=== PATIENT | male | born 1980 | race Caucasian/White ===

== ENCOUNTER 2018-08-19 14:04 | Inpatient (IN) | payer OTHER ==
[~2018-08-19] VITALS: Ht 180.3 cm; Wt 104.2 kg
[2018-08-19 16:34] VITALS: BP 122/73; PULSE 100; RESP 19
[2018-08-19 16:57] VITALS: PULSE 104
[2018-08-19 17:04] VITALS: Ht 180.3 cm; Wt 104.2 kg
--- NOTE | 2018-08-19 17:15 | HP ---
Date/Time of Note Date/Time of Note DATE: 08/19/18 TIME: 17:15 Assessment/Plan VTE Prophylaxis SCD applied (from [facility]): Yes Pharmacological prophylaxis: LMWH Assessment/Plan Assessment/Plan 1. Acute CHF exacerbation - Per ED records patient BNP was noted to be in the 2K - CXR from OSH consistent with pulmonary congestion and CHF - Will monitor I/O and daily weights - Lasix IV BID and when closer to dry weight will transition to PO - most likely secondary to acute URI triggering exacerbation - ECHO ordered to evaluate EF 2. HTN - continue home medications 3. h/o gastric bypass 4. DVT ppx - SCD 5. GI ppx - H2 talya 6. Diet - Cardiac 7. Disposition - Admit to telemetry for treatment of acute CHF exacerbation HPI/ROS Admit Date/Time Admit Date/Time Aug 19, 2018 at 15:56 Hx of Present Illness 38 yo M with PMH gastric bypass surgery and congestive heart failure was transferred from OSH after presenting with worsening shortness of breath over the past 1 week. Patient states he developed a cough with clear productive sputum and subjective fevers one week ago prior to SOB. Denies any sick contact and still with productive cough but no fevers. Patient states he knows he has been retaining fluid and has associated wheezing. Denies any dizziness, headache, chest pain, palpitations, nausea, vomiting, abdominal pain, or urinary symptoms. Labs reviewed. Cr 1.0 BUN 27, Na 140, K 4.5, Cl 107, and Co2 23 ROS All 12 systems reviewed and pertinent positives as per HPI. All others negative. Constitutional: No chills, No fatigue, No nausea Eyes: No discharge ENT: No congestion Respiratory: cough, shortness of breath, wheezing Cardiovascular: No chest pain, No lightheadedness, No palpitations Gastrointestinal: no complaints Genitourinary: no complaints Musculoskeletal: no complaints Skin: no complaints Neurologic: no complaints Endocrine: no complaints Lymphatic: no complaints Psychological: nl mood/affect Immunologic: no complaints PMH/Family/Social Past Medical History Medical History: congestive heart failure, hypertension Coded Allergies: No Known Allergies (Verified Allergy, Unknown, 08/19/18) Past Surgical History Past Surgical Hx: cholecystectomy, other (gastric bypass) Family History Significant Family History: no pertinent family hx Social History Alcohol Use: none Smoking Status: Former smoker Drug Use: none Exam/Review of Systems Vital Signs Vitals Vital Signs Date Temp Pulse Resp B/P (MAP) Pulse Ox O2 O2 Flow FiO2 Time Delivery Rate 08/19/18 104 16:57 08/19/18 98.0 19 122/73 96 16:34 (89) Exam Exam General: Patient is laying in bed, no acute distress. answering questions appropriately HEENT: NC/AT. PERRL. EOM intact. Neck: Supple Respiratory: Crackles diffusely but more prominent at bases. no wheezing or rhonchi Cardiovascular: S1, S2, sinus tachycardia. no obvious murmurs Gastrointestinal: Soft, non-tender to palpation, nondistended, bowel sounds heard. Neurological: no focal deficits. CN 2-12 intact Extremities: trace edema lower extremities bilaterally, no cyanosis or clubbing Skin: no rashes or lesions Additional Comments Home medications reviewed MIRIAM COLLIER MD Aug 19, 2018 17:15
[2018-08-19] MEDS ORDERED: NACL 0.9% 3 ML SYG IV SCH (17:30)
[2018-08-19] MEDS ORDERED: ONDANSETRON 4 MG INJ IV PRN (17:30)
[2018-08-19] MEDS ORDERED: ACETAMINOPHEN 325 MG TAB PO PRN (17:30)
[2018-08-19] MEDS ORDERED: DOCUSATE SODIUM 100 MG CAP PO PRN (17:30)
[2018-08-19] MEDS ORDERED: MAGNESIUM HYDROXIDE 30ML CUP PO PRN (17:30)
[2018-08-19] MEDS: FUROSEMIDE 40 MG INJ IV SCH (18:00)
[2018-08-19] MEDS ORDERED: GUAIFENESIN/DM 5ML CUP PO PRN (18:30)
[2018-08-19 20:00] VITALS: BP 116/73; PULSE 91; PULSE 99; RESP 18
[2018-08-19] MEDS: FAMOTIDINE 20 MG TAB PO SCH (20:19)
[2018-08-20] VITALS (11 sets, daily range): BP systolic 96–119; BP diastolic 61–70; PULSE 68–91; RESP 18–20
--- NOTE | 2018-08-20 03:03 | NUR ---
NOTES RECEIVED PT AWAKE ALERT ON BED WITH O2 VIA NASAL CANNULA. MEDS GIVEN. INSTRUCTED TO CALL THE NURSE WHEN HE NEEDED. PRN MEDS FOR COUGH GIVEN. WILL CONTINUE TO MONITOR PT.
[2018-08-20] MEDS: FUROSEMIDE 40 MG INJ IV SCH ×3 (05:35→17:36)
[2018-08-20] MEDS: FAMOTIDINE 20 MG TAB PO SCH ×2 (08:24→20:26)
[2018-08-20] MEDS: LOSARTAN 25 MG TAB PO SCH (08:25)
[2018-08-20] MEDS: ASPIRIN 81 MG TAB PO SCH (08:25)
[2018-08-20] MEDS: ENOXAPARIN 40 MG/0.4 ML SYG SC SCH (08:32)
--- NOTE | 2018-08-20 09:32 | PN ---
Date/Time of Note Date/Time of Note DATE: 08/20/18 TIME: 09:32 Assessment/Plan VTE Prophylaxis Risk score (from [facility] [place])>0 risk: 3 SCD applied (from [facility]): No SCD contraindicated: patient refusal Pharmacological prophylaxis: LMWH Lines/Catheters IV Catheter Type (from [facility]): Saline Lock Assessment/Plan Assessment/Plan 1. Acute CHF exacerbation - Patient followed by Dr. Rivas as outpatient and Cardiology group consulted for recommendations - BNP this am 5000 - CXR from OSH consistent with pulmonary congestion and CHF - Will monitor I/O and daily weights - Will increase Lasix to TID for better diuresis and await cardiology input - most likely secondary to acute URI triggering exacerbation - ECHO ordered to evaluate EF 2. HTN - continue home medications 3. h/o gastric bypass 4. Disposition - cardiology consultation placed for assistance with diuresis Result Diagram: 08/20/1816 08/20/18 0516 Results 24hrs Laboratory Tests Test 08/20/18 05:16 White Blood Count 5.7 Red Blood Count 4.55 L Hemoglobin 12.6 L Hematocrit 39.8 L Mean Corpuscular Volume 87.5 Mean Corpuscular Hemoglobin 27.7 L Mean Corpuscular Hemoglobin Concent 31.7 L Red Cell Distribution Width 14.4 Platelet Count 319 Mean Platelet Volume 9.8 Immature Granulocytes % 0.200 Neutrophils % 63.3 Lymphocytes % 25.9 Monocytes % 8.6 Eosinophils % 1.1 Basophils % 0.9 Nucleated Red Blood Cells % 0.0 Immature Granulocytes # 0.010 Neutrophils # 3.6 Lymphocytes # 1.5 Monocytes # 0.5 Eosinophils # 0.1 Basophils # 0.1 Nucleated Red Blood Cells # 0.0 Sodium Level 143 Potassium Level 4.0 Chloride Level 103 Carbon Dioxide Level 26 Anion Gap 14 H Blood Urea Nitrogen 26 H Creatinine 1.06 Est Glomerular Filtrat Rate mL/min > 60 Glucose Level 108 Hemoglobin A1c 5.5 Calcium Level 9.1 Magnesium Level 1.9 Total Bilirubin 0.5 Direct Bilirubin 0.00 Indirect Bilirubin 0.5 Aspartate Amino Transf (AST/SGOT) 35 Alanine Aminotransferase (ALT/SGPT) 41 Alkaline Phosphatase 68 B-Type Natriuretic Peptide 5670 H Total Protein 6.9 Albumin 3.6 Globulin 3.30 H Albumin/Globulin Ratio 1.09 Thyroid Stimulating Hormone (TSH) 1.190 Subjective 24 Hr Interval Summary Free Text/Dictation Patient states hes feeling better and has been urinary more. No acute overnight events. Exam/Review of Systems Exam Vitals Vital Signs Date Temp Pulse Resp B/P (MAP) Pulse Ox O2 O2 Flow FiO2 Time Delivery Rate 08/20/18 Nasal 2.0 08:00 Cannula 08/20/18 98.1 68 18 113/67 97 07:11 (82) Intake and Output 08/19/18 08/19/18 08/20/18 1515:00 23:00 07:00 IntakeIntake Total 450 ml 450 ml OutputOutput Total 800 ml 800 ml BalanceBalance -350 ml -350 ml Physical exam General: Patient is laying in bed, no acute distress. answering questions appropriately Respiratory: Crackles diffusely but more prominent at bases. no wheezing or rhonchi Cardiovascular: S1, S2, regular rate and rhythm. no obvious murmurs Gastrointestinal: Soft, non-tender to palpation, nondistended, bowel sounds heard. Extremities: trace edema lower extremities bilaterally, no cyanosis or clubbing Results Results 24hrs Laboratory Tests Test 08/20/18 05:16 White Blood Count 5.7 Red Blood Count 4.55 L Hemoglobin 12.6 L Hematocrit 39.8 L Mean Corpuscular Volume 87.5 Mean Corpuscular Hemoglobin 27.7 L Mean Corpuscular Hemoglobin Concent 31.7 L Red Cell Distribution Width 14.4 Platelet Count 319 Mean Platelet Volume 9.8 Immature Granulocytes % 0.200 Neutrophils % 63.3 Lymphocytes % 25.9 Monocytes % 8.6 Eosinophils % 1.1 Basophils % 0.9 Nucleated Red Blood Cells % 0.0 Immature Granulocytes # 0.010 Neutrophils # 3.6 Lymphocytes # 1.5 Monocytes # 0.5 Eosinophils # 0.1 Basophils # 0.1 Nucleated Red Blood Cells # 0.0 Sodium Level 143 Potassium Level 4.0 Chloride Level 103 Carbon Dioxide Level 26 Anion Gap 14 H Blood Urea Nitrogen 26 H Creatinine 1.06 Est Glomerular Filtrat Rate mL/min > 60 Glucose Level 108 Hemoglobin A1c 5.5 Calcium Level 9.1 Magnesium Level 1.9 Total Bilirubin 0.5 Direct Bilirubin 0.00 Indirect Bilirubin 0.5 Aspartate Amino Transf (AST/SGOT) 35 Alanine Aminotransferase (ALT/SGPT) 41 Alkaline Phosphatase 68 B-Type Natriuretic Peptide 5670 H Total Protein 6.9 Albumin 3.6 Globulin 3.30 H Albumin/Globulin Ratio 1.09 Thyroid Stimulating Hormone (TSH) 1.190 MIRIAM COLLIER MD Aug 20, 2018 09:32
--- NOTE | 2018-08-20 15:00 | NUR ---
PT EVALUATION AND DC , RN CLEARED , PATIENT AGREEABLE . PATIENT IS A 38 Y/O MALE ALERT AND ORIENTED TO SELF, SITUATION , WITH PMH: HTN , H.OF GASTRIC BYPASS AND CHF ADMITTED TO [facility] WITH ACUTE CHF EXACERBATION , PATIENT FOUND IN BED COOPERATIVE AND MOTIVATED , INSTRUCTED HIM IN SAFETY FALL PRECAUTION , AND A/ROM EXE'S BLE'S INCLUDING: AP, KNEE FLEX, EXT, SAQ , SLR , PATIENT IS IND.IN BED MOBILITY , TRANSFERS, GAIT TR WITHOUT AD PERFORMED 300' IND , GAIT WITHOUT AD , IS RECIPROCAL, STEADY, STABLE WITH NO LOB , NO FURTHER SKILLED PT REQUIRES , PATIENT IS CLEARED TO AMBULATE WITH NSG STAFF , O2 SAT WITH 2ML/NC 96% , WITHOUT SAT: 92% .RN NOTIFIED PATIENT'S PARTICIPATION IN PT SESSION . A: PATIENT LIVES WITH SISTER IN AN APARTMENT WITH ONE ENTRY STAIR , PATIENT HAS BEEN FUNCTIONAL AND IND .AMBULATORY WITHOUT AD , PLAN TO RETURN HOME ONCE CLEARED BY MD , NO DME NEEDS . P: PT EVALUATION ONLY .
--- NOTE | 2018-08-20 20:08 | RADRPT ---
Echocardiogram Report Patient Name: CATARINA GROSS Gender: Male Date: 1980 Study Date: 20-Aug-2018 Associate Professor Of Library Media: Jorge White [facility] Location: 622 Ref. Physician: MIRIAM COLLIER Quality: Adequate Procedures: Transthoracic echocardiogram with complete 2D, M-Mode, and doppler examination. Indications: Evaluate Left Ventricular function. Congestive Heart Failure exacerbation. 2D/M Mode Doppler Measurement Value Normal Ranges Measurement Value Normal Ranges LVIDd 2D 7.2 3.5 - 5.6 cm AV Peak Enrique 0.9 m/sec LVIDs 2D 6.6 2.1 - 4.1 cm AV Peak PG 3.0 mmHg LVPWd 2D 1.2 0.6 - 1.1 cm LVOT Peak Enrique 0.7 m/sec IVSd 2D 1.2 0.6 - 1.1 cm LVOT Peak PG 2.0 mmHg AoR Diam 2D 3.1 2.0 - 3.7 cm TAPSE 2.7 cm LA/Ao 2D 2 0 - 1 TR Peak Enrique 2.4 m/sec LA Dimen 2D 5.1 2.3 - 4.0 cm TR Peak PG 23.0 mmHg RVSP 31.0 mmHg RA Pressure 8.0 Findings Left Ventricle: Mild concentric left ventricular hypertrophy. Severe enlargement of left ventricle cavity. Severe global left ventricular systolic dysfunction. Ejection fraction is visually estimated at 20 %. Right Ventricle: Normal right ventricular size. Normal right ventricular systolic function. Left Atrium: There is moderate enlargement of left atrium. Right Atrium: There is moderate enlargement of right atrium. Mitral Valve: Mitral valve leaflets appear mildly thickened. Severe mitral valve regurgitation. The regurgitation jet is eccentrically directed which may underestimate the severity of mitral regurgitation. Aortic Valve: Normal trileaflet aortic valve structure. Tricuspid Valve: Normal appearance of the tricuspid valve. Estimated peak PA systolic pressure 31 mmHg. There is trace tricuspid regurgitation. Pulmonic Valve: Pulmonic valve not well visualized. There is trace pulmonic regurgitation. Pericardium: Normal pericardium with no significant pericardial effusion. Aorta: Normal aortic root. IVC: Dilated IVC with respiratory collapse consistent with elevated right atrial pressure. Conclusions Severely dilated left ventricle with severely reduced systolic function. Mild concentric left ventricular hypertrophy. Moderate biatrial enlargement. Abnormal anterior mitral valve leaflet movement with a posteriorly directed jet of severe mitral regurgitation. Trace tricuspid regurgitation and mild pulmonary hypertension. Dilated IVC suggests elevated right atrial pressures. Electronically Signed By: Bhavani Lindsey 20-Aug-2018 20:07:32 -0800 Patient Name: CATARINA GROSS Study Date: 20-Aug-2018 [id number]
[2018-08-21] VITALS (11 sets, daily range): BP systolic 97–110; BP diastolic 54–66; PULSE 59–112; RESP 16–20
[2018-08-21] MEDS: FUROSEMIDE 40 MG INJ IV SCH ×2 (05:21→17:36)
[2018-08-21] MEDS: ASPIRIN 81 MG TAB PO SCH (08:57)
[2018-08-21] MEDS: FAMOTIDINE 20 MG TAB PO SCH ×2 (08:58→20:54)
[2018-08-21] MEDS: LOSARTAN 25 MG TAB PO SCH (08:59)
[2018-08-21] MEDS: ENOXAPARIN 40 MG/0.4 ML SYG SC SCH (09:07)
--- NOTE | 2018-08-21 09:11 | PN ---
Date/Time of Note Date/Time of Note DATE: 08/21/18 TIME: 09:11 Assessment/Plan VTE Prophylaxis Risk score (from Ns)>0 risk: 2 SCD applied (from Ns): Yes Pharmacological prophylaxis: LMWH Lines/Catheters IV Catheter Type (from [facility]): Saline Lock Assessment/Plan Assessment/Plan 1. Acute CHF exacerbation - Patient followed by Dr. Rivas as outpatient and Cardiology group consulted for recommendations - ECHO results noted and EF 20%. will start on Spironolactone and monitor for tolerance - CXR from OSH consistent with pulmonary congestion and CHF - Will monitor I/O and daily weights - Continue Lasix BID - most likely secondary to acute URI triggering exacerbation - ECHO ordered to evaluate EF 2. HTN - continue home medications 3. h/o gastric bypass 4. Disposition - Continue current treatment - Cardiology consultation placed for further recommendations Result Diagram: 08/21/18 0517 08/21/18 0517 Results 24hrs Laboratory Tests Test 08/21/18 05:17 White Blood Count 5.7 Red Blood Count 4.55 L Hemoglobin 12.5 L Hematocrit 40.0 L Mean Corpuscular Volume 87.9 Mean Corpuscular Hemoglobin 27.5 L Mean Corpuscular Hemoglobin Concent 31.3 L Red Cell Distribution Width 14.6 H Platelet Count 340 Mean Platelet Volume 10.0 Immature Granulocytes % 0.400 Neutrophils % 59.9 Lymphocytes % 27.7 Monocytes % 9.1 Eosinophils % 1.8 Basophils % 1.1 Nucleated Red Blood Cells % 0.0 Immature Granulocytes # 0.020 Neutrophils # 3.4 Lymphocytes # 1.6 Monocytes # 0.5 Eosinophils # 0.1 Basophils # 0.1 Nucleated Red Blood Cells # 0.0 Sodium Level 142 Potassium Level 4.0 Chloride Level 101 Carbon Dioxide Level 31 Anion Gap 10 Blood Urea Nitrogen 28 H Creatinine 1.09 Glucose Level 87 Calcium Level 9.1 Phosphorus Level 5.1 H Magnesium Level 1.9 Albumin 3.5 Subjective 24 Hr Interval Summary Free Text/Dictation Patient states hes feeling slightly better and urinating more. Discussed the fact his EF is 20% and chambers dilated which is contributing to fluid overload. No acute overnight events. Exam/Review of Systems Exam Vitals Vital Signs Date Temp Pulse Resp B/P (MAP) Pulse Ox O2 O2 Flow FiO2 Time Delivery Rate 08/21/18 98.4 59 19 100/58 97 07:46 (72) 08/20/18 Room Air 20:24 08/20/18 2.0 08:00 Intake and Output 08/20/18 08/20/18 08/21/18 1414:59 22:59 06:59 IntakeIntake Total 240 ml 560 ml 300 ml OutputOutput Total 250 ml 1600 ml 800 ml BalanceBalance -10 ml -1040 ml -500 ml Exam General: Patient is laying in bed, no acute distress. answering questions appropriately Neck: supple Respiratory: Diminished with mild crackles. no wheezing appreciated Cardiovascular: S1, S2, regular rate and rhythm. no obvious murmurs Gastrointestinal: Soft, non-tender to palpation, nondistended, bowel sounds heard. Extremities: trace edema lower extremities bilaterally, no cyanosis or clubbing Skin: no rashes or lesions appreciated. Results Results 24hrs Laboratory Tests Test 08/21/18 05:17 White Blood Count 5.7 Red Blood Count 4.55 L Hemoglobin 12.5 L Hematocrit 40.0 L Mean Corpuscular Volume 87.9 Mean Corpuscular Hemoglobin 27.5 L Mean Corpuscular Hemoglobin Concent 31.3 L Red Cell Distribution Width 14.6 H Platelet Count 340 Mean Platelet Volume 10.0 Immature Granulocytes % 0.400 Neutrophils % 59.9 Lymphocytes % 27.7 Monocytes % 9.1 Eosinophils % 1.8 Basophils % 1.1 Nucleated Red Blood Cells % 0.0 Immature Granulocytes # 0.020 Neutrophils # 3.4 Lymphocytes # 1.6 Monocytes # 0.5 Eosinophils # 0.1 Basophils # 0.1 Nucleated Red Blood Cells # 0.0 Sodium Level 142 Potassium Level 4.0 Chloride Level 101 Carbon Dioxide Level 31 Anion Gap 10 Blood Urea Nitrogen 28 H Creatinine 1.09 Glucose Level 87 Calcium Level 9.1 Phosphorus Level 5.1 H Magnesium Level 1.9 Albumin 3.5 Medications Medication Current Medications IV Flush (NS 3 ml) 3 ml PER PROTOCOL IV ; Start 08/19/18 at 17:30 Ondansetron HCl (Zofran Inj) 4 mg Q6H PRN IV NAUSEA/VOMITING; Start 08/19/18 at 17:30 Acetaminophen (Tylenol Tab) 650 mg Q6H PRN PO .PAIN 1-3 OR TEMP; Start 08/19/18 at 17:30 Docusate Sodium (Colace) 100 mg Q12H PRN PO .CONSTIPATION; Start 08/19/18 at 17:30 Magnesium Hydroxide (Milk Of Mag) 30 ml DAILY PRN PO .CONSTIPATION; Start 08/19/18 at 17:30 Famotidine (Pepcid) 20 mg Q12 PO Last administered on 08/21/18at 08:58; Admin Dose 20 MG; Start 08/19/18 at 21:00 Enoxaparin Sodium (Lovenox) 40 mg DAILY SC Last administered on 08/21/18at 09:07; Admin Dose 40 MG; Start 08/20/18 at 09:00 Aspirin (Aspirin) 81 mg DAILY PO Last administered on 08/21/18 08:57; Admin Dose 81 MG; Start 08/20/18 at 09:00 Losartan Potassium (Cozaar) 12.5 mg DAILY PO Last administered on 08/21/18at 08:59; Admin Dose 12.5 MG; Start 08/20/18 at 09:00 Carvedilol (Coreg) 12.5 mg BID PO Last administered on 08/21/18 08:58; Admin Dose 12.5 MG; Start 08/19/18 at 21:00 Guaifenesin/ Dextromethorphan (Robitussin Dm Liquid Cup) 10 ml Q4H PRN PO cough Last administered on 08/19/18 19:50; Admin Dose 10 ML; Start 08/19/18 at 18:30 Furosemide (Lasix) 40 mg TID@0600,1200,1800 IV Last administered on 08/21/18 05:21; Admin Dose 40 MG; Start 08/20/18 at 13:00 MIRIAM COLLIER MD Aug 21, 2018 09:11
[2018-08-21] MEDS: SPIRONOLACTONE 50 MG TAB PO SCH (10:56)
--- NOTE | 2018-08-21 15:12 | CONS ---
DATE OF ADMISSION: 08/19/2018 DATE OF CONSULTATION: 08/20/2018 REASON FOR CONSULTATION: Acute exacerbation of congestive heart failure. HISTORY OF PRESENT ILLNESS: The patient is a 38-year-old gentleman who comes in with worsening short ness of breath for the past 2 days associated with orthopnea, no PND. Denies chest pain, denies palp itation. Complains of mild dizziness, but no syncope. No nausea, vomiting, no headache or blurry vi marjan. No fever, chills, or rigors. He was recently diagnosed with nonischemic cardiomyopathy. PAST MEDICAL HISTORY: 1. Nonischemic cardiomyopathy. 2. Hypertension. SOCIAL HISTORY: History of smoking, no alcohol. ALLERGIES: NONE. CURRENT MEDICATIONS: 1. Coreg. 2. Lovenox. 3. Aspirin. 4. Losartan. 5. Aldactone. 6. Lasix. 7. Famotidine. REVIEW OF SYSTEMS: Unremarkable except that mentioned in the HPI. PHYSICAL EXAM: VITAL SIGNS: Temperature 98.5, heart rate of 86, blood pressure 118/61 mmHg, breathing at 20, satura ting 97% on room air. GENERAL: Patient awake, alert, oriented, in no apparent distress. NECK: No JVD or carotid bruit. CARDIOVASCULAR: Regular rate and rhythm. No murmur, rub or gallop. LUNGS: Clear to auscultation. ABDOMEN: Soft. Bowel sounds are present. There is no organomegaly. EXTREMITIES: No pedal edema. DIAGNOSTIC DATA: Review of tele strip shows sinus rhythm with a ventricular 70 beats per minute. A 12-lead EKG will be repeated. Echocardiogram shows the left ventricular ejection fraction 20% with dilated LV with severe MR with n o pulmonary arterial hypertension. LABORATORY DATA: WBC 5.7, hemoglobin 12.5, hematocrit 40 with a platelet of 340. Sodium 143, potass ium 4, chloride 103, CO2 26, BUN 26, creatinine 1.06, magnesium 1.9. BNP 5670. TSH 1.19. ASSESSMENT AND PLAN: 1. A 38-year-old gentleman with acute exacerbation of severe systolic heart failure. 2. Severe mitral valve regurgitation. 3. Hypertension. RECOMMENDATIONS: 1. EKG stat. 2. Chest x-ray stat. 3. Trend troponin q.8 x3. 4. Continue diuresis with Lasix. 5. Restrict fluids to 1500 mL/24 hours. 6. Continue Coreg. 7. Continue losartan. 8. Continue Aldactone. 9. Continue GI prophylaxis. Dictated By: LUZ SPANN MD, SR/VANESSA Conf#: [id number] DID#: [id number]
--- NOTE | 2018-08-21 18:01 | NUR ---
EOSS;PT AWAKE,ALERT ORIENTED X4;NSR 70'S;BLOOD PRESSURE 90-100;DENIES PAIN/DISTRESS;SELF TURNING;HOURLY ROUNDING PERFORMED;CON'T POC
[2018-08-22] VITALS (9 sets, daily range): BP systolic 98–106; BP diastolic 52–64; PULSE 64–86; RESP 15–20
[2018-08-22] MEDS: FUROSEMIDE 40 MG INJ IV SCH (05:26)
--- NOTE | 2018-08-22 08:21 | PN ---
Date/Time of Note Date/Time of Note DATE: 08/22/18 TIME: 08:21 Assessment/Plan VTE Prophylaxis Risk score (from [facility])>0 risk: 3 SCD applied (from [facility] [place]): No SCD contraindicated: other Pharmacological prophylaxis: LMWH Lines/Catheters IV Catheter Type (from [facility]): Saline Lock Assessment/Plan Assessment/Plan 1. Acute CHF exacerbation- improving - Cardiology consultation appreciated and patient follows with Dr. Rivas as outpatient. Assisting with diuretic management - serial trops negative - ECHO results noted and EF 20%. Started on Spironolactone and currently on L asix BID. Appears to be almost at dry weight and will transition to PO Lasix tomorrow - CXR from OSH consistent with pulmonary congestion and CHF - Will monitor I/O and daily weights - most likely secondary to acute URI triggering exacerbation - ECHO ordered to evaluate EF 2. HTN - continue home medications 3. h/o gastric bypass 4. Disposition - Cardiology on board and appreciate recommendations - Will transition to PO Lasix tomorrow and if improving, can be d/c in 24-48 hours Result Diagram: 08/21/18 0517 08/21/18 0517 Results 24hrs Laboratory Tests Test 08/21/18 18:05 08/22/18 00:22 08/22/18 05:11 Troponin I < 0.012 0.017 0.020 Subjective 24 Hr Interval Summary Free Text/Dictation Patient doing well and states respiratory status is improving. Does admit to increase in urine output. No acute overnight events. Exam/Review of Systems Exam Vitals Vital Signs Date Temp Pulse Resp B/P (MAP) Pulse Ox O2 O2 Flow FiO2 Time Delivery Rate 08/22/18 98.1 64 16 106/64 96 Nasal 2.0 07:12 (78) Cannula Intake and Output 08/21/18 08/21/18 08/22/18 1515:00 23:00 07:00 IntakeIntake Total 600 ml 300 ml OutputOutput Total 500 ml 1700 ml 1800 ml BalanceBalance -500 ml -1100 ml -1500 ml Exam General: Patient is laying in bed, no acute distress. answering questions appropriately Neck: supple Respiratory: Diminished. no crackles or wheezing appreciated Cardiovascular: S1, S2, regular rate and rhythm. no obvious murmurs Gastrointestinal: Soft, non-tender to palpation, nondistended, bowel sounds heard. Extremities: trace edema lower extremities bilaterally, no cyanosis or clubbing Skin: no rashes or lesions appreciated. Results Results 24hrs Laboratory Tests Test 08/21/18 18:05 08/22/18 00:22 08/22/18 05:11 Troponin I < 0.012 0.017 0.020 Medications Medication Current Medications IV Flush (NS 3 ml) 3 ml PER PROTOCOL IV ; Start 08/19/18 at 17:30 Ondansetron HCl (Zofran Inj) 4 mg Q6H PRN IV NAUSEA/VOMITING; Start 08/19/18 at 17:30 Acetaminophen (Tylenol Tab) 650 mg Q6H PRN PO .PAIN 1-3 OR TEMP; Start 08/19/18 at 17:30 Docusate Sodium (Colace) 100 mg Q12H PRN PO .CONSTIPATION; Start 08/19/18 at 17:30 Magnesium Hydroxide (Milk Of Mag) 30 ml DAILY PRN PO .CONSTIPATION; Start 08/19/18 at 17:30 Famotidine (Pepcid) 20 mg Q12 PO Last administered on 08/21/18at 20:54; Admin Dose 20 MG; Start 08/19/18 at 21:00 Enoxaparin Sodium (Lovenox) 40 mg DAILY SC Last administered on 08/21/18at 09:07; Admin Dose 40 MG; Start 08/20/18 at 09:00 Aspirin (Aspirin) 81 mg DAILY PO Last administered on 08/21/18at 08:57; Admin Dose 81 MG; Start 08/20/18 at 09:00 Losartan Potassium (Cozaar) 12.5 mg DAILY PO Last administered on 08/21/18at 08:59; Admin Dose 12.5 MG; Start 08/20/18 at 09:00 Carvedilol (Coreg) 12.5 mg BID PO Last administered on 08/21/18at 20:53; Admin Dose 12.5 MG; Start 08/19/18 at 21:00 Guaifenesin/ Dextromethorphan (Robitussin Dm Liquid Cup) 10 ml Q4H PRN PO cough Last administered on 08/19/18at 19:50; Admin Dose 10 ML; Start 08/19/18 at 18:30 Furosemide (Lasix) 40 mg BID DIURETICS IV Last administered on 08/22/18at 05:26; Admin Dose 40 MG; Start 08/21/18 at 18:00 Spironolactone (Aldactone) 25 mg DAILY PO Last administered on 08/21/18at 10:56; Admin Dose 25 MG; Start 08/21/18 at 10:00 MIRIAM COLLIER MD Aug 22, 2018 08:21
[2018-08-22] MEDS: ASPIRIN 81 MG TAB PO SCH (08:37)
[2018-08-22] MEDS: FAMOTIDINE 20 MG TAB PO SCH ×2 (08:37→20:45)
[2018-08-22] MEDS: LOSARTAN 25 MG TAB PO SCH (08:39)
[2018-08-22] MEDS: SPIRONOLACTONE 50 MG TAB PO SCH (08:39)
[2018-08-22] MEDS: ENOXAPARIN 40 MG/0.4 ML SYG SC SCH (08:45)
--- NOTE | 2018-08-22 15:47 | CONS ---
Assessment/Plan Cardiology NYHA: III Heart Failure Type: Acute on Chronic Heart Failure Type: Systolic Assessment/Plan Assessment/Plan (Daily) ASSESSMENT AND PLAN: 1. A 38-year-old gentleman with acute exacerbation of severe systolic heart failure. 2. Severe mitral valve regurgitation. 3. Hypertension. he has diuresed well negative 8250cc since admission Continue diuresis with Lasix changed to PO Restrict fluids to 1500 mL/24 hours. Continue Coreg. Continue losartan. Continue Aldactone. Continue GI prophylaxis Anticipate discharge tomorrow. Consultation Date/Type/Reason Admit Date/Time Aug 19, 2018 at 15:56 Initial Consult Date Type of Consult Cardiology Date/Time of Note DATE: 08/22/18 TIME: 15:43 Exam/Review of Systems Vital Signs Vitals Vital Signs Date Temp Pulse Resp B/P (MAP) Pulse Ox O2 O2 Flow FiO2 Time Delivery Rate 08/22/18 98.2 80 15 98/52 (67) 98 Room Air 15:26 08/22/18 2.0 08:00 Intake and Output 08/21/18 08/21/18 08/22/18 1515:00 23:00 07:00 IntakeIntake Total 600 ml 300 ml OutputOutput Total 500 ml 1700 ml 1800 ml BalanceBalance -500 ml -1100 ml -1500 ml Exam Constitutional: alert, oriented Head: normocephalic, atraumatic Neck: supple, non-tender Respiratory: clear to auscultation, other (no m/r/g) Cardiovascular: regular rate and rhythm (no m/r/g) Gastrointestinal: soft, nl liver, spleen Extremities: normal pulses, other (edema improving) Labs Result Diagram: 08/21/1851608/21/18516 Results 24hrs Laboratory Tests Test 08/21/18 18:05 08/22/18 00:22 08/22/18 05:11 08/22/18 12:15 Troponin I < 0.012 0.017 0.020 < 0.012 Medications Medications Current Medications IV Flush (NS 3 ml) 3 ml PER PROTOCOL IV ; Start 08/19/18 at 17:30 Ondansetron HCl (Zofran Inj) 4 mg Q6H PRN IV NAUSEA/VOMITING; Start 08/19/18 at 17:30 Acetaminophen (Tylenol Tab) 650 mg Q6H PRN PO .PAIN 1-3 OR TEMP; Start 08/19/18 at 17:30 Docusate Sodium (Colace) 100 mg Q12H PRN PO .CONSTIPATION; Start 08/19/18 at 17:30 Magnesium Hydroxide (Milk Of Mag) 30 ml DAILY PRN PO .CONSTIPATION; Start 08/19/18 at 17:30 Famotidine (Pepcid) 20 mg Q12 PO Last administered on 08/22/18 08:37; Admin Dose 20 MG; Start 08/19/18 at 21:00 Enoxaparin Sodium (Lovenox) 40 mg DAILY SC Last administered on 08/22/18 08:45; Admin Dose 40 MG; Start 08/20/18 at 09:00 Aspirin (Aspirin) 81 mg DAILY PO Last administered on 08/22/18 08:37; Admin Dose 81 MG; Start 08/20/18 at 09:00 Losartan Potassium (Cozaar) 12.5 mg DAILY PO Last administered on 08/22/18 08:39; Admin Dose 12.5 MG; Start 08/20/18 at 09:00 Carvedilol (Coreg) 12.5 mg BID PO Last administered on 08/22/18 08:38; Admin Dose 12.5 MG; Start 08/19/18 at 21:00 Guaifenesin/ Dextromethorphan (Robitussin Dm Liquid Cup) 10 ml Q4H PRN PO cough Last administered on 08/19/18 19:50; Admin Dose 10 ML; Start 08/19/18 at 18:30 Furosemide (Lasix) 40 mg BID DIURETICS IV Last administered on 08/22/18at 05:26; Admin Dose 40 MG; Start 08/21/18 at 18:00; Stop 08/22/18 at 23:55 Spironolactone (Aldactone) 25 mg DAILY PO Last administered on 08/22/18 08:39; Admin Dose 25 MG; Start 08/21/18 at 10:00 Furosemide (Lasix) 40 mg DAILY PO ; Start 08/23/18 at 09:00 LUZ SPANN M.D. Aug 22, 2018 15:47
--- NOTE | 2018-08-22 18:33 | NUR ---
EOSS;PT REMAINS HEMODYNAMICALLY STABLE;PAIN FREE;ALL NEEDS MET;CON'T POC
[2018-08-23] VITALS (9 sets, daily range): BP systolic 98–110; BP diastolic 55–57; PULSE 73–89; RESP 16–18
--- NOTE | 2018-08-23 06:17 | NUR ---
END OF SHIFT REPORT NO UNDUE DEVELOPMENT. NO COMPLAINT. STABLE VITALS Addendum: 08/23/18 at 0631 by SAIGE MA RN PATIENT ON FLUID RESTRICTION TO 1500/DAY
[2018-08-23] MEDS: FUROSEMIDE 40 MG TAB PO SCH (08:24)
[2018-08-23] MEDS: FAMOTIDINE 20 MG TAB PO SCH ×2 (08:24→20:54)
[2018-08-23] MEDS: SPIRONOLACTONE 50 MG TAB PO SCH (08:25)
[2018-08-23] MEDS: ASPIRIN 81 MG TAB PO SCH (08:25)
[2018-08-23] MEDS: LOSARTAN 25 MG TAB PO SCH (08:26)
[2018-08-23] MEDS: ENOXAPARIN 40 MG/0.4 ML SYG SC SCH (08:30)
[2018-08-23] MEDS ORDERED: FUROSEMIDE 40 MG TAB PO SCH (09:00)
--- NOTE | 2018-08-23 10:10 | NUR ---
OT EVAL: PATIENT IS A 38 Y/O MALE PMH: HTN , H.OF GASTRIC BYPASS AND CHF ADMITTED TO [facility] WITH ACUTE CHF EXACERBATION PLOF: PATIENT LIVES WITH SISTER IN AN APARTMENT WITH ONE ENTRY STAIR , PATIENT WAS INDEPENDENT WITH ADL'S AND AMBULATORY WITHOUT AD. CLOF: RN cleared pt for skilled OT tx. Pt received supine in bed on 2 ltrs of O2. Pt AOX4, demonstrated BUE AROM WFL -MMT 5/5 and stated 0/10 pain. Pt demonstrated bed mob, functional mob and transfers independently with good safety awareness. Pt performed UB/LB dressing and h/g independently. Pt returned to bed with all needs met RN notified. Pt is independent with ADL's- no skilled OT warranted- D/C OT.
--- NOTE | 2018-08-23 10:35 | CONS ---
Assessment/Plan Cardiology NYHA: III Heart Failure Type: Acute on Chronic Heart Failure Type: Systolic Assessment/Plan Assessment/Plan (Daily) 1. A 38-year-old gentleman with acute exacerbation of severe systolic heart failure. 2. Severe mitral valve regurgitation. 3. Hypertension. he has diuresed well negative 8250cc since admission Continue diuresis with Lasix changed to PO Restrict fluids to 1500 mL/24 hours. Continue Coreg. Continue losartan. Continue Aldactone. Continue GI prophylaxis Stable for discharge and follow up in 1 week in office Consultation Date/Type/Reason Admit Date/Time Aug 19, 2018 at 15:56 Initial Consult Date Type of Consult Cardiology Date/Time of Note DATE: 08/23/18 TIME: 10:33 Exam/Review of Systems Vital Signs Vitals Vital Signs Date Temp Pulse Resp B/P (MAP) Pulse Ox O2 O2 Flow FiO2 Time Delivery Rate 08/23/18 83 08:01 08/23/18 97.8 16 101/56 97 Room Air 07:32 (71) 08/22/18 2.0 20:00 Intake and Output 08/22/18 08/22/18 08/23/18 1414:59 22:59 06:59 IntakeIntake Total 1140 ml 300 ml OutputOutput Total 650 ml 600 ml BalanceBalance 490 ml -300 ml Exam Exam Constitutional: alert, oriented Head: normocephalic, atraumatic Neck: supple, non-tender Respiratory: clear to auscultation, other (no m/r/g) Cardiovascular: regular rate and rhythm (no m/r/g) Gastrointestinal: soft, nl liver, spleen Extremities: normal pulses, trace pedal edema Labs Result Diagram: 08/23/18 0502 08/23/18 0502 Results 24hrs Laboratory Tests Test 08/22/18 12:15 08/22/18 18:52 08/23/18 05:02 08/23/18 07:56 Troponin I < 0.012 0.018 White Blood Count 5.3 Red Blood Count 4.52 L Hemoglobin 12.7 L Hematocrit 40.2 L Mean Corpuscular 88.9 Volume Mean Corpuscular 28.1 L Hemoglobin Mean Corpuscular 31.6 L Hemoglobin Concent Red Cell 14.8 H Distribution Width Platelet Count 345 Mean Platelet Volume 9.8 Immature 0.200 Granulocytes % Neutrophils % 50.2 Lymphocytes % 35.5 Monocytes % 10.7 Eosinophils % 2.3 Basophils % 1.1 Nucleated Red Blood 0.0 Cells % Immature 0.010 Granulocytes # Neutrophils # 2.7 Lymphocytes # 1.9 Monocytes # 0.6 Eosinophils # 0.1 Basophils # 0.1 Nucleated Red Blood 0.0 Cells # Sodium Level 141 Potassium Level 4.4 Chloride Level 98 Carbon Dioxide Level 34 H Anion Gap 9 Blood Urea Nitrogen 29 H Creatinine 1.10 Glucose Level 81 Calcium Level 9.1 Phosphorus Level 4.7 Magnesium Level 2.3 Albumin 3.6 Bedside Glucose 155 Medications Medications Current Medications IV Flush (NS 3 ml) 3 ml PER PROTOCOL IV ; Start 08/19/18 at 17:30 Ondansetron HCl (Zofran Inj) 4 mg Q6H PRN IV NAUSEA/VOMITING; Start 08/19/18 at 17:30 Acetaminophen (Tylenol Tab) 650 mg Q6H PRN PO .PAIN 1-3 OR TEMP; Start 08/19/18 at 17:30 Docusate Sodium (Colace) 100 mg Q12H PRN PO .CONSTIPATION; Start 08/19/18 at 17:30 Magnesium Hydroxide (Milk Of Mag) 30 ml DAILY PRN PO .CONSTIPATION; Start 08/19/18 at 17:30 Famotidine (Pepcid) 20 mg Q12 PO Last administered on 08/23/18at 08:24; Admin Dose 20 MG; Start 08/19/18 at 21:00 Enoxaparin Sodium (Lovenox) 40 mg DAILY SC Last administered on 08/23/18at 0 8:30; Admin Dose 40 MG; Start 08/20/18 at 09:00 Aspirin (Aspirin) 81 mg DAILY PO Last administered on 08/23/18at 08:25; Admin Dose 81 MG; Start 08/20/18 at 09:00 Losartan Potassium (Cozaar) 12.5 mg DAILY PO Last administered on 08/23/18 08:26; Admin Dose 12.5 MG; Start 08/20/18 at 09:00 Carvedilol (Coreg) 12.5 mg BID PO Last administered on 08/23/18 08:26; Admin Dose 12.5 MG; Start 08/19/18 at 21:00 Guaifenesin/ Dextromethorphan (Robitussin Dm Liquid Cup) 10 ml Q4H PRN PO cough Last administered on 08/19/18at 19:50; Admin Dose 10 ML; Start 08/19/18 at 18:30 Spironolactone (Aldactone) 25 mg DAILY PO Last administered on 08/23/18at 08:25; Admin Dose 25 MG; Start 08/21/18 at 10:00 Furosemide (Lasix) 40 mg DAILY PO Last administered on 08/23/18at 08:24; Admin Dose 40 MG; Start 08/23/18 at 09:00 LUZ SPANN M.D. Aug 23, 2018 10:35
--- NOTE | 2018-08-23 17:18 | PN ---
Date/Time of Note Date/Time of Note DATE: 08/23/18 TIME: 17:18 Objective Vitals Vital Signs Date Temp Pulse Resp B/P (MAP) Pulse Ox O2 O2 Flow FiO2 Time Delivery Rate 08/23/18 83 16:01 08/23/18 97.6 18 110/56 97 Room Air 15:31 (74) 08/23/18 2.0 08:00 Intake and Output 08/22/18 08/22/18 08/23/18 1515:00 23:00 07:00 IntakeIntake Total 1140 ml 300 ml OutputOutput Total 650 ml 600 ml BalanceBalance 490 ml -300 ml Results Result Diagram: 08/23/18 0502 08/23/18 0502 Medications Medications Current Medications IV Flush (NS 3 ml) 3 ml PER PROTOCOL IV ; Start 08/19/18 at 17:30 Ondansetron HCl (Zofran Inj) 4 mg Q6H PRN IV NAUSEA/VOMITING; Start 08/19/18 at 17:30 Acetaminophen (Tylenol Tab) 650 mg Q6H PRN PO .PAIN 1-3 OR TEMP; Start 08/19/18 at 17:30 Docusate Sodium (Colace) 100 mg Q12H PRN PO .CONSTIPATION; Start 08/19/18 at 17:30 Magnesium Hydroxide (Milk Of Mag) 30 ml DAILY PRN PO .CONSTIPATION; Start 08/19/18 at 17:30 Famotidine (Pepcid) 20 mg Q12 PO Last administered on 08/23/18at 08:24; Admin Dose 20 MG; Start 08/19/18 at 21:00 Enoxaparin Sodium (Lovenox) 40 mg DAILY SC Last administered on 08/23/18at 08:30; Admin Dose 40 MG; Start 08/20/18 at 09:00 Aspirin (Aspirin) 81 mg DAILY PO Last administered on 08/23/18 08:25; Admin Dose 81 MG; Start 08/20/18 at 09:00 Losartan Potassium (Cozaar) 12.5 mg DAILY PO Last administered on 08/23/18 08:26; Admin Dose 12.5 MG; Start 08/20/18 at 09:00 Carvedilol (Coreg) 12.5 mg BID PO Last administered on 08/23/18 08:26; Admin D ose 12.5 MG; Start 08/19/18 at 21:00 Guaifenesin/ Dextromethorphan (Robitussin Dm Liquid Cup) 10 ml Q4H PRN PO cough Last administered on 08/19/18at 19:50; Admin Dose 10 ML; Start 08/19/18 at 18:30 Spironolactone (Aldactone) 25 mg DAILY PO Last administered on 08/23/18at 08:25; Admin Dose 25 MG; Start 08/21/18 at 10:00 Furosemide (Lasix) 40 mg DAILY PO Last administered on 08/23/18at 08:24; Admin Dose 40 MG; Start 08/23/18 at 09:00 VTE Prophylaxis Risk score (from Ns)>0 risk: 3 [place] [facility] [place] contraindication: other Lines/Catheters IV Catheter Type: Valentine in Place: No Assessment/Plan Hospital Course Subjective Patient feeling well Objective Physical exam General: Patient is laying in bed and answers questions appropriately Mentation: Patient is alert and oriented 4, Head: Normocephalic atraumatic Eyes: EOMI, pupils reactive to light Neck: Supple, nontender, midline Respiratory: Clear to auscultation bilaterally Cardiovascular: regular rate, no obvious murmurs Gastrointestinal: non-tender to palpation, bowel sounds heard. Neurological: Moves all extremities spontaneously Skin: No new skin lesions Assessment/Plan 1. Acute CHF exacerbation- improving - Cardiology consultation appreciated and patient follows with Dr. Rivas as outpatient. Assisting with diuretic management - serial trops negative - ECHO results noted and EF 20%. Started on Spironolactone and currently on Lasix BID. Appears to be almost at dry weight and will transition to PO Lasix today - CXR from OSH consistent with pulmonary congestion and CHF - Will monitor I/O and daily weights - most likely secondary to acute URI triggering exacerbation - ECHO ordered to evaluate EF 2. HTN - continue home medications 3. h/o gastric bypass 4. Disposition -DC tomorrow if o2 sat stable JYO LEY Aug 23, 2018 17:18
--- NOTE | 2018-08-23 19:23 | NUR ---
RN NOTE PT IN STABLE CONDITION , NO ACUTE DISTRESS NOTED IN THIS SHIFT .
[2018-08-24] VITALS (7 sets, daily range): BP systolic 97–109; BP diastolic 53–58; PULSE 78–88; RESP 17–18
--- NOTE | 2018-08-24 06:33 | NUR ---
RN NOTES: VS STABLE. NO C/O DISCOMFORT. O2 AT 96% ON ROOM AIT. PT SLEPT DURING SHIFT. WILL F/U WITH AM SHIFT.
[2018-08-24] MEDS: FUROSEMIDE 40 MG TAB PO SCH (08:06)
[2018-08-24] MEDS: FAMOTIDINE 20 MG TAB PO SCH (08:06)
[2018-08-24] MEDS: ASPIRIN 81 MG TAB PO SCH (08:07)
[2018-08-24] MEDS: LOSARTAN 25 MG TAB PO SCH (08:07)
[2018-08-24] MEDS: SPIRONOLACTONE 50 MG TAB PO SCH (08:08)
[2018-08-24] MEDS: ENOXAPARIN 40 MG/0.4 ML SYG SC SCH (08:12)
[2018-08-24] MEDS ORDERED: SPIR50TA PO (13:48)
[2018-08-24] MEDS ORDERED: FURO40TA4 PO (13:48)
[2018-08-24] MEDS ORDERED: LOSA25TA2 PO (13:48)
[2018-08-24] MEDS ORDERED: CARV12.579 PO (13:48)
[2018-08-24] MEDS ORDERED: ASPI-831 PO (13:48)
--- NOTE | 2018-08-24 13:53 | DS ---
Date/Time of Note Date/Time of Note DATE: 08/24/18 TIME: 13:52 Discharge Summary Admission/Discharge Info Admit Date/Time Aug 19, 2018 at 15:56 Discharge Date/Time Patient Condition: Stable Hospital Course Patient is a male who has a past medical history of congestive heart failure with ejection fraction of 20% who follows up with a excavating supervisor in the outpatient setting. Patient was originally admitted for CHF exacerbation and was admitted inpatient and followed by a excavating supervisor. Patient's excavating supervisor on and adjust medications and eventually deemed patient safe to be discharged to the outpatient setting. Patient's medications were adjusted and new medication aspirin lactone was added to patient's regimen. Patient doing well, on room a ir, with no acute complaints or shortness of breath and will be discharged to follow-up with his excavating supervisor within 1 week. Discharge diagnosis Acute CHF exacerbation, systolic Hypertension History of gastric bypass Obesity Home Meds Active Scripts Spironolactone* (Aldactone*) 50 Mg Tablet, 25 MG PO DAILY for 30 Days, #30 TAB Prov:JOY LEY 08/24/18 Primary Care Provider Not On Staff Doctor Time spent on discharge: > 30 minutes JOY LEY Aug 24, 2018 13:52
--- NOTE | 2018-08-24 13:56 | PDOCDIS ---
Discharge Instructions CONDITION [id number] Patient Condition: [id number] Stable ACTIVITY: [id number] Activity Restrictions: [id number] Slowly Increase Activity FOLLOW UP/APPOINTMENTS Follow-up Plan 1. 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 JOY LEY Aug 24, 2018 13:56
--- NOTE | 2018-08-24 16:49 | NUR ---
RN NOTE DC THE PT IN STABLE CONDITION . ALL THE CONCERN AND QUESTIONS HAS BEEN ADDRESSED .
[2018-09-02] MEDS ORDERED: SPIR25TA PO (07:09)
[2018-09-03] MEDS ORDERED: FURO-110 PO (13:54)
== END 2018-08-24 16:40 | disposition home or self-care (01) | DRG 293 ==
LOC: 6WM 15:56
PROVIDERS: ADMIT Internal Medicine; ATTEND Internal Medicine
DX: I11.0 Hypertensive heart disease with heart failure (principal); I50.23 Acute on chronic systolic (congestive) heart failure; I34.0 Nonrheumatic mitral (valve) insufficiency; E66.9 Obesity, unspecified; I42.8 Other cardiomyopathies; Z68.32 Body mass index [BMI] 32.0-32.9, adult; Z98.84 Bariatric surgery status
CPT/HCPCS: 71045; 80053; 80069; 82962; 83036; 83735; 83880; 84443; 84484; 85025; 93306; 97161; 97165; J1650; J1940

== ENCOUNTER 2018-09-18 22:17 | Inpatient (IN) | payer OTHER ==
[~2018-09-18] VITALS: Ht 177.8 cm; Wt 105.2 kg
[~2018-09-18 22:17] MED LIST: ASPI-831 PO; CARV12.579 PO; FURO-110 PO; LOSA25TA2 PO; SPIR25TA PO
[2018-09-19] VITALS (9 sets, daily range): BP systolic 99–122; BP diastolic 57–69; PULSE 82–99; RESP 15–18; Ht 177.8 cm; Wt 105.2 kg
[2018-09-19] MEDS ORDERED: IPRATROPIUM (NEB) 0.5 MG/2.5 ML AMP INH STA (01:09)
[2018-09-19] MEDS ORDERED: ALBUTEROL 0.5% (NEB) 2.5 MG/0.5 ML AMP INH STA (01:09)
[2018-09-19] MEDS ORDERED: FUROSEMIDE 40 MG INJ IV ONE (01:30)
[2018-09-19] MEDS ORDERED: ACETAMINOPHEN 325 MG TAB PO PRN ×2 (02:30→03:00)
[2018-09-19] MEDS ORDERED: ONDANSETRON 4 MG INJ IV PRN (02:30)
--- NOTE | 2018-09-19 02:35 | ERD ---
ER Documentation Chief Complaint Chief Complaint RETAINING FLUID, SOB X'S 2 DAYS. HX OF CHF HPI This is a 38-year-old male with a past medical history of hypertension, obesity status post gastric bypass, congestive heart failure with an ejection fraction of 20% requiring frequent admissions for diuresis who is presenting with 2-3 d ays of progressive worsening shortness of breath, dyspnea on exertion and bilateral lower extremity edema. The patient endorses weight gain over the last 2 days and is concerned that he is retaining fluid. He is dyspneic, only able to speak in 2-3 word sentences. The patient does not endorse any significant chest pain, but he does occasionally have chest pressure. The patient denies any episodes of diaphoresis. He does not endorse lightheadedness or dizziness. He does not endorse nausea or vomiting. The patient denies feeling sick recently. The patient denies fever or chills. The patient has had no headache or vision changes. The patient does not endorse neck or back pain. The patient denies abdominal pain. The patient denies changes to bowel movements or urination. The patient has had no focal deficits. The patient has had no weakness or numbness or tingling to the face or extremities. ROS All systems reviewed and are negative except as per history of present illness. Medications Home Meds Active Scripts Furosemide* (Lasix*) 20 Mg Tablet, 20 MG PO BID, #60 TAB 1 Refill Prov:JOSEPHALEXIS 09/03/18 Aspirin (Aspirin) 81 Mg Chew, 81 MG PO DAILY for 30 Days, TAB Prov:JOY LEY 08/24/18 Carvedilol* (Carvedilol*) 12.5 Mg Tablet, 12.5 MG PO BID for 30 Days, #60 TAB Prov:JOY LEY 08/24/18 Losartan Potassium* (Cozaar*) 25 Mg Tablet, 12.5 MG PO DAILY for 30 Days, TAB Prov:JOY LEY 08/24/18 Reported Medications Spironolactone* (Aldactone*) 25 Mg Tablet, 25 MG PO DAILY, #30 TAB 09/02/18 Allergies Allergies: Coded Allergies: No Known Allergies (Verified Allergy, Unknown, 08/19/18) PMhx/Soc History of Surgery: Yes (gastric bypass) Anesthesia Reaction: No Hx Neurological Disorder: No Hx Respiratory Disorders: No Hx Cardiac Disorders: Yes (CHF, HTN) Hx Psychiatric Problems: No Hx Miscellaneous Medical Probl: No Hx Alcohol Use: No Hx Substance Use: No Hx Tobacco Use: No Smoking Status: Never smoker FmHx Family History: No diabetes Physical Exam Vitals Vital Signs Date Temp Pulse Resp B/P (MAP) Pulse Ox O2 O2 Flow FiO2 Time Delivery Rate 09/18/18 97.5 89 20 146/82 99 Room Air 23:15 (103) 09/18/18 Nasal 23:15 Cannula 09/18/18 97.5 72 20 140/80 99 22:21 (100) Physical Exam Const: No apparent distress, well-developed, well-nourished Head: Normocephalic, Atraumatic Eyes: Normal Conjunctiva. Extraocular movements intact. Pupils equal, round and reactive to light ENT: Normal External Ears, Nose and Mouth. Neck: Full range of motion. No meningismus. Resp: Bibasilar rales. End expiratory wheezes. Increased work of breathing. Cardio: Regular rate and rhythm. No murmurs, rubs or gallops Abd: Elevated BMI. Soft, non tender, non distended. Normal bowel sounds Skin: No petechiae or rashes Back: No midline tenderness. No CVA tenderness Ext: No cyanosis. Bilateral lower extremity 2+ pitting edema. Neur: Awake and alert, oriented 4. Cranial nerves intact. No facial droop. Normal strength, sensation and coordination. Psych: Normal Mood and Affect Result Diagram: 09/18/18 2319 09/18/18 2319 Results 24 hrs Laboratory Tests Test 09/18/18 23:19 White Blood Count 7.5 10^3/ul Red Blood Count 4.73 10^6/ul Hemoglobin 13.1 g/dl Hematocrit 41.4 % Mean Corpuscular Volume 87.5 fl Mean Corpuscular Hemoglobin 27.7 pg Mean Corpuscular Hemoglobin Concent 31.6 g/dl Red Cell Distribution Width 15.6 % Platelet Count 221 10^3/UL Mean Platelet Volume 9.8 fl Immature Granulocytes % 0.300 % Neutrophils % 69.7 % Lymphocytes % 20.5 % Monocytes % 7.7 % Eosinophils % 1.1 % Basophils % 0.7 % Nucleated Red Blood Cells % 0.0 /100WBC Immature Granulocytes # 0.020 10^3/ul Neutrophils # 5.2 10^3/ul Lymphocytes # 1.5 10^3/ul Monocytes # 0.6 10^3/ul Eosinophils # 0.1 10^3/ul Basophils # 0.1 10^3/ul Nucleated Red Blood Cells # 0.0 10^3/ul Prothrombin Time 15.7 Sec Prothrombin Time Ratio 1.2 INR International Normalized Ratio 1.24 Sodium Level 140 mmol/L Potassium Level 3.8 mmol/L Chloride Level 109 mmol/L Carbon Dioxide Level 23 mmol/L Anion Gap 8 Blood Urea Nitrogen 21 mg/dl Creatinine 1.00 mg/dl Est Glomerular Filtrat Rate mL/min > 60 mL/min Glucose Level 78 mg/dl Calcium Level 9.0 mg/dl Troponin I 0.016 ng/ml B-Type Natriuretic Peptide 6680 PG/ML Current Medications Medications Dose Sig/Jess Start Time Status Last (Trade) Ordered Route PRN Stop Time Admin Dose Reason Admin Ipratropium 1.5 mg ONCE STAT 09/19/18 DC [place] [facility] 01:09 (Atrovent 09/19/18 01:11 0.02% (Neb)) Albuterol 10 mg ONCE STAT 09/19/18 DC (Proventil INH 01:09 0.5% (Neb)) 09/19/18 01:11 Furosemide 40 mg ONCE ONCE 09/19/18 DC (Lasix) IV 01:30 09/19/18 01:31 Ondansetron 4 mg ER BRIDGE 09/19/18 HCl (Zofran PRN IV 02:30 Inj) NAUSEA/VOMITI 09/20/18 02:29 NG 650 mg ER BRIDGE 09/19/18 Acetaminophen PRN PO 02:30 (Tylenol .MILD PAIN 09/20/18 02:29 Tab) 1-3 OR TEMP Procedures/MDM MDM The patient's presentation warrants further investigation. Previous medical records, if available, were reviewed. LABS The patient's laboratory testing was obtained and reviewed. No emergent treatment was required unless described below. CBC: No E/o of systemic infection or thrombocytopenia. Normocytic anemia, nonemergent. BMP: No E/o severe acidosis or alkalosis or renal failure or diabetic ketoacidosis. Elevated BUN with a BUN:Creatinine ratio of greater than 20:1, likely related to intravascular depletion. PT/INR: No E/o significant coagulopathy Troponin: No E/o acute ischemia BNP: E/o heart failure EKG EKG read by me: Rate/Rhythm: Regular rate and rhythm at a rate of 96 bpm Intervals: Normal [place]: Normal Impression: LVH with early repolarization. T wave flattening in the inferior lateral leads indicating possible age-indeterminate ischemia without evidence of acute ischemia. No arrhythmia. IMAGING Imaging and Radiology interpretation reviewed. CXR FINDINGS: Interstitial edema suggesting cardiopulmonary congestion is mildly improved. No pleural effusion. No pneumothorax. Cardiomegaly unchanged. IMPRESSION: Interstitial edema suggesting cardiopulmonary congestion is mildly improved. Electronically viewed and signed by .Sean Cain MD, on 09/18/2018 23:09 TREATMENT/DISPOSITION The patient symptoms are most consistent with an acute CHF exacerbation. The patient was given a dose of Lasix in the emergency department. The patient was also wheezing on exam. He did later endorsed to me cough and congestion. Bronchitis is certainly also a possibility which could have exacerbated his CHF. The patient was treated with nebulized albuterol and ipratropium in the emergency department as well. The patient's chest xray does not reveal pneumonia or pneumothorax or pleural effusions. He does not have a widened mediastinum and does not have signs or symptoms concerning for thoracic aortic aneurysm or dissection. The patient does not have pneumomediastinum or signs concerning for esophageal tear or rupture. The patient has no clinical or radiographic signs of pericardial effusion or tamponade. The patient does not have pneumoperitoneum and I have decreased suspicion of viscus perforation as possible referred pain. I have decreased suspicion for PE. The patient's EKG does reveal nonspecific changes, but there are no obvious acute findings. Additionally, the patient's troponin is within n ormal limits. I have low suspicion for acute coronary syndrome. At this time, I feel that the patient requires admission for further evaluation and management. The patient will be admitted to panel in accordance with the patient's insurance. The patient was accepted by Dr. Eldridge at 1:52 AM on 2018. Disclaimer: Inadvertent spelling and grammatical errors are likely due to EHR/dictation software use and do not reflect on the overall quality of patient care. Note that the electronic time recorded on this note does not necessarily reflect the actual time of the patient encounter. Departure Diagnosis: Primary Impression: CHF exacerbation Heart failure type: unspecified Qualified Codes: I50.9 - Heart failure, unspecified Additional Impressions: Dyspnea on exertion Paroxysmal nocturnal dyspnea Bronchitis Elevated brain natriuretic peptide (BNP) level Elevated BUN Intravascular volume depletion Normocytic anemia Condition: Serious MERY LUCIA MD Sep 19, 2018 02:35
--- NOTE | 2018-09-19 02:49 | HP ---
Date/Time of Note Date/Time of Note DATE: 09/19/18 TIME: 02:48 Assessment/Plan VTE Prophylaxis Pharmacological prophylaxis: LMWH Lines/Catheters IV [facility]from [facility]): Saline Lock Assessment/Plan Hospital Course This is a 38-year-old male being admitted to the telemetry floor for: #1 acute on chronic systolic CHF exacerbation: Echocardiogram in July 2018 showed a ejection fraction of approximately 20%. Patient reports a history of methamphetamine use. This is his third hospitalization in the last 2 months for CHF exacerbation. He reports compliance with medications. At the current time will put the patient on Lasix 40 mg IV twice daily. Strict I's and O's. Monitor urine output. Daily weights. Will consult cardiology Dr. Kirk. Patient likely will need titration of his Lasix dose upon discharge. Continue beta-talya, ARB, spironolactone. I did discuss decrease salt intake as well as monitoring of daily fluid intake. #2 cardiomyopathy: Secondary likely to history of illicit drug use. Echocardiogram from July 2018 shows ejection fraction of approximate 20%. Given his illicit drug history I will also order ethanol and urine drug screen at the current time. #3 history of IV drug use: History of meth use. Will check ethanol level and urine drug screen. #4 hypertension: Continue home medications #5 obesity: Most recent hemoglobin A1c is 5.5. Encourage diet and lifestyle modification. TSH was within normal values #6 DVT GI prophylaxis: Lovenox, no GI prophylaxis indicated Result Diagram: 09/18/18 2319 09/18/18 2319 Results 24hrs Laboratory Tests Test 09/18/18 23:19 White Blood Count 7.5 # Red Blood Count 4.73 Hemoglobin 13.1 L Hematocrit 41.4 L Mean Corpuscular Volume 87.5 Mean Corpuscular Hemoglobin 27.7 L Mean Corpuscular Hemoglobin Concent 31.6 L Red Cell Distribution Width 15.6 H Platelet Count 221 Mean Platelet Volume 9.8 Immature Granulocytes % 0.300 Neutrophils % 69.7 Lymphocytes % 20.5 Monocytes % 7.7 Eosinophils % 1.1 Basophils % 0.7 Nucleated Red Blood Cells % 0.0 Immature Granulocytes # 0.020 Neutrophils # 5.2 Lymphocytes # 1.5 Monocytes # 0.6 Eosinophils # 0.1 Basophils # 0.1 Nucleated Red Blood Cells # 0.0 Prothrombin Time 15.7 H Prothrombin Time Ratio 1.2 INR International Normalized Ratio 1.24 Sodium Level 140 Potassium Level 3.8 Chloride Level 109 Carbon Dioxide Level 23 Anion Gap 8 Blood Urea Nitrogen 21 H Creatinine 1.00 Est Glomerular Filtrat Rate mL/min > 60 Glucose Level 78 Calcium Level 9.0 Troponin I 0.016 B-Type Natriuretic Peptide 6680 H HPI/ROS Admit Date/Time Admit Date/Time Hx of Present Illness Chief complaint: Shortness of breath This is a 38-year-old male with a past medical history of with CHF with severely reduced ejection fraction of approximately 20%, hypertension, obesity who presents with shortness of breath. Patient reports approximately 2-3 days of progressive worsening of shortness of breath and dyspnea on exertion as well as bilateral lower extremity edema. He states that he has been gaining weight over the last few days as well and states that he is retaining fluid. When he arrived in the ED he was reported to be dyspneic when trying to speak full sentences. He denied any chest pain. This is the patient's third admission over the last 2 months for heart failure. Upon my examination at the bedside the patient had already received a dose of Lasix as well and a breathing treatment. He did appear to be comfortable at the current time and not in any acute respiratory distress. Reports that he has been compliant with his medications. He does report a history of IV drug use with meth in the past. Allergies: NKDA Medications: See LAURY SINGH Const: As per HPI Eyes : No pain discharge or redness or change in visual acuity ENT: No pain, sore throat, congestion, congestion, dysphagia or discharge Respiratory: As per HPI Cardiovascular: As per HPI GI : no change in appetite, abdominal pain, nausea, vomiting, diarrhea, constipation, or change in the color his stool Genitourinary: No dysuria, hematuria, flank pain , discharge or CVA tenderness Musculoskeletal: No joint pain, back pain, neck pain, restricted range of motion in neck or joints Skin: No rash, bruising or hives Neuro: No headache, dizziness, syncope, seizure, focal weakness Endocrine: No polyuria, polydipsia, temperature intolerance Psych: No hallucination, depression, anxiety or suicidal ideation PMH/Family/Social Past Medical History History of severe cardiomyopathy, last ejection fraction of 20%. CHF. Hypertension. History of morbid obesity, status post gastric bypass. Medications Current Medications Ondansetron HCl (Zofran Inj) 4 mg ER BRIDGE PRN IV NAUSEA/VOMITING; Start 09/19/18 at 02:30; Stop 09/20/18 at 02:29 Acetaminophen (Tylenol Tab) 650 mg ER BRIDGE PRN PO .MILD PAIN 1-3 OR TEMP; Start 09/19/18 at 02:30; Stop 09/20/18 at 02:29 Coded Allergies: No Known Allergies (Verified Allergy, Unknown, 08/19/18) Past Surgical History gastric bypass Past Surgical Hx: cholecystectomy Family History Significant Family History: no pertinent family hx Social History History of IV drug use in the past with methamphetamine, Smoking Status: Never smoker Drug Use: other (History of IV drug use in the past with methamphetamine,) Exam/Review of Systems Vital Signs Vitals Vital Signs Date Temp Pulse Resp B/P (MAP) Pulse Ox O2 O2 Flow FiO2 Time Delivery Rate 09/18/18 97.5 89 20 146/82 99 Room Air 23:15 (103) Exam Exam General: Patient at the current time is lying in bed in no acute distress HEENT: Atraumatic, normocephalic. The pupils are equal, round and reactive. Extraocular motor are intact Neck: Supple with full range of motion. No rigidity or meningismus Chest: Nontender Lungs: Expiratory wheezing on auscultation, crackles and rales bilaterally, nonlabored breathing Heart: Normal S1-S2, Regular rhythm and rate. Positive JVD Abdomen: Soft , nontender, nondistended , bowel sounds are present. No guarding no rebound tenderness , No masses or organomegaly. No costovertebral temporal angle mass Extremities: Bilateral 2+ pitting edema lower extremities up to the shins Neurologic: Normal mental status, speech normal, cranial nerves II through XII are intact, motor and sensory are intact, no focal weakness Additional Comments EKG Rate/Rhythm: Regular rate and rhythm at a rate of 96 bpm Intervals: Normal [place]: Normal Impression: LVH with early repolarization. T wave flattening in the inferior lateral leads indicating possible age-indeterminate ischemia without evidence of acute ischemia. No arrhythmia. Echocardiogram Report Patient Name: CATARINA GROSS Gender: Male Date: 1980 Study Date: 20-Aug-2018 Command And Control Specialist: Jorge White RDCS Location: 2 Ref. Physician: MIRIAM COLLIER Quality: Adequate Procedures: Transthoracic echocardiogram with complete 2D, M-Mode, and doppler examination. Indications: Evaluate Left Ventricular function. Congestive Heart Failure exacerbation. 2D/M Mode Doppler Measurement Value Normal Ranges Measurement Value Normal Ranges LVIDd 2D 7.2 3.5 - 5.6 cm AV Peak Enrique 0.9 m/sec LVIDs 2D 6.6 2.1 - 4.1 cm AV Peak PG 3.0 mmHg LVPWd 2D 1.2 0.6 - 1.1 cm LVOT Peak Enrique 0.7 m/sec IVSd 2D 1.2 0.6 - 1.1 cm LVOT Peak PG 2.0 mmHg AoR Diam 2D 3.1 2.0 - 3.7 cm TAPSE 2.7 cm LA/Ao 2D 2 0 - 1 TR Peak Enrique 2.4 m/sec LA Dimen 2D 5.1 2.3 - 4.0 cm TR Peak PG 23.0 mmHg RVSP 31.0 mmHg RA Pressure 8.0 Findings Left Ventricle: Mild concentric left ventricular hypertrophy. Severe enlargement of left ventricle cavity. Severe global left ventricular systolic dysfunction. Ejection fraction is visually estimated at 20 %. Right Ventricle: Normal right ventricular size. Normal right ventricular systolic function. Left Atrium: There is moderate enlargement of left atrium. Right Atrium: There is moderate enlargement of right atrium. Mitral Valve: Mitral valve leaflets appear mildly thickened. Severe mitral valve regurgitation. The regurgitation jet is eccentrically directed which may underestimate the severity of mitral regurgitation. Aortic Valve: Normal trileaflet aortic valve structure. Tricuspid Valve: Normal appearance of the tricuspid valve. Estimated peak PA systolic pressure 31 mmHg. There is trace tricuspid regurgitation. Pulmonic Valve: Pulmonic valve not well visualized. There is trace pulmonic regurgitation. Pericardium: Normal pericardium with no significant pericardial effusion. Aorta: Normal aortic root. IVC: Dilated IVC with respiratory collapse consistent with elevated right atrial pressure. Conclusions Severely dilated left ventricle with severely reduced systolic function. Mild concentric left ventricular hypertrophy. Moderate biatrial enlargement. Abnormal anterior mitral valve leaflet movement with a posteriorly directed jet of severe mitral regurgitation. Trace tricuspid regurgitation and mild pulmonary hypertension. Dilated IVC suggests elevated right atrial pressures. Electronically Signed By: Bhavani Lindsey 20-Aug-2018 20:07:32 -0800 Patient Name: CATARINA GROSS Study Date: 20-Aug-2018 [id number] Dictated By: BHAVANI LINDSEY PROCEDURE: XR Chest. CLINICAL INDICATION: Chest pain TECHNIQUE: Single frontal radiograph of the chest. COMPARISON: DR CHEST 09/02/2018 FINDINGS: Interstitial edema suggesting cardiopulmonary congestion is mildly improved. No pleural effusion. No pneumothorax. Cardiomegaly unchanged. IMPRESSION: Interstitial edema suggesting cardiopulmonary congestion is mildly improved. RPTAT: AADD .Sean Cain MD, MD Date Time Electronically viewed and signed by .Sean Cain MD, MD on 09/18/2018 23:09 .B/ CC: MERY LUCIA MD [id number] PRICE ALONSO Sep 19, 2018 02:49
[2018-09-19] MEDS ORDERED: BISACODYL (EC) 5 MG TAB PO PRN (03:00)
[2018-09-19] MEDS ORDERED: ONDANSETRON 4 MG TAB PO PRN (03:00)
[2018-09-19] MEDS ORDERED: ALBUTEROL/IPRATROPIUM (NEB) 3 ML AMP HHN PRN (03:00)
[2018-09-19] MEDS ORDERED: NACL 0.9% 3 ML SYG IV SCH (03:00)
[2018-09-19] MEDS ORDERED: DOCUSATE SODIUM 100 MG CAP PO PRN (03:00)
[2018-09-19] MEDS: ASPIRIN 81 MG TAB PO SCH (08:23)
[2018-09-19] MEDS: SPIRONOLACTONE 25 MG TAB PO SCH (08:24)
[2018-09-19] MEDS: LOSARTAN 25 MG TAB PO SCH (08:25)
[2018-09-19] MEDS: ENOXAPARIN 30 MG/0.3 ML SYG SC SCH (08:27)
[2018-09-19] MEDS: FUROSEMIDE 40 MG INJ IV SCH ×2 (11:15→17:24)
--- NOTE | 2018-09-19 11:45 | PN ---
Date/Time of Note Date/Time of Note DATE: 09/19/18 TIME: 11:42 Assessment/Plan VTE Prophylaxis Risk score (from Ns)>0 risk: 2 SCD applied (from Ns): No SCD contraindicated: other Pharmacological prophylaxis: LMWH Lines/Catheters [facility] Saline Lock Assessment/Plan Hospital Course SUBJECTIVE: Denies any chest pain. Continues to have dyspnea. OBJECTIVE: Physical Exam General: Obese, 38 year-old male lying in bed in mild respiratory distress. HEENT: Normocephalic, atraumatic. Eyes: Anicteric sclerae, conjunctivae clear. ENT: Nasal septum midline, oral mucosa moist. Neck supple, JVD noticed. Respiratory: Bilaterally diminished breath sounds. Minimal use of accessory muscles of respiration. B/L rhonchi. Cardiovascular: S1, S2 heard. Regular rate and rhythm. Abdomen: Soft, nontender, and nondistended. Bowel sounds positive in all 4 quadrants. Genitourinary: Deferred. Extremities: No cyanosis, no clubbing. Bilateral lower extremity edema. Peripheral pulses palpable. Neurologic: Cranial nerves II through XII grossly intact. The patient is awake, alert, and oriented. Skin: Normal skin turgor. No skin rashes. 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 The patient's chest x-ray showed congestive heart failure. The patient was admitted to inpatient setting for further treatment and evaluation. 1. CHF exacerbation, acute on chronic, systolic dysfunction. -Continue diuresis. -Monitor renal function closely. 2. Nonischemic cardiomyopathy. -Ejection fraction of 20%. -Continue beta-blockers, ARB's, and aldosterone antagonist. -Cardiology consult. 3. Hypertension. -Continue antihypertensives 4. Substance abuse. -Denied any recent amphetamine abuse although urine drug screen is positive for amphetamines. -Cessation advised. 5. Obesity. -BMI more than 33 kg/m. 6. DVT prophylaxis -Subcutaneous Lovenox 7. Plan. -Continue diuresis while carefully monitoring renal function. -Await clinical improvement. -Await cardiology evaluation. The patient was seen in collaboration with Dr. Mix. Result Diagram: 09/19/18 0546 09/19/18 0546 Results 24hrs Laboratory Tests Test 09/18/18 23:19 09/19/18 05:46 09/19/18 10:30 09/19/18 10:48 White Blood Count 7.5 # 8.5 Red Blood Count 4.73 4.81 Hemoglobin 13.1 L 13.3 L Hematocrit 41.4 L 42.5 Mean Corpuscular 87.5 88.4 Volume Mean Corpuscular 27.7 L 27.7 L Hemoglobin Mean Corpuscular 31.6 L 31.3 L Hemoglobin Concent Red Cell 15.6 H 15.6 H Distribution Width Platelet Count 221 225 Mean Platelet Volume 9.8 10.2 Immature 0.300 0.400 Granulocytes % Neutrophils % 69.7 75.6 Lymphocytes % 20.5 15.6 Monocytes % 7.7 6.6 Eosinophils % 1.1 1.2 Basophils % 0.7 0.6 Nucleated Red Blood 0.0 0.0 Cells % Immature 0.020 0.030 Granulocytes # Neutrophils # 5.2 6.4 Lymphocytes # 1.5 1.3 Monocytes # 0.6 0.6 Eosinophils # 0.1 0.1 Basophils # 0.1 0.1 Nucleated Red Blood 0.0 0.0 Cells # Prothrombin Time 15.7 H Prothrombin Time 1.2 Ratio INR International 1.24 Normalized Ratio Sodium Level 140 144 Potassium Level 3.8 3.4 L Chloride Level 109 108 Carbon Dioxide Level 23 27 Anion Gap 8 9 Blood Urea Nitrogen 21 H 20 Creatinine 1.00 1.14 Est Glomerular > 60 > 60 Filtrat Rate mL/min Glucose Level 78 114 Calcium Level 9.0 9.3 Troponin I 0.016 0.018 < 0.012 B-Type Natriuretic 6680 H Peptide Total Bilirubin 0.7 Direct Bilirubin 0.00 Indirect Bilirubin 0.7 Aspartate Amino 28 Transf (AST/SGOT) Alanine 18 Aminotransferase (AL T/SGPT) Alkaline Phosphatase 66 Creatine Kinase 126 104 Creatine Kinase 2.0 1.0 Index Creatinine Kinase MB 2.47 H 1.07 (Mass) Total Protein 7.2 Albumin 4.0 Globulin 3.20 Albumin/Globulin 1.25 Ratio Ethyl Alcohol Level < 10.0 H Urine Opiates Screen Negative Urine Barbiturates Negative Urine Amphetamines Positive Screen Urine Negative Benzodiazepines Screen Urine Cocaine Screen Negative Urine Cannabinoids Negative Exam/Review of Systems Exam Vitals Vital Signs Date Temp Pulse Resp B/P (MAP) Pulse Ox O2 O2 Flow FiO2 Time Delivery Rate 09/19/18 98.3 87 15 106/57 98 Room Air 11:25 (73) 09/19/18 21 03:43 Intake and Output 09/18/18 09/18/18 09/19/18 1515:00 23:00 07:00 IntakeIntake Total 250 ml OutputOutput Total 1900 ml BalanceBalance -1650 ml Results Results 24hrs Laboratory Tests Test 09/18/18 23:19 09/19/18 05:46 09/19/18 10:30 09/19/18 10:48 White Blood Count 7.5 # 8.5 Red Blood Count 4.73 4.81 Hemoglobin 13.1 L 13.3 L Hematocrit 41.4 L 42.5 Mean Corpuscular 87.5 88.4 Volume Mean Corpuscular 27.7 L 27.7 L Hemoglobin Mean Corpuscular 31.6 L 31.3 L Hemoglobin Concent Red Cell 15.6 H 15.6 H Distribution Width Platelet Count 221 225 Mean Platelet Volume 9.8 10.2 Immature 0.300 0.400 Granulocytes % Neutrophils % 69.7 75.6 Lymphocytes % 20.5 15.6 Monocytes % 7.7 6.6 Eosinophils % 1.1 1.2 Basophils % 0.7 0.6 Nucleated Red Blood 0.0 0.0 Cells % Immature 0.020 0.030 Granulocytes # Neutrophils # 5.2 6.4 Lymphocytes # 1.5 1.3 Monocytes # 0.6 0.6 Eosinophils # 0.1 0.1 Basophils # 0.1 0.1 Nucleated Red Blood 0.0 0.0 Cells # Prothrombin Time 15.7 H Prothrombin Time 1.2 Ratio INR International 1.24 Normalized Ratio Sodium Level 140 144 Potassium Level 3.8 3.4 L Chloride Level 109 108 Carbon Dioxide Level 23 27 Anion Gap 8 9 Blood Urea Nitrogen 21 H 20 Creatinine 1.00 1.14 Est Glomerular > 60 > 60 Filtrat Rate mL/min Glucose Level 78 114 Calcium Level 9.0 9.3 Troponin I 0.016 0.018 < 0.012 B-Type Natriuretic 6680 H Peptide Total Bilirubin 0.7 Direct Bilirubin 0.00 Indirect Bilirubin 0.7 Aspartate Amino 28 Transf (AST/SGOT) Alanine 18 Aminotransferase (AL T/SGPT) Alkaline Phosphatase 66 Creatine Kinase 126 104 Creatine Kinase 2.0 1.0 Index Creatinine Kinase MB 2.47 H 1.07 (Mass) Total Protein 7.2 Albumin 4.0 Globulin 3.20 Albumin/Globulin 1.25 Ratio Ethyl Alcohol Level < 10.0 H Urine Opiates Screen Negative Urine Barbiturates Negative Urine Amphetamines Positive Screen Urine Negative Benzodiazepines Screen Urine Cocaine Screen Negative Urine Cannabinoids Negative Medications Medication Current Medications Ondansetron HCl (Zofran Inj) 4 mg ER BRIDGE PRN IV NAUSEA/VOMITING; Start 09/19/18 at 02:30; Stop 09/20/18 at 02:29 Acetaminophen (Tylenol Tab) 650 mg ER BRIDGE PRN PO .MILD PAIN 1-3 OR TEMP; Start 09/19/18 at 02:30; Stop 09/20/18 at 02:29 Aspirin (Aspirin) 81 mg DAILY PO Last administered on 09/19/18at 08:23; Admin Dose 81 MG; Start 09/19/18 at 09:00 Losartan Potassium (Cozaar) 12.5 mg DAILY PO Last administered on 09/19/18at 08:25; Admin Dose 12.5 MG; Start 09/19/18 at 09:00 Spironolactone (Aldactone) 25 mg DAILY PO Last administered on 09/19/18at 08:24; Admin Dose 25 MG; Start 09/19/18 at 09:00 Furosemide (Lasix) 40 mg BID DIURETICS IV Last administered on 09/19/18at 11:15; Admin Dose 40 MG; Start 09/19/18 at 12:00 IV Flush (NS 3 ml) 3 ml PER PROTOCOL IV ; Start 09/19/18 at 03:00 Ondansetron HCl (Zofran Tab) 4 mg Q6H PRN PO NAUSEA/VOMITING; Start 09/19/18 at 03:00 Acetaminophen (Tylenol Tab) 650 mg Q6H PRN PO .PAIN 1-3 OR TEMP; Start 09/19/18 at 03:00 Docusate Sodium (Colace) 100 mg Q12H PRN PO .CONSTIPATION; Start 09/19/18 at 03:00 Bisacodyl (Dulcolax) 5 mg DAILY PRN PO .CONSTIPATION; Start 09/19/18 at 03:00 Enoxaparin Sodium (Lovenox) 30 mg DAILY SC Last administered on 09/19/18at 08:27; Admin Dose 30 MG; Start 09/19/18 at 09:00 Albuterol/ Ipratropium (Duoneb) 3 ml Q4H RESP THERAPY PRN HHN SHORTNESS OF BREATH; Start 09/19/18 at 03:00 Carvedilol (Coreg) 12.5 mg BID PO Last administered on 09/19/18at 08:24; Admin Dose 12.5 MG; Start 09/19/18 at 09:00 BAYLEE JUAREZ NP Sep 19, 2018 11:45
--- NOTE | 2018-09-19 12:58 | CONS ---
DATE OF ADMISSION: 09/19/2018 DATE OF CONSULTATION: 09/19/2018 TYPE OF CONSULTATION: Cardiology. REASON FOR CONSULTATION: Congestive heart failure exacerbation. REQUESTING PHYSICIAN: Ricardo Alonso MD, from the hospitalist service. HISTORY OF PRESENT ILLNESS: Mr. Prater is a 38-year-old male with history of cardiomyopathy, severe d epressed left ventricular ejection fraction last EF approximately 20%, recurrent bouts of systolic co ngestive heart failure, hypertension, obesity, status post gastric bypass with significant weight los s, polysubstance abuse with namely methamphetamine, who now represents with complaints of shortness o f breath after last being discharged on 09/05/2018 for similar symptoms. Initially upon arrival, tem perature of 97.5, blood pressure 140/80, pulse 72, respiratory rate 20, satting 99%. The patient's l abs showed white blood cell count of 7.5, hemoglobin 13.1, platelet count of 221. Sodium of 140, pot assium 3.8, creatinine 1.0, BUN 21. BNP is 6680. Troponin negative. Albumin of 4.0. INR of 1.2. Tox screen positive for amphetamines. The patient underwent a chest x-ray revealing interstitial jonas ma suggesting cardiopulmonary congestion. The patient's electrocardiogram is not in chart for my rev iew at this time. The patient has been admitted to the floor and since admit to floor, denies chest pain, has mild improvement in shortness of breath. PAST MEDICAL HISTORY: As above in HPI. MEDICATIONS CURRENTLY IN HOSPITAL: 1. Lasix 40 mg IV b.i.d. 2. Aspirin 81 mg daily. 3. Losartan 12.5 mg daily. 4. Aldactone 25 mg daily. 5. Lovenox 30 mg subcutaneously daily. 6. Carvedilol 12.5 mg p.o. b.i.d. 7. DuoNeb p.r.n. 8. Dulcolax p.r.n. 9. Tylenol p.r.n. ALLERGIES: NO KNOWN DRUG ALLERGIES. SOCIAL HISTORY: Ongoing polysubstance abuse, although the patient denies, tox screen is positive. FAMILY HISTORY: No history of sudden cardiac or early CAD. REVIEW OF SYSTEMS: As above in HPI. CONSTITUTIONAL: No fevers, chills. PULMONARY: No current shortness of breath. CARDIOVASCULAR: No current chest pain. GASTROINTESTINAL: No vomiting. GENITOURINARY: No hematuria. MUSCULOSKELETAL: No significant myalgias or arthralgias. ENDOCRINE: No documented history of diabetes mellitus. PHYSICAL EXAMINATION: VITAL SIGNS: Temperature 97.5, blood pressure most recently 106/57, pulse 87, respiratory rate 15, s atting 98%. GENERAL: The patient is alert, awake, in no acute distress. NECK: JVP is approximately 9 to 10 cm water. CHEST: Fair air movement throughout with mild decreased breath sounds at bases bilaterally. HEART: Regular rate and rhythm. Normal S1, S2, I/ systolic murmur, nondisplaced PMI. ABDOMEN: Positive bowel sounds, soft. EXTREMITIES: No significant pitting edema, 1+ pulses bilateral posterior tibial. LABORATORY DATA: As above in HPI, with most recent from today, white blood cell count 8.5, hemoglobi n 13.3, platelet count of 225. Sodium 144, potassium 3.4, creatinine 1.1, BUN 20. IMAGING STUDIES: As above in HPI. No further imaging for my review at this time. ELECTROCARDIOGRAM: No electrocardiograms for my review at this time. IMPRESSION: 1. Congestive heart failure exacerbation, systolic, acute on chronic. 2. Cardiomyopathy with severely depressed left ejection fraction with last one approximately 20%. 3. Hypertension, under reasonable control. 4. Ongoing polysubstance abuse with methamphetamines positive by tox screen during this admit. 5. Shortness of breath secondary to #1. 6. Anemia, mild. RECOMMENDATIONS: 1. At this time, we would maintain the patient on telemetry monitoring to follow rhythm and rate con trol closely. 2. We would continue the patient's Lasix diuresis, following strict I's and O's to grade diuresis cl osely. 3. Discontinue the patient's losartan and carvedilol, following blood pressure and heart rate closel y and continue the patient's Aldactone for neurohormonal modulation in the setting of congestive hear t failure. 4. The patient should obtain counseling and possible detox for ongoing substance abuse. Thank you for allowing me to take part in this patient. I will continue to follow him very closely w ith you with further recommendations to be made as the patient progresses through his inpatient hospi manny clinical course. Dictated By: TRENA BAUGH/VANESSA Conf#: [id number] [facility]#: [id number] CC: RICARDO ALONSO MD;*End*
[2018-09-20] VITALS (9 sets, daily range): BP systolic 102–115; BP diastolic 57–70; PULSE 75–94; RESP 16–18
[2018-09-20] MEDS: FUROSEMIDE 40 MG INJ IV SCH ×2 (05:41→17:24)
[2018-09-20] MEDS: SPIRONOLACTONE 25 MG TAB PO SCH (09:13)
[2018-09-20] MEDS: LOSARTAN 25 MG TAB PO SCH (09:14)
[2018-09-20] MEDS: ASPIRIN 81 MG TAB PO SCH (09:14)
[2018-09-20] MEDS: ENOXAPARIN 30 MG/0.3 ML SYG SC SCH (09:24)
--- NOTE | 2018-09-20 11:21 | CONS ---
Assessment/Plan Assessment/Plan Hospital Course (Demo Recall) IMPRESSION: 1. Congestive heart failure exacerbation, systolic, acute on chronic. 2. Cardiomyopathy with severely depressed left ejection fraction with last one approximately 20%. 3. Hypertension, under reasonable control. 4. Ongoing polysubstance abuse with methamphetamines positive by tox screen during this admit. 5. Shortness of breath secondary to #1. 6. Anemia, mild. Recc: -Tele -serial ecg's -Continue losartan/coreg -Continue aldactone -Continue asa Consultation Date/Type/Reason Admit Date/Time Sep 19, 2018 at 02:08 Initial Consult Date 09/19/18 Type of Consult Cardiology Reason for Consultation CHF Requesting Provider: PRICE ALONSO Date/Time of Note DATE: 09/20/18 TIME: 11:15 Exam/Review of Systems Vital Signs Vitals Vital Signs Date Temp Pulse Resp B/P (MAP) Pulse Ox O2 O2 Flow FiO2 Time Delivery Rate 09/20/18 81 08:01 09/20/18 98.8 18 102/57 98 Room Air 07:38 (72) 09/19/18 21 03:43 Intake and Output 09/19/18 09/19/18 09/20/18 1515:00 23:00 07:00 IntakeIntake Total 1200 ml 500 ml OutputOutput Total 1250 ml 800 ml BalanceBalance -1250 ml 1200 ml -300 ml Exam Exam Review of Systems: CONSTITUTIONAL: No fevers, chills. PULMONARY: No sob CARDIOVASCULAR: No chest pain/palpitations GASTROINTESTINAL: No nausea/vomiting. GENITOURINARY: No hematuria/dysuria. MUSCULOSKELETAL: No myagias/arthalgias. PSYCHIATRIC: The patient denies depression. NEUROLOGIC: No weakness Constitutional: alert Psych: no complaints ENMT: mucosa pink and moist Neck: supple, jvd (9 cm water) Respiratory: diminished breath sounds (at bases/B) Cardiovascular: regular rate and rhythm Gastrointestinal: soft, non-tender Musculoskeletal: muscle tone (normal) Extremities: pitting pedal edema (trace/B) Neurological: other (No focal deficits) Labs Result Diagram: 09/20/18 0546 09/20/18 0546 Results 24hrs Laboratory Tests Test 09/19/18 18:28 09/20/18 00:22 09/20/18 05:46 Troponin I < 0.012 0.020 0.014 White Blood Count 4.5 #L Red Blood Count 4.63 L Hemoglobin 12.9 L Hematocrit 40.2 L Mean Corpuscular Volume 86.8 Mean Corpuscular Hemoglobin 27.9 L Mean Corpuscular Hemoglobin Concent 32.1 Red Cell Distribution Width 15.9 H Platelet Count 195 Mean Platelet Volume 10.2 Immature Granulocytes % 0.200 Neutrophils % 51.4 Lymphocytes % 30.9 Monocytes % 10.2 Eosinophils % 6.2 Basophils % 1.1 Nucleated Red Blood Cells % 0.0 Immature Granulocytes # 0.010 Neutrophils # 2.3 Lymphocytes # 1.4 Monocytes # 0.5 Eosinophils # 0.3 Basophils # 0.1 Nucleated Red Blood Cells # 0.0 Sodium Level 141 Potassium Level 3.9 Chloride Level 104 Carbon Dioxide Level 30 Anion Gap 7 Blood Urea Nitrogen 18 Creatinine 1.01 Est Glomerular Filtrat Rate mL/min > 60 Glucose Level 85 Calcium Level 8.9 Phosphorus Level 4.6 Magnesium Level 1.5 L Triglycerides Level 48 Cholesterol Level 80 L LDL Cholesterol, Calculated 45 HDL Cholesterol 25 L Cholesterol/HDL Ratio 3.2 Medications Medications Current Medications Aspirin (Aspirin) 81 mg DAILY PO Last administered on 09/20/18at 09:14; Admin Dose 81 MG; Start 09/19/18 at 09:00 Losartan Potassium (Cozaar) 12.5 mg DAILY PO Last administered on 09/20/18at 09:14; Admin Dose 12.5 MG; Start 09/19/18 at 09:00 Spironolactone (Aldactone) 25 mg DAILY PO Last administered on 09/20/18at 09:13; Admin Dose 25 MG; Start 09/19/18 at 09:00 Furosemide (Lasix) 40 mg BID DIURETICS IV Last administered on 09/20/18at 05:41; Admin Dose 40 MG; Start 09/19/18 at 12:00 IV Flush (NS 3 ml) 3 ml PER PROTOCOL IV ; Start 09/19/18 at 03:00 Ondansetron HCl (Zofran Tab) 4 mg Q6H PRN PO NAUSEA/VOMITING; Start 09/19/18 at 03:00 Acetaminophen (Tylenol Tab) 650 mg Q6H PRN PO .PAIN 1-3 OR TEMP; Start 09/19/18 at 03:00 Docusate Sodium (Colace) 100 mg Q12H PRN PO .CONSTIPATION; Start 09/19/18 at 03:00 Bisacodyl (Dulcolax) 5 mg DAILY PRN PO .CONSTIPATION; Start 09/19/18 at 03:00 Enoxaparin Sodium (Lovenox) 30 mg DAILY SC Last administered on 09/20/18at 09:24; Admin Dose 30 MG; Start 09/19/18 at 09:00 Albuterol/ Ipratropium (Duoneb) 3 ml Q4H RESP THERAPY PRN HHN SHORTNESS OF BREATH; Start 09/19/18 at 03:00 Carvedilol (Coreg) 12.5 mg BID PO Last administered on 09/19/18at 08:24; Admin Dose 12.5 MG; Start 09/19/18 at 09:00 TRENA CARDONA Sep 20, 2018 11:21
--- NOTE | 2018-09-20 17:31 | PN ---
Date/Time of Note Date/Time of Note DATE: 09/20/18 TIME: 17:29 Assessment/Plan VTE Prophylaxis Risk score (from Ns)>0 risk: 2 SCD applied (from Ns): No SCD contraindicated: low risk/ambulating Pharmacological prophylaxis: LMWH Lines/Catheters IV C[facility]from [facility] Saline Lock Assessment/Plan Hospital Course A/P 1. Acute on chronic decompensated CHF. Mild stable restart medical management 2. 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 Substance abuse: Meth possible IVDA 4. Hypertension 5. Morbid obesity 6. Possible SATHISH consider outpatient testing Subjective: Patient feels better Objective: Vital signs stable sinus rhythm with first-degree AV block asymptomatic Physical exam No pallor Regular no JVD no murmur rub gallop Clear no tachypnea Bowel sounds diminished nontender nd no RRG Mild edema stasis Result Diagram: 09/20/1846 09/20/18 0546 Results 24hrs Laboratory Tests Test 09/19/18 18:28 09/20/18 00:22 09/20/18 05:46 Troponin I < 0.012 0.020 0.014 White Blood Count 4.5 #L Red Blood Count 4.63 L Hemoglobin 12.9 L Hematocrit 40.2 L Mean Corpuscular Volume 86.8 Mean Corpuscular Hemoglobin 27.9 L Mean Corpuscular Hemoglobin Concent 32.1 Red Cell Distribution Width 15.9 H Platelet Count 195 Mean Platelet Volume 10.2 Immature Granulocytes % 0.200 Neutrophils % 51.4 Lymphocytes % 30.9 Monocytes % 10.2 Eosinophils % 6.2 Basophils % 1.1 Nucleated Red Blood Cells % 0.0 Immature Granulocytes # 0.010 Neutrophils # 2.3 Lymphocytes # 1.4 Monocytes # 0.5 Eosinophils # 0.3 Basophils # 0.1 Nucleated Red Blood Cells # 0.0 Sodium Level 141 Potassium Level 3.9 Chloride Level 104 Carbon Dioxide Level 30 Anion Gap 7 Blood Urea Nitrogen 18 Creatinine 1.01 Est Glomerular Filtrat Rate mL/min > 60 Glucose Level 85 Calcium Level 8.9 Phosphorus Level 4.6 Magnesium Level 1.5 L Triglycerides Level 48 Cholesterol Level 80 L LDL Cholesterol, Calculated 45 HDL Cholesterol 25 L Cholesterol/HDL Ratio 3.2 Exam/Review of Systems Exam Vitals Vital Signs Date Temp Pulse Resp B/P (MAP) Pulse Ox O2 O2 Flow FiO2 Time Delivery Rate 2/25/19 86 16:01 09/20/18 98.7 18 110/65 98 Room Air 15:43 (80) 09/19/18 21 03:43 Intake and Output 09/19/18 09/19/18 09/20/18 1515:00 23:00 07:00 IntakeIntake Total 1200 ml 500 ml OutputOutput Total 1250 ml 800 ml BalanceBalance -1250 ml 1200 ml -300 ml Results Results 24hrs Laboratory Tests Test 09/19/18 18:28 09/20/18 00:22 09/20/18 05:46 Troponin I < 0.012 0.020 0.014 White Blood Count 4.5 #L Red Blood Count 4.63 L Hemoglobin 12.9 L Hematocrit 40.2 L Mean Corpuscular Volume 86.8 Mean Corpuscular Hemoglobin 27.9 L Mean Corpuscular Hemoglobin Concent 32.1 Red Cell Distribution Width 15.9 H Platelet Count 195 Mean Platelet Volume 10.2 Immature Granulocytes % 0.200 Neutrophils % 51.4 Lymphocytes % 30.9 Monocytes % 10.2 Eosinophils % 6.2 Basophils % 1.1 Nucleated Red Blood Cells % 0.0 Immature Granulocytes # 0.010 Neutrophils # 2.3 Lymphocytes # 1.4 Monocytes # 0.5 Eosinophils # 0.3 Basophils # 0.1 Nucleated Red Blood Cells # 0.0 Sodium Level 141 Potassium Level 3.9 Chloride Level 104 Carbon Dioxide Level 30 Anion Gap 7 Blood Urea Nitrogen 18 Creatinine 1.01 Est Glomerular Filtrat Rate mL/min > 60 Glucose Level 85 Calcium Level 8.9 Phosphorus Level 4.6 Magnesium Level 1.5 L Triglycerides Level 48 Cholesterol Level 80 L LDL Cholesterol, Calculated 45 HDL Cholesterol 25 L Cholesterol/HDL Ratio 3.2 Medications Medication Current Medications Aspirin (Aspirin) 81 mg DAILY PO Last administered on 09/20/18at 09:14; Admin Dose 81 MG; Start 09/19/18 at 09:00 Losartan Potassium (Cozaar) 12.5 mg DAILY PO Last administered on 09/20/18at 09:14; Admin Dose 12.5 MG; Start 09/19/18 at 09:00 Spironolactone (Aldactone) 25 mg DAILY PO Last administered on 09/20/18at 09:13; Admin Dose 25 MG; Start 09/19/18 at 09:00 Furosemide (Lasix) 40 mg BID DIURETICS IV Last administered on 09/20/18at 17:24; Admin Dose 40 MG; Start 09/19/18 at 12:00 IV Flush (NS 3 ml) 3 ml PER PROTOCOL IV ; Start 09/19/18 at 03:00 Ondansetron HCl (Zofran Tab) 4 mg Q6H PRN PO NAUSEA/VOMITING; Start 09/19/18 at 03:00 Acetaminophen (Tylenol Tab) 650 mg Q6H PRN PO .PAIN 1-3 OR TEMP; Start 09/19/18 at 03:00 Docusate Sodium (Colace) 100 mg Q12H PRN PO .CONSTIPATION; Start 09/19/18 at 03:00 Bisacodyl (Dulcolax) 5 mg DAILY PRN PO .CONSTIPATION; Start 09/19/18 at 03:00 Enoxaparin Sodium (Lovenox) 30 mg DAILY SC Last administered on 09/20/18at 09:24; Admin Dose 30 MG; Start 09/19/18 at 09:00 Albuterol/ Ipratropium (Duoneb) 3 ml Q4H RESP THERAPY PRN HHN SHORTNESS OF BREATH; Start 09/19/18 at 03:00 Carvedilol (Coreg) 12.5 mg BID PO Last administered on 09/19/18at 08:24; Admin Dose 12.5 MG; Start 09/19/18 at 09:00 KESHIA GOSS MD Sep 20, 2018 17:31
[2018-09-20] MEDS: MAGNESIUM OXIDE 400 MG TAB PO SCH (20:29)
[2018-09-21] VITALS (10 sets, daily range): BP systolic 95–106; BP diastolic 56–65; PULSE 74–86; RESP 16–18
[2018-09-21] MEDS: FUROSEMIDE 40 MG INJ IV SCH (05:31)
[2018-09-21] MEDS: LOSARTAN 25 MG TAB PO SCH (08:19)
[2018-09-21] MEDS: ASPIRIN 81 MG TAB PO SCH (08:20)
[2018-09-21] MEDS: MAGNESIUM OXIDE 400 MG TAB PO SCH (08:20)
[2018-09-21] MEDS: SPIRONOLACTONE 25 MG TAB PO SCH (08:20)
[2018-09-21] MEDS: ENOXAPARIN 30 MG/0.3 ML SYG SC SCH (08:25)
--- NOTE | 2018-09-21 09:15 | CONS ---
Consult Date/Type/Reason Admit Date/Time Sep 19, 2018 at 02:08 Initial Consult Date Requesting Provider: PRICE ALONSO Date/Time of Note DATE: 09/21/18 TIME: 09:13 Subjective NO acute events - responded to diuresis. ROS: No fever, no chills, no nausea, no vomiting, no diarrhea/constipation No recent weight changes No chest pain, no PND, no orthopnea - improved SOB No dizziness, blurred vision No thirst, no heat or cold intolerance Objective Vitals Vital Signs Date Temp Pulse Resp B/P (MAP) Pulse Ox O2 O2 Flow FiO2 Time Delivery Rate 09/21/18 80 08:01 09/21/18 98.7 16 95/58 (70) 98 Room Air 07:26 09/19/18 21 03:43 Intake and Output 09/20/18 09/20/18 09/21/18 1414:59 22:59 06:59 IntakeIntake Total 900 ml 550 ml OutputOutput Total 1500 ml 1200 ml BalanceBalance -600 ml -650 ml Exam General: WN/WD/NAD, AOx 3 HEENT: Unicetric/atraumatic/EOMI ( follow commands) NECK: JVD elevated, no thyromegaly Lymph: no lymphadenopathy HEART: regular with no S3, II/ systolic murmur at apex, PMI L LUNGS: Coarse sounds ABD: soft, NT, ND, +BS : Intact Neuro: non focal SKIN: chronic changes EXT: trace edema Results/Medications Result Diagram: 09/20/18 0546 09/21/18 0536 Results 24 hrs Laboratory Tests Test 09/21/18 05:36 Sodium Level 141 Potassium Level 3.8 Chloride Level 100 Carbon Dioxide Level 32 H Anion Gap 9 Blood Urea Nitrogen 24 H Creatinine 0.93 Est Glomerular Filtrat Rate mL/min > 60 Glucose Level 79 Calcium Level 9.0 Phosphorus Level 4.4 Magnesium Level 1.7 Home Meds Active Scripts Furosemide* (Lasix*) 20 Mg Tablet, 20 MG PO BID, #60 TAB 1 Refill Prov:ALEXIS RUIZ 09/03/18 Aspirin (Aspirin) 81 Mg Chew, 81 MG PO DAILY for 30 Days, TAB Prov:JOY LEY 08/24/18 Carvedilol* (Carvedilol*) 12.5 Mg Tablet, 12.5 MG PO BID for 30 Days, #60 TAB Prov:JOY LEY 08/24/18 Losartan Potassium* (Cozaar*) 25 Mg Tablet, 12.5 MG PO DAILY for 30 Days, TAB Prov:JOY LEY 08/24/18 Reported Medications Spironolactone* (Aldactone*) 25 Mg Tablet, 25 MG PO DAILY, #30 TAB 09/02/18 Medications Current Medications Aspirin (Aspirin) 81 mg DAILY PO Last administered on 09/21/18at 08:20; Admin Dose 81 MG; Start 09/19/18 at 09:00 Losartan Potassium (Cozaar) 12.5 mg DAILY PO Last administered on 09/20/18at 09:14; Admin Dose 12.5 MG; Start 09/19/18 at 09:00 Spironolactone (Aldactone) 25 mg DAILY PO Last administered on 09/21/18at 08:20; Admin Dose 25 MG; Start 09/19/18 at 09:00 Furosemide (Lasix) 40 mg BID DIURETICS IV Last administered on 09/21/18at 05:31; Admin Dose 40 MG; Start 09/19/18 at 12:00 IV Flush (NS 3 ml) 3 ml PER PROTOCOL IV ; Start 09/19/18 at 03:00 Ondansetron HCl (Zofran Tab) 4 mg Q6H PRN PO NAUSEA/VOMITING; Start 09/19/18 at 03:00 Acetaminophen (Tylenol Tab) 650 mg Q6H PRN PO .PAIN 1-3 OR TEMP; Start 09/19/18 at 03:00 Docusate Sodium (Colace) 100 mg Q12H PRN PO .CONSTIPATION; Start 09/19/18 at 03:00 Bisacodyl (Dulcolax) 5 mg DAILY PRN PO .CONSTIPATION; Start 09/19/18 at 03:00 Enoxaparin Sodium (Lovenox) 30 mg DAILY SC Last administered on 09/21/18at 08:25; Admin Dose 30 MG; Start 09/19/18 at 09:00 Albuterol/ Ipratropium (Duoneb) 3 ml Q4H RESP THERAPY PRN HHN SHORTNESS OF BREATH; Start 09/19/18 at 03:00 Carvedilol (Coreg) 12.5 mg BID PO Last administered on 2/25/19at 20:29; Admin Dose 12.5 MG; Start 09/19/18 at 09:00 Magnesium Oxide (Mag-Ox 400) 400 mg BID PO Last administered on 09/21/18at 08:20; Admin Dose 400 MG; Start 09/20/18 at 21:00 Imaging 1. Congestive heart failure exacerbation, systolic, acute on chronic - con't gentle diuresis. 2. Cardiomyopathy with severely depressed left ejection fraction with last one approximately 20% - d/c drugs advised - outpyt ICD eval. 3. Hypertension, under reasonable control- better now. 4. Ongoing polysubstance abuse with methamphetamines positive by tox screen during this admit - d/c advised. 5. Shortness of breath secondary to #1 - improved. 6. Anemia, mild - H/H stable. TAURUS BRENNAN MD Sep 21, 2018 09:15
--- NOTE | 2018-09-21 15:25 | DS ---
Date/Time of Note Date/Time of Note DATE: 09/21/18 TIME: 15:22 Discharge Summary Admission/Discharge Info Admit Date/Time Sep 19, 2018 at 02:08 Discharge Date/Time Patient Condition: Fair Consults [facility]/ [facility] Procedures CXR IMPRESSION: Interstitial edema suggesting cardiopulmonary congestion is mildly improved. Hx of Present Illness 38-year-old gentleman admitted with dyspnea edema Hospital Course Hospitalist coverage/hospital course A/P 1. Acute on chr decompensated CHF. stable restart medical management. Troponins negative. Discharge home. 2. 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 3. Substance abuse: Meth/ possible IVDA status post counseling 4. Hypertension 5. Morbid obesity 6. Possible SATHISH consider outpatient pleural/testing 7. First-degree AV block sinus rhythm asymptomatic Home Meds Active Scripts Furosemide* (Lasix*) 20 Mg Tablet, 20 MG PO BID, #60 TAB 1 Refill Prov:ALEXIS RUIZ 09/03/18 Aspirin (Aspirin) 81 Mg Chew, 81 MG PO DAILY for 30 Days, TAB Prov:JOY LEY 08/24/18 Carvedilol* (Carvedilol*) 12.5 Mg Tablet, 12.5 MG PO BID for 30 Days, #60 TAB Prov:JOY LEY 08/24/18 Losartan Potassium* (Cozaar*) 25 Mg Tablet, 12.5 MG PO DAILY for 30 Days, TAB Prov:JOY LEY 08/24/18 Reported Medications Spironolactone* (Aldactone*) 25 Mg Tablet, 25 MG PO DAILY, #30 TAB 09/02/18 Primary Care Provider Not On Staff Doctor Time spent on discharge: > 30 minutes Pending Labs Laboratory Tests Test 09/21/18 05:36 Sodium Level 141 mmol/L (135-144) Potassium Level 3.8 mmol/L (3.5-5.1) Chloride Level 100 mmol/L (97-110) Carbon Dioxide Level 32 mmol/L (21-31) Anion Gap 9 (5-13) Blood Urea Nitrogen 24 mg/dl (7-20) Creatinine 0.93 mg/dl (0.61-1.24) Est Glomerular Filtrat Rate mL/min > 60 mL/min (>60) Glucose Level 79 mg/dl (70-220) Calcium Level 9.0 mg/dl (8.4-10.2) Phosphorus Level 4.4 mg/dl (2.5-4.9) Magnesium Level 1.7 mg/dl (1.7-2.5) KESHIA GOSS MD Sep 21, 2018 15:25
--- NOTE | 2018-09-21 15:25 | PDOCDIS ---
Discharge Instructions CONDITION Helro2Ns Patient Condition: [id number] Stable HOME CARE INSTRUCTIONS: [id number] Diet Instructions: [id number] Low Fat /Cholesterol ACTIVITY: [id number] Activity Restrictions: [id number] Slowly Increase Activity Avoid heavy lifting Do not Drive FOLLOW UP/APPOINTMENTS Follow-up Plan appt primary 1wk Cardio 2wks KESHIA GOSS MD Sep 21, 2018 15:25
[2018-09-21] MEDS ORDERED: SPIR25TA PO (15:27)
[2018-09-21] MEDS ORDERED: FURO-110 PO (15:27)
[2018-09-21] MEDS ORDERED: CARV12.579 PO (15:27)
[2018-09-21] MEDS ORDERED: MAGN400T28 PO (15:27)
[2018-09-21] MEDS ORDERED: LOSA25TA2 PO (15:27)
--- NOTE | 2018-09-24 13:35 | RADRPT ---
Vent Rate: 80 bpm RR Interval: 0 msec [place] Interval: 208 msec QRS Duration: 132 msec QT Interval: 422 msec QTC Interval: 486 msec P-R-T [place]: 55 - 15 - 88 degrees Normal sinus rhythm Possible Left atrial enlargement Nonspecific intraventricular block Cannot rule out Anterior infarct , age undetermined Abnormal ECG Electronically Signed By: Andrew Kirk
== END 2018-09-21 16:29 | disposition home or self-care (01) | DRG 293 ==
LOC: E/R 22:17 → TEL 09-19 02:08
PROVIDERS: ADMIT Family Medicine; ATTEND Internal Medicine
DX: I11.0 Hypertensive heart disease with heart failure (principal); I50.23 Acute on chronic systolic (congestive) heart failure; I42.7 Cardiomyopathy due to drug and external agent; Z68.33 Body mass index [BMI] 33.0-33.9, adult; D64.9 Anemia, unspecified; F15.129 Other stimulant abuse with intoxication, unspecified; G47.33 Obstructive sleep apnea (adult) (pediatric); I44.0 Atrioventricular block, first degree; Z98.84 Bariatric surgery status; J40 Bronchitis, not specified as acute or chronic; E66.9 Obesity, unspecified; I34.0 Nonrheumatic mitral (valve) insufficiency; F15.90 Other stimulant use, unspecified, uncomplicated
CPT/HCPCS: 36415; 71045; 80048; 80053; 80061; 80307; 82550; 82553; 83735; 83880; 84100; 84484; 85025; 85610; 93005; 94644; J1650; J1940

== ENCOUNTER 2018-10-09 12:28 | Inpatient (IN) | payer OTHER ==
[~2018-10-09] VITALS: Ht 172.7 cm; Wt 99.1 kg
[~2018-10-09 12:28] MED LIST changes: +MAGN400T28 PO
[2018-10-09] MEDS ORDERED: CEFEPIME 2GM/50 ML (PMX) 50 ML IVPB STA (12:54)
[2018-10-09] MEDS ORDERED: KETOROLAC 15 MG INJ IV STA (12:54)
[2018-10-09] MEDS ORDERED: VANCOMYCIN 1 GM (PMX) 250 ML IVPB STA (12:54)
[2018-10-09] MEDS ORDERED: ACETAMINOPHEN 325 MG TAB PO STA (12:54)
--- NOTE | 2018-10-09 13:10 | ERD ---
ER Documentation Chief Complaint Chief Complaint sob x 3 days, fever. 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 The patient presents with 3 days of shortness of breath, lower extremity edema c onsistent with his volume overload. He also notes a fever. He states that he is having a cough that is only mildly productive. He does have a mild frontal gradual onset headache but no rash or neck stiffness. No abdominal pain nausea vomiting or diarrhea. No recent travel, sick contacts, antibiotics. ROS All systems reviewed and are negative except as per history of present illness. Medications Home Meds Reported Medications Losartan Potassium* (Losartan Potassium*) 25 Mg Tablet, 12.5 MG PO DAILY, TAB 10/09/18 Carvedilol* (Carvedilol*) 12.5 Mg Tablet, 12.5 MG PO BID, #60 TAB 10/09/18 Aspirin (Low Dose Aspirin) 81 Mg Tablet.dr, 81 MG PO DAILY, #30 TAB 10/09/18 Furosemide* (Lasix*) 20 Mg Tablet, 20 MG PO BID, TAB 10/09/18 Discontinued Scripts Magnesium Oxide* (Magnesium Oxide*) 400 Mg Tablet, 400 MG PO BID for 10 Days, #20 TAB Prov:KESHIA GOSS MD 09/21/18 Spironolactone* (Aldactone*) 25 Mg Tablet, 25 MG PO DAILY for 14 Days, #15 TAB Prov:KESHIA GOSS MD 09/21/18 Losartan Potassium* (Cozaar*) 25 Mg Tablet, 12.5 MG PO DAILY for 14 Days, #15 TAB Prov:KESHIA GOSS MD 09/21/18 Carvedilol* (Carvedilol*) 12.5 Mg Tablet, 12.5 MG PO BID for 14 Days, #30 TAB Prov:KESHIA GOSS MD 09/21/18 Furosemide* (Lasix*) 20 Mg Tablet, 20 MG PO BID for 14 Days, #30 TAB 1 Refill Prov:KESHIA GOSS MD 09/21/18 Aspirin (Aspirin) 81 Mg Chew, 81 MG PO DAILY for 30 Days, TAB Prov:JOY LEY 08/24/18 Allergies Allergies: Coded Allergies: No Known Allergies (Verified Allergy, Unknown, 10/09/18) PMhx/Soc History of Surgery: Yes (GASTRIC BYPASS, CHOLECYSTECTOMY) Anesthesia Reaction: Yes (HARD TO COMEBACK AFTER ANESTHESIA) Hx Neurological Disorder: No Hx Respiratory Disorders: No Hx Cardiac Disorders: Yes (CHF, HTN) Hx Psychiatric Problems: No Hx Miscellaneous Medical Probl: No Hx Alcohol Use: No Hx Substance Use: Yes (occ meth) Hx Tobacco Use: Yes (occ) Smoking Status: Current every day smoker FmHx Family History: No diabetes Physical Exam Vitals Vital Signs Date Temp Pulse Resp B/P (MAP) Pulse Ox O2 O2 Flow FiO2 Time Delivery Rate 10/09/18 99 17 122/81 100 Room Air 15:20 (95) 10/09/18 Nasal 3 13:12 Cannula 10/09/18 118 19 131/89 96 Room Air 12:51 (103) 10/09/18 102.9 116 22 134/82 94 12:43 (99) Physical Exam General: Slightly uncomfortable Head: Normocephalic, atraumatic. Eyes: Pupils equally reactive, EOM intact ENT: Moist mucous membranes Neck: Supple, no lymphadenopathy Respiratory: Rales at the bases bilaterally with slight increased work of breathing Cardiovascular: Tachycardia, no murmurs, rubs, or gallops Abdominal: Soft, non-tender, non-distended, no peritoneal signs : Deferred MSK: Bilateral peripheral edema, no unilateral swelling, 5/5 strength Neurologic: Alert and oriented, moving all extremities, normal speech, no focal weakness, no cerebellar signs, no meningismus Skin: No rash Psych: Normal mood Result Diagram: 10/09/18 1259 10/09/18 1259 Results 24 hrs Laboratory Tests Test 10/09/18 12:59 10/09/18 13:01 White Blood Count 6.1 10^3/ul Red Blood Count 5.23 10^6/ul Hemoglobin 14.0 g/dl Hematocrit 45.5 % Mean Corpuscular Volume 87.0 fl Mean Corpuscular Hemoglobin 26.8 pg Mean Corpuscular Hemoglobin Concent 30.8 g/dl Red Cell Distribution Width 15.7 % Platelet Count 223 10^3/UL Mean Platelet Volume 9.9 fl Immature Granulocytes % 0.200 % Neutrophils % 75.4 % Lymphocytes % 14.5 % Monocytes % 8.9 % Eosinophils % 0.3 % Basophils % 0.7 % Nucleated Red Blood Cells % 0.0 /100WBC Immature Granulocytes # 0.010 10^3/ul Neutrophils # 4.6 10^3/ul Lymphocytes # 0.9 10^3/ul Monocytes # 0.5 10^3/ul Eosinophils # 0.0 10^3/ul Basophils # 0.0 10^3/ul Nucleated Red Blood Cells # 0.0 10^3/ul Prothrombin Time 14.5 Sec Prothrombin Time Ratio 1.1 INR International Normalized Ratio 1.12 Activated Partial Thromboplast Time 38.3 Sec Urine Color YELLOW Urine Clarity CLEAR Urine pH 5.0 Urine Specific [place] 1.010 Urine Ketones NEGATIVE mg/dL Urine Nitrite NEGATIVE mg/dL Urine Bilirubin NEGATIVE mg/dL Urine Urobilinogen NEGATIVE mg/dL Urine Leukocyte Esterase NEGATIVE Renee/ul Urine Microscopic RBC 2 /HPF Urine Microscopic WBC 4 /HPF Urine Hemoglobin 2+ mg/dL Urine Glucose NEGATIVE mg/dL Urine Total Protein 1+ mg/dl Sodium Level 137 mmol/L Potassium Level 3.9 mmol/L Chloride Level 96 mmol/L Carbon Dioxide Level 30 mmol/L Anion Gap 11 Blood Urea Nitrogen 17 mg/dl Creatinine 1.07 mg/dl Est Glomerular Filtrat Rate mL/min > 60 mL/min Glucose Level 114 mg/dl Calcium Level 9.1 mg/dl Total Bilirubin 1.1 mg/dl Direct Bilirubin 0.00 mg/dl Indirect Bilirubin 1.1 mg/dl Aspartate Amino Transf (AST/SGOT) 30 IU/L Alanine Aminotransferase (ALT/SGPT) 17 IU/L Alkaline Phosphatase 74 IU/L Troponin I 0.176 ng/ml B-Type Natriuretic Peptide 8250 PG/ML Total Protein 7.9 g/dl Albumin 4.4 g/dl Globulin 3.50 g/dl Albumin/Globulin Ratio 1.25 POC Venous Lactate 1.8 mmol/L Current Medications Medications Dose Sig/Jess Start Time Status Last (Trade) Ordered Route PRN Stop Time Admin Dose Reason Admin 650 mg ONCE STAT 10/09/18 DC 10/09/18 Acetaminophen PO 12:54 13:08 (Tylenol 10/09/18 12:56 Tab) Vancomycin 250 ml @ ONCE STAT 10/09/18 DC 10/09/18 HCl 125 mls/hr IVPB 12:54 13:07 10/09/18 14:53 Cefepime HCl 50 ml @ ONCE STAT 10/09/18 DC 10/09/18 100 mls/hr IVPB 12:54 13:07 10/09/18 13:23 Ketorolac 15 mg ONCE STAT 10/09/18 DC 10/09/18 Tromethamine IV 12:54 13:07 (Toradol) 10/09/18 12:56 Furosemide 40 mg ONCE ONCE 10/09/18 DC 10/09/18 (Lasix) IV 13:30 13:41 10/09/18 13:31 Procedures/MDM EKG, MONITORS, & DIAGNOSTIC IMAGING: EKG: I reviewed and interpreted a 12-lead EKG. Rhythm: Normal sinus rhythm ST Changes: No contiguous ST segment elevations T waves: No contiguous T wave inversions Impression: [No evidence of acute cardiac ischemia] Chest x-ray: Chest x-ray: I reviewed and interpreted a 1 view of the chest Mediastinum: No enlargement Cardiac silhouette cardiomegaly Airspace: Interstitial process without focal infiltrates Bones: No evidence of fracture LAB INTERPRETATION: I reviewed the laboratory testing and it shows no significant leukocytosis, normal lactic acid, mild troponin elevation of 0.176, BNP elevation of 8250 Negative flu, normal urine MEDICAL DECISION MAKING: The patient presents with fever and shortness of breath and a cough. He has a history of severe cardiomyopathy based on recent echocardiogram. The patient does have signs and symptoms concerning for possible pneumonia. Given his recent hospitalization this would be consistent with healthcare associated pneumonia. Viral syndrome is also considered. No evidence of acute interabdominal process. The patient does have a mild headache but likely sec ondary to fever. He has no clinical signs of meningitis. Code sepsis was initiated based on the patient's Sirs criteria in triage. It should be noted that I cannot provide the patient with aggressive fluid resuscitation. The patient has clinical signs and symptoms consistent with volume overload and pulmonary edema. The patient actually requires diuresis. For this reason I will not proceed with IV fluids at this time and less the patient's clinical status or laboratory testing suggest shock. At this point fluids risk greatly outweighs any benefit. ER COURSE: * Antipyretics provided. * Blood cultures prior to antibiotics. Vancomycin, cefepime provided * Lasix given * The patient does not have a clear source of infection. Consider viral. The patient does have a mild troponin elevation. Myocarditis or endocarditis could be considered. Broad-spectrum antibiotics and blood cultures been taken. Other testing may be necessary on an inpatient basis. * Again, avoiding IV fluids given his history of severe cardiomyopathy. The patient has obvious evidence of volume overload and needs afterload and preload reduction. * Aspirin provided for troponin elevation CONSULTATION: [None] DISPOSITION PLAN: Accepting care team and consultations: I discussed the current laboratory data, diagnostic imaging and emergency care provided. Admitting team: Dr. Goss Admitting team indication: Insurance directed All the patient has Sirs criteria in the emergency room setting he has no clear source of infection other than viral process. This is not consistent with sepsis or severe sepsis. I have avoided IV fluids as documented above multiple times. The patient's vital signs have improved including temperature. He does not require central line or pressors. Departure Diagnosis: Primary Impression: NSTEMI (non-ST elevation myocardial infarction) Additional Impressions: Acute exacerbation of CHF (congestive heart failure) Heart failure type: combined systolic and diastolic Qualified Codes: I50.43 - Acute on chronic combined systolic (congestive) and diastolic (congestive) heart failure Acute pulmonary edema SIRS (systemic inflammatory response syndrome) Condition: Stable EDWARDO ERNANDZE MD Oct 09, 2018 13:10
[2018-10-09] MEDS ORDERED: FUROSEMIDE 40 MG INJ IV ONE (13:30)
[2018-10-09] MEDS ORDERED: FURO-110 PO (13:31)
[2018-10-09] MEDS ORDERED: ASPI81TA52 PO (13:32)
[2018-10-09] MEDS ORDERED: CARV12.579 PO (13:34)
[2018-10-09] MEDS ORDERED: LOSA25TA12 PO (13:34)
[2018-10-09] MEDS ORDERED: ACETAMINOPHEN 325 MG TAB PO PRN (15:30)
[2018-10-09] MEDS ORDERED: ASPIRIN 81 MG TAB PO ONE (15:30)
[2018-10-09] MEDS ORDERED: ONDANSETRON 4 MG INJ IV PRN ×2 (15:30→17:30)
[2018-10-09 15:51] VITALS: PULSE 99
[2018-10-09 16:04] VITALS: Ht 172.7 cm; Wt 99.1 kg
[2018-10-09 16:09] VITALS: BP 114/57; PULSE 97; RESP 20
--- NOTE | 2018-10-09 17:16 | HP ---
Date/Time of Note Date/Time of Note DATE: 10/09/18 TIME: 17:10 Assessment/Plan VTE Prophylaxis SCD contraindicated: low risk/ambulating Pharmacological prophylaxis: LMWH Lines/Catheters IV Catheter Type (from Nrs): Saline Lock Assessment/Plan Hospital Course Chief complaint dyspnea History of present illness 30-year-old gentleman presents with dyspnea cough fever feels congested. Cough with white green expectoration no hemoptysis. There is substance abuse including meth. No nausea vomiting or loss of appetite. No chest pain. His [id number] is sick not hospitalized. 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 No leg pain or edema if salty use Past medical history 1. Chr CHF. 2. 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 Substance abuse: Meth/ possible IVDA status post counseling 4. Hypertension 5. Morbid obesity 6. Possible SATHISH consider outpatient testing 7. First-degree AV block Past surgical history Gastric bypass Social history Substance abuse meth. He works with his [id number] Family history No family history of early coronary scans were stroke that I am aware of Review of systems Neuro: No headache no loss. Cardio: No chest pain positive dyspnea no edema Lungs: Dyspnea cough possible fever no edema Abdomen: No pain nausea vomiting diarrhea Genitourinary: No pain dysuria hematuria Preet: No hematochezia melena hematuria Psychiatry: Mild anxiety no agitation depression Constitutional: Possible fever chills Reiger Reiger Endocrine: No previous diabetes thyroid dysfunction possible dyslipidemia Skill skeletal: No gait dysfunction no rash no itching no edema PE Possible JVD no pallor icterus adenopathy Regular no murmur rub gallop Diminished anteriorly no tachypnea at rest nontender Bowel sounds present nontender nondistended no r./r/r or abdominal bruits no edema chronic stasis noted Assessment and plan 1. Dyspnea abn troponin likely related to decompensated chronic cardia myopathy. Stable consult cardiology 2. Abnormal troponin likely secondary NC. No chest pain, no arrhythmia but will rule out ACS. Stable admit to telemetry 3. Chronic nonischemic cardia myopathy 4. Chronic substance abuse with meth probably not a great candidate for any aggressive intervention 5. Chronic SATHISH? 6. Chronic hypertension 7. Obesity 8. BBB likely related to chronic cardiomyopathy. Consider outpatient cardiology opinion on AICD Result Diagram: 10/09/18 1259 10/09/18 1259 Results 24hrs Laboratory Tests Test 10/09/18 12:59 10/09/18 13:01 White Blood Count 6.1 # Red Blood Count 5.23 Hemoglobin 14.0 Hematocrit 45.5 Mean Corpuscular Volume 87.0 Mean Corpuscular Hemoglobin 26.8 L Mean Corpuscular Hemoglobin Concent 30.8 L Red Cell Distribution Width 15.7 H Platelet Count 223 Mean Platelet Volume 9.9 Immature Granulocytes % 0.200 Neutrophils % 75.4 Lymphocytes % 14.5 L Monocytes % 8.9 Eosinophils % 0.3 Basophils % 0.7 Nucleated Red Blood Cells % 0.0 Immature Granulocytes # 0.010 Neutrophils # 4.6 Lymphocytes # 0.9 Monocytes # 0.5 Eosinophils # 0.0 Basophils # 0.0 Nucleated Red Blood Cells # 0.0 Prothrombin Time 14.5 Prothrombin Time Ratio 1.1 INR International Normalized Ratio 1.12 Activated Partial Thromboplast Time 38.3 H Urine Color YELLOW Urine Clarity CLEAR Urine pH 5.0 Urine Specific [place] 1.010 Urine Ketones NEGATIVE Urine Nitrite NEGATIVE Urine Bilirubin NEGATIVE Urine Urobilinogen NEGATIVE Urine Leukocyte Esterase NEGATIVE Urine Microscopic RBC 2 Urine Microscopic WBC 4 Urine Hemoglobin 2+ H Urine Glucose NEGATIVE Urine Total Protein 1+ H Sodium Level 137 Potassium Level 3.9 Chloride Level 96 L Carbon Dioxide Level 30 Anion Gap 11 Blood Urea Nitrogen 17 Creatinine 1.07 Est Glomerular Filtrat Rate mL/min > 60 Glucose Level 114 Calcium Level 9.1 Total Bilirubin 1.1 Direct Bilirubin 0.00 Indirect Bilirubin 1.1 Aspartate Amino Transf (AST/SGOT) 30 Alanine Aminotransferase (ALT/SGPT) 17 Alkaline Phosphatase 74 Troponin I 0.176 *H B-Type Natriuretic Peptide 8250 H Total Protein 7.9 Albumin 4.4 Globulin 3.50 H Albumin/Globulin Ratio 1.25 POC Venous Lactate 1.8 HPI/ROS Admit Date/Time Admit Date/Time Oct 09, 2018 at 15:20 PMH/Family/Social Past Medical History Coded Allergies: No Known Allergies (Verified Allergy, Unknown, 10/09/18) Past Surgical History Past Surgical Hx: cholecystectomy Family History Significant Family History: no pertinent family hx Social History Smoking Status: Current every day smoker Exam/Review of Systems Vital Signs Vitals Vital Signs Date Temp Pulse Resp B/P (MAP) Pulse Ox O2 O2 Flow FiO2 Time Delivery Rate 10/09/18 Nasal 2.0 16:20 Cannula 10/09/18 99.1 97 20 114/57 94 16:09 (76) KESHIA GOSS MD Oct 09, 2018 17:16
[2018-10-09] MEDS ORDERED: morphine 2 MG INJ IV PRN (17:30)
[2018-10-09] MEDS ORDERED: NACL 0.9% 3 ML SYG IV SCH (17:30)
[2018-10-09] MEDS ORDERED: DOCUSATE SODIUM 100 MG CAP PO PRN (17:30)
[2018-10-09] MEDS ORDERED: GUAIFENESIN/DM 5ML CUP PO PRN (17:30)
[2018-10-09] MEDS ORDERED: BISACODYL 10 MG SUPP PR PRN (17:30)
[2018-10-09] MEDS ORDERED: MAGNESIUM HYDROXIDE 30ML CUP PO PRN (17:30)
[2018-10-09] MEDS ORDERED: BISACODYL (EC) 5 MG TAB PO PRN (17:30)
[2018-10-09] MEDS: ASPIRIN (EC) 81 MG TAB PO SCH (17:57)
[2018-10-09 19:36] VITALS: BP 123/81; PULSE 108; RESP 18
[2018-10-09 20:00] VITALS: PULSE 113
[2018-10-09] MEDS: LEVALBUTEROL (HFA) 15 GM INHALER INH SCH (20:00)
[2018-10-09] MEDS: FAMOTIDINE 20 MG TAB PO SCH (20:33)
[2018-10-09] MEDS: FUROSEMIDE 40 MG TAB PO SCH (20:33)
[2018-10-09] MEDS: ENOXAPARIN 100 MG/ML SYG SC SCH (20:47)
[2018-10-09] MEDS ORDERED: ATORVASTATIN 40 MG TAB PO SCH (21:00)
[2018-10-09] MEDS ORDERED: FUROSEMIDE 40 MG TAB PO SCH (21:00)
[2018-10-10] VITALS (15 sets, daily range): BP systolic 95–167; BP diastolic 55–86; PULSE 61–115; RESP 18–34
[2018-10-10] MEDS: HYDROCODONE/APAP (5/325) TAB PO PRN (01:09)
[2018-10-10] MEDS: LEVALBUTEROL (HFA) 15 GM INHALER INH SCH ×2 (02:38→10:44)
[2018-10-10] MEDS: FUROSEMIDE 40 MG TAB PO SCH (04:55)
[2018-10-10] MEDS: THIAMINE 100 MG TAB PO SCH (08:27)
[2018-10-10] MEDS: ASPIRIN (EC) 81 MG TAB PO SCH (08:27)
[2018-10-10] MEDS: FAMOTIDINE 20 MG TAB PO SCH ×2 (08:27→21:33)
[2018-10-10] MEDS: ENOXAPARIN 100 MG/ML SYG SC SCH (08:30)
[2018-10-10] MEDS: ACETAMINOPHEN 325 MG TAB PO PRN ×2 (10:25→17:09)
[2018-10-10] MEDS ORDERED: CEPASTAT LOZENGE MT PRN (11:30)
[2018-10-10] MEDS: AZITHROMYCIN 500MG/NS (PMX) 250 ML IVPB SCH (13:41)
[2018-10-10] MEDS: OSELTAMIVIR 75 MG CAP PO SCH ×2 (13:41→21:33)
[2018-10-10] MEDS: CEFTRIAXONE 2 GM/50 ML (PMX) 50 ML IVPB SCH (13:41)
--- NOTE | 2018-10-10 14:00 | CONS ---
Assessment/Plan Assessment/Plan Assessment/Plan (Daily) IMP: 1. ADHF--in a patient with substance abuse and cardiomyopathy. 2 Demand ischemia 3. Multifocal Pneumonia--viral likely vs. atypical bacterial and less likely cocci 4. Azotemia 5. Substance Abuse 6. SATHISH RECS: 1. Agree with ceftriaxone/azithro/tamiflu 2. Check HIV and cocci serologies 3. Check ECHO 4. Diuresis/afterload reduction as per Cardiology 5. CPAP for sleep Consultation Date/Type/Reason Admit Date/Time Oct 09, 2018 at 15:20 Date of Consultation: Oct 10, 2018 Type of Consult Pulm Reason for Consultation Pneumonia Date/Time of Note DATE: 10/10/18 TIME: 13:47 Hx of Present Illness Briefly, this is a 30-year-old man with a history of substance abuse (IVDA and meth), CHF, HTN, obesity, SATHISH, s/p recurrent recent admits for ADHF, now presen ts with dyspnea cough fever feels congested. He endorses orthopnea and PND. Constitutional: no complaints Eyes: no complaints ENT: no complaints Respiratory: cough, shortness of breath, sputum Cardiovascular: no complaints, orthopenea, paroxysmal nocturnal dyspnea Gastrointestinal: no complaints Genitourinary: no complaints Musculoskeletal: no complaints Skin: no complaints Neurologic: no complaints Endocrine: no complaints Lymphatic: no complaints Psychological: no complaints Immunologic: no complaints Past Medical History Medical History: congestive heart failure, hypertension, other (sathish ) Home Meds Reported Medications Losartan Potassium* (Losartan Potassium*) 25 Mg Tablet, 12.5 MG PO DAILY, TAB 10/09/18 Carvedilol* (Carvedilol*) 12.5 Mg Tablet, 12.5 MG PO BID, #60 TAB 10/09/18 Aspirin (Low Dose Aspirin) 81 Mg Tablet.dr, 81 MG PO DAILY, #30 TAB 10/09/18 Furosemide* (Lasix*) 20 Mg Tablet, 20 MG PO BID, TAB 10/09/18 Discontinued Scripts Magnesium Oxide* (Magnesium Oxide*) 400 Mg Tablet, 400 MG PO BID for 10 Days, #20 TAB Prov:KESHIA GOSS MD 09/21/18 Spironolactone* (Aldactone*) 25 Mg Tablet, 25 MG PO DAILY for 14 Days, #15 TAB Prov:KESHIA GOSS MD 09/21/18 Losartan Potassium* (Cozaar*) 25 Mg Tablet, 12.5 MG PO DAILY for 14 Days, #15 TAB Prov:KESHIA GOSS MD 09/21/18 Carvedilol* (Carvedilol*) 12.5 Mg Tablet, 12.5 MG PO BID for 14 Days, #30 TAB Prov:KESHIA GOSS MD 09/21/18 Furosemide* (Lasix*) 20 Mg Tablet, 20 MG PO BID for 14 Days, #30 TAB 1 Refill Prov:KESHIA GOSS MD 09/21/18 Aspirin (Aspirin) 81 Mg Chew, 81 MG PO DAILY for 30 Days, TAB Prov:JOY LEY 08/24/18 Medications Current Medications Aspirin (Halfprin) 81 mg DAILY PO Last administered on 10/10/18at 08:27; Admin Dose 81 MG; Start 10/09/18 at 17:30 IV Flush (NS 3 ml) 3 ml PER PROTOCOL IV ; Start 10/09/18 at 17:30 Ondansetron HCl (Zofran Inj) 4 mg Q6H PRN IV NAUSEA/VOMITING; Start 10/09/18 at 17:30 Acetaminophen (Tylenol Tab) 650 mg Q6H PRN PO .PAIN 1-3 OR TEMP Last administered on 10/10/18at 10:25; Admin Dose 650 MG; Start 10/09/18 at 17:30 Acetaminophen/ Hydrocodone Bitart ([place] (5/325)) 1 tab Q6H PRN PO .MOD PAIN 4- 6 Last administered on 10/10/18at 01:09; Admin Dose 1 TAB; Start 10/09/18 at 17:30 Morphine Sulfate (morphine) 2 mg Q4H PRN IV .SEVERE PAIN 7-10; Start 10/09/18 at 17:30 Docusate Sodium (Colace) 100 mg Q12H PRN PO .CONSTIPATION; Start 10/09/18 at 17:30 Magnesium Hydroxide (Milk Of Mag) 30 ml DAILY PRN PO .CONSTIPATION; Start 10/09/18 at 17:30 Bisacodyl (Dulcolax) 5 mg DAILY PRN PO .CONSTIPATION; Start 10/09/18 at 17:30 Bisacodyl (Dulcolax Supp) 10 mg DAILY PRN DC .CONSTIPATION; Start 10/09/18 at 17:30 Famotidine (Pepcid) 20 mg Q12 PO Last administered on 10/10/18 08:27; Admin Dose 20 MG; Start 10/09/18 at 21:00 Enoxaparin Sodium (Lovenox) 100 mg Q12 SC Last administered on 10/10/18 08:30; Admin Dose 100 MG; Start 10/09/18 at 21:00 Atorvastatin Calcium (Lipitor) 40 mg HS PO Last administered on 10/09/18at 20:33; Admin Dose 40 MG; Start 10/09/18 at 21:00 Guaifenesin/ Dextromethorphan (Robitussin Dm Liquid Cup) 10 ml Q4H PRN PO COUGH; Start 10/09/18 at 17:30 Thiamine HCl (Vitamin B1) 100 mg DAILY PO Last administered on 10/10/18 08:27; Admin Dose 100 MG; Start 10/10/18 at 09:00 Ceftriaxone Sodium 50 ml @ 100 mls/hr Q24H IVPB Last administered on 10/10/18 13:41; Admin Dose 100 MLS/HR; Start 10/10/18 at 11:00 Azithromycin 250 ml @ 250 mls/hr Q24H IVPB Last administered on 10/10/18 13:41; Admin Dose 250 MLS/HR; Start 10/10/18 at 11:00 Levalbuterol (Xopenex Neb) 0.63 mg Q6H RESP THERAPY HHN ; Start 10/10/18 at 14:00 Oseltamivir Phosphate (Tamiflu) 75 mg BID PO Last administered on 10/10/18at 13:41; Admin Dose 75 MG; Start 10/10/18 at 11:30 Phenol (Cepastat Lozenge) 1 lozenge Q3 PRN MT SORE THROAT; Start 10/10/18 at 11:30 Allergies: Coded Allergies: No Known Allergies (Verified Allergy, Unknown, 10/09/18) Past Surgical History Past Surgical Hx: no surgical history, cholecystectomy Family History Significant Family History: no pertinent family hx Social History Smoking Status: Current every day smoker Exam/Review of Systems Exam Vitals Vital Signs Date Temp Pulse Resp B/P (MAP) Pulse Ox O2 O2 Flow FiO2 Time Delivery Rate 10/10/18 97 12:03 10/10/18 98.2 21 111/69 98 11:29 (83) 10/10/18 Nasal 3.0 10:29 Cannula Intake and Output 10/09/18 10/09/18 10/10/18 1515:00 23:00 07:00 IntakeIntake Total 400 ml OutputOutput Total 1040 ml BalanceBalance -640 ml Constitutional: alert, oriented, well developed Psych: no complaints, nl mood/affect Head: normocephalic, atraumatic Eyes: nl conjunctiva, EOMI, nl lids ENMT: nl external ears & nose, nl lips & teeth, nl nasal mucosa & septum, mucosa pink and moist Neck: supple, non-tender, jvd Respiratory: crackles/rales Cardiovascular: regular rate and rhythm, jugular venous distention (JVD), murmurs/extra sounds Gastrointestinal: soft, nl liver, spleen, non-tender Musculoskeletal: nl extremities to inspection Extremities: normal pulses, edema 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, DTR's symmetric Results Result Diagram: 10/10/1852110/10/18 0521 Results 24hrs Laboratory Tests Test 10/09/18 16:35 10/09/18 17:49 10/10/18 05:21 10/10/18 05:22 Lactic Acid Level 1.1 1.5 Erythrocyte 30 H Sedimentation Rate Troponin I 0.226 *H 0.182 *H C-Reactive Protein 3.6 H Prothrombin Time 15.5 H Prothrombin Time 1.2 Ratio INR International 1.22 Normalized Ratio Sodium Level 136 Potassium Level 4.3 Chloride Level 96 L Carbon Dioxide Level 31 Anion Gap 9 Blood Urea Nitrogen 18 Creatinine 1.01 Est Glomerular > 60 Filtrat Rate mL/min Glucose Level 92 Calcium Level 9.1 Phosphorus Level 4.4 Magnesium Level 1.8 Total Bilirubin 1.5 H Direct Bilirubin 0.00 Indirect Bilirubin 1.5 H Aspartate Amino 29 Transf (AST/SGOT) Alanine 22 Aminotransferase (AL T/SGPT) Alkaline Phosphatase 73 Total Protein 7.0 Albumin 3.9 Globulin 3.10 Albumin/Globulin 1.25 Ratio Thyroid Stimulating 0.591 Hormone (TSH) White Blood Count 5.2 Red Blood Count 5.09 Hemoglobin 13.9 L Hematocrit 44.7 Mean Corpuscular 87.8 Volume Mean Corpuscular 27.3 L Hemoglobin Mean Corpuscular 31.1 L Hemoglobin Concent Red Cell 15.5 H Distribution Width Platelet Count 199 Mean Platelet Volume 10.9 H Immature 0.400 Granulocytes % Neutrophils % 73.9 Lymphocytes % 17.1 Monocytes % 7.8 Eosinophils % 0.2 Basophils % 0.6 Nucleated Red Blood 0.0 Cells % Immature 0.020 Granulocytes # Neutrophils # 3.8 Lymphocytes # 0.9 Monocytes # 0.4 Eosinophils # 0.0 Basophils # 0.0 Nucleated Red Blood 0.0 Cells # Hemoglobin A1c 5.6 Medications Medication Current Medications Aspirin (Halfprin) 81 mg DAILY PO Last administered on 10/10/18at 08:27; Admin Dose 81 MG; Start 10/09/18 at 17:30 IV Flush (NS 3 ml) 3 ml PER PROTOCOL IV ; Start 10/09/18 at 17:30 Ondansetron HCl (Zofran Inj) 4 mg Q6H PRN IV NAUSEA/VOMITING; Start 10/09/18 at 17:30 Acetaminophen (Tylenol Tab) 650 mg Q6H PRN PO .PAIN 1-3 OR TEMP Last administered on 10/10/18at 10:25; Admin Dose 650 MG; Start 10/09/18 at 17:30 Acetaminophen/ Hydrocodone Bitart ([place] (5/325)) 1 tab Q6H PRN PO .MOD PAIN 4- 6 Last administered on 10/10/18at 01:09; Admin Dose 1 TAB; Start 10/09/18 at 17:30 Morphine Sulfate (morphine) 2 mg Q4H PRN IV .SEVERE PAIN 7-10; Start 10/09/18 at 17:30 Docusate Sodium (Colace) 100 mg Q12H PRN PO .CONSTIPATION; Start 10/09/18 at 17:30 Magnesium Hydroxide (Milk Of Mag) 30 ml DAILY PRN PO .CONSTIPATION; Start 10/09/18 at 17:30 Bisacodyl (Dulcolax) 5 mg DAILY PRN PO .CONSTIPATION; Start 10/09/18 at 17:30 Bisacodyl (Dulcolax Supp) 10 mg DAILY PRN DC .CONSTIPATION; Start 10/09/18 at 17:30 Famotidine (Pepcid) 20 mg Q12 PO Last administered on 10/10/18at 08:27; Admin Dose 20 MG; Start 10/09/18 at 21:00 Enoxaparin Sodium (Lovenox) 100 mg Q12 SC Last administered on 10/10/18 08:30; Admin Dose 100 MG; Start 10/09/18 at 21:00 Atorvastatin Calcium (Lipitor) 40 mg HS PO Last administered on 10/09/18at 20:33; Admin Dose 40 MG; Start 10/09/18 at 21:00 Guaifenesin/ Dextromethorphan (Robitussin Dm Liquid Cup) 10 ml Q4H PRN PO COUGH; Start 10/09/18 at 17:30 Thiamine HCl (Vitamin B1) 100 mg DAILY PO Last administered on 10/10/18 08:27; Admin Dose 100 MG; Start 10/10/18 at 09:00 Ceftriaxone Sodium 50 ml @ 100 mls/hr Q24H IVPB Last administered on 10/10/18 13:41; Admin Dose 100 MLS/HR; Start 10/10/18 at 11:00 Azithromycin 250 ml @ 250 mls/hr Q24H IVPB Last administered on 10/10/18 13:41; Admin Dose 250 MLS/HR; Start 10/10/18 at 11:00 Levalbuterol (Xopenex Neb) 0.63 mg Q6H RESP THERAPY HHN ; Start 10/10/18 at 14:00 Oseltamivir Phosphate (Tamiflu) 75 mg BID PO Last administered on 10/10/18 13:41; Admin Dose 75 MG; Start 10/10/18 at 11:30 Phenol (Cepastat Lozenge) 1 lozenge Q3 PRN MT SORE THROAT; Start 10/10/18 at 11:30 STEPHANIE CABRERA MD Oct 10, 2018 14:00
--- NOTE | 2018-10-10 14:12 | CONS ---
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 Hypertension Methamphetamine abuse Pneumonia Recommendations: -Lasix 40mg IV BID -resume on outpatient carvedilol 12.5mg BID and losartan 12.5mg daily -continue aspirin 81mg daily -discontinue atorvastatin (LDL 45) -eventual coronary and ICD evaluation as outpatient if patient can abstain from illicit drug use Consultation Date/Type/Reason Admit Date/Time Oct 09, 2018 at 15:20 Type of Consult Cardiology Date/Time of Note DATE: 10/10/18 TIME: 14:03 Hx of Present Illness The patient is a 38 year-old male with chronic systolic heart failure who presented with fever, productive cough, and shortness of breath. EKG showed sinus rhythm with left bundle branch block, which appears to be chronic. Troponins are mildly elevated to 0.2 and BNP is elevated at 8250. Chest x-ray and CT imaging showed pulmonary edema and pneumonia. 14 point review of systems negative other than per HPI. Past Medical History Chronic systolic heart failure Cardiomyopathy, LVEF 20% Hypertension Methamphetamine abuse Home Meds Reported Medications Losartan Potassium* (Losartan Potassium*) 25 Mg Tablet, 12.5 MG PO DAILY, TAB 10/09/18 Carvedilol* (Carvedilol*) 12.5 Mg Tablet, 12.5 MG PO BID, #60 TAB 10/09/18 Aspirin (Low Dose Aspirin) 81 Mg Tablet.dr, 81 MG PO DAILY, #30 TAB 10/09/18 Furosemide* (Lasix*) 20 Mg Tablet, 20 MG PO BID, TAB 10/09/18 Discontinued Scripts Magnesium Oxide* (Magnesium Oxide*) 400 Mg Tablet, 400 MG PO BID for 10 Days, #20 TAB Prov:KESHIA GOSS MD 09/21/18 Spironolactone* (Aldactone*) 25 Mg Tablet, 25 MG PO DAILY for 14 Days, #15 TAB Prov:KESHIA GOSS MD 09/21/18 Losartan Potassium* (Cozaar*) 25 Mg Tablet, 12.5 MG PO DAILY for 14 Days, #15 TAB Prov:KESHIA GOSS MD 09/21/18 Carvedilol* (Carvedilol*) 12.5 Mg Tablet, 12.5 MG PO BID for 14 Days, #30 TAB Prov:KESHIA GOSS MD 09/21/18 Furosemide* (Lasix*) 20 Mg Tablet, 20 MG PO BID for 14 Days, #30 TAB 1 Refill Prov:KESHIA GOSS MD 09/21/18 Aspirin (Aspirin) 81 Mg Chew, 81 MG PO DAILY for 30 Days, TAB Prov:JOY LEY 08/24/18 Medications Current Medications Aspirin (Halfprin) 81 mg DAILY PO Last administered on 10/10/18at 08:27; Admin Dose 81 MG; Start 10/09/18 at 17:30 IV Flush (NS 3 ml) 3 ml PER PROTOCOL IV ; Start 10/09/18 at 17:30 Ondansetron HCl (Zofran Inj) 4 mg Q6H PRN IV NAUSEA/VOMITING; Start 10/09/18 at 17:30 Acetaminophen (Tylenol Tab) 650 mg Q6H PRN PO .PAIN 1-3 OR TEMP Last administered on 10/10/18at 10:25; Admin Dose 650 MG; Start 10/09/18 at 17:30 Acetaminophen/ Hydrocodone Bitart ([place] (5/325)) 1 tab Q6H PRN PO .MOD PAIN 4- 6 Last administered on 10/10/18at 01:09; Admin Dose 1 TAB; Start 10/09/18 at 17:30 Morphine Sulfate (morphine) 2 mg Q4H PRN IV .SEVERE PAIN 7-10; Start 10/09/18 at 17:30 Docusate Sodium (Colace) 100 mg Q12H PRN PO .CONSTIPATION; Start 10/09/18 at 17:30 Magnesium Hydroxide (Milk Of Mag) 30 ml DAILY PRN PO .CONSTIPATION; Start 10/09/18 at 17:30 Bisacodyl (Dulcolax) 5 mg DAILY PRN PO .CONSTIPATION; Start 10/09/18 at 17:30 Bisacodyl (Dulcolax Supp) 10 mg DAILY PRN MS .CONSTIPATION; Start 10/09/18 at 17:30 Famotidine (Pepcid) 20 mg Q12 PO Last administered on 10/10/18at 08:27; Admin Dose 20 MG; Start 10/09/18 at 21:00 Enoxaparin Sodium (Lovenox) 100 mg Q12 SC Last administered on 10/10/18at 08:30; Admin Dose 100 MG; Start 10/09/18 at 21:00 Atorvastatin Calcium (Lipitor) 40 mg HS PO Last administered on 10/09/18at 20:33; Admin Dose 40 MG; Start 10/09/18 at 21:00 Guaifenesin/ Dextromethorphan (Robitussin Dm Liquid Cup) 10 ml Q4H PRN PO COUGH; Start 10/09/18 at 17:30 Thiamine HCl (Vitamin B1) 100 mg DAILY PO Last administered on 10/10/18at 08:27; Admin Dose 100 MG; Start 10/10/18 at 09:00 Ceftriaxone Sodium 50 ml @ 100 mls/hr Q24H IVPB Last administered on 10/10/18at 13:41; Admin Dose 100 MLS/HR; Start 10/10/18 at 11:00 Azithromycin 250 ml @ 250 mls/hr Q24H IVPB Last administered on 10/10/18at 13:41; Admin Dose 250 MLS/HR; Start 10/10/18 at 11:00 Levalbuterol (Xopenex Neb) 0.63 mg Q6H RESP THERAPY HHN ; Start 10/10/18 at 14:00 Oseltamivir Phosphate (Tamiflu) 75 mg BID PO Last administered on 10/10/18at 13:41; Admin Dose 75 MG; Start 10/10/18 at 11:30 Phenol (Cepastat Lozenge) 1 lozenge Q3 PRN MT SORE THROAT; Start 10/10/18 at 11:30 Allergies: Coded Allergies: No Known Allergies (Verified Allergy, Unknown, 10/09/18) Past Surgical History Past Surgical Hx: cholecystectomy Family History Significant Family History: no pertinent family hx Social History Alcohol Use: none Smoking Status: Current every day smoker Drug Use: other (methamphetamine) Exam/Review of Systems Vital Signs Vitals Vital Signs Date Temp Pulse Resp B/P (MAP) Pulse Ox O2 O2 Flow FiO2 Time Delivery Rate 10/10/18 97 12:03 10/10/18 98.2 21 111/69 98 11:29 (83) 10/10/18 Nasal 3.0 10:29 Cannula Intake and Output 3/10/09/18 10/10/18 1515:00 23:00 07:00 IntakeIntake Total 400 ml OutputOutput Total 1040 ml BalanceBalance -640 ml Exam Constitutional: alert, well developed Psych: no complaints, nl mood/affect Head: normocephalic, atraumatic Eyes: nl conjunctiva, nl lids ENMT: nl external ears & nose, nl nasal mucosa & septum Neck: supple, non-tender, jvd Respiratory: crackles/rales, diminished breath sounds, wheezing Cardiovascular: regular rate and rhythm Gastrointestinal: soft, non-tender Musculoskeletal: nl extremities to inspection Extremities: No cyanosis, No clubbing, No edema Neurological: nl mental status, nl speech Labs Result Diagram: 10/10/18 0510/10/18 0521 Results 24hrs Laboratory Tests Test 10/09/18 16:35 10/09/18 17:49 10/10/18 05:21 10/10/18 05:22 Lactic Acid Level 1.1 1.5 Erythrocyte 30 H Sedimentation Rate Troponin I 0.226 *H 0.182 *H C-Reactive Protein 3.6 H Prothrombin Time 15.5 H Prothrombin Time 1.2 Ratio INR International 1.22 Normalized Ratio Sodium Level 136 Potassium Level 4.3 Chloride Level 96 L Carbon Dioxide Level 31 Anion Gap 9 Blood Urea Nitrogen 18 Creatinine 1.01 Est Glomerular > 60 Filtrat Rate mL/min Glucose Level 92 Calcium Level 9.1 Phosphorus Level 4.4 Magnesium Level 1.8 Total Bilirubin 1.5 H Direct Bilirubin 0.00 Indirect Bilirubin 1.5 H Aspartate Amino 29 Transf (AST/SGOT) Alanine 22 Aminotransferase (AL T/SGPT) Alkaline Phosphatase 73 Total Protein 7.0 Albumin 3.9 Globulin 3.10 Albumin/Globulin 1.25 Ratio Thyroid Stimulating 0.591 Hormone (TSH) White Blood Count 5.2 Red Blood Count 5.09 Hemoglobin 13.9 L Hematocrit 44.7 Mean Corpuscular 87.8 Volume Mean Corpuscular 27.3 L Hemoglobin Mean Corpuscular 31.1 L Hemoglobin Concent Red Cell 15.5 H Distribution Width Platelet Count 199 Mean Platelet Volume 10.9 H Immature 0.400 Granulocytes % Neutrophils % 73.9 Lymphocytes % 17.1 Monocytes % 7.8 Eosinophils % 0.2 Basophils % 0.6 Nucleated Red Blood 0.0 Cells % Immature 0.020 Granulocytes # Neutrophils # 3.8 Lymphocytes # 0.9 Monocytes # 0.4 Eosinophils # 0.0 Basophils # 0.0 Nucleated Red Blood 0.0 Cells # Hemoglobin A1c 5.6 Medications Medications Current Medications Aspirin (Halfprin) 81 mg DAILY PO Last administered on 10/10/18 08:27; Admin Dose 81 MG; Start 10/09/18 at 17:30 IV Flush (NS 3 ml) 3 ml PER PROTOCOL IV ; Start 10/09/18 at 17:30 Ondansetron HCl (Zofran Inj) 4 mg Q6H PRN IV NAUSEA/VOMITING; Start 10/09/18 at 17:30 Acetaminophen (Tylenol Tab) 650 mg Q6H PRN PO .PAIN 1-3 OR TEMP Last administered on 10/10/18at 10:25; Admin Dose 650 MG; Start 10/09/18 at 17:30 Acetaminophen/ Hydrocodone Bitart ([place] (5/325)) 1 tab Q6H PRN PO .MOD PAIN 4- 6 Last administered on 10/10/18at 01:09; Admin Dose 1 TAB; Start 10/09/18 at 17:30 Morphine Sulfate (morphine) 2 mg Q4H PRN IV .SEVERE PAIN 7-10; Start 10/09/18 at 17:30 Docusate Sodium (Colace) 100 mg Q12H PRN PO .CONSTIPATION; Start 10/09/18 at 17:30 Magnesium Hydroxide (Milk Of Mag) 30 ml DAILY PRN PO .CONSTIPATION; Start 10/09/18 at 17:30 Bisacodyl (Dulcolax) 5 mg DAILY PRN PO .CONSTIPATION; Start 10/09/18 at 17:30 Bisacodyl (Dulcolax Supp) 10 mg DAILY PRN MS .CONSTIPATION; Start 10/09/18 at 17:30 Famotidine (Pepcid) 20 mg Q12 PO Last administered on 10/10/18 08:27; Admin Dose 20 MG; Start 10/09/18 at 21:00 Enoxaparin Sodium (Lovenox) 100 mg Q12 SC Last administered on 10/10/18 08:30; Admin Dose 100 MG; Start 10/09/18 at 21:00 Atorvastatin Calcium (Lipitor) 40 mg HS PO Last administered on 10/09/18at 20:33; Admin Dose 40 MG; Start 10/09/18 at 21:00 Guaifenesin/ Dextromethorphan (Robitussin Dm Liquid Cup) 10 ml Q4H PRN PO COUGH; Start 10/09/18 at 17:30 Thiamine HCl (Vitamin B1) 100 mg DAILY PO Last administered on 10/10/18at 08:27; Admin Dose 100 MG; Start 10/10/18 at 09:00 Ceftriaxone Sodium 50 ml @ 100 mls/hr Q24H IVPB Last administered on 10/10/18at 13:41; Admin Dose 100 MLS/HR; Start 10/10/18 at 11:00 Azithromycin 250 ml @ 250 mls/hr Q24H IVPB Last administered on 10/10/18 13:41; Admin Dose 250 MLS/HR; Start 10/10/18 at 11:00 Levalbuterol (Xopenex Neb) 0.63 mg Q6H RESP THERAPY HHN ; Start 10/10/18 at 14:00 Oseltamivir Phosphate (Tamiflu) 75 mg BID PO Last administered on 10/10/18 13:41; Admin Dose 75 MG; Start 10/10/18 at 11:30 Phenol (Cepastat Lozenge) 1 lozenge Q3 PRN MT SORE THROAT; Start 10/10/18 at 11:30 RICH STEPHENS MD Oct 10, 2018 14:12
[2018-10-10] MEDS: LEVALBUTEROL (NEB) 0.63 MG/3 ML AMP HHN SCH ×2 (14:59→21:48)
[2018-10-10] MEDS: FUROSEMIDE 40 MG INJ IV SCH ×2 (15:18→21:32)
--- NOTE | 2018-10-10 17:38 | RADRPT ---
Echocardiogram Report Patient Name: CATARINA GROSSPatient ID: [id number] : 1980 (38y 3m)Study Date: 10/10/2018 8:00:50 AM Gender: MAccession #: [id number] Tech: Wyatt Alaniz [facility] Location: [facility] Ref.Physician: KESHIA GOSS Height(Cm): BSA: Weight(Kg): Quality: AdequateAccount #: Procedures: Echocardiographic Report: Transthoracic echocardiogram with complete 2D, M-Mode, and doppler examination. Indications: Abn Trop. Measurements: 2D/M Mode Doppler Measurement Value Normal Range Measurement Value Normal Range LVIDd 2D 7.8 [ 4.2 - 5.8 ] cm AV Peak Enrique 0.9 [ 100.0 - 170.0 ] cm/se c LVIDs 2D 7.0 [ 2.5 - 4.0 ] cm AV Peak PG 4.0 [ 2.0 - 9.0 ] mmHg LVPWd 2D 1.3 [ 0.6 - 1.0 ] cm LVOT Peak Enrique 0.7 [ 70.0 - 110.0 ] cm/sec IVSd 2D 0.9 [ 0.6 - 1.0 ] cm LVOT Peak PG 2.0 [ 2.0 - 6.0 ] mmHg AoR Diam 2D 2.6 [ 2.6 - 3.4 ] cm MV E Peak Enrique 1.4 [ 60.0 - 130.0 ] cm/sec EDV 2D 327.0 [ 62.0 - 150.0 ] ml MV A Peak Enrique 0.3 [ 100.0 - 120.0 ] cm/se c ESV 2D 258.0 [ 21.0 - 61.0 ] ml MV E/A 4.7 [ 0.8 - 1.5 ] ratio EF 2D 21.1 [ 52.0 - 72.0 ] percent MV PHT 40.0 [ 20.0 - 100.0 ] msec LA Dimen 2D 5.8 [ 3.0 - 4.0 ] cm MV Decel Time 137 [ 104 - 258 ] msec MV Decel [place] 10 Lat E` Enrique 0.1 [ 10.0 - 15.0 ] cm/sec Lateral E/E` 23.7 [ 1.0 - 2.0 ] ratio Med E` Enrique 0.0 cm/sec MV E/A 4.7 [ 0.8 - 1.5 ] ratio MVA PHT 5.5 [ 2.0 - 4.0 ] cm2 TR Peak Enrique 2.1 [ 100.0 - 280.0 ] cm/se c TR Peak PG 17.0 mmHg Findings: Left Ventricle: Severe enlargement of left ventricle cavity. Severe global left ventricular systolic dysfunction. Ejection fraction is visually estimated at 20-25 %. Right Ventricle: Moderate right ventricular hypokinesis. Left Atrium: There is severe enlargement of left atrium. Right Atrium: There is moderate enlargement of right atrium. Atrial Septum: Normal atrial septum. Ventricular septum: Normal/intact ventricular septum. Mitral Valve: Normal appearance of the mitral valve. Moderate mitral valve regurgitation. Aortic Valve: Normal appearance of the aortic valve. No aortic regurgitation. Tricuspid Valve: Normal appearance and function of the tricuspid valve with trace physiologic regurgitation. Pulmonic Valve: Normal pulmonic valve appearance. There is trace pulmonic regurgitation. Pericardium: Normal pericardium with no significant pericardial effusion. Aorta: Normal aortic root. IVC: Dilated IVC without respiratory collapse consistent with elevated right atrial pressure. Conclusions: Severe enlargement of left ventricle cavity. Severe global left ventricular systolic dysfunction. Ejection fraction is visually estimated at 20-25 %. Normal appearance of the mitral valve. Moderate mitral valve regurgitation. Dilated IVC without respiratory collapse consistent with elevated right atrial pressure. Electronically Signed By: Eugene Marrufo 2018-10-10 17:38:40 PDT
--- NOTE | 2018-10-10 18:30 | PN ---
Date/Time of Note Date/Time of Note DATE: 10/10/18 TIME: 18:26 Assessment/Plan VTE Prophylaxis Risk score (from Nsg)>0 risk: 3 SCD applied (from Ns): Yes SCD contraindicated: low risk/ambulating Pharmacological prophylaxis: LMWH Lines/Catheters IV Catheter Type (from Nrs): Saline Lock Assessment/Plan Hospital Course Assessment and plan 1. Dyspnea abn troponin likely related to decompensated chr cardiomyopathy vs sepsis. Stable cont antibiotics, diuresis as tolerated 2. Abn troponin likely secondary MT. No chest pain/ arrhythmia, ro ACS. 3. Chronic nonischemic cardiomyopathy 4. Chronic substance abuse: meth. not a great candidate for any aggressive intervention 5. Chronic SATHISH? 6. Chronic hypertension 7. Obesity status post gastric bypass 8. BBB likely related to chronic cardiomyopathy. outpatient opinion on AICD 9. First-degree AV block Subjective dyspnea fever overnight. No chest pain or arrhythmias. Objective: Sinus rhythm bundle branch block. Tachypnea intermittently PE Possible JVD. no pallor Regular no murmur rub gallop Dimin Bs+ ntnd no r/r/g no edema chronic stasis noted Result Diagram: 10/10/1822 10/10/18 0521 Results 24hrs Laboratory Tests Test 10/10/18 05:21 10/10/18 05:22 10/10/18 14:16 Prothrombin Time 15.5 H Prothrombin Time Ratio 1.2 INR International Normalized Ratio 1.22 Sodium Level 136 Potassium Level 4.3 Chloride Level 96 L Carbon Dioxide Level 31 Anion Gap 9 Blood Urea Nitrogen 18 Creatinine 1.01 Est Glomerular Filtrat Rate mL/min > 60 Glucose Level 92 Lactic Acid Level 1.5 Calcium Level 9.1 Phosphorus Level 4.4 Magnesium Level 1.8 Total Bilirubin 1.5 H Direct Bilirubin 0.00 Indirect Bilirubin 1.5 H Aspartate Amino Transf (AST/SGOT) 29 Alanine Aminotransferase (ALT/SGPT) 22 Alkaline Phosphatase 73 Troponin I 0.182 *H Total Protein 7.0 Albumin 3.9 Globulin 3.10 Albumin/Globulin Ratio 1.25 Thyroid Stimulating Hormone (TSH) 0.591 White Blood Count 5.2 Red Blood Count 5.09 Hemoglobin 13.9 L Hematocrit 44.7 Mean Corpuscular Volume 87.8 Mean Corpuscular Hemoglobin 27.3 L Mean Corpuscular Hemoglobin Concent 31.1 L Red Cell Distribution Width 15.5 H Platelet Count 199 Mean Platelet Volume 10.9 H Immature Granulocytes % 0.400 Neutrophils % 73.9 Lymphocytes % 17.1 Monocytes % 7.8 Eosinophils % 0.2 Basophils % 0.6 Nucleated Red Blood Cells % 0.0 Immature Granulocytes # 0.020 Neutrophils # 3.8 Lymphocytes # 0.9 Monocytes # 0.4 Eosinophils # 0.0 Basophils # 0.0 Nucleated Red Blood Cells # 0.0 Hemoglobin A1c 5.6 HIV (1&2) Antibody NEGATIVE Exam/Review of Systems Exam Vitals Vital Signs Date Temp Pulse Resp B/P (MAP) Pulse Ox O2 O2 Flow FiO2 Time Delivery Rate 10/10/18 98.6 18:05 10/10/18 107 34 100/66 100 Nasal 3.0 17:54 (77) Cannula Intake and Output 10/09/18 10/09/18 10/10/18 1515:00 23:00 07:00 IntakeIntake Total 400 ml OutputOutput Total 1040 ml BalanceBalance -640 ml Results Results 24hrs Laboratory Tests Test 10/10/18 05:21 10/10/18 05:22 10/10/18 14:16 Prothrombin Time 15.5 H Prothrombin Time Ratio 1.2 INR International Normalized Ratio 1.22 Sodium Level 136 Potassium Level 4.3 Chloride Level 96 L Carbon Dioxide Level 31 Anion Gap 9 Blood Urea Nitrogen 18 Creatinine 1.01 Est Glomerular Filtrat Rate mL/min > 60 Glucose Level 92 Lactic Acid Level 1.5 Calcium Level 9.1 Phosphorus Level 4.4 Magnesium Level 1.8 Total Bilirubin 1.5 H Direct Bilirubin 0.00 Indirect Bilirubin 1.5 H Aspartate Amino Transf (AST/SGOT) 29 Alanine Aminotransferase (ALT/SGPT) 22 Alkaline Phosphatase 73 Troponin I 0.182 *H Total Protein 7.0 Albumin 3.9 Globulin 3.10 Albumin/Globulin Ratio 1.25 Thyroid Stimulating Hormone (TSH) 0.591 White Blood Count 5.2 Red Blood Count 5.09 Hemoglobin 13.9 L Hematocrit 44.7 Mean Corpuscular Volume 87.8 Mean Corpuscular Hemoglobin 27.3 L Mean Corpuscular Hemoglobin Concent 31.1 L Red Cell Distribution Width 15.5 H Platelet Count 199 Mean Platelet Volume 10.9 H Immature Granulocytes % 0.400 Neutrophils % 73.9 Lymphocytes % 17.1 Monocytes % 7.8 Eosinophils % 0.2 Basophils % 0.6 Nucleated Red Blood Cells % 0.0 Immature Granulocytes # 0.020 Neutrophils # 3.8 Lymphocytes # 0.9 Monocytes # 0.4 Eosinophils # 0.0 Basophils # 0.0 Nucleated Red Blood Cells # 0.0 Hemoglobin A1c 5.6 HIV (1&2) Antibody NEGATIVE Medications Medication Current Medications Aspirin (Halfprin) 81 mg DAILY PO Last administered on 10/10/18 08:27; Admin Dose 81 MG; Start 10/09/18 at 17:30 IV Flush (NS 3 ml) 3 ml PER PROTOCOL IV ; Start 10/09/18 at 17:30 Ondansetron HCl (Zofran Inj) 4 mg Q6H PRN IV NAUSEA/VOMITING; Start 10/09/18 at 17:30 Acetaminophen (Tylenol Tab) 650 mg Q6H PRN PO .PAIN 1-3 OR TEMP Last administered on 10/10/18at 17:09; Admin Dose 650 MG; Start 10/09/18 at 17:30 Acetaminophen/ Hydrocodone Bitart ([place] (5/325)) 1 tab Q6H PRN PO .MOD PAIN 4- 6 Last administered on 10/10/18at 01:09; Admin Dose 1 TAB; Start 10/09/18 at 17:30 Morphine Sulfate (morphine) 2 mg Q4H PRN IV .SEVERE PAIN 7-10; Start 10/09/18 at 17:30 Docusate Sodium (Colace) 100 mg Q12H PRN PO .CONSTIPATION; Start 10/09/18 at 17:30 Magnesium Hydroxide (Milk Of Mag) 30 ml DAILY PRN PO .CONSTIPATION; Start 10/09/18 at 17:30 Bisacodyl (Dulcolax) 5 mg DAILY PRN PO .CONSTIPATION; Start 10/09/18 at 17:30 Bisacodyl (Dulcolax Supp) 10 mg DAILY PRN OR .CONSTIPATION; Start 10/09/18 at 17:30 Famotidine (Pepcid) 20 mg Q12 PO Last administered on 10/10/18at 08:27; Admin Dose 20 MG; Start 10/09/18 at 21:00 Guaifenesin/ Dextromethorphan (Robitussin Dm Liquid Cup) 10 ml Q4H PRN PO COUGH; Start 10/09/18 at 17:30 Thiamine HCl (Vitamin B1) 100 mg DAILY PO Last administered on 10/10/18 08:27; Admin Dose 100 MG; Start 10/10/18 at 09:00 Ceftriaxone Sodium 50 ml @ 100 mls/hr Q24H IVPB Last administered on 10/10/18 13:41; Admin Dose 100 MLS/HR; Start 10/10/18 at 11:00 Azithromycin 250 ml @ 250 mls/hr Q24H IVPB Last administered on 10/10/18 13:41; Admin Dose 250 MLS/HR; Start 10/10/18 at 11:00 Levalbuterol (Xopenex Neb) 0.63 mg Q6H RESP THERAPY HHN Last administered on 10/10/18 14:59; Admin Dose 0.63 MG; Start 10/10/18 at 14:00 Oseltamivir Phosphate (Tamiflu) 75 mg BID PO Last administered on 10/10/18 13:41; Admin Dose 75 MG; Start 10/10/18 at 11:30 Phenol (Cepastat Lozenge) 1 lozenge Q3 PRN MT SORE THROAT; Start 10/10/18 at 11:30 Furosemide (Lasix) 40 mg BID DIURETICS IV Last administered on 10/10/18 15:18; Admin Dose 40 MG; Start 10/10/18 at 14:30 Carvedilol (Coreg) 12.5 mg BID PO ; Start 10/10/18 at 21:00 Losartan Potassium (Cozaar) 12.5 mg DAILY PO ; Start 10/11/18 at 09:00 KESHIA GOSS MD Oct 10, 2018 18:30
[2018-10-11] VITALS (13 sets, daily range): BP systolic 83–103; BP diastolic 45–60; PULSE 69–96; RESP 18–21
[2018-10-11] MEDS: LEVALBUTEROL (NEB) 0.63 MG/3 ML AMP HHN SCH ×4 (03:21→19:47)
[2018-10-11] MEDS: FUROSEMIDE 40 MG INJ IV SCH ×2 (06:21→17:43)
[2018-10-11] MEDS: LOSARTAN 25 MG TAB PO SCH (08:58)
[2018-10-11] MEDS: FAMOTIDINE 20 MG TAB PO SCH ×2 (09:06→21:14)
[2018-10-11] MEDS: ASPIRIN (EC) 81 MG TAB PO SCH (09:06)
[2018-10-11] MEDS: OSELTAMIVIR 75 MG CAP PO SCH ×2 (09:06→21:12)
[2018-10-11] MEDS: THIAMINE 100 MG TAB PO SCH (09:06)
[2018-10-11] MEDS: CEFTRIAXONE 2 GM/50 ML (PMX) 50 ML IVPB SCH (11:09)
[2018-10-11] MEDS: AZITHROMYCIN 500MG/NS (PMX) 250 ML IVPB SCH (11:55)
[2018-10-11] MEDS: HYDROCODONE/APAP (5/325) TAB PO PRN (13:18)
--- NOTE | 2018-10-11 14:02 | PN ---
Date/Time of Note Date/Time of Note DATE: 10/11/18 TIME: 14:02 Assessment/Plan VTE Prophylaxis Risk score (from Ns)>0 risk: 2 SCD applied (from Nsg): Yes Pharmacological prophylaxis: LMWH Lines/Catheters IV [facility]ter [facility]from [facility] Saline Lock Assessment/Plan Hospital Course SUBJECTIVE: Denies any chest pain. Continues to have dyspnea. OBJECTIVE: Physical Exam General: Obese, 38 year-old male lying in bed in mild respiratory distress. HEENT: Normocephalic, atraumatic. Eyes: Anicteric sclerae, conjunctivae clear. ENT: Nasal septum midline, oral mucosa moist. Neck supple, JVD noticed. Respiratory: Bilaterally diminished breath sounds. Minimal use of accessory muscles of respiration. B/L rhonchi. Cardiovascular: S1, S2 heard. Regular rate and rhythm. Abdomen: Soft, nontender, and nondistended. Bowel sounds positive in all 4 quadrants. Genitourinary: Deferred. Extremities: No cyanosis, no clubbing. Bilateral lower extremity edema. Peripheral pulses palpable. Neurologic: Cranial nerves II through XII grossly intact. The patient is awake, alert, and oriented. Skin: Normal skin turgor. No skin rashes. 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 The patient's chest x-ray showed congestive heart failure. The patient was admitted to inpatient setting for further treatment and evaluation. 1. CHF exacerbation, acute on chronic, systolic dysfunction. -Continue diuresis. -Monitor renal function closely. 2. Nonischemic cardiomyopathy. -Ejection fraction of 20%. -Continue beta-blockers and ARBs. 3. Multifocal pneumonia. -Continue antimicrobials. -HIV 1 and 2 antibody negative. -Pending serology for atypical including coccidiomycosis. 4. Hypertension. -Continue antihypertensives 5. Substance abuse. -Denied any recent amphetamine abuse. -Cessation advised. 6. Obesity. -BMI more than 33 kg/m. 7. DVT prophylaxis -Subcutaneous Lovenox 8. Plan. -Continue diuresis while carefully monitoring renal function. -Await clinical improvement. The patient was seen in collaboration with Dr. Mix. Result Diagram: 10/11/1831 10/11/18 0531 Results 24hrs Laboratory Tests Test 10/10/18 14:16 10/11/18 05:31 HIV (1&2) Antibody NEGATIVE White Blood Count 3.9 #L Red Blood Count 4.73 Hemoglobin 12.7 L Hematocrit 40.2 L Mean Corpuscular Volume 85.0 Mean Corpuscular Hemoglobin 26.8 L Mean Corpuscular Hemoglobin Concent 31.6 L Red Cell Distribution Width 15.7 H Platelet Count 185 Mean Platelet Volume 10.4 Immature Granulocytes % 0.300 Neutrophils % 59.7 Lymphocytes % 27.1 Monocytes % 11.1 H Eosinophils % 0.8 Basophils % 1.0 Nucleated Red Blood Cells % 0.0 Immature Granulocytes # 0.010 Neutrophils # 2.3 Lymphocytes # 1.1 Monocytes # 0.4 Eosinophils # 0.0 Basophils # 0.0 Nucleated Red Blood Cells # 0.0 Prothrombin Time 15.3 H Prothrombin Time Ratio 1.2 INR International Normalized Ratio 1.20 Sodium Level 138 Potassium Level 4.0 Chloride Level 97 Carbon Dioxide Level 31 Anion Gap 10 Blood Urea Nitrogen 24 H Creatinine 0.97 Est Glomerular Filtrat Rate mL/min > 60 Glucose Level 105 Calcium Level 9.0 Phosphorus Level 4.0 Magnesium Level 1.8 Total Bilirubin 0.7 Direct Bilirubin 0.00 Indirect Bilirubin 0.7 Aspartate Amino Transf (AST/SGOT) 28 Alanine Aminotransferase (ALT/SGPT) 18 Alkaline Phosphatase 58 Troponin I 0.097 Total Protein 6.6 Albumin 3.5 Globulin 3.10 Albumin/Globulin Ratio 1.12 Exam/Review of Systems Exam Vitals Vital Signs Date Temp Pulse Resp B/P (MAP) Pulse Ox O2 O2 Flow FiO2 Time Delivery Rate 10/11/18 75 18 94 Nasal 2.0 13:28 Cannula 10/11/18 90/53 (65) 11:33 10/11/18 99.1 11:18 10/11/18 30 03:34 Intake and Output 10/10/18 10/10/18 10/11/18 1515:00 23:00 07:00 IntakeIntake Total 1000 ml 500 ml BalanceBalance 1000 ml 500 ml Results Results 24hrs Laboratory Tests Test 10/10/18 14:16 10/11/18 05:31 HIV (1&2) Antibody NEGATIVE White Blood Count 3.9 #L Red Blood Count 4.73 Hemoglobin 12.7 L Hematocrit 40.2 L Mean Corpuscular Volume 85.0 Mean Corpuscular Hemoglobin 26.8 L Mean Corpuscular Hemoglobin Concent 31.6 L Red Cell Distribution Width 15.7 H Platelet Count 185 Mean Platelet Volume 10.4 Immature Granulocytes % 0.300 Neutrophils % 59.7 Lymphocytes % 27.1 Monocytes % 11.1 H Eosinophils % 0.8 Basophils % 1.0 Nucleated Red Blood Cells % 0.0 Immature Granulocytes # 0.010 Neutrophils # 2.3 Lymphocytes # 1.1 Monocytes # 0.4 Eosinophils # 0.0 Basophils # 0.0 Nucleated Red Blood Cells # 0.0 Prothrombin Time 15.3 H Prothrombin Time Ratio 1.2 INR International Normalized Ratio 1.20 Sodium Level 138 Potassium Level 4.0 Chloride Level 97 Carbon Dioxide Level 31 Anion Gap 10 Blood Urea Nitrogen 24 H Creatinine 0.97 Est Glomerular Filtrat Rate mL/min > 60 Glucose Level 105 Calcium Level 9.0 Phosphorus Level 4.0 Magnesium Level 1.8 Total Bilirubin 0.7 Direct Bilirubin 0.00 Indirect Bilirubin 0.7 Aspartate Amino Transf (AST/SGOT) 28 Alanine Aminotransferase (ALT/SGPT) 18 Alkaline Phosphatase 58 Troponin I 0.097 Total Protein 6.6 Albumin 3.5 Globulin 3.10 Albumin/Globulin Ratio 1.12 Medications Medication Current Medications Aspirin (Halfprin) 81 mg DAILY PO Last administered on 10/11/18at 09:06; Admin Dose 81 MG; Start 10/09/18 at 17:30 IV Flush (NS 3 ml) 3 ml PER PROTOCOL IV ; Start 10/09/18 at 17:30 Ondansetron HCl (Zofran Inj) 4 mg Q6H PRN IV NAUSEA/VOMITING; Start 10/09/18 at 17:30 Acetaminophen (Tylenol Tab) 650 mg Q6H PRN PO .PAIN 1-3 OR TEMP Last administered on 10/10/18at 17:09; Admin Dose 650 MG; Start 10/09/18 at 17:30 Acetaminophen/ Hydrocodone Bitart ([place] (5/325)) 1 tab Q6H PRN PO .MOD PAIN 4- 6 Last administered on 10/11/18at 13:18; Admin Dose 1 TAB; Start 10/09/18 at 17:30 Morphine Sulfate (morphine) 2 mg Q4H PRN IV .SEVERE PAIN 7-10; Start 10/09/18 at 17:30 Docusate Sodium (Colace) 100 mg Q12H PRN PO .CONSTIPATION; Start 10/09/18 at 17:30 Magnesium Hydroxide (Milk Of Mag) 30 ml DAILY PRN PO .CONSTIPATION; Start 10/09/18 at 17:30 Bisacodyl (Dulcolax) 5 mg DAILY PRN PO .CONSTIPATION; Start 10/09/18 at 17:30 Bisacodyl (Dulcolax Supp) 10 mg DAILY PRN [place] .CONSTIPATION; Start 10/09/18 at 17:30 Famotidine (Pepcid) 20 mg Q12 PO Last administered on 10/11/18 09:06; Admin Dose 20 MG; Start 10/09/18 at 21:00 Guaifenesin/ Dextromethorphan (Robitussin Dm Liquid Cup) 10 ml Q4H PRN PO COUGH; Start 10/09/18 at 17:30 Thiamine HCl (Vitamin B1) 100 mg DAILY PO Last administered on 10/11/18 09:06; Admin Dose 100 MG; Start 10/10/18 at 09:00 Ceftriaxone Sodium 50 ml @ 100 mls/hr Q24H IVPB Last administered on 10/11/18 11:09; Admin Dose 100 MLS/HR; Start 10/10/18 at 11:00 Azithromycin 250 ml @ 250 mls/hr Q24H IVPB Last administered on 10/11/18at 11:55; Admin Dose 250 MLS/HR; Start 10/10/18 at 11:00 Levalbuterol (Xopenex Neb) 0.63 mg Q6H RESP THERAPY HHN Last administered on 10/11/18at 13:27; Admin Dose 0.63 MG; Start 10/10/18 at 14:00 Oseltamivir Phosphate (Tamiflu) 75 mg BID PO Last administered on 10/11/18 09:06; Admin Dose 75 MG; Start 10/10/18 at 11:30 Phenol (Cepastat Lozenge) 1 lozenge Q3 PRN MT SORE THROAT; Start 10/10/18 at 11:30 Furosemide (Lasix) 40 mg BID DIURETICS IV Last administered on 10/11/18at 06:21; Admin Dose 40 MG; Start 3/17/19 at 14:30 Carvedilol (Coreg) 12.5 mg BID PO Last administered on 10/11/18at 09:06; Admin Dose 12.5 MG; Start 10/10/18 at 21:00 Losartan Potassium (Cozaar) 12.5 mg DAILY PO ; Start 10/11/18 at 09:00 BAYLEE JUAREZ NP Oct 11, 2018 14:02
--- NOTE | 2018-10-11 14:03 | CONS ---
Consult Date/Type/Reason Admit Date/Time Oct 09, 2018 at 15:20 Initial Consult Date 10/10/18 Type of Consult Pulmonary Date/Time of Note DATE: 10/11/18 TIME: 13:54 Subjective Patient sitting up in chair comfortable rest no acute distress Objective Vital Signs Date Temp Pulse Resp B/P (MAP) Pulse Ox O2 O2 Flow FiO2 Time Delivery Rate 10/11/18 75 18 94 Nasal 2.0 13:28 Cannula 10/11/18 90/53 (65) 11:33 10/11/18 99.1 11:18 10/11/18 30 03:34 Intake and Output 10/10/18 10/10/18 10/11/18 1515:00 23:00 07:00 IntakeIntake Total 1000 ml 500 ml BalanceBalance 1000 ml 500 ml Exam GENERAL: Well-nourished well-developed gentleman comfortable at rest no acute distress VITAL SIGNS: per chart NECK: Supple. No JVD or lymphadenopathy. CARDIAC EXAM: S1, S2. No added sounds or murmurs. CHEST: Diminished air entry bilaterally ABDOMEN: Soft, nontender. No guarding or rebound. EXTREMITIES: No cyanosis, clubbing or edema. NEUROLOGIC: Generalized weakness. No focal deficits. Vent Setting Fraction of Inspired Oxygen pe: 30 Results/Medications Result Diagram: 10/11/18 0531 10/11/18 0531 Results 24 hrs Laboratory Tests Test 10/10/18 14:16 10/11/18 05:31 HIV (1&2) Antibody NEGATIVE White Blood Count 3.9 #L Red Blood Count 4.73 Hemoglobin 12.7 L Hematocrit 40.2 L Mean Corpuscular Volume 85.0 Mean Corpuscular Hemoglobin 26.8 L Mean Corpuscular Hemoglobin Concent 31.6 L Red Cell Distribution Width 15.7 H Platelet Count 185 Mean Platelet Volume 10.4 Immature Granulocytes % 0.300 Neutrophils % 59.7 Lymphocytes % 27.1 Monocytes % 11.1 H Eosinophils % 0.8 Basophils % 1.0 Nucleated Red Blood Cells % 0.0 Immature Granulocytes # 0.010 Neutrophils # 2.3 Lymphocytes # 1.1 Monocytes # 0.4 Eosinophils # 0.0 Basophils # 0.0 Nucleated Red Blood Cells # 0.0 Prothrombin Time 15.3 H Prothrombin Time Ratio 1.2 INR International Normalized Ratio 1.20 Sodium Level 138 Potassium Level 4.0 Chloride Level 97 Carbon Dioxide Level 31 Anion Gap 10 Blood Urea Nitrogen 24 H Creatinine 0.97 Est Glomerular Filtrat Rate mL/min > 60 Glucose Level 105 Calcium Level 9.0 Phosphorus Level 4.0 Magnesium Level 1.8 Total Bilirubin 0.7 Direct Bilirubin 0.00 Indirect Bilirubin 0.7 Aspartate Amino Transf (AST/SGOT) 28 Alanine Aminotransferase (ALT/SGPT) 18 Alkaline Phosphatase 58 Troponin I 0.097 Total Protein 6.6 Albumin 3.5 Globulin 3.10 Albumin/Globulin Ratio 1.12 Medications Current Medications Aspirin (Halfprin) 81 mg DAILY PO Last administered on 10/11/18 09:06; Admin Dose 81 MG; Start 10/09/18 at 17:30 IV Flush (NS 3 ml) 3 ml PER PROTOCOL IV ; Start 10/09/18 at 17:30 Ondansetron HCl (Zofran Inj) 4 mg Q6H PRN IV NAUSEA/VOMITING; Start 10/09/18 at 17:30 Acetaminophen (Tylenol Tab) 650 mg Q6H PRN PO .PAIN 1-3 OR TEMP Last administered on 10/10/18at 17:09; Admin Dose 650 MG; Start 10/09/18 at 17:30 Acetaminophen/ Hydrocodone Bitart ([place] (5/325)) 1 tab Q6H PRN PO .MOD PAIN 4- 6 Last administered on 10/11/18at 13:18; Admin Dose 1 TAB; Start 10/09/18 at 17:30 Morphine Sulfate (morphine) 2 mg Q4H PRN IV .SEVERE PAIN 7-10; Start 10/09/18 at 17:30 Docusate Sodium (Colace) 100 mg Q12H PRN PO .CONSTIPATION; Start 10/09/18 at 17:30 Magnesium Hydroxide (Milk Of Mag) 30 ml DAILY PRN PO .CONSTIPATION; Start 10/09/18 at 17:30 Bisacodyl (Dulcolax) 5 mg DAILY PRN PO .CONSTIPATION; Start 10/09/18 at 17:30 Bisacodyl (Dulcolax Supp) 10 mg DAILY PRN [place] .CONSTIPATION; Start 10/09/18 at 17:30 Famotidine (Pepcid) 20 mg Q12 PO Last administered on 10/11/18at 09:06; Admin D ose 20 MG; Start 10/09/18 at 21:00 Guaifenesin/ Dextromethorphan (Robitussin Dm Liquid Cup) 10 ml Q4H PRN PO COUGH; Start 10/09/18 at 17:30 Thiamine HCl (Vitamin B1) 100 mg DAILY PO Last administered on 10/11/18 09:06; Admin Dose 100 MG; Start 10/10/18 at 09:00 Ceftriaxone Sodium 50 ml @ 100 mls/hr Q24H IVPB Last administered on 10/11/18 11:09; Admin Dose 100 MLS/HR; Start 10/10/18 at 11:00 Azithromycin 250 ml @ 250 mls/hr Q24H IVPB Last administered on 10/11/18at 11:55; Admin Dose 250 MLS/HR; Start 10/10/18 at 11:00 Levalbuterol (Xopenex Neb) 0.63 mg Q6H RESP THERAPY HHN Last administered on 10/11/18at 13:27; Admin Dose 0.63 MG; Start 10/10/18 at 14:00 Oseltamivir Phosphate (Tamiflu) 75 mg BID PO Last administered on 10/11/18 09:06; Admin Dose 75 MG; Start 10/10/18 at 11:30 Phenol (Cepastat Lozenge) 1 lozenge Q3 PRN [place] SORE THROAT; Start 10/10/18 at 11:30 Furosemide (Lasix) 40 mg BID DIURETICS IV Last administered on 10/11/18 06:21; Admin Dose 40 MG; Start 10/10/18 at 14:30 Carvedilol (Coreg) 12.5 mg BID PO Last administered on 10/11/18 09:06; Admin Dose 12.5 MG; Start 10/10/18 at 21:00 Losartan Potassium (Cozaar) 12.5 mg DAILY PO ; Start 10/11/18 at 09:00 Assessment/Plan Hospital Course (Demo Recall) IMP: 1. ADHF--in a patient with substance abuse and cardiomyopathy. 2 Demand ischemia 3. Multifocal Pneumonia--viral likely vs. atypical bacterial and less likely cocci 4. Azotemia 5. Substance Abuse 6. SATHISH RECS: 1. Agree with ceftriaxone/azithro/tamiflu 2. Check HIV and cocci serologies 3. Cardiac recommendations 4. Diuresis/afterload reduction as per Cardiology 5. CPAP for sleep DC planning. CARMINA DAY MD, [facility] Oct 11, 2018 14:03
--- NOTE | 2018-10-11 14:58 | RADRPT ---
Vent Rate: 111 bpm RR Interval: 0 msec MS Interval: 178 msec QRS Duration: 124 msec QT Interval: 350 msec QTC Interval: 476 msec P-R-T [place]: 79 - -47 - 83 degrees Sinus tachycardia vs atrial flutter Possible Left atrial enlargement Left anterior fascicular block Nonspecific T wave abnormality Abnormal ECG Electronically Signed By: Attila Santana
--- NOTE | 2018-10-11 15:30 | CONS ---
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 Hypertension Methamphetamine abuse Pneumonia Recommendations: -continue Lasix 40mg IV BID -decrease carvedilol to 6.25mg BID -continue losartan 12.5mg daily -continue aspirin 81mg daily -atorvastatin was discontinued (LDL 45) -eventual coronary and ICD evaluation as outpatient if patient can abstain from illicit drug use Consultation Date/Type/Reason Admit Date/Time Oct 09, 2018 at 15:20 Initial Consult Date 10/10/18 Type of Consult Cardiology Date/Time of Note DATE: 10/11/18 TIME: 15:29 24 HR Interval Summary Free Text/Dictation Shortness of breath slowly improving. Borderline blood pressures. Detailed Summary Additional Comments 14 point review of systems without changes. Exam/Review of Systems Vital Signs Vitals Vital Signs Date Temp Pulse Resp B/P (MAP) Pulse Ox O2 O2 Flow FiO2 Time Delivery Rate 10/11/18 98.4 70 21 90/51 (64) 95 15:07 10/11/18 Nasal 2.0 13:28 Cannula 10/11/18 30 03:34 Intake and Output 10/10/18 10/10/18 10/11/18 1515:00 23:00 07:00 IntakeIntake Total 1000 ml 500 ml BalanceBalance 1000 ml 500 ml Exam Exam Constitutional: alert, well developed Psych: no complaints, nl mood/affect Head: normocephalic, atraumatic Eyes: nl conjunctiva, nl lids ENMT: nl external ears & nose, nl nasal mucosa & septum Neck: supple, non-tender, jvd Respiratory: crackles/rales, diminished breath sounds, wheezing Cardiovascular: regular rate and rhythm Gastrointestinal: soft, non-tender Musculoskeletal: nl extremities to inspection Extremities: No cyanosis, No clubbing, No edema Neurological: nl mental status, nl speech Labs Result Diagram: 10/11/18 0531 10/11/18 0531 Results 24hrs Laboratory Tests Test 10/11/18 05:31 White Blood Count 3.9 #L Red Blood Count 4.73 Hemoglobin 12.7 L Hematocrit 40.2 L Mean Corpuscular Volume 85.0 Mean Corpuscular Hemoglobin 26.8 L Mean Corpuscular Hemoglobin Concent 31.6 L Red Cell Distribution Width 15.7 H Platelet Count 185 Mean Platelet Volume 10.4 Immature Granulocytes % 0.300 Neutrophils % 59.7 Lymphocytes % 27.1 Monocytes % 11.1 H Eosinophils % 0.8 Basophils % 1.0 Nucleated Red Blood Cells % 0.0 Immature Granulocytes # 0.010 Neutrophils # 2.3 Lymphocytes # 1.1 Monocytes # 0.4 Eosinophils # 0.0 Basophils # 0.0 Nucleated Red Blood Cells # 0.0 Prothrombin Time 15.3 H Prothrombin Time Ratio 1.2 INR International Normalized Ratio 1.20 Sodium Level 138 Potassium Level 4.0 Chloride Level 97 Carbon Dioxide Level 31 Anion Gap 10 Blood Urea Nitrogen 24 H Creatinine 0.97 Est Glomerular Filtrat Rate mL/min > 60 Glucose Level 105 Calcium Level 9.0 Phosphorus Level 4.0 Magnesium Level 1.8 Total Bilirubin 0.7 Direct Bilirubin 0.00 Indirect Bilirubin 0.7 Aspartate Amino Transf (AST/SGOT) 28 Alanine Aminotransferase (ALT/SGPT) 18 Alkaline Phosphatase 58 Troponin I 0.097 Total Protein 6.6 Albumin 3.5 Globulin 3.10 Albumin/Globulin Ratio 1.12 Medications Medications Current Medications Aspirin (Halfprin) 81 mg DAILY PO Last administered on 10/11/18at 09:06; Admin Dose 81 MG; Start 10/09/18 at 17:30 IV Flush (NS 3 ml) 3 ml PER PROTOCOL IV ; Start 10/09/18 at 17:30 Ondansetron HCl (Zofran Inj) 4 mg Q6H PRN IV NAUSEA/VOMITING; Start 10/09/18 at 17:30 Acetaminophen (Tylenol Tab) 650 mg Q6H PRN PO .PAIN 1-3 OR TEMP Last administered on 10/10/18at 17:09; Admin Dose 650 MG; Start 10/09/18 at 17:30 Acetaminophen/ Hydrocodone Bitart ([place] (5/325)) 1 tab Q6H PRN PO .MOD PAIN 4- 6 Last administered on 10/11/18at 13:18; Admin Dose 1 TAB; Start 10/09/18 at 17:30 Morphine Sulfate (morphine) 2 mg Q4H PRN IV .SEVERE PAIN 7-10; Start 10/09/18 at 17:30 Docusate Sodium (Colace) 100 mg Q12H PRN PO .CONSTIPATION; Start 10/09/18 at 17:30 Magnesium Hydroxide (Milk Of Mag) 30 ml DAILY PRN PO .CONSTIPATION; Start at 17:30 Bisacodyl (Dulcolax) 5 mg DAILY PRN PO .CONSTIPATION; Start 10/09/18 at 17:30 Bisacodyl (Dulcolax Supp) 10 mg DAILY PRN [place] .CONSTIPATION; Start 10/09/18 at 17:30 Famotidine (Pepcid) 20 mg Q12 PO Last administered on 10/11/18 09:06; Admin Dose 20 MG; Start 10/09/18 at 21:00 Guaifenesin/ Dextromethorphan (Robitussin Dm Liquid Cup) 10 ml Q4H PRN PO COUGH; Start 10/09/18 at 17:30 Thiamine HCl (Vitamin B1) 100 mg DAILY PO Last administered on 10/11/18 09:06; Admin Dose 100 MG; Start 10/10/18 at 09:00 Ceftriaxone Sodium 50 ml @ 100 mls/hr Q24H IVPB Last administered on 10/11/18 11:09; Admin Dose 100 MLS/HR; Start 10/10/18 at 11:00 Azithromycin 250 ml @ 250 mls/hr Q24H IVPB Last administered on 10/11/18 11:55; Admin Dose 250 MLS/HR; Start 10/10/18 at 11:00 Levalbuterol (Xopenex Neb) 0.63 mg Q6H RESP THERAPY HHN Last administered on 10/11/18 13:27; Admin Dose 0.63 MG; Start 10/10/18 at 14:00 Oseltamivir Phosphate (Tamiflu) 75 mg BID PO Last administered on 10/11/18 09:06; Admin Dose 75 MG; Start 10/10/18 at 11:30 Phenol (Cepastat Lozenge) 1 lozenge Q3 PRN MT SORE THROAT; Start 10/10/18 at 11:30 Furosemide (Lasix) 40 mg BID DIURETICS IV Last administered on 10/11/18 06:21; Admin Dose 40 MG; Start 10/10/18 at 14:30 Carvedilol (Coreg) 12.5 mg BID PO Last administered on 10/11/18 09:06; Admin Dose 12.5 MG; Start 10/10/18 at 21:00 Losartan Potassium (Cozaar) 12.5 mg DAILY PO ; Start 10/11/18 at 09:00 RICH STEPHENS MD Oct 11, 2018 15:30
[2018-10-11] MEDS ORDERED: POTASSIUM CHLORIDE (SR) 20 MEQ TAB PO STA (19:50)
[2018-10-11] MEDS ORDERED: MAGNESIUM SULFATE 2 GM/50 ML 50 ML IVPB ONE (21:00)
[2018-10-12] VITALS (12 sets, daily range): BP systolic 94–113; BP diastolic 54–68; PULSE 67–84; RESP 18–21
[2018-10-12] MEDS: LEVALBUTEROL (NEB) 0.63 MG/3 ML AMP HHN SCH ×4 (02:14→19:04)
[2018-10-12] MEDS: FUROSEMIDE 40 MG INJ IV SCH ×2 (06:31→17:06)
[2018-10-12] MEDS: LOSARTAN 25 MG TAB PO SCH (09:00)
[2018-10-12] MEDS: FAMOTIDINE 20 MG TAB PO SCH ×2 (09:01→21:25)
[2018-10-12] MEDS: OSELTAMIVIR 75 MG CAP PO SCH ×2 (09:01→21:25)
[2018-10-12] MEDS: THIAMINE 100 MG TAB PO SCH (09:01)
[2018-10-12] MEDS: ASPIRIN (EC) 81 MG TAB PO SCH (09:01)
[2018-10-12] MEDS: CEFTRIAXONE 2 GM/50 ML (PMX) 50 ML IVPB SCH (10:36)
--- NOTE | 2018-10-12 11:09 | PN ---
Date/Time of Note Date/Time of Note DATE: 10/12/18 TIME: 11:09 Assessment/Plan VTE Prophylaxis Risk score (from Ns)>0 risk: 4 SCD applied (from Nsg): Yes Pharmacological prophylaxis: LMWH Lines/Catheters IV Catheter Type (from [facility] [place] Assessment/Plan Hospital Course SUBJECTIVE: Denies any chest pain. Continues to have dyspnea. OBJECTIVE: Physical Exam General: Obese, 38 year-old male lying in bed in mild respiratory distress. HEENT: Normocephalic, atraumatic. Eyes: Anicteric sclerae, conjunctivae clear. ENT: Nasal septum midline, oral mucosa moist. Neck supple, JVD noticed. Respiratory: Bilaterally diminished breath sounds. Minimal use of accessory muscles of respiration. B/L rhonchi. Cardiovascular: S1, S2 heard. Regular rate and rhythm. Abdomen: Soft, nontender, and nondistended. Bowel sounds positive in all 4 quadrants. Genitourinary: Deferred. Extremities: No cyanosis, no clubbing. Bilateral lower extremity edema. Peripheral pulses palpable. Neurologic: Cranial nerves II through XII grossly intact. The patient is awake, alert, and oriented. Skin: Normal skin turgor. No skin rashes. 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 The patient's chest x-ray showed congestive heart failure. The patient was admitted to inpatient setting for further treatment and evaluation. 1. CHF exacerbation, acute on chronic, systolic dysfunction. -Continue diuresis. -Monitor renal function closely. 2. Nonischemic cardiomyopathy. -Ejection fraction of 20%. -Continue beta-blockers and ARBs. 3. Multifocal pneumonia. -Continue antimicrobials. -HIV 1 and 2 antibody negative. -Pending serology for atypical including coccidiomycosis. 4. Hypertension. -Continue antihypertensives 5. Substance abuse. -Denied any recent amphetamine abuse. -Cessation advised. 6. Obesity. -BMI more than 33 kg/m. 7. DVT prophylaxis -Subcutaneous Lovenox 8. Plan. -Continue diuresis while carefully monitoring renal function. -Await clinical improvement. The patient was seen in collaboration with Dr. Mix. Result Diagram: 10/12/18 0535 10/12/18 0535 Results 24hrs Laboratory Tests Test 10/11/18 21:50 10/12/18 05:35 Urine Opiates Screen Positive Urine Barbiturates Negative Urine Amphetamines Screen Negative Urine Benzodiazepines Screen Negative Urine Cocaine Screen Negative Urine Cannabinoids Positive White Blood Count 3.9 L Red Blood Count 4.64 L Hemoglobin 12.7 L Hematocrit 40.6 L Mean Corpuscular Volume 87.5 Mean Corpuscular Hemoglobin 27.4 L Mean Corpuscular Hemoglobin Concent 31.3 L Red Cell Distribution Width 15.7 H Platelet Count 198 Mean Platelet Volume 10.7 H Immature Granulocytes % 0.300 Neutrophils % 42.2 Lymphocytes % 39.7 Monocytes % 13.1 H Eosinophils % 3.9 Basophils % 0.8 Nucleated Red Blood Cells % 0.0 Immature Granulocytes # 0.010 Neutrophils # 1.6 Lymphocytes # 1.5 Monocytes # 0.5 Eosinophils # 0.2 Basophils # 0.0 Nucleated Red Blood Cells # 0.0 Sodium Level 141 Potassium Level 4.0 Chloride Level 99 Carbon Dioxide Level 33 H Anion Gap 9 Blood Urea Nitrogen 29 H Creatinine 1.08 Est Glomerular Filtrat Rate mL/min > 60 Glucose Level 86 Calcium Level 9.0 Phosphorus Level 5.6 H Magnesium Level 2.4 Exam/Review of Systems Exam Vitals Vital Signs Date Temp Pulse Resp B/P (MAP) Pulse Ox O2 O2 Flow FiO2 Time Delivery Rate 10/12/18 96 2.0 08:37 10/12/18 74 20 Nasal 08:36 Cannula 10/12/18 97.4 109/68 07:29 (82) 10/12/18 27 02:15 Intake and Output 10/11/18 10/11/18 10/12/18 1515:00 23:00 07:00 IntakeIntake Total 300 ml 1200 ml 650 ml OutputOutput Total 1200 ml BalanceBalance 300 ml 1200 ml -550 ml Results Results 24hrs Laboratory Tests Test 10/11/18 21:50 10/12/18 05:35 Urine Opiates Screen Positive Urine Barbiturates Negative Urine Amphetamines Screen Negative Urine Benzodiazepines Screen Negative Urine Cocaine Screen Negative Urine Cannabinoids Positive White Blood Count 3.9 L Red Blood Count 4.64 L Hemoglobin 12.7 L Hematocrit 40.6 L Mean Corpuscular Volume 87.5 Mean Corpuscular Hemoglobin 27.4 L Mean Corpuscular Hemoglobin Concent 31.3 L Red Cell Distribution Width 15.7 H Platelet Count 198 Mean Platelet Volume 10.7 H Immature Granulocytes % 0.300 Neutrophils % 42.2 Lymphocytes % 39.7 Monocytes % 13.1 H Eosinophils % 3.9 Basophils % 0.8 Nucleated Red Blood Cells % 0.0 Immature Granulocytes # 0.010 Neutrophils # 1.6 Lymphocytes # 1.5 Monocytes # 0.5 Eosinophils # 0.2 Basophils # 0.0 Nucleated Red Blood Cells # 0.0 Sodium Level 141 Potassium Level 4.0 Chloride Level 99 Carbon Dioxide Level 33 H Anion Gap 9 Blood Urea Nitrogen 29 H Creatinine 1.08 Est Glomerular Filtrat Rate mL/min > 60 Glucose Level 86 Calcium Level 9.0 Phosphorus Level 5.6 H Magnesium Level 2.4 Medications Medication Current Medications Aspirin (Halfprin) 81 mg DAILY PO Last administered on 10/12/18at 09:01; Admin Dose 81 MG; Start 10/09/18 at 17:30 IV Flush (NS 3 ml) 3 ml PER PROTOCOL IV ; Start 10/09/18 at 17:30 Ondansetron HCl (Zofran Inj) 4 mg Q6H PRN IV NAUSEA/VOMITING; Start 10/09/18 at 17:30 Acetaminophen (Tylenol Tab) 650 mg Q6H PRN PO .PAIN 1-3 OR TEMP Last administered on 10/10/18at 17:09; Admin Dose 650 MG; Start 10/09/18 at 17:30 Acetaminophen/ Hydrocodone Bitart ([place] (5/325)) 1 tab Q6H PRN PO .MOD PAIN 4- 6 Last administered on 10/11/18at 13:18; Admin Dose 1 TAB; Start 10/09/18 at 17:30 Morphine Sulfate (morphine) 2 mg Q4H PRN IV .SEVERE PAIN 7-10; Start 10/09/18 at 17:30 Docusate Sodium (Colace) 100 mg Q12H PRN PO .CONSTIPATION; Start 10/09/18 at 17:30 Magnesium Hydroxide (Milk Of Mag) 30 ml DAILY PRN PO .CONSTIPATION; Start 10/09/18 at 17:30 Bisacodyl (Dulcolax) 5 mg DAILY PRN PO .CONSTIPATION; Start 10/09/18 at 17:30 Bisacodyl (Dulcolax Supp) 10 mg DAILY PRN [place] .CONSTIPATION; Start 10/09/18 at 17:30 Famotidine (Pepcid) 20 mg Q12 PO Last administered on 10/12/18 09:01; Admin Dose 20 MG; Start 10/09/18 at 21:00 Guaifenesin/ Dextromethorphan (Robitussin Dm Liquid Cup) 10 ml Q4H PRN PO COUGH; Start 10/09/18 at 17:30 Thiamine HCl (Vitamin B1) 100 mg DAILY PO Last administered on 10/12/18 09:01; Admin Dose 100 MG; Start 10/10/18 at 09:00 Ceftriaxone Sodium 50 ml @ 100 mls/hr Q24H IVPB Last administered on 10/12/18 10:36; Admin Dose 100 MLS/HR; Start 10/10/18 at 11:00 Azithromycin 250 ml @ 250 mls/hr Q24H IVPB Last administered on 10/11/18 11:55; Admin Dose 250 MLS/HR; Start 10/10/18 at 11:00 Levalbuterol (Xopenex Neb) 0.63 mg Q6H RESP THERAPY HHN Last administered on 10/12/18 08:32; Admin Dose 0.63 MG; Start 10/10/18 at 14:00 Oseltamivir Phosphate (Tamiflu) 75 mg BID PO Last administered on 10/12/18 09:01; Admin Dose 75 MG; Start 10/10/18 at 11:30 Phenol (Cepastat Lozenge) 1 lozenge Q3 PRN [place] SORE THROAT; Start 10/10/18 at 11:30 Furosemide (Lasix) 40 mg BID DIURETICS IV Last administered on 10/12/18 06:31; Admin Dose 40 MG; Start 10/10/18 at 14:30 Losartan Potassium (Cozaar) 12.5 mg DAILY PO Last administered on 10/12/18 09:00; Admin Dose 12.5 MG; Start 10/11/18 at 09:00 Carvedilol (Coreg) 6.25 mg BID PO Last administered on 10/12/18 09:00; Admin Dose 6.25 MG; Start 10/11/18 at 21:00 BAYLEE JUAREZ NP Oct 12, 2018 11:09
[2018-10-12] MEDS: AZITHROMYCIN 500MG/NS (PMX) 250 ML IVPB SCH (11:26)
--- NOTE | 2018-10-12 15:05 | CONS ---
Consult Date/Type/Reason Admit Date/Time Oct 09, 2018 at 15:20 Initial Consult Date 10/10/18 Type of Consult Pulmonary Date/Time of Note DATE: 10/12/18 TIME: 15:04 Subjective Slowly improving. Respiratory status better. Objective Vital Signs Date Temp Pulse Resp B/P (MAP) Pulse Ox O2 O2 Flow FiO2 Time Delivery Rate 10/12/18 98 2.0 13:34 10/12/18 74 16 Nasal 13:32 Cannula 10/12/18 97.5 98/54 (69) 11:21 10/12/18 27 02:15 Intake and Output 10/11/18 10/11/18 10/12/18 1515:00 23:00 07:00 IntakeIntake Total 300 ml 1200 ml 650 ml OutputOutput Total 1200 ml BalanceBalance 300 ml 1200 ml -550 ml Exam GENERAL: Well-nourished well-developed gentleman comfortable at rest no acute distress VITAL SIGNS: per chart NECK: Supple. No JVD or lymphadenopathy. CARDIAC EXAM: S1, S2. No added sounds or murmurs. CHEST: Diminished air entry bilaterally ABDOMEN: Soft, nontender. No guarding or rebound. EXTREMITIES: No cyanosis, clubbing or edema. NEUROLOGIC: Generalized weakness. No focal deficits. Vent Setting Fraction of Inspired Oxygen pe: 27 Results/Medications Result Diagram: 10/12/18 0535 10/12/18 0535 Results 24 hrs Laboratory Tests Test 10/11/18 21:50 10/12/18 05:35 Urine Opiates Screen Positive Urine Barbiturates Negative Urine Amphetamines Screen Negative Urine Benzodiazepines Screen Negative Urine Cocaine Screen Negative Urine Cannabinoids Positive White Blood Count 3.9 L Red Blood Count 4.64 L Hemoglobin 12.7 L Hematocrit 40.6 L Mean Corpuscular Volume 87.5 Mean Corpuscular Hemoglobin 27.4 L Mean Corpuscular Hemoglobin Concent 31.3 L Red Cell Distribution Width 15.7 H Platelet Count 198 Mean Platelet Volume 10.7 H Immature Granulocytes % 0.300 Neutrophils % 42.2 Lymphocytes % 39.7 Monocytes % 13.1 H Eosinophils % 3.9 Basophils % 0.8 Nucleated Red Blood Cells % 0.0 Immature Granulocytes # 0.010 Neutrophils # 1.6 Lymphocytes # 1.5 Monocytes # 0.5 Eosinophils # 0.2 Basophils # 0.0 Nucleated Red Blood Cells # 0.0 Sodium Level 141 Potassium Level 4.0 Chloride Level 99 Carbon Dioxide Level 33 H Anion Gap 9 Blood Urea Nitrogen 29 H Creatinine 1.08 Est Glomerular Filtrat Rate mL/min > 60 Glucose Level 86 Calcium Level 9.0 Phosphorus Level 5.6 H Magnesium Level 2.4 Medications Current Medications Aspirin (Halfprin) 81 mg DAILY PO Last administered on 10/12/18 09:01; Admin Dose 81 MG; Start 10/09/18 at 17:30 IV Flush (NS 3 ml) 3 ml PER PROTOCOL IV ; Start 10/09/18 at 17:30 Ondansetron HCl (Zofran Inj) 4 mg Q6H PRN IV NAUSEA/VOMITING; Start 10/09/18 at 17:30 Acetaminophen (Tylenol Tab) 650 mg Q6H PRN PO .PAIN 1-3 OR TEMP Last administered on 10/10/18at 17:09; Admin Dose 650 MG; Start 10/09/18 at 17:30 Acetaminophen/ Hydrocodone Bitart ([place] (5/325)) 1 tab Q6H PRN PO .MOD PAIN 4- 6 Last administered on 10/11/18at 13:18; Admin Dose 1 TAB; Start 10/09/18 at 17:30 Morphine Sulfate (morphine) 2 mg Q4H PRN IV .SEVERE PAIN 7-10; Start 10/09/18 at 17:30 Docusate Sodium (Colace) 100 mg Q12H PRN PO .CONSTIPATION; Start 10/09/18 at 17:30 Magnesium Hydroxide (Milk Of Mag) 30 ml DAILY PRN PO .CONSTIPATION; Start 10/09/18 at 17:30 Bisacodyl (Dulcolax) 5 mg DAILY PRN PO .CONSTIPATION; Start 10/09/18 at 17:30 Bisacodyl (Dulcolax Supp) 10 mg DAILY PRN [place] .CONSTIPATION; Start 10/09/18 at 17:30 Famotidine (Pepcid) 20 mg Q12 PO Last administered on 10/12/18 09:01; Admin Dose 20 MG; Start 10/09/18 at 21:00 Guaifenesin/ Dextromethorphan (Robitussin Dm Liquid Cup) 10 ml Q4H PRN PO CO UGH; Start 10/09/18 at 17:30 Thiamine HCl (Vitamin B1) 100 mg DAILY PO Last administered on 10/12/18 09:01; Admin Dose 100 MG; Start 10/10/18 at 09:00 Ceftriaxone Sodium 50 ml @ 100 mls/hr Q24H IVPB Last administered on 10/12/18 10:36; Admin Dose 100 MLS/HR; Start 10/10/18 at 11:00 Azithromycin 250 ml @ 250 mls/hr Q24H IVPB Last administered on 10/12/18 11:26; Admin Dose 250 MLS/HR; Start 10/10/18 at 11:00 Levalbuterol (Xopenex Neb) 0.63 mg Q6H RESP THERAPY HHN Last administered on 10/12/18 13:30; Admin Dose 0.63 MG; Start 10/10/18 at 14:00 Oseltamivir Phosphate (Tamiflu) 75 mg BID PO Last administered on 10/12/18 09:01; Admin Dose 75 MG; Start 10/10/18 at 11:30 Phenol (Cepastat Lozenge) 1 lozenge Q3 PRN [place] SORE THROAT; Start 10/10/18 at 11:30 Furosemide (Lasix) 40 mg BID DIURETICS IV Last administered on 10/12/18 06:31; Admin Dose 40 MG; Start 10/10/18 at 14:30 Losartan Potassium (Cozaar) 12.5 mg DAILY PO Last administered on 10/12/18 09:00; Admin Dose 12.5 MG; Start 10/11/18 at 09:00 Carvedilol (Coreg) 6.25 mg BID PO Last administered on 10/12/18 09:00; Admin D ose 6.25 MG; Start 10/11/18 at 21:00 Assessment/Plan Hospital Course (Demo Recall) IMP: 1. ADHF--in a patient with substance abuse and cardiomyopathy. Cardiomyopathy likely secondary to methamphetamine use. Systolic dysfunction with ejection fraction of 20% 2 Demand ischemia 3. Multifocal Pneumonia--viral likely vs. atypical bacterial and less likely cocci, improved 4. Azotemia, improved 5. Substance Abuse 6. SATHISH RECS: Continue diuretics 1. Agree with ceftriaxone/azithro/tamiflu 2. Check HIV and cocci serologies 3. Cardiac recommendations Hopefully stable for discharge tomorrow CARMINA DAY MD, [facility] Oct 12, 2018 15:05
--- NOTE | 2018-10-12 17:26 | CONS ---
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 Hypertension Methamphetamine abuse Pneumonia Recommendations: -change Lasix from IV to PO 40mg daily, anticipate discharging on this dose -continue carvedilol 6.25mg BID -continue losartan 12.5mg daily -continue aspirin 81mg daily -atorvastatin was discontinued (LDL 45) -eventual coronary and ICD evaluation as outpatient if patient can abstain from illicit drug use Consultation Date/Type/Reason Admit Date/Time Oct 09, 2018 at 15:20 Initial Consult Date 10/10/18 Type of Consult Cardiology Date/Time of Note DATE: 10/12/18 TIME: 17:24 24 HR Interval Summary Free Text/Dictation Shortness of breath improving. Ambulating in hallway. Detailed Summary Additional Comments 14 point review of systems without changes. Exam/Review of Systems Vital Signs Vitals Vital Signs Date Temp Pulse Resp B/P (MAP) Pulse Ox O2 O2 Flow FiO2 Time Delivery Rate 10/12/18 77 16:18 10/12/18 98.4 20 94/55 (68) 97 15:18 10/12/18 2.0 13:34 10/12/18 Nasal 13:32 Cannula 10/12/18 27 02:15 Intake and Output 10/11/18 10/11/18 10/12/18 1515:00 23:00 07:00 IntakeIntake Total 300 ml 1200 ml 650 ml OutputOutput Total 1200 ml BalanceBalance 300 ml 1200 ml -550 ml Exam Exam Constitutional: alert, well developed Psych: no complaints, nl mood/affect Head: normocephalic, atraumatic Eyes: nl conjunctiva, nl lids ENMT: nl external ears & nose, nl nasal mucosa & septum Neck: supple, non-tender, jvd Respiratory: crackles/rales, diminished breath sounds, wheezing Cardiovascular: regular rate and rhythm Gastrointestinal: soft, non-tender Musculoskeletal: nl extremities to inspection Extremities: No cyanosis, No clubbing, No edema Neurological: nl mental status, nl speech Labs Result Diagram: 10/12/18 0535 10/12/18 0535 Results 24hrs Laboratory Tests Test 10/11/18 21:50 10/12/18 05:35 Urine Opiates Screen Positive Urine Barbiturates Negative Urine Amphetamines Screen Negative Urine Benzodiazepines Screen Negative Urine Cocaine Screen Negative Urine Cannabinoids Positive White Blood Count 3.9 L Red Blood Count 4.64 L Hemoglobin 12.7 L Hematocrit 40.6 L Mean Corpuscular Volume 87.5 Mean Corpuscular Hemoglobin 27.4 L Mean Corpuscular Hemoglobin Concent 31.3 L Red Cell Distribution Width 15.7 H Platelet Count 198 Mean Platelet Volume 10.7 H Immature Granulocytes % 0.300 Neutrophils % 42.2 Lymphocytes % 39.7 Monocytes % 13.1 H Eosinophils % 3.9 Basophils % 0.8 Nucleated Red Blood Cells % 0.0 Immature Granulocytes # 0.010 Neutrophils # 1.6 Lymphocytes # 1.5 Monocytes # 0.5 Eosinophils # 0.2 Basophils # 0.0 Nucleated Red Blood Cells # 0.0 Sodium Level 141 Potassium Level 4.0 Chloride Level 99 Carbon Dioxide Level 33 H Anion Gap 9 Blood Urea Nitrogen 29 H Creatinine 1.08 Est Glomerular Filtrat Rate mL/min > 60 Glucose Level 86 Calcium Level 9.0 Phosphorus Level 5.6 H Magnesium Level 2.4 Medications Medications Current Medications Aspirin (Halfprin) 81 mg DAILY PO Last administered on 10/12/18at 09:01; Admin Dose 81 MG; Start 10/09/18 at 17:30 IV Flush (NS 3 ml) 3 ml PER PROTOCOL IV ; Start 10/09/18 at 17:30 Ondansetron HCl (Zofran Inj) 4 mg Q6H PRN IV NAUSEA/VOMITING; Start 10/09/18 at 17:30 Acetaminophen (Tylenol Tab) 650 mg Q6H PRN PO .PAIN 1-3 OR TEMP Last administered on 10/10/18at 17:09; Admin Dose 650 MG; Start 10/09/18 at 17:30 Acetaminophen/ Hydrocodone Bitart ([place] (5/325)) 1 tab Q6H PRN PO .MOD PAIN 4- 6 Last administered on 10/11/18at 13:18; Admin Dose 1 TAB; Start 10/09/18 at 17:30 Morphine Sulfate (morphine) 2 mg Q4H PRN IV .SEVERE PAIN 7-10; Start 10/09/18 at 17:30 Docusate Sodium (Colace) 100 mg Q12H PRN PO .CONSTIPATION; Start 10/09/18 at 17:30 Magnesium Hydroxide (Milk Of Mag) 30 ml DAILY PRN PO .CONSTIPATION; Start 10/09/18 at 17:30 Bisacodyl (Dulcolax) 5 mg DAILY PRN PO .CONSTIPATION; Start 10/09/18 at 17:30 Bisacodyl (Dulcolax Supp) 10 mg DAILY PRN [place] .CONSTIPATION; Start 10/09/18 at 17:30 Famotidine (Pepcid) 20 mg Q12 PO Last administered on 10/12/18 09:01; Admin Dose 20 MG; Start 10/09/18 at 21:00 Guaifenesin/ Dextromethorphan (Robitussin Dm Liquid Cup) 10 ml Q4H PRN PO COUGH; Start 10/09/18 at 17:30 Thiamine HCl (Vitamin B1) 100 mg DAILY PO Last administered on 10/12/18 09:01; Admin Dose 100 MG; Start 10/10/18 at 09:00 Ceftriaxone Sodium 50 ml @ 100 mls/hr Q24H IVPB Last administered on 10/12/18 10:36; Admin Dose 100 MLS/HR; Start 10/10/18 at 11:00 Azithromycin 250 ml @ 250 mls/hr Q24H IVPB Last administered on 10/12/18 11:26; Admin Dose 250 MLS/HR; Start 10/10/18 at 11:00 Levalbuterol (Xopenex Neb) 0.63 mg Q6H RESP THERAPY HHN Last administered on 10/12/18 13:30; Admin Dose 0.63 MG; Start 10/10/18 at 14:00 Oseltamivir Phosphate (Tamiflu) 75 mg BID PO Last administered on 10/12/18 09:01; Admin Dose 75 MG; Start 10/10/18 at 11:30 Phenol (Cepastat Lozenge) 1 lozenge Q3 PRN [place] SORE THROAT; Start 10/10/18 at 11:30 Furosemide (Lasix) 40 mg BID DIURETICS IV Last administered on 10/12/18 17:06; Admin Dose 40 MG; Start 10/10/18 at 14:30 Losartan Potassium (Cozaar) 12.5 mg DAILY PO Last administered on 10/12/18 09:00; Admin Dose 12.5 MG; Start 10/11/18 at 09:00 Carvedilol (Coreg) 6.25 mg BID PO Last administered on 10/12/18at 09:00; Admin Dose 6.25 MG; Start 10/11/18 at 21:00 RICH STEPHENS MD Oct 12, 2018 17:26
[2018-10-13] VITALS (8 sets, daily range): BP systolic 97–118; BP diastolic 53–69; PULSE 71–81; RESP 18–22
[2018-10-13] MEDS: LEVALBUTEROL (NEB) 0.63 MG/3 ML AMP HHN SCH ×3 (01:05→13:44)
--- NOTE | 2018-10-13 08:20 | CONS ---
Assessment/Plan Assessment/Plan Hospital Course (Demo Recall) 1) bronchopneumonia doubt this is the flu, to d/c tamiflu pt has improved and will change to oral antibiotics d/c ceftriaxone and start augmentin 875mg and continue thru 10/17/18 change azithro to oral and continue thru tomorrow ok for d/c from ID perspective doubt pt has valley fever procalcitonin was ordered and is pending 2) CHF with cardiomyopathy treatment as per cardiology 3) HTN well controlled Consultation Date/Type/Reason Admit Date/Time Oct 09, 2018 at 15:20 Date of Consultation: Oct 13, 2018 Type of Consult ID Date/Time of Note DATE: 10/13/18 TIME: 08:14 Hx of Present Illness pt was admitted due to fevers (low grade), no chills and sweats, with SOB and cough cough is now productive of clear phlegm no muscle aches, joint pains no N, V he did have some MANZO with coughing no CP no diarrhea, rashes Past Medical History Medical History: congestive heart failure, hypertension, other (ny ) Home Meds Reported Medications Losartan Potassium* (Losartan Potassium*) 25 Mg Tablet, 12.5 MG PO DAILY, TAB 10/09/18 Carvedilol* (Carvedilol*) 12.5 Mg Tablet, 12.5 MG PO BID, #60 TAB 10/09/18 Aspirin (Low Dose Aspirin) 81 Mg Tablet.dr, 81 MG PO DAILY, #30 TAB 10/09/18 Furosemide* (Lasix*) 20 Mg Tablet, 20 MG PO BID, TAB 10/09/18 Discontinued Scripts Magnesium Oxide* (Magnesium Oxide*) 400 Mg Tablet, 400 MG PO BID for 10 Days, #20 TAB Prov:KESHIA GOSS MD 09/21/18 Spironolactone* (Aldactone*) 25 Mg Tablet, 25 MG PO DAILY for 14 Days, #15 TAB Prov:KESHIA GOSS MD 09/21/18 Losartan Potassium* (Cozaar*) 25 Mg Tablet, 12.5 MG PO DAILY for 14 Days, #15 TAB Prov:KESHIA GOSS MD 09/21/18 Carvedilol* (Carvedilol*) 12.5 Mg Tablet, 12.5 MG PO BID for 14 Days, #30 TAB Prov:KESHIA GOSS MD 09/21/18 Furosemide* (Lasix*) 20 Mg Tablet, 20 MG PO BID for 14 Days, #30 TAB 1 Refill Prov:KESHIA GOSS MD 09/21/18 Aspirin (Aspirin) 81 Mg Chew, 81 MG PO DAILY for 30 Days, TAB Prov:JOY LEY 08/24/18 Medications Current Medications Aspirin (Halfprin) 81 mg DAILY PO Last administered on 10/12/18at 09:01; Admin Dose 81 MG; Start 10/09/18 at 17:30 IV Flush (NS 3 ml) 3 ml PER PROTOCOL IV ; Start 10/09/18 at 17:30 Ondansetron HCl (Zofran Inj) 4 mg Q6H PRN IV NAUSEA/VOMITING; Start 10/09/18 at 17:30 Acetaminophen (Tylenol Tab) 650 mg Q6H PRN PO .PAIN 1-3 OR TEMP Last administered on 10/10/18at 17:09; Admin Dose 650 MG; Start 10/09/18 at 17:30 Acetaminophen/ Hydrocodone Bitart ([place] (5/325)) 1 tab Q6H PRN PO .MOD PAIN 4- 6 Last administered on 10/11/18at 13:18; Admin Dose 1 TAB; Start 10/09/18 at 17:30 Morphine Sulfate (morphine) 2 mg Q4H PRN IV .SEVERE PAIN 7-10; Start 10/09/18 at 17:30 Docusate Sodium (Colace) 100 mg Q12H PRN PO .CONSTIPATION; Start 10/09/18 at 17:30 Magnesium Hydroxide (Milk Of Mag) 30 ml DAILY PRN PO .CONSTIPATION; Start 10/09/18 at 17:30 Bisacodyl (Dulcolax) 5 mg DAILY PRN PO .CONSTIPATION; Start 10/09/18 at 17:30 Bisacodyl (Dulcolax Supp) 10 mg DAILY PRN [place] .CONSTIPATION; Start 10/09/18 at 17:30 Famotidine (Pepcid) 20 mg Q12 PO Last administered on 10/12/18at 21:25; Admin Dose 20 MG; Start 10/09/18 at 21:00 Guaifenesin/ Dextromethorphan (Robitussin Dm Liquid Cup) 10 ml Q4H PRN PO COUGH Last administered on 10/12/18 21:25; Admin Dose 10 ML; Start 10/09/18 at 17:30 Thiamine HCl (Vitamin B1) 100 mg DAILY PO Last administered on 10/12/18 09:01; Admin Dose 100 MG; Start 10/10/18 at 09:00 Ceftriaxone Sodium 50 ml @ 100 mls/hr Q24H IVPB Last administered on 10/12/18 10:36; Admin Dose 100 MLS/HR; Start 10/10/18 at 11:00 Azithromycin 250 ml @ 250 mls/hr Q24H IVPB Last administered on 10/12/18 11:26; Admin Dose 250 MLS/HR; Start 10/10/18 at 11:00 Levalbuterol (Xopenex Neb) 0.63 mg Q6H RESP THERAPY HHN Last administered on 10/13/18 07:46; Admin Dose 0.63 MG; Start 10/10/18 at 14:00 Oseltamivir Phosphate (Tamiflu) 75 mg BID PO Last administered on 10/12/18 21:25; Admin Dose 75 MG; Start 10/10/18 at 11:30 Phenol (Cepastat Lozenge) 1 lozenge Q3 PRN [place] SORE THROAT; Start 10/10/18 at 11:30 Losartan Potassium (Cozaar) 12.5 mg DAILY PO Last administered on 10/12/18 09:00; Admin Dose 12.5 MG; Start 10/11/18 at 09:00 Carvedilol (Coreg) 6.25 mg BID PO Last administered on 10/12/18 21:26; Admin Dose 6.25 MG; Start 10/11/18 at 21:00 Furosemide (Lasix) 40 mg DAILY PO ; Start 10/13/18 at 09:00 Allergies: Coded Allergies: No Known Allergies (Verified Allergy, Unknown, 10/09/18) Past Surgical History Past Surgical Hx: cholecystectomy Social History Alcohol Use: none Smoking Status: Current every day smoker Drug Use: other (methamphetamine) Exam/Review of Systems Exam Vitals Vital Signs Date Temp Pulse Resp B/P (MAP) Pulse Ox O2 O2 Flow FiO2 Time Delivery Rate 10/13/18 97.8 71 22 112/64 96 Room Air 07:50 (80) 10/13/18 21 01:05 10/12/18 2.0 17:42 Intake and Output 10/12/18 10/12/18 10/13/18 1515:00 23:00 07:00 IntakeIntake Total 1000 ml 1000 ml OutputOutput Total 1200 ml BalanceBalance -200 ml 1000 ml Constitutional: alert, oriented Eyes: nl sclera ENMT: mucosa pink and moist Respiratory: other (decreased BS at L base) Cardiovascular: regular rate and rhythm Gastrointestinal: soft, non-tender Extremities: other (trace LE edema) Results Result Diagram: 10/13/18 0502 10/13/18 0502 Results 24hrs Laboratory Tests Test 10/13/18 05:02 White Blood Count 3.7 L Red Blood Count 4.59 L Hemoglobin 12.2 L Hematocrit 39.8 L Mean Corpuscular Volume 86.7 Mean Corpuscular Hemoglobin 26.6 L Mean Corpuscular Hemoglobin Concent 30.7 L Red Cell Distribution Width 15.7 H Platelet Count 197 Mean Platelet Volume 10.8 H Immature Granulocytes % 0.300 Neutrophils % 38.4 L Lymphocytes % 46.0 Monocytes % 10.5 Eosinophils % 4.0 Basophils % 0.8 Nucleated Red Blood Cells % 0.0 Immature Granulocytes # 0.010 Neutrophils # 1.4 L Lymphocytes # 1.7 Monocytes # 0.4 Eosinophils # 0.2 Basophils # 0.0 Nucleated Red Blood Cells # 0.0 Sodium Level 141 Potassium Level 3.6 Chloride Level 99 Carbon Dioxide Level 35 H Anion Gap 7 Blood Urea Nitrogen 32 H Creatinine 1.11 Est Glomerular Filtrat Rate mL/min > 60 Glucose Level 81 Calcium Level 8.8 Phosphorus Level 4.7 Magnesium Level 2.2 Medications Medication Current Medications Aspirin (Halfprin) 81 mg DAILY PO Last administered on 10/12/18at 09:01; Admin Dose 81 MG; Start 10/09/18 at 17:30 IV Flush (NS 3 ml) 3 ml PER PROTOCOL IV ; Start 10/09/18 at 17:30 Ondansetron HCl (Zofran Inj) 4 mg Q6H PRN IV NAUSEA/VOMITING; Start 10/09/18 at 17:30 Acetaminophen (Tylenol Tab) 650 mg Q6H PRN PO .PAIN 1-3 OR TEMP Last administered on 10/10/18at 17:09; Admin Dose 650 MG; Start 10/09/18 at 17:30 Acetaminophen/ Hydrocodone Bitart ([place] (5/325)) 1 tab Q6H PRN PO .MOD PAIN 4- 6 Last administered on 10/11/18 13:18; Admin Dose 1 TAB; Start 10/09/18 at 17:30 Morphine Sulfate (morphine) 2 mg Q4H PRN IV .SEVERE PAIN 7-10; Start 10/09/18 at 17:30 Docusate Sodium (Colace) 100 mg Q12H PRN PO .CONSTIPATION; Start 10/09/18 at 17:30 Magnesium Hydroxide (Milk Of Mag) 30 ml DAILY PRN PO .CONSTIPATION; Start 10/09/18 at 17:30 Bisacodyl (Dulcolax) 5 mg DAILY PRN PO .CONSTIPATION; Start 10/09/18 at 17:30 Bisacodyl (Dulcolax Supp) 10 mg DAILY PRN [place] .CONSTIPATION; Start 10/09/18 at 17:30 Famotidine (Pepcid) 20 mg Q12 PO Last administered on 10/12/18 21:25; Admin Dose 20 MG; Start 10/09/18 at 21:00 Guaifenesin/ Dextromethorphan (Robitussin Dm Liquid Cup) 10 ml Q4H PRN PO COUGH Last administered on 10/12/18 21:25; Admin Dose 10 ML; Start 10/09/18 at 17:30 Thiamine HCl (Vitamin B1) 100 mg DAILY PO Last administered on 10/12/18 09:01; Admin Dose 100 MG; Start 10/10/18 at 09:00 Ceftriaxone Sodium 50 ml @ 100 mls/hr Q24H IVPB Last administered on 10/12/18 10:36; Admin Dose 100 MLS/HR; Start 10/10/18 at 11:00 Azithromycin 250 ml @ 250 mls/hr Q24H IVPB Last administered on 10/12/18 11:26; Admin Dose 250 MLS/HR; Start 10/10/18 at 11:00 Levalbuterol (Xopenex Neb) 0.63 mg Q6H RESP THERAPY HHN Last administered on 10/13/18 07:46; Admin Dose 0.63 MG; Start 10/10/18 at 14:00 Oseltamivir Phosphate (Tamiflu) 75 mg BID PO Last administered on 3/19/19at 21:25; Admin Dose 75 MG; Start 10/10/18 at 11:30 Phenol (Cepastat Lozenge) 1 lozenge Q3 PRN [place] SORE THROAT; Start 10/10/18 at 11:30 Losartan Potassium (Cozaar) 12.5 mg DAILY PO Last administered on 10/12/18at 0 9:00; Admin Dose 12.5 MG; Start 10/11/18 at 09:00 Carvedilol (Coreg) 6.25 mg BID PO Last administered on 10/12/18at 21:26; Admin Dose 6.25 MG; Start 10/11/18 at 21:00 Furosemide (Lasix) 40 mg DAILY PO ; Start 10/13/18 at 09:00 DENITA KLINE MD Oct 13, 2018 08:20
[2018-10-13] MEDS: ASPIRIN (EC) 81 MG TAB PO SCH (08:38)
[2018-10-13] MEDS: LOSARTAN 25 MG TAB PO SCH (08:38)
[2018-10-13] MEDS: FAMOTIDINE 20 MG TAB PO SCH (08:38)
[2018-10-13] MEDS: THIAMINE 100 MG TAB PO SCH (08:38)
[2018-10-13] MEDS ORDERED: FUROSEMIDE 40 MG TAB PO SCH (09:00)
[2018-10-13] MEDS ORDERED: AZITHROMYCIN 250 MG TAB PO SCH (09:00)
[2018-10-13] MEDS ORDERED: AMOXICILLIN/CLAV 875 MG TAB PO SCH (09:30)
--- NOTE | 2018-10-13 11:36 | CONS ---
Consult Date/Type/Reason Admit Date/Time Oct 09, 2018 at 15:20 Initial Consult Date 10/10/18 Type of Consult Pulmonary Date/Time of Note DATE: 10/13/18 TIME: 11:35 Subjective Continues to improve no longer requiring supplemental O2. Appreciate ID recommendations also. Objective Vital Signs Date Temp Pulse Resp B/P (MAP) Pulse Ox O2 O2 Flow FiO2 Time Delivery Rate 10/13/18 97.8 73 22 97/53 (68) 96 Room Air 11:30 10/13/18 21 01:05 10/12/18 2.0 17:42 Intake and Output 10/12/18 10/12/18 10/13/18 1515:00 23:00 07:00 IntakeIntake Total 1000 ml 1000 ml OutputOutput Total 1200 ml BalanceBalance -200 ml 1000 ml Exam GENERAL: Well-nourished well-developed gentleman comfortable at rest no acute distress VITAL SIGNS: per chart NECK: Supple. No JVD or lymphadenopathy. CARDIAC EXAM: S1, S2. No added sounds or murmurs. CHEST: Diminished air entry bilaterally ABDOMEN: Soft, nontender. No guarding or rebound. EXTREMITIES: No cyanosis, clubbing or edema. NEUROLOGIC: Generalized weakness. No focal deficits. Vent Setting Fraction of Inspired Oxygen pe: 21 Results/Medications Result Diagram: 10/13/18 0502 10/13/18 0502 Results 24 hrs Laboratory Tests Test 10/13/18 05:02 White Blood Count 3.7 L Red Blood Count 4.59 L Hemoglobin 12.2 L Hematocrit 39.8 L Mean Corpuscular Volume 86.7 Mean Corpuscular Hemoglobin 26.6 L Mean Corpuscular Hemoglobin Concent 30.7 L Red Cell Distribution Width 15.7 H Platelet Count 197 Mean Platelet Volume 10.8 H Immature Granulocytes % 0.300 Neutrophils % 38.4 L Lymphocytes % 46.0 Monocytes % 10.5 Eosinophils % 4.0 Basophils % 0.8 Nucleated Red Blood Cells % 0.0 Immature Granulocytes # 0.010 Neutrophils # 1.4 L Lymphocytes # 1.7 Monocytes # 0.4 Eosinophils # 0.2 Basophils # 0.0 Nucleated Red Blood Cells # 0.0 Sodium Level 141 Potassium Level 3.6 Chloride Level 99 Carbon Dioxide Level 35 H Anion Gap 7 Blood Urea Nitrogen 32 H Creatinine 1.11 Est Glomerular Filtrat Rate mL/min > 60 Glucose Level 81 Calcium Level 8.8 Phosphorus Level 4.7 Magnesium Level 2.2 Medications Current Medications Aspirin (Halfprin) 81 mg DAILY PO Last administered on 10/13/18 08:38; Admin Dose 81 MG; Start 10/09/18 at 17:30 IV Flush (NS 3 ml) 3 ml PER PROTOCOL IV ; Start 10/09/18 at 17:30 Ondansetron HCl (Zofran Inj) 4 mg Q6H PRN IV NAUSEA/VOMITING; Start 10/09/18 at 17:30 Acetaminophen (Tylenol Tab) 650 mg Q6H PRN PO .PAIN 1-3 OR TEMP Last administered on 10/10/18at 17:09; Admin Dose 650 MG; Start 10/09/18 at 17:30 Acetaminophen/ Hydrocodone Bitart ([place] (5/325)) 1 tab Q6H PRN PO .MOD PAIN 4- 6 Last administered on 10/11/18at 13:18; Admin Dose 1 TAB; Start 10/09/18 at 17:30 Morphine Sulfate (morphine) 2 mg Q4H PRN IV .SEVERE PAIN 7-10; Start 10/09/18 at 17:30 Docusate Sodium (Colace) 100 mg Q12H PRN PO .CONSTIPATION; Start 10/09/18 at 17:30 Magnesium Hydroxide (Milk Of Mag) 30 ml DAILY PRN PO .CONSTIPATION; Start 10/09/18 at 17:30 Bisacodyl (Dulcolax) 5 mg DAILY PRN PO .CONSTIPATION; Start 10/09/18 at 17:30 Bisacodyl (Dulcolax Supp) 10 mg DAILY PRN [place] .CONSTIPATION; Start 10/09/18 at 17:30 Famotidine (Pepcid) 20 mg Q12 PO Last administered on 10/13/18at 08:38; Admin Dose 20 MG; Start 10/09/18 at 21:00 Guaifenesin/ Dextromethorphan (Robitussin Dm Liquid Cup) 10 ml Q4H PRN PO COUGH Last administered on 10/12/18at 21:25; Admin Dose 10 ML; Start 10/09/18 at 17:30 Thiamine HCl (Vitamin B1) 100 mg DAILY PO Last administered on 10/13/18at 08:38; Admin Dose 100 MG; Start 10/10/18 at 09:00 Levalbuterol (Xopenex Neb) 0.63 mg Q6H RESP THERAPY HHN Last administered on 10/13/18 07:46; Admin Dose 0.63 MG; Start 10/10/18 at 14:00 Phenol (Cepastat Lozenge) 1 lozenge Q3 PRN MT SORE THROAT; Start 10/10/18 at 11:30 Losartan Potassium (Cozaar) 12.5 mg DAILY PO Last administered on 10/13/18 08:38; Admin Dose 12.5 MG; Start 10/11/18 at 09:00 Carvedilol (Coreg) 6.25 mg BID PO Last administered on 10/13/18 08:38; Admin Dose 6.25 MG; Start 10/11/18 at 21:00 Furosemide (Lasix) 40 mg DAILY PO Last administered on 10/13/18 08:39; Admin Dose 40 MG; Start 10/13/18 at 09:00 Azithromycin (Zithromax) 250 mg DAILY PO Last administered on 10/13/18 10:10; Admin Dose 250 MG; Start 10/13/18 at 09:00 Amoxicillin/ Clavulanate Potassium (Augmentin) 875 mg BID PO Last administered on 10/13/18 10:10; Admin Dose 875 MG; Start 10/13/18 at 09:30 Assessment/Plan Hospital Course (Demo Recall) IMP: 1. ADHF--in a patient with substance abuse and cardiomyopathy. Cardiomyopathy likely secondary to methamphetamine use. Systolic dysfunction with ejection fraction of 20% 2 Demand ischemia 3. Multifocal Pneumonia--viral likely vs. atypical bacterial and less likely cocci, improved 4. Azotemia, improved 5. Substance Abuse 6. SATHISH RECS: Continue diuretics 1. Agree with ceftriaxone/azithro/tamiflu 2. Serologies as noted 3. Cardiac recommendations DC planning CARMINA DAY MD, [facility] Oct 13, 2018 11:36
[2018-10-13] MEDS ORDERED: AMOX1TAB10 PO (11:41)
[2018-10-13] MEDS ORDERED: AZIT250T13 PO (11:41)
[2018-10-13] MEDS ORDERED: FURO40TA4 PO (11:41)
--- NOTE | 2018-10-13 11:44 | PDOCDIS ---
Discharge Instructions CONDITION [id number] Patient Condition: [id number] Stable HOME CARE INSTRUCTIONS: [id number] Diet Instructions: [id number] Reduced Sodium OTHER ORDERS: Other Orders: 1. Take medications as per prescription. 2. Complete the course of antibiotics. 3. Take a low sodium diet. 4. Resume activities as tolerated. 5. Abstain from using recreational drugs. 6. Please follow-up with your primary care physician in 2 weeks. 7. Please go to the nearest emergency room if you have any chest pain, significant shortness of breath, persistent fevers, or any other unusual signs/symptoms. BAYLEE JUAREZ NP Oct 13, 2018 11:44
--- NOTE | 2018-10-13 13:41 | DS ---
Date/Time of Note Date/Time of Note DATE: 10/13/18 TIME: 13:38 Discharge Summary Admission/Discharge Info Admit Date/Time Oct 09, 2018 at 15:20 Discharge Date/Time Discharge Diagnosis 1. CHF exacerbation, acute on chronic, systolic dysfunction. 2. Nonischemic cardiomyopathy. Ejection fraction of 20%. 3. Multifocal pneumonia. 4. Hypertension. 5. Substance abuse. 6. Obesity. BMI more than 33 kg/m. Patient Condition: Stable Consults 1. Eugene Marrufo MD, Cardiology. 2. Bashir Fletcher MD, Infectious Diseases. 3. Kevin Chavarria MD, Pulmonary. Procedures Chest CT IMPRESSION: Multi focal pneumonia most pronounced in the lingula. Cardiomegaly. Small pericardial effusion. Cholecystectomy. Gastric bypass. 2D Echocardiogram Conclusions: Is a severe enlargement of left ventricle cavity. Severe global left ventricular systolic dysfunction. Ejection fraction is visually estimated at 20-25 %. Normal appearance of the mitral valve. Moderate mitral valve regurgitation. Dilated IVC without respiratory collapse consistent with elevated right atrial pressure. 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 The patient's chest x-ray showed congestive heart failure. The patient was admitted to inpatient setting for further treatment and evaluation. Hospital Course The patient has evidence of underlying systolic dysfunction. The patient was maintained on diuretic therapy. The patient's 2D echocardiogram was showing evidence of cardiomyopathy. The patient was being followed by cardiology. The patient was maintained on beta-blockers and angiotensin II receptor blockers. The patient's chest x-ray was showing mild pulmonary vascular congestion. The patient underwent a chest CT scan on 10/10/2018 that showed multifocal pneumonia most pronounced in the lingula along with cardiomegaly and small pericardial effusion. The patient was treated for underlying multifocal pneumonia with ceftriaxone, Zithromax, and Tamiflu. Later, the patient was evaluated by infectious diseases specialist who recommended to continue the patient on Zithromax and Augmentin. The patient's influenza A and B screen was negative. Patient's HIV 1 and 2 antibody was negative. The patient's of coccidiomycosis serology is pending at this time. Nevertheless, the patient responded well to the treatment strategy. The patient has underlying nonischemic cardiomyopathy. The patient was maintained on beta-blockers and ARBs. The patient has underlying hypertension. The patient was maintained on antihypertensives. The patient has underlying history of substance abuse. The patient uses amphetamines. The patient's [facility] drug screen was positive for marijuana. The patient is also morbidly obese with a BMI of more than 33 kg/m and the patient has a history of gastric bypass in the past. The patient had a stable hospital course. The patient stable to be discharged home, to complete the course of antibiotics orally. Discharge Instructions 1. Take medications as per prescription. 2. Complete the course of antibiotics. 3. Take a low sodium diet. 4. Resume activities as tolerated. 5. Abstain from using recreational drugs. 6. Please follow-up with your primary care physician in 2 weeks. 7. Please go to the nearest emergency room if you have any chest pain, significant shortness of breath, persistent fevers, or any other unusual si gns/symptoms. The patient verbalized understanding of his discharge instructions. At this time, I would like to thank all the consultants for seeing the patient and providing clinical recommendations. The patient was seen in collaboration with Dr. Mix. Home Meds Active Scripts Amoxicillin/Potassium Clav (Amox-Clav 875-125 mg Tablet) 875-125 mg Tab, 875 MG PO BID, #9 TAB Received 1 dose already. Prov:BAYLEE JUAREZ [employer] 10/13/18 Azithromycin* (Azithromycin*) 250 Mg Tablet, 250 MG PO DAILY, #1 TAB Received the rest of the dose. Prov:BAYLEE JUAREZ NP 10/13/18 Furosemide* (Furosemide*) 40 Mg Tablet, 40 MG PO DAILY, #30 TAB Prov:BAYLEE JUAREZ NP 10/13/18 Reported Medications Losartan Potassium* (Losartan Potassium*) 25 Mg Tablet, 12.5 MG PO DAILY, TAB 10/09/18 Carvedilol* (Carvedilol*) 12.5 Mg Tablet, 12.5 MG PO BID, #60 TAB 10/09/18 Aspirin (Low Dose Aspirin) 81 Mg Tablet.dr, 81 MG PO DAILY, #30 TAB 10/09/18 Discontinued Reported Medications Furosemide* (Lasix*) 20 Mg Tablet, 20 MG PO BID, TAB 10/09/18 Discontinued Scripts Magnesium Oxide* (Magnesium Oxide*) 400 Mg Tablet, 400 MG PO BID for 10 Days, #20 TAB Prov:KESHIA GOSS MD 09/21/18 Spironolactone* (Aldactone*) 25 Mg Tablet, 25 MG PO DAILY for 14 Days, #15 TAB Prov:KESHIA GOSS MD 09/21/18 Losartan Potassium* (Cozaar*) 25 Mg Tablet, 12.5 MG PO DAILY for 14 Days, #15 TAB Prov:KESHIA GOSS MD 09/21/18 Carvedilol* (Carvedilol*) 12.5 Mg Tablet, 12.5 MG PO BID for 14 Days, #30 TAB Prov:KESHIA GOSS MD 09/21/18 Furosemide* (Lasix*) 20 Mg Tablet, 20 MG PO BID for 14 Days, #30 TAB 1 Refill Prov:KESHIA GOSS MD 09/21/18 Aspirin (Aspirin) 81 Mg Chew, 81 MG PO DAILY for 30 Days, TAB Prov:JOY LEY 08/24/18 Follow-up Plan The patient follow-up with his primary care physician in 2 weeks. Primary Care Provider Care Physician No Primary Time spent on discharge: > 30 minutes Pending Labs Laboratory Tests Test 10/13/18 05:02 White Blood Count 3.7 10^3/ul (4.8-10.8) Red Blood Count 4.59 10^6/ul (4.70-6.10) Hemoglobin 12.2 g/dl (14.0-18.0) Hematocrit 39.8 % (42.0-52.0) Mean Corpuscular Volume 86.7 fl (82.0-101.0) Mean Corpuscular Hemoglobin 26.6 pg (29.0-33.0) Mean Corpuscular Hemoglobin Concent 30.7 g/dl (32.0-37.0) Red Cell Distribution Width 15.7 % (11.5-14.5) Platelet Count 197 10^3/UL (140-415) Mean Platelet Volume 10.8 fl (7.4-10.4) Immature Granulocytes % 0.300 % (0.001-0.429) Neutrophils % 38.4 % (39.0-77.0) Lymphocytes % 46.0 % (15.0-51.0) Monocytes % 10.5 % (0.0-11.0) Eosinophils % 4.0 % (0.0-7.0) Basophils % 0.8 % (0.0-2.0) Nucleated Red Blood Cells % 0.0 /100WBC (0.0-0.0) Immature Granulocytes # 0.010 10^3/ul (0.0-0.031) Neutrophils # 1.4 10^3/ul (1.6-7.5) Lymphocytes # 1.7 10^3/ul (0.8-2.9) Monocytes # 0.4 10^3/ul (0.3-0.9) Eosinophils # 0.2 10^3/ul (0.0-0.5) Basophils # 0.0 10^3/ul (0.0-0.1) Nucleated Red Blood Cells # 0.0 10^3/ul (0.0-0.0) Sodium Level 141 mmol/L (135-144) Potassium Level 3.6 mmol/L (3.5-5.1) Chloride Level 99 mmol/L (97-110) Carbon Dioxide Level 35 mmol/L (21-31) Anion Gap 7 (5-13) Blood Urea Nitrogen 32 mg/dl (7-20) Creatinine 1.11 mg/dl (0.61-1.24) Est Glomerular Filtrat Rate mL/min > 60 mL/min (>60) Glucose Level 81 mg/dl (70-220) Calcium Level 8.8 mg/dl (8.4-10.2) Phosphorus Level 4.7 mg/dl (2.5-4.9) Magnesium Level 2.2 mg/dl (1.7-2.5) BAYLEE JUAREZ NP Oct 13, 2018 13:41
--- NOTE | 2018-10-13 14:04 | CONS ---
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 Breathing comfortably on room air. Detailed Summary Additional Comments 14 point review of systems without changes. Exam/Review of Systems Vital Signs Vitals Vital Signs Date Temp Pulse Resp B/P (MAP) Pulse Ox O2 O2 Flow FiO2 Time Delivery Rate 10/13/18 82 17 96 21 13:45 10/13/18 97.8 97/53 (68) Room Air 11:30 10/12/18 2.0 17:42 Intake and Output 10/12/18 10/12/18 10/13/18 1414:59 22:59 06:59 IntakeIntake Total 1000 ml 1000 ml OutputOutput Total 1200 ml BalanceBalance -200 ml 1000 ml Exam Exam Constitutional: alert, well developed Psych: no complaints, nl mood/affect Head: normocephalic, atraumatic Eyes: nl conjunctiva, nl lids ENMT: nl external ears & nose, nl nasal mucosa & septum Neck: supple, non-tender, jvd Respiratory: crackles/rales, diminished breath sounds, wheezing Cardiovascular: regular rate and rhythm Gastrointestinal: soft, non-tender Musculoskeletal: nl extremities to inspection Extremities: No cyanosis, No clubbing, No edema Neurological: nl mental status, nl speech Labs Result Diagram: 10/13/18 0502 10/13/18 0502 Results 24hrs Laboratory Tests Test 10/13/18 05:02 White Blood Count 3.7 L Red Blood Count 4.59 L Hemoglobin 12.2 L Hematocrit 39.8 L Mean Corpuscular Volume 86.7 Mean Corpuscular Hemoglobin 26.6 L Mean Corpuscular Hemoglobin Concent 30.7 L Red Cell Distribution Width 15.7 H Platelet Count 197 Mean Platelet Volume 10.8 H Immature Granulocytes % 0.300 Neutrophils % 38.4 L Lymphocytes % 46.0 Monocytes % 10.5 Eosinophils % 4.0 Basophils % 0.8 Nucleated Red Blood Cells % 0.0 Immature Granulocytes # 0.010 Neutrophils # 1.4 L Lymphocytes # 1.7 Monocytes # 0.4 Eosinophils # 0.2 Basophils # 0.0 Nucleated Red Blood Cells # 0.0 Sodium Level 141 Potassium Level 3.6 Chloride Level 99 Carbon Dioxide Level 35 H Anion Gap 7 Blood Urea Nitrogen 32 H Creatinine 1.11 Est Glomerular Filtrat Rate mL/min > 60 Glucose Level 81 Calcium Level 8.8 Phosphorus Level 4.7 Magnesium Level 2.2 Medications Medications Current Medications Aspirin (Halfprin) 81 mg DAILY PO Last administered on 10/13/18at 08:38; Admin Dose 81 MG; Start 10/09/18 at 17:30 IV Flush (NS 3 ml) 3 ml PER PROTOCOL IV ; Start 10/09/18 at 17:30 Ondansetron HCl (Zofran Inj) 4 mg Q6H PRN IV NAUSEA/VOMITING; Start 10/09/18 at 17:30 Acetaminophen (Tylenol Tab) 650 mg Q6H PRN PO .PAIN 1-3 OR TEMP Last administered on 10/10/18at 17:09; Admin Dose 650 MG; Start 10/09/18 at 17:30 Acetaminophen/ Hydrocodone Bitart ([place] (5/325)) 1 tab Q6H PRN PO .MOD PAIN 4- 6 Last administered on 10/11/18at 13:18; Admin Dose 1 TAB; Start 10/09/18 at 17:30 Morphine Sulfate (morphine) 2 mg Q4H PRN IV .SEVERE PAIN 7-10; Start 10/09/18 at 17:30 Docusate Sodium (Colace) 100 mg Q12H PRN PO .CONSTIPATION; Start 10/09/18 at 17:30 Magnesium Hydroxide (Milk Of Mag) 30 ml DAILY PRN PO .CONSTIPATION; Start 10/09/18 at 17:30 Bisacodyl (Dulcolax) 5 mg DAILY PRN PO .CONSTIPATION; Start 10/09/18 at 17:30 Bisacodyl (Dulcolax Supp) 10 mg DAILY PRN [place] .CONSTIPATION; Start 10/09/18 at 17:30 Famotidine (Pepcid) 20 mg Q12 PO Last administered on 10/13/18 08:38; Admin D ose 20 MG; Start 10/09/18 at 21:00 Guaifenesin/ Dextromethorphan (Robitussin Dm Liquid Cup) 10 ml Q4H PRN PO COUGH Last administered on 10/12/18 21:25; Admin Dose 10 ML; Start 10/09/18 at 17:30 Thiamine HCl (Vitamin B1) 100 mg DAILY PO Last administered on 10/13/18 08:38; Admin Dose 100 MG; Start 10/10/18 at 09:00 Levalbuterol (Xopenex Neb) 0.63 mg Q6H RESP THERAPY HHN Last administered on 13:44; Admin Dose 0.63 MG; Start 10/10/18 at 14:00 Phenol (Cepastat Lozenge) 1 lozenge Q3 PRN MT SORE THROAT; Start 10/10/18 at 11:30 Losartan Potassium (Cozaar) 12.5 mg DAILY PO Last administered on 10/13/18 08:38; Admin Dose 12.5 MG; Start 10/11/18 at 09:00 Carvedilol (Coreg) 6.25 mg BID PO Last administered on 10/13/18 08:38; Admin Dose 6.25 MG; Start 10/11/18 at 21:00 Furosemide (Lasix) 40 mg DAILY PO Last administered on 10/13/18 08:39; Admin Dose 40 MG; Start 10/13/18 at 09:00 Azithromycin (Zithromax) 250 mg DAILY PO Last administered on 10/13/18 10:10; Admin Dose 250 MG; Start 10/13/18 at 09:00 Amoxicillin/ Clavulanate Potassium (Augmentin) 875 mg BID PO Last administered on 10/13/18 10:10; Admin Dose 875 MG; Start 10/13/18 at 09:30 RICH STEPHENS MD Oct 13, 2018 14:04
== END 2018-10-13 15:25 | disposition home or self-care (01) | DRG 280 ==
LOC: E/R 12:28 → 6WM 15:20
PROVIDERS: ADMIT Internal Medicine; ATTEND Internal Medicine
DX: I11.0 Hypertensive heart disease with heart failure (principal); I21.A1 Myocardial infarction type 2; J18.0 Bronchopneumonia, unspecified organism; I50.23 Acute on chronic systolic (congestive) heart failure; I42.9 Cardiomyopathy, unspecified; F15.10 Other stimulant abuse, uncomplicated; G47.33 Obstructive sleep apnea (adult) (pediatric); E66.01 Morbid (severe) obesity due to excess calories; I44.0 Atrioventricular block, first degree; I45.4 Nonspecific intraventricular block; F17.200 Nicotine dependence, unspecified, uncomplicated; Z68.33 Body mass index [BMI] 33.0-33.9, adult; Z71.3 Dietary counseling and surveillance; Z98.84 Bariatric surgery status; Z90.49 Acquired absence of other specified parts of digestive tract; Z79.82 Long term (current) use of aspirin
CPT/HCPCS: 36415; 71045; 71250; 80048; 80053; 80307; 81001; 83036; 83605; 83735; 83880; 84100; 84145; 84443; 84484; 85025; 85610; 85651; 85730; 86140; 86635; 86703; 87040; 87086; 87400; 93005; 93306; 94640; 94664; 96374; 96375; J0456; J0692; J0696; J1650; J1885; J1940; J3370; J3475

== ENCOUNTER 2018-11-25 00:32 | Inpatient (IN) | payer MEDICAID, OTHER ==
[~2018-11-25] VITALS: Ht 177.8 cm; Wt 106.0 kg
[~2018-11-25 00:32] MED LIST changes: +AMOX1TAB10 PO; -ASPI-831 PO; +ASPI81TA52 PO; +AZIT250T13 PO; -FURO-110 PO; +FURO40TA4 PO; +LOSA25TA12 PO; -LOSA25TA2 PO; -MAGN400T28 PO; -SPIR25TA PO
[2018-11-25] MEDS ORDERED: NITROGLYCERIN 2% 1 GM OINT PKT TD STA (01:38)
[2018-11-25] MEDS ORDERED: FUROSEMIDE 20 MG INJ IV STA (01:38)
[2018-11-25] MEDS ORDERED: ASPIRIN 81 MG TAB PO ONE (02:30)
[2018-11-25] MEDS ORDERED: ACETAMINOPHEN 325 MG TAB PO PRN ×2 (03:00→03:30)
[2018-11-25] MEDS ORDERED: ONDANSETRON 4 MG INJ IV PRN (03:00)
--- NOTE | 2018-11-25 03:06 | HP ---
Date/Time of Note Date/Time of Note DATE: 11/25/18 TIME: 03:05 Assessment/Plan VTE Prophylaxis SCD applied (from Nsg): Yes Pharmacological prophylaxis: NA/contraindicated Pharm contraindication: low risk/ambulating Lines/Catheters IV Catheter Type (from Nrsg): Saline Lock Assessment/Plan Hospital Course This is a 38-year-old male being admitted to the telemetry floor for: #1 acute on chronic systolic CHF exacerbation: Patient has a ejection fraction of approximately 20%. Patient does report ongoing meth use with the most recent use approximately 1 week ago. We will check a urine drug screen. He did receive a dose of 60 mg of IV Lasix in the ED. Lasix 40 mill grams IV twice daily. Once patient is euvolemic but can resume his previous dose of 40 mg p.o. daily. Will obtain a urine drug screen to make sure he is not using cocaine, and then resume carvedilol 6.25 mg twice daily. Continue aspirin 81 mg daily. Cardiology did previously recommend heart catheterization once patient is no longer using illicit drugs. #2 non-STEMI: Initial troponin 0.3. Patient denies any chest pain. this likely could be secondary to his CHF exacerbation. We will continue to trend troponins. Consider cardiology consultation. #3 hypertension: Continue losartan 12.5 mg p.o. daily. #4 morbid obesity: Encouraged diet and lifestyle modification #5 illicit drug use: Encourage cessation #6 medication noncompliance: Encourage compliance #7 DVT GI prophylaxis: SCDs, no GI prophylaxis indicated Further treatment strategy will be implemented as per the clinical course. Result Diagram: 11/25/18 0148 11/25/18 0148 Results 24hrs Laboratory Tests Test 11/25/18 01:48 White Blood Count 5.8 # Red Blood Count 5.51 # Hemoglobin 14.9 # Hematocrit 47.4 Mean Corpuscular Volume 86.0 Mean Corpuscular Hemoglobin 27.0 L Mean Corpuscular Hemoglobin Concent 31.4 L Red Cell Distribution Width 16.8 H Platelet Count 247 # Mean Platelet Volume 9.8 Immature Granulocytes % 0.200 Neutrophils % 60.0 Lymphocytes % 29.6 Monocytes % 8.0 Eosinophils % 1.0 Basophils % 1.2 Nucleated Red Blood Cells % 0.0 Immature Granulocytes # 0.010 Neutrophils # 3.5 Lymphocytes # 1.7 Monocytes # 0.5 Eosinophils # 0.1 Basophils # 0.1 Nucleated Red Blood Cells # 0.0 Sodium Level 141 Potassium Level 4.0 Chloride Level 105 Carbon Dioxide Level 25 Anion Gap 11 Blood Urea Nitrogen 38 H Creatinine 1.70 H Est Glomerular Filtrat Rate mL/min 45 L Glucose Level 91 Calcium Level 9.5 Troponin I 0.316 *H B-Type Natriuretic Peptide 43931 H HPI/ROS Admit Date/Time Admit Date/Time Hx of Present Illness Chief complaint: Shortness of breath, ran out of medications This is a 38-year-old gentleman with known history of cardiomyopathy due to methamphetamine, CHF who ran out of his medications 1 week ago.. He describes bilateral lower extremity swelling, shortness of breath and dyspnea on exertion with PND, orthopnea. No chest pain or pressure. No fevers or chills. No cough. Used methamphetamine was approximately 1 week ago. Allergies: NKDA Medications: See Sep Const: As per HPI Eyes : No pain discharge or redness or change in visual acuity ENT: No pain, sore throat, congestion, congestion, dysphagia or discharge Respiratory: No shortness of breath, cough, sputum, wheezing, or pleuritic pain Cardiovascular: As per HPI GI : no change in appetite, abdominal pain, nausea, vomiting, diarrhea, constipation, or change in the color his stool Genitourinary: No dysuria, hematuria, flank pain , discharge or CVA tenderness Musculoskeletal: No joint pain, back pain, neck pain, restricted range of motion in neck or joints Skin: No rash, bruising or hives Neuro: No headache, dizziness, syncope, seizure, focal weakness Endocrine: No polyuria, polydipsia, temperature intolerance Psych: No hallucination, depression, anxiety or suicidal ideation PMH/Family/Social Past Medical History systolic CHF. 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 induced Substance abuse: Meth/ possible IVDA Hypertension Morbid obesity Medications Current Medications Ondansetron HCl (Zofran Inj) 4 mg ER BRIDGE PRN IV NAUSEA/VOMITING; Start 11/25/18 at 03:00; Stop 11/26/18 at 02:59 Acetaminophen (Tylenol Tab) 650 mg ER BRIDGE PRN PO .MILD PAIN 1-3 OR TEMP; Start 11/25/18 at 03:00; Stop 11/26/18 at 02:59 Furosemide (Lasix) 40 mg BID DIURETICS IV ; Start 11/25/18 at 09:00; Status UNV Coded Allergies: No Known Allergies (Unverified Allergy, Unknown, 11/25/18) Past Surgical History Past Surgical Hx: cholecystectomy Family History Significant Family History: no pertinent family hx Social History Smoking Status: Current every day smoker Exam/Review of Systems Vital Signs Vitals Vital Signs Date Temp Pulse Resp B/P (MAP) Pulse Ox O2 O2 Flow FiO2 Time Delivery Rate 11/25/18 99 26 120/82 98 Nasal 3.0 02:22 (95) Cannula 11/25/18 97.6 00:36 Intake and Output 11/24/18 11/24/18 11/25/18 1414:59 22:59 06:59 OutputOutput Total 175 ml BalanceBalance -175 ml Exam Exam General: Patient is currently lying in bed he appears to be mildly short of breath HEENT: Atraumatic, normocephalic. The pupils are equal, round and reactive. Extraocular motor are intact Neck: Supple with full range of motion. No rigidity or meningismus Chest: Nontender Lungs: Rales bilaterally Heart: Normal S1-S2, Regular rhythm and rate. No murmur, S3, or S4 Abdomen: Soft , nontender, nondistended , bowel sounds are present. No guarding no rebound tenderness , No masses or organomegaly. No costovertebral temporal angle mass Extremities: Bilateral 2+ pitting edema Neurologic: Normal mental status, speech normal, cranial nerves II through XII are intact, motor and sensory are intact, Skin: Multiple tattoos PRICE ALONSO November 25, 2018 03:06
--- NOTE | 2018-11-25 03:08 | ERD ---
ER Documentation Chief Complaint Chief Complaint FLUID OVERLOAD, CHF, RAN OUT OF DIURETICS 7 DAYS AGO HPI 38-year-old gentleman with known history of cardiomyopathy, CHF who ran out of his medications a days ago. He describes bilateral lower extremity swelling, shortness of breath and dyspnea on exertion with PND, orthopnea. No chest pain or pressure. No fevers or chills. No cough. ROS All systems reviewed and are negative except as per history of present illness. Medications Home Meds Active Scripts Amoxicillin/Potassium Clav (Amox-Clav 875-125 mg Tablet) 875-125 mg Tab, 875 MG PO BID, #9 TAB Received 1 dose already. Prov:BAYLEE JUAREZ [employer] BUYER 10/13/18 Azithromycin* (Azithromycin*) 250 Mg Tablet, 250 MG PO DAILY, #1 TAB Received the rest of the dose. Prov:BAYLEE JUAREZ [employer] BUYER 10/13/18 Furosemide* (Furosemide*) 40 Mg Tablet, 40 MG PO DAILY, #30 TAB Prov:BAYLEE JUAREZ [employer] BUYER 10/13/18 Reported Medications Losartan Potassium* (Losartan Potassium*) 25 Mg Tablet, 12.5 MG PO DAILY, TAB 10/09/18 Carvedilol* (Carvedilol*) 12.5 Mg Tablet, 12.5 MG PO BID, #60 TAB 10/09/18 Aspirin (Low Dose Aspirin) 81 Mg Tablet.dr, 81 MG PO DAILY, #30 TAB 10/09/18 Allergies Allergies: Coded Allergies: No Known Allergies (Verified Allergy, Unknown, 10/09/18) PMhx/Soc History of Surgery: Yes (GASTRIC BYPASS, CHOLECYSTECTOMY) Anesthesia Reaction: Yes (HARD TO AROUSE AFTER ANESTHESIA) Hx Neurological Disorder: No Hx Respiratory Disorders: No Hx Cardiac Disorders: Yes (CHF, HTN) Hx Psychiatric Problems: No Hx Miscellaneous Medical Probl: No Hx Alcohol Use: No Hx Substance Use: Yes (OCC METH) Hx Tobacco Use: Yes Smoking Status: Current every day smoker FmHx Family History: No diabetes Physical Exam Vitals Vital Signs Date Temp Pulse Resp B/P (MAP) Pulse Ox O2 O2 Flow FiO2 Time Delivery Rate 11/25/18 99 26 120/82 98 Nasal 3.0 02:22 (95) Cannula 11/25/18 97.6 105 20 137/96 97 00:36 (110) Physical Exam General: Well developed, well nourished, no acute distress Head: Normocephalic, atraumatic. Eyes: Pupils equally reactive, EOM intact ENT: Moist mucous membranes Neck: Supple, no lymphadenopathy Respiratory: Rales at the bases bilaterally Cardiovascular: RRR, no murmurs, rubs, or gallops Abdominal: Soft, non-tender, non-distended, no peritoneal signs : Deferred MSK: Bilateral lower extremity pitting edema, no unilateral swelling, 5/5 strength Neurologic: Alert and oriented, moving all extremities, normal speech, no focal weakness, no cerebellar signs Skin: No rash Psych: Normal mood Result Diagram: 11/25/188 11/25/188 Results 24 hrs Laboratory Tests Test 11/25/18 01:48 White Blood Count 5.8 10^3/ul Red Blood Count 5.51 10^6/ul Hemoglobin 14.9 g/dl Hematocrit 47.4 % Mean Corpuscular Volume 86.0 fl Mean Corpuscular Hemoglobin 27.0 pg Mean Corpuscular Hemoglobin Concent 31.4 g/dl Red Cell Distribution Width 16.8 % Platelet Count 247 10^3/UL Mean Platelet Volume 9.8 fl Immature Granulocytes % 0.200 % Neutrophils % 60.0 % Lymphocytes % 29.6 % Monocytes % 8.0 % Eosinophils % 1.0 % Basophils % 1.2 % Nucleated Red Blood Cells % 0.0 /100WBC Immature Granulocytes # 0.010 10^3/ul Neutrophils # 3.5 10^3/ul Lymphocytes # 1.7 10^3/ul Monocytes # 0.5 10^3/ul Eosinophils # 0.1 10^3/ul Basophils # 0.1 10^3/ul Nucleated Red Blood Cells # 0.0 10^3/ul Sodium Level 141 mmol/L Potassium Level 4.0 mmol/L Chloride Level 105 mmol/L Carbon Dioxide Level 25 mmol/L Anion Gap 11 Blood Urea Nitrogen 38 mg/dl Creatinine 1.70 mg/dl Est Glomerular Filtrat Rate mL/min 45 mL/min Glucose Level 91 mg/dl Calcium Level 9.5 mg/dl Troponin I 0.316 ng/ml B-Type Natriuretic Peptide 27313 PG/ML Current Medications Medications Dose Sig/Jess Start Time Status Last (Trade) Ordered Route PRN Stop Time Admin Dose Reason Admin 1 inch ONCE STAT 11/25/18 DC 11/25/18 Nitroglycerin TD 01:38 11/25/18 01:56 01:39 (Nitroglyceri n 2% Oint) Furosemide 60 mg ONCE STAT 11/25/18 DC 11/25/18 (Lasix) IV 01:38 11/25/18 01:56 01:39 Aspirin 324 mg ONCE ONCE 11/25/18 DC 11/25/18 (Aspirin) PO 02:30 11/25/18 02:33 02:31 Ondansetron 4 mg ER BRIDGE 11/25/18 HCl (Zofran PRN IV 03:00 11/26/18 Inj) NAUSEA/VOMITI 02:59 NG 650 mg ER BRIDGE 11/25/18 Acetaminophen PRN PO 03:00 11/26/18 (Tylenol .MILD PAIN 02:59 Tab) 1-3 OR TEMP Furosemide 40 mg BID 11/25/18 UNV (Lasix) DIURETICS 09:00 IV IV Flush 3 ml PER 11/25/18 UNV (NS 3 ml) PROTOCOL IV 03:30 Ondansetron 4 mg Q6H PRN 11/25/18 UNV HCl (Zofran PO 03:30 Tab) NAUSEA/VOMITI NG Aspirin 81 mg DAILY PO 11/25/18 UNV (Aspirin) 09:00 1 tab Q5M PRN 11/25/18 UNV Nitroglycerin SL .CHEST 03:30 PAIN (Nitroglyceri n (Sl Tab) 0.4 Mg) 650 mg Q6H PRN 11/25/18 UNV Acetaminophen PO .PAIN 1-3 03:30 (Tylenol OR TEMP Tab) Morphine 2 mg Q4H PRN 11/25/18 UNV Sulfate IV .PAIN 03:30 (morphine) 7-10 Docusate 100 mg Q12H PRN 11/25/18 UNV Sodium PO 03:30 (Colace) .CONSTIPATION Bisacodyl 5 mg DAILY PRN 11/25/18 UNV (Dulcolax) PO 03:30 .CONSTIPATION Procedures/MDM EKG, MONITORS, & DIAGNOSTIC IMAGING: Chest x-ray: I reviewed and interpreted a 1 view of the chest Mediastinum: No enlargement Cardiac silhouette: cardiomegaly Airspace: Interstitial process Bones: No evidence of fracture EKG: I reviewed and interpreted a 12-lead EKG. Rhythm: Normal sinus rhythm ST Changes: No contiguous ST segment elevations T waves: No contiguous T wave inversions Impression: [No evidence of acute cardiac ischemia] Most recent echocardiogram Conclusions: Severe enlargement of left ventricle cavity. Severe global left ventricular systolic dysfunction. Ejection fraction is visually estimated at 20-25 %. Normal appearance of the mitral valve. Moderate mitral valve regurgitation. Dilated IVC without respiratory collapse consistent with elevated right atrial pressure. Electronically Signed By: Eugene Marrufo 2018-10-10 17:38:40 PDT LAB INTERPRETATION: I reviewed the laboratory testing and it shows elevated troponin and BNP MEDICAL DECISION MAKING: Signs and symptoms consistent with volume overload secondary to medication noncompliance. No active chest pain. The patient likely requires diuresis. Screening for endorgan dysfunction would be appropriate including EKG and troponin. Patient is protecting his airway does not require positive pressure ventilation or nitroglycerin drip. ER COURSE: * Nitroglycerin, Lasix provided. Troponin is noted to be elevated. Aspirin provided. Given the patient's troponin elevation inpatient hospitalization is necessary. This is likely demand ischemia rather than plaque rupture. * Patient remains him dynamically stable. CONSULTATION: [None] DISPOSITION PLAN: Accepting care team and consultations: I discussed the current laboratory data, diagnostic imaging and emergency care provided. Admitting team: Dr. Eldridge Admitting team indication: Insurance directed Departure Diagnosis: Primary Impression: Acute exacerbation of CHF (congestive heart failure) Heart failure type: systolic Qualified Codes: I50.23 - Acute on chronic systolic (congestive) heart failure Additional Impressions: Non-ST elevation myocardial infarction (NSTEMI) Renal insufficiency Condition: Stable EDWARDO ERNANDEZ MD November 25, 2018 03:08
[2018-11-25] MEDS ORDERED: NITROGLYCERIN (SL) 0.4 MG TAB SL PRN (03:30)
[2018-11-25] MEDS ORDERED: ONDANSETRON 4 MG TAB PO PRN (03:30)
[2018-11-25] MEDS ORDERED: NACL 0.9% 3 ML SYG IV SCH (03:30)
[2018-11-25] MEDS ORDERED: DOCUSATE SODIUM 100 MG CAP PO PRN (03:30)
[2018-11-25] MEDS ORDERED: BISACODYL (EC) 5 MG TAB PO PRN (03:30)
[2018-11-25] MEDS: FUROSEMIDE 40 MG INJ IV SCH ×2 (08:14→17:49)
[2018-11-25] MEDS: ASPIRIN 81 MG TAB PO SCH (08:14)
[2018-11-25] MEDS: morphine 2 MG INJ IV PRN ×2 (10:01→18:29)
--- NOTE | 2018-11-25 15:38 | PN ---
Date/Time of Note Date/Time of Note DATE: 11/25/18 TIME: 15:34 Assessment/Plan VTE Prophylaxis SCD applied (from Nsg): Yes Pharmacological prophylaxis: heparin Lines/Catheters IV Catheter Type (from Nrsg): Saline Lock Assessment/Plan Hospital Course +JVD RRR breahting comfortably + peripheral edema 38 yo male with amphetamine use d/o leading to nonischemic cardiomyopathy presents with acute on chronic systolic CHF exacerbation and BRENNAN CHF: - Continue diuresis - Neurohormonal blockade BRENNAN: - unclear etiology - UA - Trend creatinine NSTEMI: - Likely type II in setting of BRENNAN and CHF. No chest pain or EKG changes to suggest acute plaque rupture Amphetamine use d/o: - Cousneled on cessation Result Diagram: 11/25/188 11/25/18147 Results 24hrs Laboratory Tests Test 11/25/18 01:48 11/25/18 05:37 11/25/18 11:13 11/25/18 12:20 White Blood Count 5.8 # Red Blood Count 5.51 # Hemoglobin 14.9 # Hematocrit 47.4 Mean Corpuscular Volume 86.0 Mean Corpuscular 27.0 L Hemoglobin Mean Corpuscular 31.4 L Hemoglobin Concent Red Cell Distribution 16.8 H Width Platelet Count 247 # Mean Platelet Volume 9.8 Immature Granulocytes % 0.200 Neutrophils % 60.0 Lymphocytes % 29.6 Monocytes % 8.0 Eosinophils % 1.0 Basophils % 1.2 Nucleated Red Blood 0.0 Cells % Immature Granulocytes # 0.010 Neutrophils # 3.5 Lymphocytes # 1.7 Monocytes # 0.5 Eosinophils # 0.1 Basophils # 0.1 Nucleated Red Blood 0.0 Cells # Sodium Level 141 Potassium Level 4.0 Chloride Level 105 Carbon Dioxide Level 25 Anion Gap 11 Blood Urea Nitrogen 38 H Creatinine 1.70 H Est Glomerular Filtrat 45 L Rate mL/min Glucose Level 91 Calcium Level 9.5 Troponin I 0.316 *H 0.297 *H 0.192 *H B-Type Natriuretic 44273 H Peptide Ethyl Alcohol Level < 10.0 H Hemoglobin A1c 5.9 Creatine Kinase 216 H 178 Creatine Kinase Index 1.9 1.9 Creatinine Kinase MB 4.11 H 3.31 H (Mass) Triglycerides Level 66 Cholesterol Level 57 L LDL Cholesterol, 23 Calculated HDL Cholesterol 21 L Cholesterol/HDL Ratio 2.7 Thyroid Stimulating 2.920 Hormone (TSH) Urine Opiates Screen Positive Urine Barbiturates Negative Urine Amphetamines Positive Screen Urine Benzodiazepines Negative Screen Urine Cocaine Screen Negative Urine Cannabinoids Negative Subjective 24 Hr Interval Summary Free Text/Dictation Diuresing well Mild orthopnea Exam/Review of Systems Exam Vitals Vital Signs Date Temp Pulse Resp B/P (MAP) Pulse Ox O2 O2 Flow FiO2 Time Delivery Rate 11/25/18 92 20 120/92 98 Nasal 3.0 11:37 (101) Cannula 11/25/18 98.4 08:20 Intake and Output 11/24/18 11/24/18 11/25/18 1515:00 23:00 07:00 OutputOutput Total 175 ml BalanceBalance -175 ml Results Results 24hrs Laboratory Tests Test 11/25/18 01:48 11/25/18 05:37 11/25/18 11:13 11/25/18 12:20 White Blood Count 5.8 # Red Blood Count 5.51 # Hemoglobin 14.9 # Hematocrit 47.4 Mean Corpuscular Volume 86.0 Mean Corpuscular 27.0 L Hemoglobin Mean Corpuscular 31.4 L Hemoglobin Concent Red Cell Distribution 16.8 H Width Platelet Count 247 # Mean Platelet Volume 9.8 Immature Granulocytes % 0.200 Neutrophils % 60.0 Lymphocytes % 29.6 Monocytes % 8.0 Eosinophils % 1.0 Basophils % 1.2 Nucleated Red Blood 0.0 Cells % Immature Granulocytes # 0.010 Neutrophils # 3.5 Lymphocytes # 1.7 Monocytes # 0.5 Eosinophils # 0.1 Basophils # 0.1 Nucleated Red Blood 0.0 Cells # Sodium Level 141 Potassium Level 4.0 Chloride Level 105 Carbon Dioxide Level 25 Anion Gap 11 Blood Urea Nitrogen 38 H Creatinine 1.70 H Est Glomerular Filtrat 45 L Rate mL/min Glucose Level 91 Calcium Level 9.5 Troponin I 0.316 *H 0.297 *H 0.192 *H B-Type Natriuretic 20282 H Peptide Ethyl Alcohol Level < 10.0 H Hemoglobin A1c 5.9 Creatine Kinase 216 H 178 Creatine Kinase Index 1.9 1.9 Creatinine Kinase MB 4.11 H 3.31 H (Mass) Triglycerides Level 66 Cholesterol Level 57 L LDL Cholesterol, 23 Calculated HDL Cholesterol 21 L Cholesterol/HDL Ratio 2.7 Thyroid Stimulating 2.920 Hormone (TSH) Urine Opiates Screen Positive Urine Barbiturates Negative Urine Amphetamines Positive Screen Urine Benzodiazepines Negative Screen Urine Cocaine Screen Negative Urine Cannabinoids Negative Medications Medication Current Medications Ondansetron HCl (Zofran Inj) 4 mg ER BRIDGE PRN IV NAUSEA/VOMITING Last administered on 11/25/18at 10:00; Admin Dose 4 MG; Start 11/25/18 at 03:00; Stop 11/26/18 at 02:59 Furosemide (Lasix) 40 mg BID DIURETICS IV Last administered on 11/25/18at 08:14; Admin Dose 40 MG; Start 11/25/18 at 09:00 IV Flush (NS 3 ml) 3 ml PER PROTOCOL IV ; Start 11/25/18 at 03:30 Ondansetron HCl (Zofran Tab) 4 mg Q6H PRN PO NAUSEA/VOMITING; Start 11/25/18 at 03:30 Aspirin (Aspirin) 81 mg DAILY PO Last administered on 11/25/18 08:14; Admin Dose 81 MG; Start 11/25/18 at 09:00 Nitroglycerin (Nitroglycerin (Sl Tab) 0.4 Mg) 1 tab Q5M PRN SL .CHEST PAIN; Start 11/25/18 at 03:30 Acetaminophen (Tylenol Tab) 650 mg Q6H PRN PO .PAIN 1-3 OR TEMP; Start 11/25/18 at 03:30 Morphine Sulfate (morphine) 2 mg Q4H PRN IV .PAIN 7-10 Last administered on 11/25/18at 10:01; Admin Dose 2 MG; Start 11/25/18 at 03:30 Docusate Sodium (Colace) 100 mg Q12H PRN PO .CONSTIPATION; Start 11/25/18 at 03:30 Bisacodyl (Dulcolax) 5 mg DAILY PRN PO .CONSTIPATION; Start 11/25/18 at 03:30 EMILE LOYA MD November 25, 2018 15:38
[2018-11-25 17:14] VITALS: BP 119/75; PULSE 79; RESP 20
[2018-11-25 17:15] VITALS: Ht 177.8 cm; Wt 106.0 kg
[2018-11-25 19:54] VITALS: BP 126/79; PULSE 91; RESP 17
[2018-11-25 20:00] VITALS: PULSE 94
[2018-11-25 23:56] VITALS: BP 129/85; PULSE 95; RESP 18
[2018-11-26] VITALS (10 sets, daily range): BP systolic 108–120; BP diastolic 68–78; PULSE 71–101; RESP 18–20
[2018-11-26] MEDS: morphine 2 MG INJ IV PRN ×3 (02:48→17:01)
[2018-11-26] MEDS: FUROSEMIDE 40 MG INJ IV SCH ×2 (06:18→17:01)
[2018-11-26] MEDS: ASPIRIN 81 MG TAB PO SCH (07:59)
--- NOTE | 2018-11-26 14:37 | PN ---
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 will add MARISA when creatinine stable) BRENNAN: - unclear etiology - UA - Trend creatinine NSTEMI: - Likely type II in setting of BRENNAN and CHF. No chest pain or EKG changes to rust ggest acute plaque rupture Amphetamine use d/o: - Cousneled on cessation Result Diagram: 11/26/1852311/26/18523 Results 24hrs Laboratory Tests Test 11/25/18 20:20 11/26/18 05:24 Urine Color YELLOW Urine Clarity CLEAR Urine pH 5.0 Urine Specific Otis 1.011 Urine Ketones NEGATIVE Urine Nitrite NEGATIVE Urine Bilirubin NEGATIVE Urine Urobilinogen 1+ H Urine Leukocyte Esterase NEGATIVE Urine Microscopic RBC 1 Urine Microscopic WBC 1 Urine Hemoglobin 1+ H Urine Glucose NEGATIVE Urine Total Protein 1+ H White Blood Count 5.4 Red Blood Count 5.19 Hemoglobin 14.0 Hematocrit 45.1 Mean Corpuscular Volume 86.9 Mean Corpuscular Hemoglobin 27.0 L Mean Corpuscular Hemoglobin Concent 31.0 L Red Cell Distribution Width 16.9 H Platelet Count 237 Mean Platelet Volume 10.2 Immature Granulocytes % 0.200 Neutrophils % 70.4 Lymphocytes % 20.6 Monocytes % 7.0 Eosinophils % 0.7 Basophils % 1.1 Nucleated Red Blood Cells % 0.0 Immature Granulocytes # 0.010 Neutrophils # 3.8 Lymphocytes # 1.1 Monocytes # 0.4 Eosinophils # 0.0 Basophils # 0.1 Nucleated Red Blood Cells # 0.0 Sodium Level 139 Potassium Level 3.9 Chloride Level 103 Carbon Dioxide Level 25 Anion Gap 11 Blood Urea Nitrogen 41 H Creatinine 1.46 H Est Glomerular Filtrat Rate mL/min 54 L Glucose Level 125 Calcium Level 8.9 Total Bilirubin 1.5 H Direct Bilirubin 0.00 Indirect Bilirubin 1.5 H Aspartate Amino Transf (AST/SGOT) 68 H Alanine Aminotransferase (ALT/SGPT) 62 Alkaline Phosphatase 78 Total Protein 6.6 Albumin 3.5 Globulin 3.10 Albumin/Globulin Ratio 1.12 Subjective 24 Hr Interval Summary Free Text/Dictation Diuresing effectively No complaints Exam/Review of Systems Exam Vitals Vital Signs Date Temp Pulse Resp B/P (MAP) Pulse Ox O2 O2 Flow FiO2 Time Delivery Rate 11/26/18 97.8 92 18 120/78 96 Room Air 12:10 (92) 11/26/18 3.0 08:00 Intake and Output 11/25/18 11/25/18 11/26/18 1515:00 23:00 07:00 IntakeIntake Total 600 ml OutputOutput Total 750 ml BalanceBalance -150 ml Results Results 24hrs Laboratory Tests Test 11/25/18 20:20 11/26/18 05:24 Urine Color YELLOW Urine Clarity CLEAR Urine pH 5.0 Urine Specific Otis 1.011 Urine Ketones NEGATIVE Urine Nitrite NEGATIVE Urine Bilirubin NEGATIVE Urine Urobilinogen 1+ H Urine Leukocyte Esterase NEGATIVE Urine Microscopic RBC 1 Urine Microscopic WBC 1 Urine Hemoglobin 1+ H Urine Glucose NEGATIVE Urine Total Protein 1+ H White Blood Count 5.4 Red Blood Count 5.19 Hemoglobin 14.0 Hematocrit 45.1 Mean Corpuscular Volume 86.9 Mean Corpuscular Hemoglobin 27.0 L Mean Corpuscular Hemoglobin Concent 31.0 L Red Cell Distribution Width 16.9 H Platelet Count 237 Mean Platelet Volume 10.2 Immature Granulocytes % 0.200 Neutrophils % 70.4 Lymphocytes % 20.6 Monocytes % 7.0 Eosinophils % 0.7 Basophils % 1.1 Nucleated Red Blood Cells % 0.0 Immature Granulocytes # 0.010 Neutrophils # 3.8 Lymphocytes # 1.1 Monocytes # 0.4 Eosinophils # 0.0 Basophils # 0.1 Nucleated Red Blood Cells # 0.0 Sodium Level 139 Potassium Level 3.9 Chloride Level 103 Carbon Dioxide Level 25 Anion Gap 11 Blood Urea Nitrogen 41 H Creatinine 1.46 H Est Glomerular Filtrat Rate mL/min 54 L Glucose Level 125 Calcium Level 8.9 Total Bilirubin 1.5 H Direct Bilirubin 0.00 Indirect Bilirubin 1.5 H Aspartate Amino Transf (AST/SGOT) 68 H Alanine Aminotransferase (ALT/SGPT) 62 Alkaline Phosphatase 78 Total Protein 6.6 Albumin 3.5 Globulin 3.10 Albumin/Globulin Ratio 1.12 Medications Medication Current Medications Furosemide (Lasix) 40 mg BID DIURETICS IV Last administered on 11/26/18at 06:18; Admin Dose 40 MG; Start 11/25/18 at 09:00 IV Flush (NS 3 ml) 3 ml PER PROTOCOL IV ; Start 11/25/18 at 03:30 Ondansetron HCl (Zofran Tab) 4 mg Q6H PRN PO NAUSEA/VOMITING; Start 11/25/18 at 03:30 Aspirin (Aspirin) 81 mg DAILY PO Last administered on 11/26/18at 07:59; Admin Dose 81 MG; Start 11/25/18 at 09:00 Nitroglycerin (Nitroglycerin (Sl Tab) 0.4 Mg) 1 tab Q5M PRN SL .CHEST PAIN; Start 11/25/18 at 03:30 Acetaminophen (Tylenol Tab) 650 mg Q6H PRN PO .PAIN 1-3 OR TEMP; Start 11/25/18 at 03:30 Morphine Sulfate (morphine) 2 mg Q4H PRN IV .PAIN 7-10 Last administered on 11/26/18at 08:34; Admin Dose 2 MG; Start 11/25/18 at 03:30 Docusate Sodium (Colace) 100 mg Q12H PRN PO .CONSTIPATION; Start 11/25/18 at 03:30 Bisacodyl (Dulcolax) 5 mg DAILY PRN PO .CONSTIPATION; Start 11/25/18 at 03:30 EMILE LOYA MD November 26, 2018 14:37
[2018-11-26] MEDS: METOPROLOL (XL) 50 MG TAB PO SCH (17:01)
[2018-11-27] MEDS: morphine 2 MG INJ IV PRN ×3 (01:27→18:04)
[2018-11-27 02:24] VITALS: BP 113/67; PULSE 84; RESP 18
[2018-11-27] MEDS: FUROSEMIDE 40 MG INJ IV SCH ×2 (05:55→18:04)
[2018-11-27 07:22] VITALS: BP 117/75; PULSE 84; RESP 18
[2018-11-27] MEDS: ASPIRIN 81 MG TAB PO SCH (08:35)
[2018-11-27] MEDS: METOPROLOL (XL) 50 MG TAB PO SCH (08:38)
[2018-11-27] MEDS ORDERED: MAGNESIUM SULFATE 2 GM/50 ML 50 ML IVPB ONE (13:00)
--- NOTE | 2018-11-27 14:07 | PN ---
Date/Time of Note Date/Time of Note DATE: 11/27/18 TIME: 14:07 Assessment/Plan VTE Prophylaxis Risk score (from Nsg)>0 risk: 1 SCD applied (from Nsg): Yes Pharmacological prophylaxis: heparin Lines/Catheters IV Catheter Type (from Nrsg): Saline Lock Urinary Cath still in place: No Assessment/Plan Hospital Course +JVD RRR breahting comfortably + peripheral edema 38 yo male with amphetamine use d/o leading to nonischemic cardiomyopathy presents with acute on chronic systolic CHF exacerbation and BRENNAN CHF: - Continue diuresis - Neurohormonal blockade (toprol 50. will add MARISA when creatinine stable) BRENNAN: - unclear etiology - UA - Trend creatinine NSTEMI: - Likely type II in setting of BRENNAN and CHF. No chest pain or EKG changes to suggest acute plaque rupture Amphetamine use d/o: - Cousneled on cessation Result Diagram: 11/27/18 0424 11/27/184 Results 24hrs Laboratory Tests Test 11/27/18 04:24 White Blood Count 6.7 # Red Blood Count 5.08 Hemoglobin 13.7 L Hematocrit 42.7 Mean Corpuscular Volume 84.1 Mean Corpuscular Hemoglobin 27.0 L Mean Corpuscular Hemoglobin Concent 32.1 Red Cell Distribution Width 16.9 H Platelet Count 239 Mean Platelet Volume 10.3 Immature Granulocytes % 0.300 Neutrophils % 69.4 Lymphocytes % 19.0 Monocytes % 10.3 Eosinophils % 0.3 Basophils % 0.7 Nucleated Red Blood Cells % 0.0 Immature Granulocytes # 0.020 Neutrophils # 4.6 Lymphocytes # 1.3 Monocytes # 0.7 Eosinophils # 0.0 Basophils # 0.1 Nucleated Red Blood Cells # 0.0 Sodium Level 137 Potassium Level 4.2 Chloride Level 100 Carbon Dioxide Level 27 Anion Gap 10 Blood Urea Nitrogen 39 H Creatinine 1.25 H Est Glomerular Filtrat Rate mL/min > 60 Glucose Level 96 Calcium Level 8.5 Magnesium Level 1.5 L Total Bilirubin 1.6 H Direct Bilirubin 0.00 Indirect Bilirubin 1.6 H Aspartate Amino Transf (AST/SGOT) 80 H Alanine Aminotransferase (ALT/SGPT) 71 H Alkaline Phosphatase 65 Total Protein 5.9 L Albumin 3.0 L Globulin 2.90 Albumin/Globulin Ratio 1.03 Subjective 24 Hr Interval Summary Free Text/Dictation Diuresing adequately Renal function improving Feels well Exam/Review of Systems Exam Vitals Vital Signs Date Temp Pulse Resp B/P (MAP) Pulse Ox O2 O2 Flow FiO2 Time Delivery Rate 11/27/18 Nasal 2.0 08:00 Cannula 11/27/18 98.2 84 18 117/75 99 07:22 (89) Intake and Output 11/26/18 11/26/18 11/27/18 1515:00 23:00 07:00 IntakeIntake Total 600 ml 100 ml 500 ml BalanceBalance 600 ml 100 ml 500 ml Results Results 24hrs Laboratory Tests Test 11/27/18 04:24 White Blood Count 6.7 # Red Blood Count 5.08 Hemoglobin 13.7 L Hematocrit 42.7 Mean Corpuscular Volume 84.1 Mean Corpuscular Hemoglobin 27.0 L Mean Corpuscular Hemoglobin Concent 32.1 Red Cell Distribution Width 16.9 H Platelet Count 239 Mean Platelet Volume 10.3 Immature Granulocytes % 0.300 Neutrophils % 69.4 Lymphocytes % 19.0 Monocytes % 10.3 Eosinophils % 0.3 Basophils % 0.7 Nucleated Red Blood Cells % 0.0 Immature Granulocytes # 0.020 Neutrophils # 4.6 Lymphocytes # 1.3 Monocytes # 0.7 Eosinophils # 0.0 Basophils # 0.1 Nucleated Red Blood Cells # 0.0 Sodium Level 137 Potassium Level 4.2 Chloride Level 100 Carbon Dioxide Level 27 Anion Gap 10 Blood Urea Nitrogen 39 H Creatinine 1.25 H Est Glomerular Filtrat Rate mL/min > 60 Glucose Level 96 Calcium Level 8.5 Magnesium Level 1.5 L Total Bilirubin 1.6 H Direct Bilirubin 0.00 Indirect Bilirubin 1.6 H Aspartate Amino Transf (AST/SGOT) 80 H Alanine Aminotransferase (ALT/SGPT) 71 H Alkaline Phosphatase 65 Total Protein 5.9 L Albumin 3.0 L Globulin 2.90 Albumin/Globulin Ratio 1.03 Medications Medication Current Medications Furosemide (Lasix) 40 mg BID DIURETICS IV Last administered on 11/27/18at 05:55; Admin Dose 40 MG; Start 11/25/18 at 09:00 IV Flush (NS 3 ml) 3 ml PER PROTOCOL IV ; Start 11/25/18 at 03:30 Ondansetron HCl (Zofran Tab) 4 mg Q6H PRN PO NAUSEA/VOMITING; Start 11/25/18 at 03:30 Aspirin (Aspirin) 81 mg DAILY PO Last administered on 11/27/18at 08:35; Admin Dose 81 MG; Start 11/25/18 at 09:00 Nitroglycerin (Nitroglycerin (Sl Tab) 0.4 Mg) 1 tab Q5M PRN SL .CHEST PAIN; Start 11/25/18 at 03:30 Acetaminophen (Tylenol Tab) 650 mg Q6H PRN PO .PAIN 1-3 OR TEMP; Start 11/25/18 at 03:30 Docusate Sodium (Colace) 100 mg Q12H PRN PO .CONSTIPATION; Start 11/25/18 at 03:30 Bisacodyl (Dulcolax) 5 mg DAILY PRN PO .CONSTIPATION; Start 11/25/18 at 03:30 Morphine Sulfate (morphine) 2 mg Q8H PRN IV .PAIN 7-10 Last administered on 11/27/18at 09:35; Admin Dose 2 MG; Start 11/26/18 at 15:00 Metoprolol Succinate (Toprol Xl) 50 mg DAILY PO Last administered on 11/27/18at 08:38; Admin Dose 50 MG; Start 11/26/18 at 15:00 Magnesium Sulfate 50 ml @ 25 mls/hr ONCE ONCE IVPB ; Start 11/27/18 at 13:00; Stop 11/27/18 at 14:59 EMILE LOYA MD November 27, 2018 14:07
[2018-11-27 15:01] VITALS: BP 110/70; PULSE 81; RESP 20
[2018-11-27 19:40] VITALS: BP 115/71; PULSE 91; RESP 18
[2018-11-28] MEDS: morphine 2 MG INJ IV PRN ×2 (02:56→14:04)
[2018-11-28] MEDS: FUROSEMIDE 40 MG INJ IV SCH ×2 (05:39→18:30)
[2018-11-28 07:33] VITALS: BP 112/64; PULSE 76; RESP 17
[2018-11-28] MEDS: METOPROLOL (XL) 50 MG TAB PO SCH (09:15)
[2018-11-28] MEDS: ASPIRIN 81 MG TAB PO SCH (09:16)
[2018-11-28 13:59] VITALS: BP 100/62; PULSE 81; RESP 16
--- NOTE | 2018-11-28 15:01 | PN ---
Date/Time of Note Date/Time of Note DATE: 11/28/18 TIME: 15:00 Assessment/Plan VTE Prophylaxis Risk score (from Nsg)>0 risk: 2 SCD applied (from Nsg): Yes Pharmacological prophylaxis: heparin Lines/Catheters IV Catheter Type (from Nrsg): Saline Lock Urinary Cath still in place: No Assessment/Plan Hospital Course +JVD RRR breahting comfortably mild peripheral edema, improving 38 yo male with amphetamine use d/o leading to nonischemic cardiomyopathy presents with acute on chronic systolic CHF exacerbation and BRENNAN CHF: - Continue diuresis - Neurohormonal blockade (toprol 50. will add MARISA when creatinine stable) BRENNAN vs CKD - unclear etiology - UA - Trend creatinine NSTEMI: - Likely type II in setting of BRENNAN and CHF. No chest pain or EKG changes to suggest acute plaque rupture Transaminitis: - Mild hepatomeglay on US. Viral serologies negative. Unclear etiology. Trend LFTs Amphetamine use d/o: - Cousneled on cessation DC: To home in coming days. Will need all meds refilled Result Diagram: 11/28/18 0438 11/28/18 0438 Results 24hrs Laboratory Tests Test 11/28/18 04:38 White Blood Count 7.2 Red Blood Count 5.35 Hemoglobin 14.2 Hematocrit 45.1 Mean Corpuscular Volume 84.3 Mean Corpuscular Hemoglobin 26.5 L Mean Corpuscular Hemoglobin Concent 31.5 L Red Cell Distribution Width 17.0 H Platelet Count 243 Mean Platelet Volume 10.1 Immature Granulocytes % 0.400 Neutrophils % 71.8 Lymphocytes % 18.1 Monocytes % 9.1 Eosinophils % 0.0 Basophils % 0.6 Nucleated Red Blood Cells % 0.0 Immature Granulocytes # 0.030 Neutrophils # 5.2 Lymphocytes # 1.3 Monocytes # 0.7 Eosinophils # 0.0 Basophils # 0.0 Nucleated Red Blood Cells # 0.0 Sodium Level 134 L Potassium Level 5.1 Chloride Level 97 Carbon Dioxide Level 26 Anion Gap 11 Blood Urea Nitrogen 46 H Creatinine 1.50 H Est Glomerular Filtrat Rate mL/min 52 L Glucose Level 102 Calcium Level 8.6 Total Bilirubin 1.5 H Direct Bilirubin 0.00 Indirect Bilirubin 1.5 H Aspartate Amino Transf (AST/SGOT) 318 #H Alanine Aminotransferase (ALT/SGPT) 258 H Alkaline Phosphatase 84 Total Protein 6.3 Albumin 3.1 L Globulin 3.20 Albumin/Globulin Ratio 0.96 Hepatitis B Surface Antigen NEGATIVE Hepatitis B Core Total Antibody NEGATIVE Hepatitis C Antibody NEGATIVE Subjective 24 Hr Interval Summary Free Text/Dictation volume status improving Diuresing well Still a bit of volume left Exam/Review of Systems Exam Vitals Vital Signs Date Temp Pulse Resp B/P (MAP) Pulse Ox O2 O2 Flow FiO2 Time Delivery Rate 11/28/18 98.6 81 16 100/62 99 Room Air 13:59 (75) 11/27/18 2.0 19:58 Intake and Output 11/27/18 11/27/18 11/28/18 1515:00 23:00 07:00 IntakeIntake Total 400 ml 530 ml 200 ml BalanceBalance 400 ml 530 ml 200 ml Results Results 24hrs Laboratory Tests Test 11/28/18 04:38 White Blood Count 7.2 Red Blood Count 5.35 Hemoglobin 14.2 Hematocrit 45.1 Mean Corpuscular Volume 84.3 Mean Corpuscular Hemoglobin 26.5 L Mean Corpuscular Hemoglobin Concent 31.5 L Red Cell Distribution Width 17.0 H Platelet Count 243 Mean Platelet Volume 10.1 Immature Granulocytes % 0.400 Neutrophils % 71.8 Lymphocytes % 18.1 Monocytes % 9.1 Eosinophils % 0.0 Basophils % 0.6 Nucleated Red Blood Cells % 0.0 Immature Granulocytes # 0.030 Neutrophils # 5.2 Lymphocytes # 1.3 Monocytes # 0.7 Eosinophils # 0.0 Basophils # 0.0 Nucleated Red Blood Cells # 0.0 Sodium Level 134 L Potassium Level 5.1 Chloride Level 97 Carbon Dioxide Level 26 Anion Gap 11 Blood Urea Nitrogen 46 H Creatinine 1.50 H Est Glomerular Filtrat Rate mL/min 52 L Glucose Level 102 Calcium Level 8.6 Total Bilirubin 1.5 H Direct Bilirubin 0.00 Indirect Bilirubin 1.5 H Aspartate Amino Transf (AST/SGOT) 318 #H Alanine Aminotransferase (ALT/SGPT) 258 H Alkaline Phosphatase 84 Total Protein 6.3 Albumin 3.1 L Globulin 3.20 Albumin/Globulin Ratio 0.96 Hepatitis B Surface Antigen NEGATIVE Hepatitis B Core Total Antibody NEGATIVE Hepatitis C Antibody NEGATIVE Medications Medication Current Medications Furosemide (Lasix) 40 mg BID DIURETICS IV Last administered on 11/27/18at 18:04; Admin Dose 40 MG; Start 11/25/18 at 09:00 IV Flush (NS 3 ml) 3 ml PER PROTOCOL IV ; Start 11/25/18 at 03:30 Ondansetron HCl (Zofran Tab) 4 mg Q6H PRN PO NAUSEA/VOMITING; Start 11/25/18 at 03:30 Aspirin (Aspirin) 81 mg DAILY PO Last administered on 11/28/18 09:16; Admin Dose 81 MG; Start 11/25/18 at 09:00 Nitroglycerin (Nitroglycerin (Sl Tab) 0.4 Mg) 1 tab Q5M PRN SL .CHEST PAIN; Start 11/25/18 at 03:30 Acetaminophen (Tylenol Tab) 650 mg Q6H PRN PO .PAIN 1-3 OR TEMP; Start 11/25/18 at 03:30 Docusate Sodium (Colace) 100 mg Q12H PRN PO .CONSTIPATION; Start 11/25/18 at 03:30 Bisacodyl (Dulcolax) 5 mg DAILY PRN PO .CONSTIPATION; Start 11/25/18 at 03:30 Morphine Sulfate (morphine) 2 mg Q8H PRN IV .PAIN 7-10 Last administered on 11/28/18at 14:04; Admin Dose 2 MG; Start 11/26/18 at 15:00 Metoprolol Succinate (Toprol Xl) 50 mg DAILY PO Last administered on 11/28/18 09:15; Admin Dose 50 MG; Start 11/26/18 at 15:00 EMILE LOYA MD November 28, 2018 15:01
[2018-11-28 18:30] VITALS: BP 106/57; PULSE 82
[2018-11-28 19:28] VITALS: BP 98/60; PULSE 84; RESP 18
[2018-11-29 00:52] VITALS: BP 96/57; PULSE 84; RESP 18
[2018-11-29 00:55] VITALS: BP 108/71; PULSE 84; RESP 18
[2018-11-29] MEDS: morphine 2 MG INJ IV PRN (00:58)
[2018-11-29 01:52] VITALS: BP 119/73; PULSE 84; RESP 18
[2018-11-29] MEDS: FUROSEMIDE 40 MG INJ IV SCH (06:00)
[2018-11-29 07:45] VITALS: BP 111/67; PULSE 81; RESP 16
[2018-11-29] MEDS: METOPROLOL (XL) 50 MG TAB PO SCH (08:22)
[2018-11-29] MEDS: ASPIRIN 81 MG TAB PO SCH (08:22)
[2018-11-29] MEDS ORDERED: LOSA25TA12 PO (12:39)
[2018-11-29] MEDS ORDERED: ASPI-831 PO (12:39)
[2018-11-29] MEDS ORDERED: FURO40TA4 PO (12:39)
[2018-11-29] MEDS ORDERED: CARV6.25 PO (12:39)
--- NOTE | 2018-11-29 12:40 | PDOCDIS ---
Discharge Instructions CONDITION [id number] Patient Condition: [id number] Good HOME CARE INSTRUCTIONS: [id number] Diet Instructions: [id number] Reduced Sodium ACTIVITY: [id number] Activity Restrictions: [id number] No Restrictions FOLLOW UP/APPOINTMENTS Follow-up Plan FOLLOW UP WITH YOUR PCP IN 1-2 WEEKS AGUSTO COLLIER November 29, 2018 12:40
[2018-11-29 14:25] VITALS: BP 119/74; PULSE 82; RESP 18
--- NOTE | 2018-11-29 14:27 | DS ---
Date/Time of Note Date/Time of Note DATE: 11/29/18 TIME: 14:17 Discharge Summary Admission/Discharge Info Admit Date/Time November 25, 2018 at 02:46 Discharge Date/Time November 29, 2018 Discharge Diagnosis 1. 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 Acute on chronic systolic heart failure Status post diuresis DC with cardiac meds including beta-talya, losartan, aspirin and Lasix 3. Likely CKD Creatinine is stable Etiology likely secondary to hypertension from meth use as well as cardiorenal 4. NSTEMI: - Likely type II in setting of BRENNAN and CHF. No chest pain or EKG changes to suggest acute plaque rupture 5. Transaminitis: - Mild hepatomegaly on US. Viral serologies negative. Unclear etiology 6. Amphetamine use d/o: -Counseled on cessation 7. Morbid obesity Lifestyle changes Patient Condition: Good Hospital Course Patient is a 38-year-old male with a history of amphetamine abuse with nonischemic cardiomyopathy, patient presents with CHF exacerbation and acute versus chronic kidney disease. Patient was diuresed for several days with improvement in vascular status, creatinine did stabilize and patient may have underlying CKD secondary to hypertension and/or cardiorenal. On the day of discharge patient's vitals, labs and physical exam are stable. Patient was prescribed cardiac meds. Home Meds Active Scripts Aspirin (Aspirin) 81 Mg Chew, 81 MG PO DAILY, #60 TAB Prov:AGUSTO COLLIER 11/29/18 Losartan Potassium* (Losartan Potassium*) 25 Mg Tablet, 12.5 MG PO DAILY, #60 TAB Prov:AGUSTO COLLIER 11/29/18 Carvedilol* (Coreg*) 6.25 Mg Tablet, 6.25 MG PO BID, #60 TAB Prov:AGUSTO COLLIER 11/29/18 Furosemide* (Furosemide*) 40 Mg Tablet, 40 MG PO DAILY, #60 TAB TAKE ADDITIONAL DOSE IN THE AFTERNOON IF STILL SHORT OF BREATH Prov:AGUSTO COLLIER 11/29/18 Discontinued Reported Medications Losartan Potassium* (Losartan Potassium*) 25 Mg Tablet, 12.5 MG PO DAILY, TAB 10/09/18 Carvedilol* (Carvedilol*) 12.5 Mg Tablet, 12.5 MG PO BID, #60 TAB 10/09/18 Aspirin (Low Dose Aspirin) 81 Mg Tablet.dr, 81 MG PO DAILY, #30 TAB 10/09/18 Discontinued Scripts Amoxicillin/Potassium Clav (Amox-Clav 875-125 mg Tablet) 875-125 mg Tab, 875 MG PO BID, #9 TAB Received 1 dose already. Prov:BAYLEE JUAREZ NEONATAL CRITICAL CARE NURSE 10/13/18 Azithromycin* (Azithromycin*) 250 Mg Tablet, 250 MG PO DAILY, #1 TAB Received the rest of the dose. Prov:BAYLEE JUAREZ NP 10/13/18 Furosemide* (Furosemide*) 40 Mg Tablet, 40 MG PO DAILY, #30 TAB Prov:BAYLEE JUAREZ NEONATAL CRITICAL CARE NURSE 10/13/18 Follow-up Plan FOLLOW UP WITH YOUR PCP IN 1-2 WEEKS Primary Care Provider Care Physician No Primary Time spent on discharge: > 30 minutes AGUSTO COLLIER November 29, 2018 14:27
== END 2018-11-29 16:35 | disposition home or self-care (01) | DRG 280 ==
LOC: E/R 00:32 → 6WM 02:46 → SUATTDRO 13:03 → 2NE 11-26 18:25
PROVIDERS: ADMIT Family Medicine; ATTEND Family Medicine
DX: I21.A1 Myocardial infarction type 2 (principal); I50.23 Acute on chronic systolic (congestive) heart failure; I42.8 Other cardiomyopathies; N17.9 Acute kidney failure, unspecified; I11.0 Hypertensive heart disease with heart failure; E66.01 Morbid (severe) obesity due to excess calories; F15.90 Other stimulant use, unspecified, uncomplicated; Z68.33 Body mass index [BMI] 33.0-33.9, adult; Z98.84 Bariatric surgery status; Z72.0 Tobacco use
CPT/HCPCS: 36415; 71045; 76705; 80048; 80053; 80061; 80307; 81001; 82550; 82553; 83036; 83735; 83880; 84443; 84484; 85025; 86704; 86709; 86803; 87340; 93005; 96374; J1940; J2270; J2405; J3475

== ENCOUNTER 2018-12-25 20:51 | Inpatient (IN) | payer MEDICAID ==
[~2018-12-25] VITALS: Ht 177.8 cm; Wt 108.5 kg
[~2018-12-25 20:51] MED LIST changes: -AMOX1TAB10 PO; +ASPI-831 PO; -ASPI81TA52 PO; -AZIT250T13 PO; -CARV12.579 PO; +CARV6.25 PO
[2018-12-25] MEDS ORDERED: FUROSEMIDE 40 MG INJ IV ONE (22:00)
[2018-12-25] MEDS ORDERED: ONDANSETRON 4 MG INJ IV PRN (23:30)
[2018-12-25] MEDS ORDERED: NACL 0.9% 3 ML SYG IV SCH (23:30)
--- NOTE | 2018-12-25 23:50 | HP ---
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 Also used meth 2-3 weeks ago. - Continue beta talya, ACEi - Lasix 40 IV BID - May need case management consult to determine why he can't get Bumex outpatient. - Admit to tele for diuresis. #Elevated troponins - Again, patient denies ischemic-type chest pain - No active ischemia on EKG - Trend troponins, I anticipate it will downtrend with diuresis. #Tobacco use - Encouraged cessation #Active meth use - Encouraged cessation DVT: lovenox GI: None Result Diagram: 12/25/18215412/25/182154 HPI/ROS Admit Date/Time Admit Date/Time 25 December 2018 Hx of Present Illness Mr. Prater is an obese 38 yo man with history of methamphetamine cardiomyopathy who presents with shortness of breath. He was recently admitted at [facility] 11/25-11/29 for CHF exacerbation and was diuresed uneventfully. After discharge he actually went into exacerbation again and was admitted at [facility] from 12/08 to 12/14. He was discharged on Bumex instead of Lasix, but his insurance would not pay for the Bumex. Since discharge for the past two weeks he's been taking Lasix 120mg (3 tabs) per day. Despite taking diuretics and avoiding dietary salt, the patient has developed worsening heart failure symptoms. He reports about a week of worsening orthopnea and nightly episodes of paroxysmal nocturnal dyspnea. He has chest pressure when lying flat but not otherwise with activity. About two days ago he developed a pressure-like headache. In the ED he presented tachy to 108 and in moderate respiratory distress. Troponin elevated at 0.442. ROS He denies recent chills, fever, night sweats, anorexia, weight loss, throat s oreness, rhinorrhea, dyspnea, cough, palpitations, diarrhea, constipation, dysuria, hematuria. PMH/Family/Social Past Medical History Chronic systolic heart failure Nonischemic cardiomyopathy likely meth induced Substance abuse: Meth Hypertension obesity Medications Current Medications IV Flush (NS 3 ml) 3 ml PER PROTOCOL IV ; Start 12/25/18 at 23:30 Ondansetron HCl (Zofran Inj) 4 mg Q6H PRN IV NAUSEA/VOMITING; Start 12/25/18 at 23:30 Acetaminophen (Tylenol Tab) 650 mg Q6H PRN PO .PAIN 1-3 OR TEMP; Start 12/25/18 at 23:30 Enoxaparin Sodium (Lovenox) 40 mg DAILY SC ; Start 12/26/18 at 09:00 Furosemide (Lasix) 40 mg BID DIURETICS IV ; Start 12/26/18 at 06:00 Aspirin (Aspirin) 81 mg DAILY PO ; Start 12/26/18 at 09:00 Carvedilol (Coreg) 6.25 mg BID PO ; Start 12/26/18 at 09:00 Losartan Potassium (Cozaar) 12.5 mg DAILY PO ; Start 12/26/18 at 09:00 Coded Allergies: No Known Allergies (Unverified Allergy, Unknown, 11/25/18) Past Surgical History Gastric bypass surgery in 2014 (previously weighed 500+ lbs) Lap curt Past Surgical Hx: cholecystectomy Family History Significant Family History: no pertinent family hx Social History Lives with sister. Currently unemployed. Alcohol Use: none Smoking Status: Current every day smoker (3 cigarettes per day) Drug Use: other (Crystal meth, last used 2-3 weeks ago. ) Exam/Review of Systems Vital Signs Vitals Vital Signs Date Temp Pulse Resp B/P (MAP) Pulse Ox O2 O2 Flow FiO2 Time Delivery Rate 12/25/18 Nasal 22:01 Cannula 12/25/18 103 32 130/91 100 22:01 (104) 12/25/18 2.0 21:24 12/25/18 98.8 20:54 Exam Exam Gen: Obese man sitting at edge of [facility], awake and alert. Eyes: PERRL, no icterus HEENT: Moist mucous membranes, clear oropharynx Neck: Supple, no lymphadenopathy. JVD to the angle of the mandible. Card: Regular rate and rhythm, no murmurs appreciated Pulm: Clear to auscultation bilaterally. No rales. Abd: Soft, nondistended, nontender. No hepatosplenomegaly. Ext: 3+ bilateral LE pitting edema Skin: Chronic skin changes of venous stasis on the lower legs. TRENA MCKNIGHT MD Dec 25, 2018 23:44
--- NOTE | 2018-12-25 23:50 | ERD ---
ER Documentation Chief Complaint Chief Complaint shortness of breath x 3 days HPI This is a 38-year-old male with a history of CHF, with an ejection fraction of 20% who presents with 3 days of shortness of breath. Patient states that he stopped using meth about a month ago, he has been having increased exertional dyspnea for the last 3 days, he has also noted weight gain. He has had multiple admissions in the past for similar episodes, he denies fever. ROS All systems reviewed and are negative except as per history of present illness. Medications Home Meds Active Scripts Aspirin (Aspirin) 81 Mg Chew, 81 MG PO DAILY, #60 TAB Prov:AGUSTO COLLIER 11/29/18 Losartan Potassium* (Losartan Potassium*) 25 Mg Tablet, 12.5 MG PO DAILY, #60 TAB Prov:AGUSTO COLLIER 11/29/18 Carvedilol* (Coreg*) 6.25 Mg Tablet, 6.25 MG PO BID, #60 TAB Prov:AGUSTO COLLIER 11/29/18 Furosemide* (Furosemide*) 40 Mg Tablet, 40 MG PO DAILY, #60 TAB TAKE ADDITIONAL DOSE IN THE AFTERNOON IF STILL SHORT OF BREATH Prov:AGUSTO COLLIER 11/29/18 Allergies Allergies: Coded Allergies: No Known Allergies (Unverified Allergy, Unknown, 11/25/18) PMhx/Soc History of Surgery: Yes (gastric bypass, cholecystectomy) Anesthesia Reaction: No Hx Neurological Disorder: No Hx Respiratory Disorders: No Hx Cardiac Disorders: Yes (HTN, CHF, Cardiomyopathy) Hx Psychiatric Problems: No Hx Miscellaneous Medical Probl: No Hx Alcohol Use: No Hx Substance Use: Yes (meth) Hx Tobacco Use: Yes Physical Exam Vitals Vital Signs Date Temp Pulse Resp B/P (MAP) Pulse Ox O2 O2 Flow FiO2 Time Delivery Rate 12/25/18 Nasal 22:01 Cannula 12/25/18 103 32 130/91 100 Nasal 22:01 (104) Cannula 12/25/18 Nasal 2.0 21:24 Cannula 12/25/18 98.8 108 24 152/94 97 20:54 (113) Physical Exam Const: Mild distress, well-developed well-nourished Head: Atraumatic Eyes: Normal Conjunctiva ENT: Normal External Ears, Nose and Mouth. Neck: Full range of motion. No meningismus. Resp: Rales noted bilaterally Cardio: Regular rate and rhythm, no murmurs, JVD is noted Abd: Soft, non tender, non distended. Normal bowel sounds Skin: No petechiae or rashes Back: No midline or flank tenderness Ext: No cyanosis, bilateral 2+ pitting edema Neur: Awake and alert Psych: Normal Mood and Affect Result Diagram: 12/25/18215412/25/182154 Results 24 hrs Laboratory Tests Test 12/25/18 21:33 12/25/18 21:55 12/25/18 22:10 Blood Gas Specimen Source Blood venous Arterial Blood Date Drawn 12/25/2018 9:50:38 PM Arterial Blood Gas VENOUS LINE Puncture Site Mahin Test N/A Venous Blood pH 7.385 Venous Blood pCO2 46.3 mmHG (Temp Corrected) Venous Blood pO2 44.8 mmHG (Temp Corrected) Venous Blood HCO3 27.1 mmol/L Venous Blood Oxygen 79.2 mmHG Saturation Venous Blood Base Excess 1.5 mmol/L Venous Blood Total Hemoglobin 13.7 g/dl Venous Blood Oxyhemoglobin 78.1 % Venous Blood Methemoglobin 0.2 % Carboxyhemoglobin 1.2 % Blood Gas Temperature 37.0 C Blood Gas Actual 18 Respiration Rate Blood Gas Modality NASAL CANNULA FiO2 27.0 % Blood Gas Notified Whom Cecilio VICTOR [employer] Blood Gas Notified Time 12/25/2018 9:55:58 PM White Blood Count 5.2 10^3/ul Red Blood Count 4.77 10^6/ul Hemoglobin 12.7 g/dl Hematocrit 41.1 % Mean Corpuscular Volume 86.2 fl Mean Corpuscular Hemoglobin 26.6 pg Mean Corpuscular 30.9 g/dl Hemoglobin Concent Red Cell Distribution Width 16.8 % Platelet Count 225 10^3/UL Mean Platelet Volume 9.4 fl Immature Granulocytes % 0.200 % Neutrophils % 67.1 % Lymphocytes % 21.6 % Monocytes % 8.0 % Eosinophils % 2.1 % Basophils % 1.0 % Nucleated Red Blood Cells % 0.0 /100WBC Immature Granulocytes # 0.010 10^3/ul Neutrophils # 3.5 10^3/ul Lymphocytes # 1.1 10^3/ul Monocytes # 0.4 10^3/ul Eosinophils # 0.1 10^3/ul Basophils # 0.1 10^3/ul Nucleated Red Blood Cells # 0.0 10^3/ul Prothrombin Time 15.6 Sec Prothrombin Time Ratio 1.2 INR International 1.23 Normalized Ratio Activated 38.1 Sec Partial Thromboplast Time Sodium Level 141 mmol/L Potassium Level 3.6 mmol/L Chloride Level 108 mmol/L Carbon Dioxide Level 27 mmol/L Anion Gap 6 Blood Urea Nitrogen 25 mg/dl Creatinine 0.84 mg/dl Est Glomerular Filtrat > 60 mL/min Rate mL/min Glucose Level 102 mg/dl Calcium Level 8.8 mg/dl Total Bilirubin 0.6 mg/dl Direct Bilirubin 0.00 mg/dl Indirect Bilirubin 0.6 mg/dl Aspartate Amino 30 IU/L Transf (AST/SGOT) Alanine 23 IU/L Aminotransferase (ALT/SGPT) Alkaline Phosphatase 71 IU/L Troponin I 0.442 ng/ml Total Protein 7.1 g/dl Albumin 3.6 g/dl Globulin 3.50 g/dl Albumin/Globulin Ratio 1.02 POC Venous Lactate 0.8 mmol/L Current Medications Medications Dose Sig/Jess Start Time Status Last (Trade) Ordered Route PRN Stop Time Admin Dose Reason Admin Furosemide 40 mg ONCE ONCE 12/25/18 DC 12/25/18 (Lasix) IV 22:00 12/25/18 22:07 22:01 IV Flush 3 ml PER 12/25/18 (NS 3 ml) PROTOCOL IV 23:30 Ondansetron 4 mg Q6H PRN 12/25/18 HCl (Zofran IV 23:30 Inj) NAUSEA/VOMITI NG 650 mg Q6H PRN 12/25/18 Acetaminophen PO .PAIN 1-3 23:30 (Tylenol OR TEMP Tab) Enoxaparin 40 mg DAILY SC 12/26/18 Sodium 09:00 (Lovenox) Furosemide 40 mg BID 12/26/18 (Lasix) DIURETICS 06:00 IV Aspirin 81 mg DAILY PO 12/26/18 (Aspirin) 09:00 Carvedilol 6.25 mg BID PO 12/26/18 (Coreg) 09:00 Losartan 12.5 mg DAILY PO 12/26/18 Potassium 09:00 (Cozaar) Procedures/MDM This is a 38-year-old male who presents for reduction of shortness of breath. Patient has multiple prior admissions for similar episodes, and his history and physical today is similar to prior presentation. He has clinical evidence of volume overload, and was given Lasix, and elevation of his troponin, which is slightly higher than his baseline, he has no active chest pain. I suspect that the troponin elevation is most likely secondary to acute CHF exacerbation, he has no evidence of infection. He will be admitted for IV diuresis and respiratory support. EKG: Rate/Rhythm: Sinus tachycardia QRS, ST, T-waves: No changes consistent w/ acute ischemia Impression: No evidence of ischemia or arrhythmia Accepting Care Team: Current data and ongoing care discussed. Primary: Dominguez Consulting: Noone Outstanding Data: none Departure Diagnosis: Primary Impression: Shortness of breath Additional Impression: CHF (congestive heart failure) Heart failure type: unspecified Heart failure chronicity: unspecified Qualified Codes: I50.9 - Heart failure, unspecified Condition: Stable JOY MADSEN MD Dec 25, 2018 23:50
[2018-12-26] VITALS (12 sets, daily range): BP systolic 117–132; BP diastolic 61–81; PULSE 79–103; RESP 17–19; Ht 177.8 cm; Wt 108.5 kg
[2018-12-26] MEDS: ACETAMINOPHEN 325 MG TAB PO PRN ×2 (03:01→08:28)
[2018-12-26] MEDS: FUROSEMIDE 40 MG INJ IV SCH ×2 (05:29→17:23)
[2018-12-26] MEDS: ASPIRIN 81 MG TAB PO SCH (08:20)
[2018-12-26] MEDS: LOSARTAN 25 MG TAB PO SCH (08:21)
[2018-12-26] MEDS: ENOXAPARIN 40 MG/0.4 ML SYG SC SCH (08:25)
--- NOTE | 2018-12-26 08:57 | PN ---
Date/Time of Note Date/Time of Note DATE: 12/26/18 TIME: 08:56 Assessment/Plan VTE Prophylaxis Risk score (from Nsg)>0 risk: 5 SCD applied (from Nsg): Yes Pharmacological prophylaxis: LMWH Lines/Catheters IV Catheter Type (from Nrsg): Peripheral IV Urinary Cath still in place: No Assessment/Plan Hospital Course SUBJECTIVE: Denies any chest pain. Continues to have dyspnea. OBJECTIVE: Physical Exam General: Obese, 38 year-old male lying in bed in mild to moderate distress. HEENT: Normocephalic, atraumatic. Eyes: Anicteric sclerae, conjunctivae clear. ENT: Nasal septum midline, oral mucosa moist. Neck supple, JVD noticed. Respiratory: Bilaterally diminished breath sounds. Minimal use of accessory muscles of respiration. B/L rales. Cardiovascular: S1, S2 heard. Regular rate and rhythm. Abdomen: Soft, nontender, and nondistended. Bowel sounds positive in all 4 quadrants. Genitourinary: Deferred. Extremities: No cyanosis, no clubbing. Bilateral lower extremity edema. Peripheral pulses palpable. Neurologic: Cranial nerves II through XII grossly intact. The patient is awake, alert, and oriented. Skin: Normal skin turgor. 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 1. CHF exacerbation, acute on chronic, systolic dysfunction. -Continue diuresis. -Monitor renal function closely. 2. NSTEMI. -Most probably a type 2 event in the setting of underlying CHF exacerbation. 3. Nonischemic cardiomyopathy. -Ejection fraction of 20%. -Continue beta-blockers and ARBs. 4. Hypertension. -Continue antihypertensives 5. Substance abuse. -Nicotine and amphetamine abuse. -Cessation advised. 6. Pre-diabetes. -A1C of 6.0. -Monitor glycemic trends 7. Obesity. -BMI more than 34 kg/m. 8. DVT prophylaxis -Subcutaneous Lovenox 9. Plan. -Continue diuresis while carefully monitoring renal function. -Obtain cardiology consult. -Await clinical improvement. The patient was seen in collaboration with . Result Diagram: 12/26/18 0247 12/26/18 0247 Results 24hrs Laboratory Tests Test 12/25/18 21:33 12/25/18 21:55 12/25/18 22:10 12/25/18 23:49 Blood Gas Specimen Blood venous Source Arterial Blood 12/25/2018 9:50:38 Date Drawn PM Arterial Blood Gas VENOUS LINE Puncture Site Mahin Test N/A Venous Blood pH 7.385 Venous Blood pCO2 46.3 H (Temp Corrected) Venous Blood pO2 44.8 H (Temp Corrected) Venous Blood HCO3 27.1 Venous Blood 79.2 H Oxygen Saturation Venous Blood Base 1.5 Excess Venous Blood Total 13.7 Hemoglobin Venous Blood 78.1 Oxyhemoglobin Venous Blood 0.2 Methemoglobin Carboxyhemoglobin 1.2 Blood Gas 37.0 Temperature Blood Gas Actual 18 Respiration Rate Blood Gas Modality NASAL CANNULA FiO2 27.0 Blood Gas Notified Cecilio KAYLEIGH ARGUETA Whom Blood Gas Notified 12/25/2018 9:55:58 Time PM White Blood Count 5.2 # Red Blood Count 4.77 Hemoglobin 12.7 L Hematocrit 41.1 L Mean Corpuscular 86.2 Volume Mean Corpuscular 26.6 L Hemoglobin Mean Corpuscular 30.9 L Hemoglobin Concent Red Cell 16.8 H Distribution Width Platelet Count 225 Mean Platelet 9.4 Volume Immature 0.200 Granulocytes % Neutrophils % 67.1 Lymphocytes % 21.6 Monocytes % 8.0 Eosinophils % 2.1 Basophils % 1.0 Nucleated Red 0.0 Blood Cells % Immature 0.010 Granulocytes # Neutrophils # 3.5 Lymphocytes # 1.1 Monocytes # 0.4 Eosinophils # 0.1 Basophils # 0.1 Nucleated Red 0.0 Blood Cells # Prothrombin Time 15.6 H Prothrombin Time 1.2 Ratio INR International 1.23 Normalized Ratio Activated 38.[address] Time Sodium Level 141 Potassium Level 3.6 Chloride Level 108 Carbon Dioxide 27 Level Anion Gap 6 Blood Urea 25 H Nitrogen Creatinine 0.84 Est Glomerular > 60 Filtrat Rate mL/min Glucose Level 102 Calcium Level 8.8 Total Bilirubin 0.6 Direct Bilirubin 0.00 Indirect Bilirubin 0.6 Aspartate Amino 30 Transf (AST/SGOT) Alanine 23 Aminotransferase ( ALT/SGPT) Alkaline 71 Phosphatase Troponin I 0.442 *H Total Protein 7.1 Albumin 3.6 Globulin 3.50 H Albumin/Globulin 1.02 Ratio POC Venous Lactate 0.8 Lactic Acid Level 1.5 Test 12/26/18 02:47 12/26/18 07:46 White Blood Count 5.0 Red Blood Count 4.74 Hemoglobin 12.6 L Hematocrit 41.1 L Mean Corpuscular 86.7 Volume Mean Corpuscular 26.6 L Hemoglobin Mean Corpuscular 30.7 L Hemoglobin Concent Red Cell 16.7 H Distribution Width Platelet Count 235 Mean Platelet 10.1 Volume Immature 0.200 Granulocytes % Neutrophils % 67.3 Lymphocytes % 22.6 Monocytes % 6.9 Eosinophils % 2.0 Basophils % 1.0 Nucleated Red 0.0 Blood Cells % Immature 0.010 Granulocytes # Neutrophils # 3.4 Lymphocytes # 1.1 Monocytes # 0.4 Eosinophils # 0.1 Basophils # 0.1 Nucleated Red 0.0 Blood Cells # Sodium Level 143 Potassium Level 4.4 Chloride Level 106 Carbon Dioxide 30 Level Anion Gap 7 Blood Urea 24 H Nitrogen Creatinine 1.00 Est Glomerular > 60 Filtrat Rate mL/min Glucose Level 154 Hemoglobin A1c 6.0 H Lactic Acid Level 2.0 Calcium Level 8.9 Phosphorus Level 4.1 Magnesium Level 2.1 Total Bilirubin 0.8 Direct Bilirubin 0.00 Indirect Bilirubin 0.8 Aspartate Amino 29 Transf (AST/SGOT) Alanine 21 Aminotransferase ( ALT/SGPT) Alkaline 77 Phosphatase Troponin I 0.454 *H 0.345 *H Total Protein 7.4 Albumin 3.6 Globulin 3.80 H Albumin/Globulin 0.94 Ratio Thyroid 1.890 Stimulating Hormone (TSH) Exam/Review of Systems Exam Vitals Vital Signs Date Temp Pulse Resp B/P (MAP) Pulse Ox O2 O2 Flow FiO2 Time Delivery Rate 12/26/18 90 08:01 12/26/18 18 127/81 96 07:28 (96) 12/26/18 Nasal 2.0 03:38 Cannula 12/26/18 97.9 03:33 Intake and Output 12/25/18 12/25/18 12/26/18 1515:00 23:00 07:00 IntakeIntake Total 100 ml OutputOutput Total 820 ml BalanceBalance -720 ml Results Results 24hrs Laboratory Tests Test 12/25/18 21:33 12/25/18 21:55 12/25/18 22:10 12/25/18 23:49 Blood Gas Specimen Blood venous Source Arterial Blood 12/25/2018 9:50:38 Date Drawn PM Arterial Blood Gas VENOUS LINE Puncture Site Mahin Test N/A Venous Blood pH 7.385 Venous Blood pCO2 46.3 H (Temp Corrected) Venous Blood pO2 44.8 H (Temp Corrected) Venous Blood HCO3 27.1 Venous Blood 79.2 H Oxygen Saturation Venous Blood Base 1.5 Excess Venous Blood Total 13.7 Hemoglobin Venous Blood 78.1 Oxyhemoglobin Venous Blood 0.2 Methemoglobin Carboxyhemoglobin 1.2 Blood Gas 37.0 Temperature Blood Gas Actual 18 Respiration Rate Blood Gas Modality NASAL CANNULA FiO2 27.0 Blood Gas Notified D KAYLEIGH ARGUETA Whom Blood Gas Notified 12/25/2018 9:55:58 Time PM White Blood Count 5.2 # Red Blood Count 4.77 Hemoglobin 12.7 L Hematocrit 41.1 L Mean Corpuscular 86.2 Volume Mean Corpuscular 26.6 L Hemoglobin Mean Corpuscular 30.9 L Hemoglobin Concent Red Cell 16.8 H Distribution Width Platelet Count 225 Mean Platelet 9.4 Volume Immature 0.200 Granulocytes % Neutrophils % 67.1 Lymphocytes % 21.6 Monocytes % 8.0 Eosinophils % 2.1 Basophils % 1.0 Nucleated Red 0.0 Blood Cells % Immature 0.010 Granulocytes # Neutrophils # 3.5 Lymphocytes # 1.1 Monocytes # 0.4 Eosinophils # 0.1 Basophils # 0.1 Nucleated Red 0.0 Blood Cells # Prothrombin Time 15.6 H Prothrombin Time 1.2 Ratio INR International 1.23 Normalized Ratio Activated 38.[address] Time Sodium Level 141 Potassium Level 3.6 Chloride Level 108 Carbon Dioxide 27 Level Anion Gap 6 Blood Urea 25 H Nitrogen Creatinine 0.84 Est Glomerular > 60 Filtrat Rate mL/min Glucose Level 102 Calcium Level 8.8 Total Bilirubin 0.6 Direct Bilirubin 0.00 Indirect Bilirubin 0.6 Aspartate Amino 30 Transf (AST/SGOT) Alanine 23 Aminotransferase ( ALT/SGPT) Alkaline 71 Phosphatase Troponin I 0.442 *H Total Protein 7.1 Albumin 3.6 Globulin 3.50 H Albumin/Globulin 1.02 Ratio POC Venous Lactate 0.8 Lactic Acid Level 1.5 Test 12/26/18 02:47 12/26/18 07:46 White Blood Count 5.0 Red Blood Count 4.74 Hemoglobin 12.6 L Hematocrit 41.1 L Mean Corpuscular 86.7 Volume Mean Corpuscular 26.6 L Hemoglobin Mean Corpuscular 30.7 L Hemoglobin Concent Red Cell 16.7 H Distribution Width Platelet Count 235 Mean Platelet 10.1 Volume Immature 0.200 Granulocytes % Neutrophils % 67.3 Lymphocytes % 22.6 Monocytes % 6.9 Eosinophils % 2.0 Basophils % 1.0 Nucleated Red 0.0 Blood Cells % Immature 0.010 Granulocytes # Neutrophils # 3.4 Lymphocytes # 1.1 Monocytes # 0.4 Eosinophils # 0.1 Basophils # 0.1 Nucleated Red 0.0 Blood Cells # Sodium Level 143 Potassium Level 4.4 Chloride Level 106 Carbon Dioxide 30 Level Anion Gap 7 Blood Urea 24 H Nitrogen Creatinine 1.00 Est Glomerular > 60 Filtrat Rate mL/min Glucose Level 154 Hemoglobin A1c 6.0 H Lactic Acid Level 2.0 Calcium Level 8.9 Phosphorus Level 4.1 Magnesium Level 2.1 Total Bilirubin 0.8 Direct Bilirubin 0.00 Indirect Bilirubin 0.8 Aspartate Amino 29 Transf (AST/SGOT) Alanine 21 Aminotransferase ( ALT/SGPT) Alkaline 77 Phosphatase Troponin I 0.454 *H 0.345 *H Total Protein 7.4 Albumin 3.6 Globulin 3.80 H Albumin/Globulin 0.94 Ratio Thyroid 1.890 Stimulating Hormone (TSH) Medications Medication Current Medications IV Flush (NS 3 ml) 3 ml PER PROTOCOL IV ; Start 12/25/18 at 23:30 Ondansetron HCl (Zofran Inj) 4 mg Q6H PRN IV NAUSEA/VOMITING; Start 12/25/18 at 23:30 Acetaminophen (Tylenol Tab) 650 mg Q6H PRN PO .PAIN 1-3 OR TEMP Last administered on 12/26/18at 08:28; Admin Dose 650 MG; Start 12/25/18 at 23:30 Enoxaparin Sodium (Lovenox) 40 mg DAILY SC Last administered on 12/26/18at 08:25; Admin Dose 40 MG; Start 12/26/18 at 09:00 Furosemide (Lasix) 40 mg BID DIURETICS IV Last administered on 12/26/18at 05:29; Admin Dose 40 MG; Start 12/26/18 at 06:00 Aspirin (Aspirin) 81 mg DAILY PO Last administered on 12/26/18at 08:20; Admin Dose 81 MG; Start 12/26/18 at 09:00 Carvedilol (Coreg) 6.25 mg BID PO Last administered on 12/26/18at 08:20; Admin Dose 6.25 MG; Start 12/26/18 at 09:00 Losartan Potassium (Cozaar) 12.5 mg DAILY PO Last administered on 12/26/18at 08:21; Admin Dose 12.5 MG; Start 12/26/18 at 09:00 BAYLEE JUAREZ NP Dec 26, 2018 08:57
[2018-12-27] VITALS (12 sets, daily range): BP systolic 104–126; BP diastolic 66–79; PULSE 73–98; RESP 17–20
[2018-12-27] MEDS: IBUPROFEN 600 MG TAB PO PRN ×2 (01:21→19:50)
[2018-12-27] MEDS: FUROSEMIDE 40 MG INJ IV SCH ×2 (05:38→21:34)
[2018-12-27] MEDS: LOSARTAN 25 MG TAB PO SCH (08:06)
[2018-12-27] MEDS: ASPIRIN 81 MG TAB PO SCH (08:06)
[2018-12-27] MEDS: ENOXAPARIN 40 MG/0.4 ML SYG SC SCH (08:07)
--- NOTE | 2018-12-27 14:35 | CONS ---
Assessment/Plan Assessment/Plan Hospital Course (Demo Recall) Acute on chronic systolic heart failure: Decompensated NSTEMI: trop peak 0.4. Will need coronary eval at some point though still meth induced cardiomyopathy and type II ID with CHF is likely the explanation. With his compliance issues and inability to quit meth use, I would be hesitant to cath him. If he has proper follow up, cardiac CT or MPI is reasonable Cardiomyopathy: presumed nonischemic from meth Meth abuse -transfer to [facility] for IV diuresis. High risk for arrhythmias -increase to lasix 40mg TID -continue ASA -coreg 6.25mg BID ok for now as last meth use 2 weeks prior but on discharge would not continue if he is planning on using again -increase to losartan 25mg -add aldactone 25mg Consultation Date/Type/Reason Admit Date/Time 25 December 2018 Date of Consultation: Dec 27, 2018 Type of Consult Cardiology Reason for Consultation NSTEMI, CHF Requesting Provider: BAYLEE JUAREZ NP Date/Time of Note DATE: 12/27/18 TIME: 14:26 Hx of Present Illness 38 yo M with a h/o presumed NICM with EF 20%, methamphetamine abuse, who presented with dyspnea and was again found to have acute systolic CHF and NSTEMI with trop 0.4. He has had 4 hospitalizations here in the past 5 months including one month prior. He was also hospitalized at [facility] 2 weeks ago for the same. He was discharged with bumex but apparently lost his [employer] coverage and could not afford it. He has been feeling better with diuresis. Never had chest pain. Last meth use 2 weeks prior. He feels that he cannot control his urge to use. per hPI Past Medical History per hPI Home Meds Active Scripts Aspirin (Aspirin) 81 Mg Chew, 81 MG PO DAILY, #60 TAB Prov:AGUSTO COLLIER 11/29/18 Losartan Potassium* (Losartan Potassium*) 25 Mg Tablet, 12.5 MG PO DAILY, #60 TAB Prov:AGUSTO COLLIER 11/29/18 Carvedilol* (Coreg*) 6.25 Mg Tablet, 6.25 MG PO BID, #60 TAB Prov:AGUSTO COLLIER 11/29/18 Furosemide* (Furosemide*) 40 Mg Tablet, 40 MG PO DAILY, #60 TAB TAKE ADDITIONAL DOSE IN THE AFTERNOON IF STILL SHORT OF BREATH Prov:AGUSTO COLLIER 11/29/18 Medications Current Medications IV Flush (NS 3 ml) 3 ml PER PROTOCOL IV ; Start 12/25/18 at 23:30 Ondansetron HCl (Zofran Inj) 4 mg Q6H PRN IV NAUSEA/VOMITING; Start 12/25/18 at 23:30 Acetaminophen (Tylenol Tab) 650 mg Q6H PRN PO .PAIN 1-3 OR TEMP Last administered on 12/26/18at 08:28; Admin Dose 650 MG; Start 12/25/18 at 23:30 Enoxaparin Sodium (Lovenox) 40 mg DAILY SC Last administered on 12/27/18 08:07; Admin Dose 40 MG; Start 12/26/18 at 09:00 Furosemide (Lasix) 40 mg BID DIURETICS IV Last administered on 12/27/18at 05:38; Admin Dose 40 MG; Start 12/26/18 at 06:00 Aspirin (Aspirin) 81 mg DAILY PO Last administered on 12/27/18at 08:06; Admin Dose 81 MG; Start 12/26/18 at 09:00 Carvedilol (Coreg) 6.25 mg BID PO Last administered on 12/27/18 08:06; Admin Dose 6.25 MG; Start 12/26/18 at 09:00 Losartan Potassium (Cozaar) 12.5 mg DAILY PO Last administered on 12/27/18 08:06; Admin Dose 12.5 MG; Start 12/26/18 at 09:00 Ibuprofen (Motrin) 600 mg Q6H PRN PO headache Last administered on 12/27/18 01:21; Admin Dose 600 MG; Start 12/27/18 at 00:30 Allergies: Coded Allergies: No Known Allergies (Unverified Allergy, Unknown, 11/25/18) Past Surgical History Past Surgical Hx: cholecystectomy Social History Alcohol Use: none Smoking Status: Current some day smoker Drug Use: other (Crystal meth, last used 2-3 weeks ago. ) Exam/Review of Systems Vital Signs Vitals Vital Signs Date Temp Pulse Resp B/P (MAP) Pulse Ox O2 O2 Flow FiO2 Time Delivery Rate 12/27/18 Nasal 2.0 14:04 Cannula 12/27/18 98.0 76 18 118/76 100 13:23 (90) Intake and Output 12/26/18 12/26/18 12/27/18 1515:00 23:00 07:00 IntakeIntake Total 250 ml 1290 ml 300 ml OutputOutput Total 800 ml 700 ml 400 ml BalanceBalance -550 ml 590 ml -100 ml Exam Constitutional: alert, oriented Psych: no complaints, nl mood/affect Head: normocephalic, atraumatic Neck: jvd (10cm) Respiratory: crackles/rales, diminished breath sounds; No clear to auscultation Cardiovascular: regular rate and rhythm, edema (1+); No systolic murmur Gastrointestinal: soft, non-tender; No distended Neurological: nl mental status, nl speech Labs Result Diagram: 12/27/18 0629 12/27/18 06 Results 24hrs Laboratory Tests Test 12/26/18 14:35 12/26/18 17:54 12/27/18 06:29 Urine Opiates Screen Negative Urine Barbiturates Negative Urine Amphetamines Screen Negative Urine Benzodiazepines Screen Negative Urine Cocaine Screen Negative Urine Cannabinoids Negative Creatine Kinase 99 Creatine Kinase Index 1.6 Creatinine Kinase MB (Mass) 1.57 Troponin I 0.274 *H 0.246 *H White Blood Count 4.3 L Red Blood Count 4.78 Hemoglobin 12.6 L Hematocrit 40.8 L Mean Corpuscular Volume 85.4 Mean Corpuscular Hemoglobin 26.4 L Mean Corpuscular Hemoglobin Concent 30.9 L Red Cell Distribution Width 16.8 H Platelet Count 226 Mean Platelet Volume 10.0 Immature Granulocytes % 0.500 H Neutrophils % Segmented Neutrophils % (Manual) 62 Band Neutrophils % (Manual) 2 Lymphocytes % Lymphocytes % (Manual) 23 Monocytes % Monocytes % (Manual) 6 Eosinophils % Eosinophils % (Manual) 4 Basophils % Basophils % (Manual) 2 Myelocytes % (Manual) 1 H Nucleated Red Blood Cells % 0.0 Immature Granulocytes # 0.020 Neutrophils # Neutrophils # (Manual) 2.7 Band Neutrophils # 0.0 Lymphocytes (Manual) 0.9 Lymphocytes # Monocytes # Monocytes # (Manual) 0.2 L Eosinophils # Basophils # Basophils # (Manual) 0.0 Myelocytes # 0.0 Nucleated Red Blood Cells # Platelet Estimate NORMAL Giant Platelets 4 H Polychromasia 1+ Poikilocytosis 1+ Anisocytosis 1+ Macrocytosis 1+ Sodium Level 140 Potassium Level 4.1 Chloride Level 104 Carbon Dioxide Level 28 Anion Gap 8 Blood Urea Nitrogen 30 H Creatinine 1.11 Est Glomerular Filtrat Rate mL/min > 60 Glucose Level 96 # Calcium Level 9.1 Phosphorus Level 5.7 H Magnesium Level 2.1 Total Bilirubin 0.8 Direct Bilirubin 0.00 Indirect Bilirubin 0.8 Aspartate Amino Transf (AST/SGOT) 29 Alanine Aminotransferase (ALT/SGPT) 20 Alkaline Phosphatase 76 Total Protein 6.9 Albumin 3.4 Globulin 3.50 H Albumin/Globulin Ratio 0.97 Triglycerides Level 62 Cholesterol Level 83 L LDL Cholesterol, Calculated 45 HDL Cholesterol 26 L Cholesterol/HDL Ratio 3.1 Medications Medications Current Medications IV Flush (NS 3 ml) 3 ml PER PROTOCOL IV ; Start 12/25/18 at 23:30 Ondansetron HCl (Zofran Inj) 4 mg Q6H PRN IV NAUSEA/VOMITING; Start 12/25/18 at 23:30 Acetaminophen (Tylenol Tab) 650 mg Q6H PRN PO .PAIN 1-3 OR TEMP Last administered on 12/26/18 08:28; Admin Dose 650 MG; Start 12/25/18 at 23:30 Enoxaparin Sodium (Lovenox) 40 mg DAILY SC Last administered on 12/27/18 08:07; Admin Dose 40 MG; Start 12/26/18 at 09:00 Furosemide (Lasix) 40 mg BID DIURETICS IV Last administered on 12/27/18 05:38; Admin Dose 40 MG; Start 12/26/18 at 06:00 Aspirin (Aspirin) 81 mg DAILY PO Last administered on 12/27/18 08:06; Admin Dose 81 MG; Start 12/26/18 at 09:00 Carvedilol (Coreg) 6.25 mg BID PO Last administered on 12/27/18 08:06; Admin Dose 6.25 MG; Start 12/26/18 at 09:00 Losartan Potassium (Cozaar) 12.5 mg DAILY PO Last administered on 12/27/18 08:06; Admin Dose 12.5 MG; Start 12/26/18 at 09:00 Ibuprofen (Motrin) 600 mg Q6H PRN PO headache Last administered on 12/27/18 01:21; Admin Dose 600 MG; Start 12/27/18 at 00:30 CIELO COHEN Dec 27, 2018 14:35
--- NOTE | 2018-12-27 15:28 | PN ---
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 1. CHF exacerbation, acute on chronic, systolic dysfunction. -Continue diuresis. -Monitor renal function closely -Cardiology consultation appreciated 2. NSTEMI. -Most probably a type 2 event in the setting of underlying CHF exacerbation -Cardiology consultation appreciated 3. Nonischemic cardiomyopathy. -Ejection fraction of 20%. -Continue beta-blockers and ARBs. 4. Hypertension. -Continue antihypertensives 5. Substance abuse. -Nicotine and amphetamine abuse. -Cessation advised. 6. Pre-diabetes. -A1C of 6.0. -Monitor glycemic trends 7. Obesity. -BMI more than 34 kg/m. DVT prophylaxis -Subcutaneous Lovenox DC planning: -Continue diuresis while carefully monitoring renal function. -Anticipate transition to oral diuretics possible tomorrow, anticipate DC home in 1 to 2 days Result Diagram: 12/27/1829 12/27/1829 Results 24hrs Laboratory Tests Test 12/26/18 17:54 12/27/18 06:29 Creatine Kinase 99 Creatine Kinase Index 1.6 Creatinine Kinase MB (Mass) 1.57 Troponin I 0.274 *H 0.246 *H White Blood Count 4.3 L Red Blood Count 4.78 Hemoglobin 12.6 L Hematocrit 40.8 L Mean Corpuscular Volume 85.4 Mean Corpuscular Hemoglobin 26.4 L Mean Corpuscular Hemoglobin Concent 30.9 L Red Cell Distribution Width 16.8 H Platelet Count 226 Mean Platelet Volume 10.0 Immature Granulocytes % 0.500 H Neutrophils % Segmented Neutrophils % (Manual) 62 Band Neutrophils % (Manual) 2 Lymphocytes % Lymphocytes % (Manual) 23 Monocytes % Monocytes % (Manual) 6 Eosinophils % Eosinophils % (Manual) 4 Basophils % Basophils % (Manual) 2 Myelocytes % (Manual) 1 H Nucleated Red Blood Cells % 0.0 Immature Granulocytes # 0.020 Neutrophils # Neutrophils # (Manual) 2.7 Band Neutrophils # 0.0 Lymphocytes (Manual) 0.9 Lymphocytes # Monocytes # Monocytes # (Manual) 0.2 L Eosinophils # Basophils # Basophils # (Manual) 0.0 Myelocytes # 0.0 Nucleated Red Blood Cells # Platelet Estimate NORMAL Giant Platelets 4 H Polychromasia 1+ Poikilocytosis 1+ Anisocytosis 1+ Macrocytosis 1+ Sodium Level 140 Potassium Level 4.1 Chloride Level 104 Carbon Dioxide Level 28 Anion Gap 8 Blood Urea Nitrogen 30 H Creatinine 1.11 Est Glomerular Filtrat Rate mL/min > 60 Glucose Level 96 # Calcium Level 9.1 Phosphorus Level 5.7 H Magnesium Level 2.1 Total Bilirubin 0.8 Direct Bilirubin 0.00 Indirect Bilirubin 0.8 Aspartate Amino Transf (AST/SGOT) 29 Alanine Aminotransferase (ALT/SGPT) 20 Alkaline Phosphatase 76 Total Protein 6.9 Albumin 3.4 Globulin 3.50 H Albumin/Globulin Ratio 0.97 Triglycerides Level 62 Cholesterol Level 83 L LDL Cholesterol, Calculated 45 HDL Cholesterol 26 L Cholesterol/HDL Ratio 3.1 Subjective 24 Hr Interval Summary Constitutional: no complaints Exam/Review of Systems Exam Vitals Vital Signs Date Temp Pulse Resp B/P (MAP) Pulse Ox O2 O2 Flow FiO2 Time Delivery Rate 12/27/18 Nasal 2.0 14:04 Cannula 12/27/18 98.0 76 18 118/76 100 13:23 (90) Intake and Output 12/26/18 12/26/18 12/27/18 1515:00 23:00 07:00 IntakeIntake Total 250 ml 1290 ml 300 ml OutputOutput Total 800 ml 700 ml 400 ml BalanceBalance -550 ml 590 ml -100 ml Constitutional: alert, oriented Respiratory: clear to auscultation Cardiovascular: regular rate and rhythm Gastrointestinal: soft; No distended Musculoskeletal: nl extremities to inspection Results Results 24hrs Laboratory Tests Test 12/26/18 17:54 12/27/18 06:29 Creatine Kinase 99 Creatine Kinase Index 1.6 Creatinine Kinase MB (Mass) 1.57 Troponin I 0.274 *H 0.246 *H White Blood Count 4.3 L Red Blood Count 4.78 Hemoglobin 12.6 L Hematocrit 40.8 L Mean Corpuscular Volume 85.4 Mean Corpuscular Hemoglobin 26.4 L Mean Corpuscular Hemoglobin Concent 30.9 L Red Cell Distribution Width 16.8 H Platelet Count 226 Mean Platelet Volume 10.0 Immature Granulocytes % 0.500 H Neutrophils % Segmented Neutrophils % (Manual) 62 Band Neutrophils % (Manual) 2 Lymphocytes % Lymphocytes % (Manual) 23 Monocytes % Monocytes % (Manual) 6 Eosinophils % Eosinophils % (Manual) 4 Basophils % Basophils % (Manual) 2 Myelocytes % (Manual) 1 H Nucleated Red Blood Cells % 0.0 Immature Granulocytes # 0.020 Neutrophils # Neutrophils # (Manual) 2.7 Band Neutrophils # 0.0 Lymphocytes (Manual) 0.9 Lymphocytes # Monocytes # Monocytes # (Manual) 0.2 L Eosinophils # Basophils # Basophils # (Manual) 0.0 Myelocytes # 0.0 Nucleated Red Blood Cells # Platelet Estimate NORMAL Giant Platelets 4 H Polychromasia 1+ Poikilocytosis 1+ Anisocytosis 1+ Macrocytosis 1+ Sodium Level 140 Potassium Level 4.1 Chloride Level 104 Carbon Dioxide Level 28 Anion Gap 8 Blood Urea Nitrogen 30 H Creatinine 1.11 Est Glomerular Filtrat Rate mL/min > 60 Glucose Level 96 # Calcium Level 9.1 Phosphorus Level 5.7 H Magnesium Level 2.1 Total Bilirubin 0.8 Direct Bilirubin 0.00 Indirect Bilirubin 0.8 Aspartate Amino Transf (AST/SGOT) 29 Alanine Aminotransferase (ALT/SGPT) 20 Alkaline Phosphatase 76 Total Protein 6.9 Albumin 3.4 Globulin 3.50 H Albumin/Globulin Ratio 0.97 Triglycerides Level 62 Cholesterol Level 83 L LDL Cholesterol, Calculated 45 HDL Cholesterol 26 L Cholesterol/HDL Ratio 3.1 Medications Medication Current Medications IV Flush (NS 3 ml) 3 ml PER PROTOCOL IV ; Start 12/25/18 at 23:30 Ondansetron HCl (Zofran Inj) 4 mg Q6H PRN IV NAUSEA/VOMITING; Start 12/25/18 at 23:30 Acetaminophen (Tylenol Tab) 650 mg Q6H PRN PO .PAIN 1-3 OR TEMP Last administered on 12/26/18at 08:28; Admin Dose 650 MG; Start 12/25/18 at 23:30 Enoxaparin Sodium (Lovenox) 40 mg DAILY SC Last administered on 12/27/18 08:07; Admin Dose 40 MG; Start 12/26/18 at 09:00 Aspirin (Aspirin) 81 mg DAILY PO Last administered on 12/27/18 08:06; Admin Dose 81 MG; Start 12/26/18 at 09:00 Carvedilol (Coreg) 6.25 mg BID PO Last administered on 12/27/18 08:06; Admin Dose 6.25 MG; Start 12/26/18 at 09:00 Ibuprofen (Motrin) 600 mg Q6H PRN PO headache Last administered on 12/27/18at 01:21; Admin Dose 600 MG; Start 12/27/18 at 00:30 Furosemide (Lasix) 40 mg Q8H IV ; Start 12/27/18 at 22:00 Losartan Potassium (Cozaar) 25 mg DAILY PO ; Start 12/28/18 at 09:00 Spironolactone (Aldactone) 25 mg DAILY PO ; Start 12/28/18 at 09:00 AGUSTO COLLIER Dec 27, 2018 15:27
[2018-12-28] VITALS (12 sets, daily range): BP systolic 92–119; BP diastolic 56–76; PULSE 71–87; RESP 18–20
[2018-12-28] MEDS: FUROSEMIDE 40 MG INJ IV SCH ×3 (05:27→22:03)
[2018-12-28] MEDS: SPIRONOLACTONE 25 MG TAB PO SCH (08:46)
[2018-12-28] MEDS: ASPIRIN 81 MG TAB PO SCH (08:47)
[2018-12-28] MEDS: LOSARTAN 25 MG TAB PO SCH (08:47)
[2018-12-28] MEDS: ENOXAPARIN 40 MG/0.4 ML SYG SC SCH (08:51)
--- NOTE | 2018-12-28 18:21 | PN ---
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 1. CHF exacerbation, acute on chronic, systolic dysfunction. -Continue diuresis with Lasix IV -Monitor renal function closely -Cardiology consultation appreciated 2. NSTEMI. -Most probably a type 2 event in the setting of underlying CHF exacerbation -Cardiology consultation appreciated 3. Nonischemic cardiomyopathy. -Ejection fraction of 20%. -Continue beta-blockers and ARBs. 4. Hypertension. -Continue antihypertensives 5. Substance abuse. -Nicotine and amphetamine abuse. -Cessation advised. 6. Pre-diabetes. -A1C of 6.0. -Monitor glycemic trends 7. Obesity. -BMI more than 34 kg/m. DVT prophylaxis -Subcutaneous Lovenox DC planning: -Continue diuresis while carefully monitoring renal function. -Anticipate transition to oral diuretics possible tomorrow, anticipate DC home in 1 to 2 days Result Diagram: 12/27/18 0629 12/28/18 0732 Results 24hrs Laboratory Tests Test 12/28/18 07:32 Sodium Level 141 Potassium Level 4.1 Chloride Level 105 Carbon Dioxide Level 27 Anion Gap 9 Blood Urea Nitrogen 34 H Creatinine 1.14 Est Glomerular Filtrat Rate mL/min > 60 Glucose Level 92 Calcium Level 8.7 Phosphorus Level 5.5 H Magnesium Level 1.9 Subjective 24 Hr Interval Summary Constitutional: no complaints Exam/Review of Systems Exam Vitals Vital Signs Date Temp Pulse Resp B/P (MAP) Pulse Ox O2 O2 Flow FiO2 Time Delivery Rate 12/28/18 87 16:30 12/28/18 97.7 18 107/72 97 Room Air 15:19 (84) 12/28/18 1.0 08:00 Intake and Output 12/27/18 12/27/18 12/28/18 1515:00 23:00 07:00 IntakeIntake Total 640 ml BalanceBalance 640 ml Constitutional: alert, oriented Respiratory: clear to auscultation Cardiovascular: regular rate and rhythm Gastrointestinal: soft; No distended Musculoskeletal: nl extremities to inspection Results Results 24hrs Laboratory Tests Test 12/28/18 07:32 Sodium Level 141 Potassium Level 4.1 Chloride Level 105 Carbon Dioxide Level 27 Anion Gap 9 Blood Urea Nitrogen 34 H Creatinine 1.14 Est Glomerular Filtrat Rate mL/min > 60 Glucose Level 92 Calcium Level 8.7 Phosphorus Level 5.5 H Magnesium Level 1.9 Medications Medication Current Medications IV Flush (NS 3 ml) 3 ml PER PROTOCOL IV ; Start 12/25/18 at 23:30 Ondansetron HCl (Zofran Inj) 4 mg Q6H PRN IV NAUSEA/VOMITING; Start 12/25/18 at 23:30 Acetaminophen (Tylenol Tab) 650 mg Q6H PRN PO .PAIN 1-3 OR TEMP Last administered on 12/26/18 08:28; Admin Dose 650 MG; Start 12/25/18 at 23:30 Enoxaparin Sodium (Lovenox) 40 mg DAILY SC Last administered on 12/28/18 08:51; Admin Dose 40 MG; Start 12/26/18 at 09:00 Aspirin (Aspirin) 81 mg DAILY PO Last administered on 12/28/18 08:47; Admin Dose 81 MG; Start 12/26/18 at 09:00 Carvedilol (Coreg) 6.25 mg BID PO Last administered on 12/28/18 08:47; Admin Dose 6.25 MG; Start 12/26/18 at 09:00 Ibuprofen (Motrin) 600 mg Q6H PRN PO headache Last administered on 12/27/18 19:50; Admin Dose 600 MG; Start 12/27/18 at 00:30 Furosemide (Lasix) 40 mg Q8H IV Last administered on 12/28/18 13:07; Admin Dose 40 MG; Start 12/27/18 at 22:00 Losartan Potassium (Cozaar) 25 mg DAILY PO Last administered on 12/28/18 08:47; Admin Dose 25 MG; Start 12/28/18 at 09:00 Spironolactone (Aldactone) 25 mg DAILY PO Last administered on 12/28/18 08:46; Admin Dose 25 MG; Start 12/28/18 at 09:00 AGUSTO COLLIER 4, 2019 18:21
--- NOTE | 2018-12-28 20:11 | CONS ---
Assessment/Plan Assessment/Plan Hospital Course (Demo Recall) Acute on chronic systolic heart failure: Decompensated still but improving NSTEMI: trop peak 0.4. Will need coronary eval at some point though still meth induced cardiomyopathy and type II MA with CHF is likely the explanation. With his compliance issues and inability to quit meth use, I would be hesitant to cath him. If he has proper follow up, cardiac CT or MPI is reasonable Cardiomyopathy: presumed nonischemic from meth Meth abuse -continue lasix 40mg TID. Possibly switch to PO tomorrow -continue ASA -coreg 6.25mg BID ok for now as last meth use 2 weeks prior but on discharge would not continue if he is planning on using again -losartan 25mg -aldactone 25mg Consultation Date/Type/Reason Admit Date/Time Dec 25, 2018 at 22:52 Initial Consult Date 12/27/18 Type of Consult Cardiology Requesting Provider: BAYLEE JUAREZ NP Date/Time of Note DATE: 12/28/18 TIME: 20:09 24 HR Interval Summary Free Text/Dictation I/O are not documented well but he is urinating frequently. He had few beats of NSVT last night and this am around 8 had bradycardia which may have been vagal related as it started with prolonging of his MD and then wenckebach. he may have been having a BM but he is not sure. Dyspnea is improving but still not back to baseline. Exam/Review of Systems Vital Signs Vitals Vital Signs Date Temp Pulse Resp B/P (MAP) Pulse Ox O2 O2 Flow FiO2 Time Delivery Rate 12/28/18 87 16:30 12/28/18 97.7 18 107/72 97 Room Air 15:19 (84) 12/28/18 1.0 08:00 Intake and Output 12/27/18 12/27/18 12/28/18 1515:00 23:00 07:00 IntakeIntake Total 640 ml BalanceBalance 640 ml Exam Constitutional: alert, oriented Psych: no complaints, nl mood/affect Head: normocephalic, atraumatic Neck: jvd (9-10cm) Respiratory: crackles/rales; No clear to auscultation Cardiovascular: regular rate and rhythm, edema (1+) Gastrointestinal: soft, non-tender; No distended Neurological: nl mental status, nl speech Labs Result Diagram: 12/27/18 0629 12/28/18 0732 Results 24hrs Laboratory Tests Test 12/28/18 07:32 Sodium Level 141 Potassium Level 4.1 Chloride Level 105 Carbon Dioxide Level 27 Anion Gap 9 Blood Urea Nitrogen 34 H Creatinine 1.14 Est Glomerular Filtrat Rate mL/min > 60 Glucose Level 92 Calcium Level 8.7 Phosphorus Level 5.5 H Magnesium Level 1.9 Medications Medications Current Medications IV Flush (NS 3 ml) 3 ml PER PROTOCOL IV ; Start 12/25/18 at 23:30 Ondansetron HCl (Zofran Inj) 4 mg Q6H PRN IV NAUSEA/VOMITING; Start 12/25/18 at 23:30 Acetaminophen (Tylenol Tab) 650 mg Q6H PRN PO .PAIN 1-3 OR TEMP Last administered on 12/26/18 08:28; Admin Dose 650 MG; Start 12/25/18 at 23:30 Enoxaparin Sodium (Lovenox) 40 mg DAILY SC Last administered on 12/28/18 08:51; Admin Dose 40 MG; Start 12/26/18 at 09:00 Aspirin (Aspirin) 81 mg DAILY PO Last administered on 12/28/18 08:47; Admin Dose 81 MG; Start 12/26/18 at 09:00 Carvedilol (Coreg) 6.25 mg BID PO Last administered on 12/28/18 08:47; Admin Dose 6.25 MG; Start 12/26/18 at 09:00 Ibuprofen (Motrin) 600 mg Q6H PRN PO headache Last administered on 12/27/18 19:50; Admin Dose 600 MG; Start 12/27/18 at 00:30 Furosemide (Lasix) 40 mg Q8H IV Last administered on 12/28/18 13:07; Admin Dose 40 MG; Start 12/27/18 at 22:00 Losartan Potassium (Cozaar) 25 mg DAILY PO Last administered on 12/28/18 08:47; Admin Dose 25 MG; Start 12/28/18 at 09:00 Spironolactone (Aldactone) 25 mg DAILY PO Last administered on 12/28/18 08:46; Admin Dose 25 MG; Start 12/28/18 at 09:00 CIELO COHEN Dec 28, 2018 20:11
[2018-12-29] VITALS (11 sets, daily range): BP systolic 106–123; BP diastolic 61–81; PULSE 74–90; RESP 16–20
[2018-12-29] MEDS: FUROSEMIDE 40 MG INJ IV SCH ×4 (05:43→20:49)
[2018-12-29] MEDS: LOSARTAN 25 MG TAB PO SCH (09:12)
[2018-12-29] MEDS: SPIRONOLACTONE 25 MG TAB PO SCH (09:12)
[2018-12-29] MEDS: ASPIRIN 81 MG TAB PO SCH (09:12)
[2018-12-29] MEDS: ENOXAPARIN 40 MG/0.4 ML SYG SC SCH (09:15)
--- NOTE | 2018-12-29 13:40 | CONS ---
Assessment/Plan Assessment/Plan Hospital Course (Demo Recall) Acute on chronic systolic heart failure: Remains decompensated despite diuresis NSTEMI: trop peak 0.4. Will need coronary eval at some point though still meth induced cardiomyopathy and type II VT with CHF is likely the explanation. With his compliance issues and inability to quit meth use, I would be hesitant to cath him. If he has proper follow up, cardiac CT or MPI is reasonable Cardiomyopathy: presumed nonischemic from meth Meth abuse -strict I/Os. Discussed with pt -one dose of metolazone 5mg -increase to lasix 60mg TID -continue ASA -coreg 6.25mg BID ok for now as last meth use 2 weeks prior but on discharge would not continue if he is planning on using again -losartan 25mg -aldactone 25mg Consultation Date/Type/Reason Admit Date/Time Dec 25, 2018 at 22:52 Initial Consult Date 12/27/18 Type of Consult Cardiology Requesting Provider: BAYLEE JUAREZ NP Date/Time of Note DATE: 12/29/18 TIME: 13:39 24 HR Interval Summary Free Text/Dictation No arrhythmias overnight. Feels better but still with orthopnea. Urinating 8-10 x per day but I/Os are not documented. Exam/Review of Systems Vital Signs Vitals Vital Signs Date Temp Pulse Resp B/P (MAP) Pulse Ox O2 O2 Flow FiO2 Time Delivery Rate 12/29/18 77 12:02 12/29/18 97.8 16 121/72 92 11:00 (88) 12/29/18 Room Air 04:20 12/28/18 1.0 08:00 Intake and Output 12/28/18 12/28/18 12/29/18 1515:00 23:00 07:00 IntakeIntake Total 470 ml BalanceBalance 470 ml Exam Constitutional: alert, oriented Psych: no complaints, nl mood/affect Head: normocephalic, atraumatic Neck: jvd (9-10cm) Cardiovascular: regular rate and rhythm, edema (1+); No systolic murmur Gastrointestinal: soft, non-tender; No distended Neurological: nl mental status, nl speech Labs Result Diagram: 12/27/18 0629 12/29/18 0603 Results 24hrs Laboratory Tests Test 12/29/18 06:03 Sodium Level 141 Potassium Level 3.9 Chloride Level 103 Carbon Dioxide Level 29 Anion Gap 9 Blood Urea Nitrogen 34 H Creatinine 1.13 Est Glomerular Filtrat Rate mL/min > 60 Glucose Level 92 Calcium Level 8.5 Phosphorus Level 4.7 Magnesium Level 1.9 Medications Medications Current Medications IV Flush (NS 3 ml) 3 ml PER PROTOCOL IV ; Start 12/25/18 at 23:30 Ondansetron HCl (Zofran Inj) 4 mg Q6H PRN IV NAUSEA/VOMITING; Start 12/25/18 at 23:30 Acetaminophen (Tylenol Tab) 650 mg Q6H PRN PO .PAIN 1-3 OR TEMP Last administered on 12/26/18 08:28; Admin Dose 650 MG; Start 12/25/18 at 23:30 Enoxaparin Sodium (Lovenox) 40 mg DAILY SC Last administered on 12/29/18 09:15; Admin Dose 40 MG; Start 12/26/18 at 09:00 Aspirin (Aspirin) 81 mg DAILY PO Last administered on 12/29/18 09:12; Admin Dose 81 MG; Start 12/26/18 at 09:00 Carvedilol (Coreg) 6.25 mg BID PO Last administered on 12/29/18 09:12; Admin Dose 6.25 MG; Start 12/26/18 at 09:00 Ibuprofen (Motrin) 600 mg Q6H PRN PO headache Last administered on 12/27/18 19:50; Admin Dose 600 MG; Start 12/27/18 at 00:30 Furosemide (Lasix) 40 mg Q8H IV Last administered on 12/29/18 13:24; Admin Dose 40 MG; Start 12/27/18 at 22:00 Losartan Potassium (Cozaar) 25 mg DAILY PO Last administered on 12/29/18 09:12; Admin Dose 25 MG; Start 12/28/18 at 09:00 Spironolactone (Aldactone) 25 mg DAILY PO Last administered on 12/29/18 09:12; Admin Dose 25 MG; Start 12/28/18 at 09:00 CIELO COHEN Dec 29, 2018 13:40
[2018-12-29] MEDS ORDERED: MAGNESIUM SULFATE 2 GM/50 ML 50 ML IVPB ONE (14:00)
[2018-12-29] MEDS ORDERED: POTASSIUM CHLORIDE 20 MEQ POWDER FOR ORAL SOLN PO ONE (14:00)
[2018-12-29] MEDS ORDERED: METOLAZONE 5 MG TAB PO ONE (14:00)
--- NOTE | 2018-12-29 16:10 | PN ---
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 1. CHF exacerbation, acute on chronic, systolic dysfunction. -Continue diuresis with Lasix IV -Monitor renal function closely -Cardiology consultation appreciated 2. NSTEMI. -Most probably a type 2 event in the setting of underlying CHF exacerbation -Cardiology consultation appreciated 3. Nonischemic cardiomyopathy. -Ejection fraction of 20%. -Continue beta-blockers and ARBs. 4. Hypertension. -Continue antihypertensives 5. Substance abuse. -Nicotine and amphetamine abuse. -Cessation advised. 6. Pre-diabetes. -A1C of 6.0. -Monitor glycemic trends 7. Obesity. -BMI more than 34 kg/m. DVT prophylaxis -Subcutaneous Lovenox DC planning: -Continue diuresis while carefully monitoring renal function. -Anticipate transition to oral diuretics possible tomorrow, anticipate DC home tomorrow Result Diagram: 12/27/18 0629 12/29/18 0603 Results 24hrs Laboratory Tests Test 12/29/18 06:03 Sodium Level 141 Potassium Level 3.9 Chloride Level 103 Carbon Dioxide Level 29 Anion Gap 9 Blood Urea Nitrogen 34 H Creatinine 1.13 Est Glomerular Filtrat Rate mL/min > 60 Glucose Level 92 Calcium Level 8.5 Phosphorus Level 4.7 Magnesium Level 1.9 Subjective 24 Hr Interval Summary Constitutional: no complaints Exam/Review of Systems Exam Vitals Vital Signs Date Temp Pulse Resp B/P (MAP) Pulse Ox O2 O2 Flow FiO2 Time Delivery Rate 12/29/18 76 16:05 12/29/18 99.5 16 118/71 94 15:12 (87) 12/29/18 Room Air 04:20 12/28/18 1.0 08:00 Intake and Output 12/28/18 12/28/18 12/29/18 1515:00 23:00 07:00 IntakeIntake Total 470 ml BalanceBalance 470 ml Constitutional: alert, oriented Respiratory: clear to auscultation Cardiovascular: regular rate and rhythm Gastrointestinal: soft; No distended Musculoskeletal: nl extremities to inspection Results Results 24hrs Laboratory Tests Test 12/29/18 06:03 Sodium Level 141 Potassium Level 3.9 Chloride Level 103 Carbon Dioxide Level 29 Anion Gap 9 Blood Urea Nitrogen 34 H Creatinine 1.13 Est Glomerular Filtrat Rate mL/min > 60 Glucose Level 92 Calcium Level 8.5 Phosphorus Level 4.7 Magnesium Level 1.9 Medications Medication Current Medications IV Flush (NS 3 ml) 3 ml PER PROTOCOL IV ; Start 12/25/18 at 23:30 Ondansetron HCl (Zofran Inj) 4 mg Q6H PRN IV NAUSEA/VOMITING; Start 12/25/18 at 23:30 Acetaminophen (Tylenol Tab) 650 mg Q6H PRN PO .PAIN 1-3 OR TEMP Last administered on 12/26/18 08:28; Admin Dose 650 MG; Start 12/25/18 at 23:30 Enoxaparin Sodium (Lovenox) 40 mg DAILY SC Last administered on 12/29/18 09:15; Admin Dose 40 MG; Start 12/26/18 at 09:00 Aspirin (Aspirin) 81 mg DAILY PO Last administered on 12/29/18 09:12; Admin Dose 81 MG; Start 12/26/18 at 09:00 Carvedilol (Coreg) 6.25 mg BID PO Last administered on 12/29/18 09:12; Admin Dose 6.25 MG; Start 12/26/18 at 09:00 Ibuprofen (Motrin) 600 mg Q6H PRN PO headache Last administered on 12/27/18 19:50; Admin Dose 600 MG; Start 12/27/18 at 00:30 Losartan Potassium (Cozaar) 25 mg DAILY PO Last administered on 12/29/18 09:12; Admin Dose 25 MG; Start 12/28/18 at 09:00 Spironolactone (Aldactone) 25 mg DAILY PO Last administered on 12/29/18 09:12; Admin Dose 25 MG; Start 12/28/18 at 09:00 Furosemide (Lasix) 60 mg Q8H IV ; Start 12/29/18 at 14:00 AGUSTO COLLIER Dec 29, 2018 16:10
[2018-12-30] VITALS (11 sets, daily range): BP systolic 112–117; BP diastolic 61–73; PULSE 72–98; RESP 18
[2018-12-30] MEDS: FUROSEMIDE 40 MG INJ IV SCH ×2 (06:11→15:23)
[2018-12-30] MEDS: SPIRONOLACTONE 25 MG TAB PO SCH (08:21)
[2018-12-30] MEDS: LOSARTAN 25 MG TAB PO SCH (08:21)
[2018-12-30] MEDS: ASPIRIN 81 MG TAB PO SCH (08:21)
[2018-12-30] MEDS: ENOXAPARIN 40 MG/0.4 ML SYG SC SCH (08:26)
[2018-12-30] MEDS ORDERED: FURO80TA78 PO (17:40)
--- NOTE | 2018-12-30 17:41 | PDOCDIS ---
Discharge Instructions CONDITION [id number] Patient Condition: [id number] Good HOME CARE INSTRUCTIONS: [id number] Diet Instructions: [id number] Reduced Sodium ACTIVITY: [id number] Activity Restrictions: [id number] Slowly Increase Activity FOLLOW UP/APPOINTMENTS Follow-up Plan FOLLOW UP WITH YOUR PCP IN 1-2 WEEKS AGUSTO COLLIER Dec 30, 2018 17:41
--- NOTE | 2018-12-30 17:49 | CONS ---
Assessment/Plan Assessment/Plan Hospital Course (Demo Recall) Acute on chronic systolic heart failure: Now euvolemic after significant diuresis NSTEMI: trop peak 0.4. Will need coronary eval at some point though still meth induced cardiomyopathy and type II DE with CHF is likely the explanation. With his compliance issues and inability to quit meth use, I would be hesitant to cath him. 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 Feels back to normal. Diuresed well. Exam/Review of Systems Vital Signs Vitals Vital Signs Date Temp Pulse Resp B/P (MAP) Pulse Ox O2 O2 Flow FiO2 Time Delivery Rate 12/30/18 81 16:00 12/30/18 97.5 18 112/68 98 Room Air 15:17 (83) 12/28/18 1.0 08:00 Intake and Output 12/29/18 12/29/18 12/30/18 1515:00 23:00 07:00 IntakeIntake Total 760 ml 1810 ml 800 ml OutputOutput Total 3625 ml 1475 ml BalanceBalance 760 ml -1815 ml -675 ml Exam Constitutional: alert, oriented Psych: no complaints, nl mood/affect Head: normocephalic, atraumatic Neck: No jvd Respiratory: clear to auscultation; No diminished breath sounds Cardiovascular: regular rate and rhythm, edema (trace) Gastrointestinal: soft, non-tender; No distended Neurological: nl mental status, nl speech Labs Result Diagram: 12/27/18 0629 12/30/18 0730 Results 24hrs Laboratory Tests Test 12/30/18 07:30 Sodium Level 140 Potassium Level 4.0 Chloride Level 99 Carbon Dioxide Level 33 H Anion Gap 8 Blood Urea Nitrogen 32 H Creatinine 1.06 Est Glomerular Filtrat Rate mL/min > 60 Glucose Level 94 Calcium Level 9.0 Phosphorus Level 4.9 Magnesium Level 2.0 Medications Medications Current Medications IV Flush (NS 3 ml) 3 ml PER PROTOCOL IV ; Start 12/25/18 at 23:30 Ondansetron HCl (Zofran Inj) 4 mg Q6H PRN IV NAUSEA/VOMITING; Start 12/25/18 at 23:30 Acetaminophen (Tylenol Tab) 650 mg Q6H PRN PO .PAIN 1-3 OR TEMP Last administered on 12/26/18 08:28; Admin Dose 650 MG; Start 12/25/18 at 23:30 Enoxaparin Sodium (Lovenox) 40 mg DAILY SC Last administered on 12/30/18 08:26; Admin Dose 40 MG; Start 12/26/18 at 09:00 Aspirin (Aspirin) 81 mg DAILY PO Last administered on 12/30/18 08:21; Admin Dose 81 MG; Start 12/26/18 at 09:00 Carvedilol (Coreg) 6.25 mg BID PO Last administered on 12/30/18 08:21; Admin Dose 6.25 MG; Start 12/26/18 at 09:00 Ibuprofen (Motrin) 600 mg Q6H PRN PO headache Last administered on 12/27/18 19:50; Admin Dose 600 MG; Start 12/27/18 at 00:30 Losartan Potassium (Cozaar) 25 mg DAILY PO Last administered on 12/30/18 08:21; Admin Dose 25 MG; Start 12/28/18 at 09:00 Spironolactone (Aldactone) 25 mg DAILY PO Last administered on 12/30/18 08:21; Admin Dose 25 MG; Start 12/28/18 at 09:00 Furosemide (Lasix) 60 mg Q8H IV Last administered on 12/30/18 15:23; Admin Dose 60 MG; Start 12/29/18 at 14:00 CIELO COHEN Dec 30, 2018 17:49
--- NOTE | 2018-12-30 19:22 | DS ---
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 1. CHF exacerbation, acute on chronic, systolic dysfunction. -Status post diuresis with Lasix IV -DC with Lasix 80 mg p.o. twice daily -Cardiology consultation appreciated 2. NSTEMI. -Most probably a type 2 event in the setting of underlying CHF exacerbation -Cardiology consultation appreciated 3. 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 -Continue beta-blockers and ARBs. 4. Hypertension. -Continue antihypertensives 5. Substance abuse. -Nicotine and amphetamine abuse. -Cessation advised. 6. Pre-diabetes. -A1C of 6.0. -Monitor glycemic trends 7. Obesity. 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 Patient required several days of high-dose Lasix IV, troponin elevation was secondary to NSTEMI type II in setting of CHF exacerbation. Patient was to be discharged with an increased do se of Lasix p.o. per cardiology recommendations. Patient was stable for DC and on the day of discharge patient's vitals, labs and physical exam are stable. Home Meds Active Scripts Furosemide* (Lasix*) 80 Mg Tablet, 80 MG PO BID, #60 TAB 2 Refills Prov:AGUSTO COLLIER 12/30/18 Aspirin (Aspirin) 81 Mg Chew, 81 MG PO DAILY, #60 TAB Prov:AGUSTO COLLIER 11/29/18 Losartan Potassium* (Losartan Potassium*) 25 Mg Tablet, 12.5 MG PO DAILY, #60 TAB Prov:AGUSTO COLLIER 11/29/18 Carvedilol* (Coreg*) 6.25 Mg Tablet, 6.25 MG PO BID, #60 TAB Prov:AGUSTO COLLIER 11/29/18 Discontinued Scripts Furosemide* (Furosemide*) 40 Mg Tablet, 40 MG PO DAILY, #60 TAB TAKE ADDITIONAL DOSE IN THE AFTERNOON IF STILL SHORT OF BREATH Prov:AGUSTO COLLIER 11/29/18 Follow-up Plan FOLLOW UP WITH YOUR PCP IN 1-2 WEEKS Primary Care Provider Care Physician No Primary Time spent on discharge: > 30 minutes Pending Labs \ AGUSTO COLLIER Dec 30, 2018 19:22
== END 2018-12-30 19:30 | disposition home or self-care (01) | DRG 281 ==
LOC: E/R 20:51 → TEL 22:52 → MS1 12-27 13:18 → TEL 12-27 18:07
PROVIDERS: ADMIT Internal Medicine; ATTEND Internal Medicine
DX: I50.23 Acute on chronic systolic (congestive) heart failure (principal); I21.A1 Myocardial infarction type 2; I42.7 Cardiomyopathy due to drug and external agent; F19.10 Other psychoactive substance abuse, uncomplicated; E66.9 Obesity, unspecified; Z68.34 Body mass index [BMI] 34.0-34.9, adult; T43.625A Adverse effect of amphetamines, initial encounter; F15.10 Other stimulant abuse, uncomplicated; Z98.84 Bariatric surgery status; F17.210 Nicotine dependence, cigarettes, uncomplicated; R73.03 Prediabetes
CPT/HCPCS: 36415; 71045; 80048; 80053; 80061; 80307; 82550; 82553; 82803; 83036; 83605; 83735; 84100; 84443; 84484; 85025; 85610; 85730; 87081; 93005; 96374; J1650; J1940; J3475

== ENCOUNTER 2019-02-27 11:04 | Inpatient (IN) | payer MEDICAID ==
[~2019-02-27] VITALS: Ht 162.6 cm; Wt 108.6 kg
[~2019-02-27 11:04] MED LIST changes: -FURO40TA4 PO; +FURO80TA78 PO
[2019-02-27 11:15] VITALS: Ht 162.6 cm; Wt 108.6 kg
--- NOTE | 2019-02-27 11:22 | ERD ---
ER Documentation Chief Complaint Chief Complaint sob; chacorta leg swelling x 2 weeks; hx of CHF HPI This is a 38-year-old man with a history of dilated cardiomyopathy with EF of 20% and methamphetamine abuse presenting with a few days of increasing shortness of breath, dyspnea on exertion, and peripheral edema. Patient states he has b een noncompliant with most of his medications except for Lasix. He has had no chest pain, no cough, no fevers or chills, no vomiting or diarrhea, no headache or blurry vision. ROS All systems reviewed and are negative except as per history of present illness. Medications Home Meds Active Scripts Furosemide* (Lasix*) 80 Mg Tablet, 80 MG PO BID, #60 TAB 2 Refills Prov:AGUSTO COLLIER 12/30/18 Aspirin (Aspirin) 81 Mg Chew, 81 MG PO DAILY, #60 TAB Prov:AGUSTO COLLIER 11/29/18 Losartan Potassium* (Losartan Potassium*) 25 Mg Tablet, 12.5 MG PO DAILY, #60 TAB Prov:AGUSTO COLLIER 11/29/18 Carvedilol* (Coreg*) 6.25 Mg Tablet, 6.25 MG PO BID, #60 TAB Prov:AGUSTO COLLIER 11/29/18 Allergies Allergies: Coded Allergies: No Known Allergies (Unverified Allergy, Unknown, 11/25/18) PMhx/Soc History of dilated cardiomyopathy, CHF with a EF of 20%, methamphetamine abuse, obesity, hypertension, status post gastric bypass, history of non-STEMI, History of Surgery: Yes (gastric bypass, cholecystectomy) Anesthesia Reaction: No Hx Neurological Disorder: No Hx Respiratory Disorders: No Hx Psychiatric Problems: No Hx Miscellaneous Medical Probl: No Hx Alcohol Use: No Hx Substance Use: Yes (meth) Hx Tobacco Use: Yes Physical Exam Vitals Vital Signs Date Temp Pulse Resp B/P (MAP) Pulse Ox O2 O2 Flow FiO2 Time Delivery Rate 02/27/19 93 21 124/93 99 BIPAP 13:30 (103) 02/27/19 84 20 118/84 100 BIPAP 12:00 (95) 02/27/19 97 100 30 11:45 02/27/19 97.8 102 25 141/87 95 11:15 (105) Physical Exam GENERAL: Well-developed, dyspneic, afebrile CARDIAC: Tachycardic and regular, no murmurs rubs or gallops LUNGS: Crackles bilaterally, no wheezing or stridor SKIN: Warm and dry to touch, no abrasions, contusions, or hematomas, no lacerations, no ecchymosis, no target lesions, and without ulcers EXTREMITIES: No clubbing cyanosis, 3+ pitting edema in the lower extremities bilaterally with stasis dermatitis changes to the skin, distal pulses equal bilateral, calves symmetrical PSYCH: Normal affect without agitation or irritability Result Diagram: 02/27/19 1133 02/27/19 1133 Results 24 hrs Laboratory Tests Test 02/27/19 11:33 White Blood Count 6.0 10^3/ul Red Blood Count 5.39 10^6/ul Hemoglobin 14.0 g/dl Hematocrit 45.9 % Mean Corpuscular Volume 85.2 fl Mean Corpuscular Hemoglobin 26.0 pg Mean Corpuscular Hemoglobin Concent 30.5 g/dl Red Cell Distribution Width 18.3 % Platelet Count 216 10^3/UL Mean Platelet Volume 10.2 fl Immature Granulocytes % 0.300 % Neutrophils % 66.1 % Lymphocytes % 22.2 % Monocytes % 8.2 % Eosinophils % 2.2 % Basophils % 1.0 % Nucleated Red Blood Cells % 0.0 /100WBC Immature Granulocytes # 0.020 10^3/ul Neutrophils # 4.0 10^3/ul Lymphocytes # 1.3 10^3/ul Monocytes # 0.5 10^3/ul Eosinophils # 0.1 10^3/ul Basophils # 0.1 10^3/ul Nucleated Red Blood Cells # 0.0 10^3/ul Sodium Level 140 mmol/L Potassium Level 4.2 mmol/L Chloride Level 100 mmol/L Carbon Dioxide Level 31 mmol/L Anion Gap 9 Blood Urea Nitrogen 25 mg/dl Creatinine 1.36 mg/dl Est Glomerular Filtrat Rate mL/min 59 mL/min Glucose Level 96 mg/dl Calcium Level 9.1 mg/dl Total Bilirubin 1.3 mg/dl Direct Bilirubin 0.00 mg/dl Indirect Bilirubin 1.3 mg/dl Aspartate Amino Transf (AST/SGOT) 30 IU/L Alanine Aminotransferase (ALT/SGPT) 22 IU/L Alkaline Phosphatase 82 IU/L Troponin I 0.056 ng/ml B-Type Natriuretic Peptide 8510 PG/ML Total Protein 7.7 g/dl Albumin 3.9 g/dl Globulin 3.80 g/dl Albumin/Globulin Ratio 1.02 Lipase 137 U/L Current Medications Medications Dose Sig/Jess Start Time Status Last (Trade) Ordered Route PRN Stop Time Admin Dose Reason Admin 1 tab ONCE ONCE 02/27/19 DC 02/27/19 Nitroglycerin SL 11:30 02/27/19 11:30 11:31 (Nitroglyceri n (Sl Tab) 0.4 Mg) Aspirin 324 mg ONCE ONCE 02/27/19 DC 02/27/19 (Aspirin) PO 11:30 02/27/19 11:29 11:31 Furosemide 60 mg ONCE ONCE 02/27/19 DC 02/27/19 (Lasix) IV 11:30 02/27/19 11:30 11:31 Enalaprilat 1.25 mg ONCE ONCE 02/27/19 DC 02/27/19 (Vasotec Iv) IV 11:30 02/27/19 11:29 11:31 Procedures/MDM IV line was established patient was placed on groundwater monitoring technician rhythm strip revealed a narrow complex tachycardia at 110 bpm with upright P and T waves. Patient was afebrile EKG performed, read by me revealed a sinus tachycardia at 100 bpm, normal axis, first-degree AV block, right ventricular conduction delay QRS duration 116 ms, no concerning ST elevations or depressions noted. 1 view chest x-ray performed, read by me revealed cardiomegaly and bilateral pulmonary vascular congestion, no acute infiltrates, no pneumothorax. The patient was immediately placed on BiPAP therapy for respiratory support. I administered aspirin 324 mg p.o. for cardioprotective measures, furosemide 60 mg IV, nitroglycerin sublingual, and enalapril 1.25 mg IV. Critical Care: Time: 49 minutes, this was time separate from other billable procedures. Treatments/Evaluations: Close monitoring and treatment of unstable vital signs, cardiorespiratory, and neurologic status, while maintaining tight balance of fluid, respiratory, and cardiac interventions. CBC was normal, electrolytes unremarkable, liver function test normal, troponin negative, BNP elevated. Patient admitted to telemetry setting for continued medical management and cardiology consultation. Departure Diagnosis: Primary Impression: CHF (congestive heart failure) Heart failure type: systolic Heart failure chronicity: acute Qualified Codes: I50.21 - Acute systolic (congestive) heart failure Condition: Serious JOY SCHUSTER MD Feb 27, 2019 11:22
[2019-02-27] MEDS ORDERED: ASPIRIN 81 MG TAB PO ONE (11:30)
[2019-02-27] MEDS ORDERED: ENALAPRILAT 1.25 MG INJ IV ONE (11:30)
[2019-02-27] MEDS ORDERED: FUROSEMIDE 40 MG INJ IV ONE (11:30)
[2019-02-27] MEDS ORDERED: NITROGLYCERIN (SL) 0.4 MG TAB SL ONE (11:30)
--- NOTE | 2019-02-27 15:29 | HP ---
Date/Time of Note Date/Time of Note DATE: 02/27/19 TIME: 15:16 Assessment/Plan VTE Prophylaxis SCD applied (from Nsg): No SCD contraindicated: other (no) Pharmacological prophylaxis: LMWH Lines/Catheters IV Catheter Type (from Nrsg): Saline Lock Assessment/Plan Assessment/Plan 38 yo man with meth cardiomyopathy presents with CHF exacerbation #Amphetamine cardiomyopathy #Acute exacerbation of chronic systolic heart failure - Lost insurance and ran out of meds. Will consult adult protective caseworker. - Resume beta talya, ACEi, aspirin - Will do IV lasix overnight, then likely can resume home lasix 80mg PO BID in t he AM. #Elevated troponins - patient denies ischemic-type chest pain - No active ischemia on EKG - Trend troponins, I anticipate it will downtrend with diuresis. DVT: lovenox GI: None Result Diagram: 02/27/19 1133 02/27/19 1133 HPI/ROS Admit Date/Time Admit Date/Time 27 February 2019 Hx of Present Illness Mr. Prater is an obese 38 yo man with history of methamphetamine cardiomyopathy who presents with shortness of breath. He was recently admitted at [facility] 12/25-12/30 for CHF exacerbation and was diuresed uneventfully. He was then in his usual state of health. However he lost his insurance and for the past 2 weeks has been unable to fill his aspirin, beta talya, and ACEi. He has been taking his lasix 80mg BID. He reports that over these past two weeks he's developed progressive worsening dyspnea on exertion, orthopnea, and "the sensation of fluid in my lungs". He had dry cough. Eventually today he was having dyspnea at rest so he came to the emergency room. He denies recent drug use. In the ED he presented tachy to 102 and in respiratory distress. Labs notable for mild BRENNAN to 1.36 (baseline 1.06) ROS He denies recent chills, fever, night sweats, anorexia, weight loss, throat sore ness, rhinorrhea, dyspnea, cough, palpitations, diarrhea, constipation, dysuria, hematuria. PMH/Family/Social Past Medical History Chronic systolic heart failure Nonischemic cardiomyopathy likely meth induced Substance abuse: Meth Hypertension obesity Medications Current Medications IV Flush (NS 3 ml) 3 ml PER PROTOCOL IV ; Start 02/27/19 at 15:30 Ondansetron HCl (Zofran Inj) 4 mg Q6H PRN IV NAUSEA/VOMITING; Start 02/27/19 at 15:30 Acetaminophen (Tylenol Tab) 650 mg Q6H PRN PO .PAIN 1-3 OR TEMP; Start 02/27/19 at 15:30 Enoxaparin Sodium (Lovenox) 40 mg DAILY SC ; Start 02/28/19 at 09:00 Aspirin (Aspirin) 81 mg DAILY PO ; Start 02/28/19 at 09:00; Status UNV Carvedilol (Coreg) 6.25 mg BID PO ; Start 02/27/19 at 21:00; Status UNV Losartan Potassium (Cozaar) 12.5 mg DAILY PO ; Start 02/28/19 at 09:00; Status UNV Coded Allergies: No Known Allergies (Unverified Allergy, Unknown, 11/25/18) Past Surgical History Gastric bypass surgery in 2013 (previously weighed 500+ lbs) Lap curt Family History Significant Family History: no pertinent family hx Social History Lives with his sister, currently unemployed Alcohol Use: none Smoking Status: Former smoker Drug Use: other (Used crystal meth in the past, not for the past 2 months. ) Exam/Review of Systems Vital Signs Vitals Vital Signs Date Temp Pulse Resp B/P (MAP) Pulse Ox O2 O2 Flow FiO2 Time Delivery Rate 02/27/19 92 18 124/90 98 Room Air 15:00 (101) 02/27/19 30 11:45 02/27/19 97.8 11:15 Exam Exam Gen: Obese man lying in gurney, breathing comfortably on room iar. Eyes: PERRL, no icterus HEENT: Moist mucous membranes, clear oropharynx Neck: Supple, no lymphadenopathy. JVD to the angle of the mandible. Card: Regular rate and rhythm, no murmurs appreciated Pulm: Clear to auscultation bilaterally. No rales. Abd: Soft, nondistended, nontender. No hepatosplenomegaly. Ext: 1+ bilateral LE pitting edema Skin: Chronic skin changes of venous stasis on the lower legs. TRENA MCKNIGHT MD Feb 27, 2019 15:26
[2019-02-27] MEDS ORDERED: NACL 0.9% 3 ML SYG IV SCH (15:30)
[2019-02-27] MEDS ORDERED: ONDANSETRON 4 MG INJ IV PRN (15:30)
[2019-02-27] MEDS: FUROSEMIDE 40 MG INJ IV SCH (18:04)
[2019-02-28] MEDS: ACETAMINOPHEN 325 MG TAB PO PRN (07:20)
[2019-02-28] MEDS ORDERED: SUMATRIPTAN 6 MG/0.5 ML INJ SC ONE (07:30)
[2019-02-28] MEDS: ENOXAPARIN 40 MG/0.4 ML SYG SC SCH (08:54)
[2019-02-28] MEDS: ASPIRIN 81 MG TAB PO SCH (08:55)
[2019-02-28] MEDS: LOSARTAN 25 MG TAB PO SCH (09:00)
[2019-02-28] MEDS: FUROSEMIDE 40 MG INJ IV SCH ×3 (09:11→17:44)
[2019-02-28 12:27] VITALS: BP 103/67; PULSE 85; RESP 18
--- NOTE | 2019-02-28 13:36 | PN ---
Date/Time of Note Date/Time of Note DATE: 02/28/19 TIME: 13:33 Assessment/Plan VTE Prophylaxis SCD applied (from Nsg): No SCD contraindicated: other (no) Pharmacological prophylaxis: LMWH Lines/Catheters IV Catheter Type (from Nrsg): Saline Lock Assessment/Plan Assessment/Plan 38 yo man with meth cardiomyopathy presents with CHF exacerbation #Amphetamine cardiomyopathy #Acute exacerbation of chronic systolic heart failure - Lost insurance and ran out of meds. Will consult shoe caser. - Resume beta talya, ACEi, aspirin - Continue IV lasix. #Elevated troponins - patient denies ischemic-type chest pain - No active ischemia on EKG DVT: lovenox GI: None Result Diagram: 02/28/1953702/28/19537 Subjective 24 Hr Interval Summary Free Text/Dictation No acute overnight events. Boarding in the emergency room. Had bad tension-type headache this morning. Improved with sumatriptan. Still with orthopnea, required nasal cannula overnight. Exam/Review of Systems Exam Vitals Vital Signs Date Temp Pulse Resp B/P (MAP) Pulse Ox O2 O2 Flow FiO2 Time Delivery Rate 02/28/19 97.6 85 18 103/67 100 Nasal 12:27 (79) Cannula 02/28/19 2.0 12:15 02/27/19 30 13:45 Intake and Output 02/27/19 02/27/19 02/28/19 1515:00 23:00 07:00 IntakeIntake Total 500 ml OutputOutput Total 1000 ml 200 ml 800 ml BalanceBalance -1000 ml -200 ml -300 ml Exam Gen: Obese man sitting at edge of bed on nasal cannula. Eyes: PERRL, no icterus HEENT: Moist mucous membranes, clear oropharynx Neck: Supple, no lymphadenopathy. JVD to the angle of the mandible. Card: Regular rate and rhythm, no murmurs appreciated Pulm: Clear to auscultation bilaterally. No rales. Abd: Soft, nondistended, nontender. No hepatosplenomegaly. Ext: 1+ bilateral LE pitting edema Skin: Chronic skin changes of venous stasis on the lower legs. Results Results 24hrs Laboratory Tests Test 02/28/19 05:38 White Blood Count 5.2 Red Blood Count 5.26 Hemoglobin 13.4 L Hematocrit 44.9 Mean Corpuscular Volume 85.4 Mean Corpuscular Hemoglobin 25.5 L Mean Corpuscular Hemoglobin Concent 29.8 L Red Cell Distribution Width 18.3 H Platelet Count 204 Mean Platelet Volume 10.3 Immature Granulocytes % 0.200 Neutrophils % 73.0 Lymphocytes % 17.8 Monocytes % 6.4 Eosinophils % 1.4 Basophils % 1.2 Nucleated Red Blood Cells % 0.0 Immature Granulocytes # 0.010 Neutrophils # 3.8 Lymphocytes # 0.9 Monocytes # 0.3 Eosinophils # 0.1 Basophils # 0.1 Nucleated Red Blood Cells # 0.0 Sodium Level 141 Potassium Level 4.4 Chloride Level 101 Carbon Dioxide Level 30 Anion Gap 10 Blood Urea Nitrogen 25 H Creatinine 1.29 H Est Glomerular Filtrat Rate mL/min > 60 Glucose Level 122 Hemoglobin A1c 6.0 H Calcium Level 9.0 Phosphorus Level 4.8 Magnesium Level 2.0 Total Bilirubin 1.6 H Direct Bilirubin 0.00 Indirect Bilirubin 1.6 H Aspartate Amino Transf (AST/SGOT) 29 Alanine Aminotransferase (ALT/SGPT) 22 Alkaline Phosphatase 71 Total Protein 7.5 Albumin 3.6 Globulin 3.90 H Albumin/Globulin Ratio 0.92 Thyroid Stimulating Hormone (TSH) 1.370 Medications Medication Current Medications IV Flush (NS 3 ml) 3 ml PER PROTOCOL IV ; Start 02/27/19 at 15:30 Ondansetron HCl (Zofran Inj) 4 mg Q6H PRN IV NAUSEA/VOMITING Last administered on 02/28/19 07:20; Admin Dose 4 MG; Start 02/27/19 at 15:30 Acetaminophen (Tylenol Tab) 650 mg Q6H PRN PO .PAIN 1-3 OR TEMP Last administered on 02/28/19 07:20; Admin Dose 650 MG; Start 02/27/19 at 15:30 Enoxaparin Sodium (Lovenox) 40 mg DAILY SC Last administered on 02/28/19 08:54; Admin Dose 40 MG; Start 02/28/19 at 09:00 Aspirin (Aspirin) 81 mg DAILY PO Last administered on 02/28/19 08:55; Admin Dose 81 MG; Start 02/28/19 at 09:00 Carvedilol (Coreg) 6.25 mg BID PO Last administered on 02/28/19 01:04; Admin Dose 6.25 MG; Start 02/27/19 at 21:00 Losartan Potassium (Cozaar) 12.5 mg DAILY PO ; Start 02/28/19 at 09:00 Furosemide (Lasix) 60 mg BID DIURETICS IV Last administered on 02/28/19at 11:42; Admin Dose 60 MG; Start 02/27/19 at 18:00 TRENA MCKNIGHT MD Feb 28, 2019 13:36
[2019-02-28 15:07] VITALS: BP 106/60; PULSE 82; RESP 18
[2019-02-28 20:00] VITALS: BP 110/68; PULSE 89; RESP 18
[2019-02-28] MEDS ORDERED: HYDROCODONE/APAP (10/325) TAB PO ONE (23:30)
[2019-03-01] VITALS: BP 92/50; PULSE 84; RESP 19
[2019-03-01 05:42] VITALS: BP 115/77; PULSE 80; RESP 18
[2019-03-01] MEDS: FUROSEMIDE 40 MG INJ IV SCH ×2 (06:45→17:16)
[2019-03-01 07:18] VITALS: BP 120/77; PULSE 88; RESP 18
[2019-03-01] MEDS: ASPIRIN 81 MG TAB PO SCH (08:10)
[2019-03-01] MEDS: LOSARTAN 25 MG TAB PO SCH (08:11)
[2019-03-01] MEDS: ENOXAPARIN 40 MG/0.4 ML SYG SC SCH (08:12)
[2019-03-01] MEDS: ACETAMINOPHEN 325 MG TAB PO PRN (09:47)
[2019-03-01] MEDS ORDERED: SUMATRIPTAN 50 MG TAB PO ONE (10:00)
[2019-03-01 11:09] VITALS: BP 95/53; PULSE 76; RESP 18
--- NOTE | 2019-03-01 11:18 | PN ---
Date/Time of Note Date/Time of Note DATE: 03/01/19 TIME: 11:16 Assessment/Plan VTE Prophylaxis Risk score (from Nsg)>0 risk: 1 SCD applied (from Nsg): No SCD contraindicated: other (no) Pharmacological prophylaxis: LMWH Lines/Catheters IV Catheter Type (from Nrsg): Saline Lock Assessment/Plan Assessment/Plan 38 yo man with meth cardiomyopathy presents with CHF exacerbation #Amphetamine cardiomyopathy #Acute exacerbation of chronic systolic heart failure - Lost insurance and ran out of meds. Will consult rifle case repairer. - Resume beta talya, ACEi, aspirin - Continue IV lasix. #Elevated troponins - patient denies ischemic-type chest pain - No active ischemia on EKG DVT: lovenox GI: None Dispo: Likely discharge in 24-48 hours, but still pending rifle case repairer evaluation. Result Diagram: 02/28/1938 02/28/19537 Subjective 24 Hr Interval Summary Free Text/Dictation No acute overnight events. Patient sleeping comfortably. Exam/Review of Systems Exam Vitals Vital Signs Date Temp Pulse Resp B/P (MAP) Pulse Ox O2 O2 Flow FiO2 Time Delivery Rate 03/01/19 98.0 76 18 95/53 (67) 98 Nasal 2.0 11:09 Cannula 02/27/19 30 13:45 Intake and Output 02/28/19 02/28/19 03/01/19 1515:00 23:00 07:00 IntakeIntake Total 980 ml 360 ml BalanceBalance 980 ml 360 ml Exam Gen: Obese man lying flat in bed on nasal cannula. Eyes: PERRL, no icterus HEENT: Moist mucous membranes, clear oropharynx Neck: Supple, no lymphadenopathy. JVD to the angle of the mandible. Card: Regular rate and rhythm, no murmurs appreciated Pulm: Clear to auscultation bilaterally. No rales. Abd: Soft, nondistended, nontender. No hepatosplenomegaly. Ext: 1+ bilateral LE pitting edema Skin: Chronic skin changes of venous stasis on the lower legs. Medications Medication Current Medications IV Flush (NS 3 ml) 3 ml PER PROTOCOL IV ; Start 02/27/19 at 15:30 Ondansetron HCl (Zofran Inj) 4 mg Q6H PRN IV NAUSEA/VOMITING Last administered on 02/28/19at 07:20; Admin Dose 4 MG; Start 02/27/19 at 15:30 Acetaminophen (Tylenol Tab) 650 mg Q6H PRN PO .PAIN 1-3 OR TEMP Last administered on 03/01/19 09:47; Admin Dose 650 MG; Start 02/27/19 at 15:30 Enoxaparin Sodium (Lovenox) 40 mg DAILY SC Last administered on 03/01/19 08:12; Admin Dose 40 MG; Start 02/28/19 at 09:00 Aspirin (Aspirin) 81 mg DAILY PO Last administered on 03/01/19 08:10; Admin Dose 81 MG; Start 02/28/19 at 09:00 Carvedilol (Coreg) 6.25 mg BID PO Last administered on 03/01/19 08:10; Admin Dose 6.25 MG; Start 02/27/19 at 21:00 Losartan Potassium (Cozaar) 12.5 mg DAILY PO Last administered on 03/01/19 08:11; Admin Dose 12.5 MG; Start 02/28/19 at 09:00 Furosemide (Lasix) 60 mg BID DIURETICS IV Last administered on 03/01/19 06:45; Admin Dose 60 MG; Start 02/27/19 at 18:00 TRENA MCKNIGHT MD Mar 01, 2019 11:18
[2019-03-01 15:00] VITALS: BP 108/86; PULSE 75; RESP 19
[2019-03-01 20:15] VITALS: BP 96/55; PULSE 86; RESP 18
[2019-03-01] MEDS ORDERED: HYDROCODONE/APAP (10/325) TAB PO PRN (20:30)
[2019-03-02 00:20] VITALS: BP 114/63; PULSE 74; RESP 20
[2019-03-02 04:37] VITALS: BP 111/58; PULSE 75; RESP 18
[2019-03-02] MEDS: FUROSEMIDE 40 MG INJ IV SCH (06:50)
[2019-03-02 07:26] VITALS: BP 121/84; PULSE 80; RESP 18
[2019-03-02] MEDS: ASPIRIN 81 MG TAB PO SCH (09:58)
[2019-03-02] MEDS: LOSARTAN 25 MG TAB PO SCH (09:58)
[2019-03-02] MEDS: ENOXAPARIN 40 MG/0.4 ML SYG SC SCH (10:03)
--- NOTE | 2019-03-02 10:19 | PDOCDIS ---
Discharge Instructions DIAGNOSIS Discharge Diagnosis Acute exacerbation of chronic systolic heart failure CONDITION [id number] Patient Condition: [id number] Good HOME CARE INSTRUCTIONS: [id number] Diet Instructions: [id number] Reduced Sodium ACTIVITY: [id number] Activity Restrictions: [id number] No Restrictions FOLLOW UP/APPOINTMENTS Follow-up Plan 1. Take all medications as prescribed. 2. Make an appointment with your primary care doctor in 1-2 weeks. If you don't have a doctor you can go to a free or low-cost clinic at [facility]. 3. For worsening trouble breathing at rest, return to the emergency room. 4. Continue to abstain from smoking. TRENA MCKNIGHT MD Mar 02, 2019 10:19
[2019-03-02 11:17] VITALS: BP 115/68; PULSE 77; RESP 19
--- NOTE | 2019-03-02 15:38 | DS ---
Date/Time of Note Date/Time of Note DATE: 03/02/19 TIME: 15:37 Discharge Summary Admission/Discharge Info Admit Date/Time Feb 27, 2019 at 12:45 Discharge Date/Time Mar 02, 2019 at 13:25 Discharge Diagnosis Acute exacerbation of chronic systolic heart failure Patient Condition: Good Hx of Present Illness Mr. Prater is an obese 38 yo man with history of methamphetamine cardiomyopathy who presents with shortness of breath. He was recently admitted at [facility] 12/25-12/30 for CHF exacerbation and was diuresed uneventfully. He was then in his usual state of health. However he lost his insurance and for the past 2 weeks has been unable to fill his aspirin, beta talya, and ACEi. He has been taking his lasix 80mg BID. He reports that over these past two weeks he's developed progressive worsening dyspnea on exertion, orthopnea, and "the sensation of fluid in my lungs". He had dry cough. Eventually today he was having dyspnea at rest so he came to the emergency room. He denies recent drug use. In the ED he presented tachy to 102 and in respiratory distress. Labs notable for mild BRENNAN to 1.36 (baseline 1.06) Hospital Course The patient was started on IV lasix with good response and profuse diuresis. He also had several episodes of migraine-type headaches which he said have been occurring more frequently over the past two weeks. In each case these headaches responded quickly to oral sumatriptan. He never developed focal neurologic signs. Case management was consulted; he never did lose his insurance. Home Meds Active Scripts Furosemide* (Lasix*) 80 Mg Tablet, 80 MG PO BID, #60 TAB 2 Refills Prov:TRENA MCKNIGHT MD 03/02/19 Aspirin (Aspirin) 81 Mg Chew, 81 MG PO DAILY, #60 TAB 1 Refill Prov:TRENA MCKNIGHT MD 03/02/19 Losartan Potassium* (Losartan Potassium*) 25 Mg Tablet, 12.5 MG PO DAILY, #60 TAB 1 Refill Prov:TRENA MCKNIGHT MD 03/02/19 Carvedilol* (Coreg*) 6.25 Mg Tablet, 6.25 MG PO BID, #60 TAB 1 Refill Prov:TRENA MCKNIGHT MD 03/02/19 Follow-up Plan 1. Take all medications as prescribed. 2. Make an appointment with your primary care doctor in 1-2 weeks. If you don't have a doctor you can go to a free or low-cost clinic at [facility]. 3. For worsening trouble breathing at rest, return to the emergency room. 4. Continue to abstain from smoking. Primary Care Provider Care Physician No Primary Time spent on discharge: > 30 minutes TRENA MCKNIGHT MD Mar 02, 2019 15:38
== END 2019-03-02 13:25 | disposition home or self-care (01) | DRG 292 ==
LOC: E/R 11:04 → TEL 12:45 → SUATTDRO 13:04
PROVIDERS: ADMIT Internal Medicine; ATTEND Internal Medicine
DX: I11.0 Hypertensive heart disease with heart failure (principal); N17.9 Acute kidney failure, unspecified; Z68.41 Body mass index [BMI] 40.0-44.9, adult; I42.7 Cardiomyopathy due to drug and external agent; I50.23 Acute on chronic systolic (congestive) heart failure; E66.9 Obesity, unspecified; I42.0 Dilated cardiomyopathy; I25.2 Old myocardial infarction; F15.188 Other stimulant abuse with other stimulant-induced disorder; G43.909 Migraine, unspecified, not intractable, without status migrainosus; R79.89 Other specified abnormal findings of blood chemistry; Z87.891 Personal history of nicotine dependence; Z79.82 Long term (current) use of aspirin; Z98.84 Bariatric surgery status
CPT/HCPCS: 36415; 71045; 80053; 83036; 83690; 83735; 83880; 84100; 84443; 84484; 85025; 93005; 94660; 96374; 96375; 97161; J1650; J1940; J2405; J3030

== ENCOUNTER 2019-03-08 20:13 | Inpatient (IN) | payer MEDICAID ==
[~2019-03-08] VITALS: Ht 177.8 cm; Wt 116.4 kg
[2019-03-08] MEDS ORDERED: NITROGLYCERIN 2% 1 GM OINT PKT TD STA (20:51)
[2019-03-08] MEDS ORDERED: FUROSEMIDE 20 MG INJ IV STA (20:51)
[2019-03-08] MEDS ORDERED: ASPIRIN 325 MG TAB PO STA (20:51)
[2019-03-08] MEDS ORDERED: ONDANSETRON 4 MG INJ IV PRN (22:30)
[2019-03-08] MEDS ORDERED: ACETAMINOPHEN 325 MG TAB PO PRN (22:30)
[2019-03-09] MEDS ORDERED: NACL 0.9% 3 ML SYG IV SCH (05:30)
[2019-03-09] MEDS ORDERED: ACETAMINOPHEN 325 MG TAB PO PRN (05:30)
[2019-03-09] MEDS ORDERED: NITROGLYCERIN (SL) 0.4 MG TAB SL PRN (05:30)
[2019-03-09] MEDS ORDERED: ONDANSETRON 4 MG INJ IV PRN (05:30)
[2019-03-09] MEDS ORDERED: LOSARTAN 25 MG TAB PO SCH (09:00)
[2019-03-09] MEDS: ASPIRIN 81 MG TAB PO SCH (11:34)
[2019-03-09] MEDS: FUROSEMIDE 40 MG INJ IV SCH ×2 (11:34→20:57)
[2019-03-09] MEDS: HEPARIN 5,000 UNIT/1 ML VIAL SC SCH ×2 (11:38→21:06)
[2019-03-09] MEDS: LOSARTAN 25 MG TAB PO SCH (11:39)
[2019-03-09] MEDS: AZITHROMYCIN 500MG/NS (PMX) 250 ML IVPB SCH (14:43)
[2019-03-09] MEDS: CEFTRIAXONE 1 GM/50 ML (PMX) 50 ML IVPB SCH (14:43)
[2019-03-09 20:00] VITALS: BP 118/74; PULSE 103; RESP 20; Ht 177.8 cm; Wt 116.4 kg
[2019-03-09 23:58] VITALS: BP 103/58; PULSE 91; RESP 20
[2019-03-10 04:27] VITALS: BP 119/75; PULSE 89; RESP 20
[2019-03-10] MEDS: FUROSEMIDE 40 MG INJ IV SCH ×2 (06:08→18:37)
[2019-03-10 07:19] VITALS: BP 89/56; PULSE 86; RESP 20
[2019-03-10] MEDS: LOSARTAN 25 MG TAB PO SCH (09:00)
[2019-03-10] MEDS: CEFTRIAXONE 1 GM/50 ML (PMX) 50 ML IVPB SCH (09:21)
[2019-03-10] MEDS: ASPIRIN 81 MG TAB PO SCH (09:22)
[2019-03-10] MEDS: METOLAZONE 2.5 MG TAB PO SCH (09:27)
[2019-03-10] MEDS: HEPARIN 5,000 UNIT/1 ML VIAL SC SCH ×2 (10:17→22:10)
[2019-03-10 10:56] VITALS: BP 102/67; PULSE 84; RESP 20
[2019-03-10] MEDS: AZITHROMYCIN 500MG/NS (PMX) 250 ML IVPB SCH (11:51)
[2019-03-10 15:10] VITALS: BP 108/65; PULSE 87; RESP 20
[2019-03-10 19:31] VITALS: BP 114/67; PULSE 59; RESP 23
[2019-03-10 23:37] VITALS: BP 125/67; PULSE 93; RESP 23
[2019-03-11] MEDS: LEVALBUTEROL (NEB) 0.63 MG/3 ML AMP HHN PRN ×2 (00:15→20:42)
[2019-03-11] MEDS: IPRATROPIUM (NEB) 0.5 MG/2.5 ML AMP NEB PRN ×2 (00:15→20:42)
[2019-03-11 03:19] VITALS: BP 111/61; PULSE 91; RESP 21
[2019-03-11] MEDS: AZITHROMYCIN 250 MG TAB PO SCH (06:19)
[2019-03-11] MEDS: FUROSEMIDE 40 MG INJ IV SCH ×2 (06:20→17:33)
[2019-03-11 07:19] VITALS: BP 110/76; PULSE 86; RESP 20
[2019-03-11] MEDS: CEFTRIAXONE 1 GM/50 ML (PMX) 50 ML IVPB SCH (08:16)
[2019-03-11] MEDS: ASPIRIN 81 MG TAB PO SCH (08:16)
[2019-03-11] MEDS: METOLAZONE 2.5 MG TAB PO SCH ×2 (08:16→20:39)
[2019-03-11] MEDS: LOSARTAN 25 MG TAB PO SCH (08:18)
[2019-03-11] MEDS: HEPARIN 5,000 UNIT/1 ML VIAL SC SCH ×2 (09:08→20:39)
[2019-03-11 10:57] VITALS: BP 102/62; PULSE 79; RESP 20
[2019-03-11 15:23] VITALS: BP 94/55; PULSE 72; RESP 20
[2019-03-11 17:25] VITALS: BP 104/62; PULSE 78
[2019-03-11 19:42] VITALS: BP 101/59; PULSE 77; RESP 23
[2019-03-12] VITALS: BP 107/63; PULSE 70; RESP 18
[2019-03-12 04:00] VITALS: BP 102/61; PULSE 61; RESP 18
[2019-03-12] MEDS: AZITHROMYCIN 250 MG TAB PO SCH ×2 (06:22→08:36)
[2019-03-12] MEDS: FUROSEMIDE 40 MG INJ IV SCH (06:24)
[2019-03-12 08:18] VITALS: BP 100/74; PULSE 73; RESP 19
[2019-03-12] MEDS: CEFTRIAXONE 1 GM/50 ML (PMX) 50 ML IVPB SCH (08:36)
[2019-03-12] MEDS: ASPIRIN 81 MG TAB PO SCH (08:37)
[2019-03-12] MEDS: METOLAZONE 2.5 MG TAB PO SCH (08:37)
[2019-03-12] MEDS: HEPARIN 5,000 UNIT/1 ML VIAL SC SCH (08:54)
[2019-03-12] MEDS ORDERED: POTASSIUM CHLORIDE (SR) 20 MEQ TAB PO STA (09:30)
== END 2019-03-12 10:55 | disposition home or self-care (01) | DRG 280 ==
LOC: E/R 20:13 → 6WM 22:10 → CANRESERV 03-09 17:04
PROVIDERS: ADMIT Internal Medicine; ATTEND Internal Medicine
DX: I11.0 Hypertensive heart disease with heart failure (principal); J18.9 Pneumonia, unspecified organism; I21.A1 Myocardial infarction type 2; I50.23 Acute on chronic systolic (congestive) heart failure; I42.0 Dilated cardiomyopathy; I42.7 Cardiomyopathy due to drug and external agent; F15.188 Other stimulant abuse with other stimulant-induced disorder; Z91.19 Patient's noncompliance with other medical treatment and regimen; D64.9 Anemia, unspecified; D72.819 Decreased white blood cell count, unspecified; Z79.82 Long term (current) use of aspirin; Z98.84 Bariatric surgery status
CPT/HCPCS: 36415; 71045; 80048; 80053; 80061; 82550; 82553; 83735; 83880; 84100; 84484; 85025; 85610; 85730; 87045; 87075; 93005; 93970; 94640; 94664; 96374; J0456; J0696; J1644; J1940